=== PATIENT | female | born 1960 | race African-American/Black ===

== ENCOUNTER 2016-06-14 09:30 | Emergency (ER) | payer MEDICARE, OTHER ==
[~2016-06-14] VITALS: Ht 170.2 cm; Wt 78.9 kg
[~2016-06-14 09:30] MED LIST: ASPI81TA2 PO; DIAZ2TAB PO; DIPH50CA37 PO; HYDR-552 PO; INSU100I5 SQ; LORA1TAB PO; OXYC-128 PO
[2016-06-14] MEDS ORDERED: IV SET PRIMARY PUMP SET 1 EA INFUS.SET MC ONE (09:52)
[2016-06-14] MEDS ORDERED: IV NS 0.9% 1,000 ML ONE (09:52)
[2016-06-14] MEDS ORDERED: LORAZEPAM INJ 2 MG/ML VIAL ONE (09:53)
[2016-06-14] MEDS ORDERED: IV NS 0.9% 1,000 ML BAG IV ONE (10:00)
[2016-06-14] MEDS ORDERED: LORAZEPAM INJ 2 MG/ML VIAL IV ONE (10:00)
[2016-06-14 10:07] LABS: BASOPHILS % (AUTO) 0.4 % (0.0-2.0); DIFF TOTAL % 100 %; EOSINOPHILS # (AUTO) 0.1 /CMM (0.0-0.7); EOSINOPHILS % (AUTO) 1.2 % (0.0-6.0); HEMATOCRIT 44 % (33-45); LYMPHOCYTES # (AUTO) 1.3 /CMM (0.8-4.8); LYMPHOCYTES % (AUTO) 17.6 % (20.0-44.0); MEAN CORPUSCULAR HEMOGLOBIN 30 PG (26.0-33.0); MEAN CORPUSCULAR HGB CONC 32 g/dl (31.0-36.0); MEAN CORPUSCULAR VOLUME 94 fL (82-100); MONOCYTES # (AUTO) 0.3 /CMM (0.1-1.30); MONOCYTES % (AUTO) 4.1 % (2.0-12.0); NEUTROPHILS # (AUTO) 5.7 /CMM (1.8-8.9); NEUTROPHILS % (AUTO) 76.7 % (43.0-81.0); PLATELET COUNT (AUTO) 278 /CMM (150-450); RED BLOOD CELL COUNT(AUTO) 4.68 MIL/uL (4.0-5.2); WHITE BLOOD COUNT (AUTO) 7.4 K/uL (4.3-11.0)
[2016-06-14 10:21] LABS: ANION GAP 14 (5-14); CALCIUM, SERUM 8.9 mg/dL (8.5-10.1); CARBON DIOXIDE 27 mmol/L (21-32); CHLORIDE 99 mmol/L (98-107); CREATININE 0.7 mg/dL (0.6-1.3); GFR 106 mL/min (>60); POTASSIUM 4.2 mmol/L (3.5-5.1); SODIUM SERUM 136 mmol/L (136-145); UREA NITROGEN, BLOOD 8 mg/dL (7-18)
[2016-06-14 10:24] LABS: GLUCOSE 497 mg/dL (74-106)
[2016-06-14 10:25] LABS: INR 0.96 (0.87-1.13); PROTHROMBIN TIME 10.1 SECS (9.5-12.7)
[2016-06-14 10:28] LABS: TROPONIN I < 0.017 ng/mL (0.00-0.056)
[2016-06-14] MEDS ORDERED: INSULIN REGULAR, HUMAN 100 UNIT/ML 10 ML VIAL IV ONE (10:30)
[2016-06-14] MEDS ORDERED: INSULIN REGULAR, HUMAN 100 UNIT/ML 10 ML VIAL ONE (10:30)
[2016-06-14] MEDS ORDERED: INSULIN REGULAR, HUMAN 100 UNIT/ML 10 ML VIAL SQ ONE (11:00)
[2016-06-14 11:57] VITALS: BP 120/88
== END 2016-06-14 11:58 | disposition home or self-care (01) ==
LOC: ER 09:32
DX: E11.65 Type 2 diabetes mellitus with hyperglycemia (principal); B35.1 Tinea unguium; R25.2 Cramp and spasm; F41.9 Anxiety disorder, unspecified; J45.909 Unspecified asthma, uncomplicated; M19.90 Unspecified osteoarthritis, unspecified site; I26.99 Other pulmonary embolism without acute cor pulmonale; Z79.82 Long term (current) use of aspirin; Z79.4 Long term (current) use of insulin
CPT/HCPCS: 36415; 71010; 80048; 82962 ×2; 84484; 85025; 85730; 93005; 96372; 96374; 99285; A4606; J1815; J2060; J7030; Z7610

== ENCOUNTER 2016-08-08 21:33 | Emergency (ER) | payer MEDICARE, OTHER ==
[~2016-08-08] VITALS: Ht 170.2 cm; Wt 77.1 kg
[2016-08-08 21:40] VITALS: BP 100/67
--- NOTE | 2016-08-08 22:38 | NUR ---
called to rm, no answer.
--- NOTE | 2016-08-08 22:49 | NUR ---
CALLED NO ANSWER.
--- NOTE | 2016-08-08 23:08 | NUR ---
called no answer.
== END 2016-08-08 23:08 | disposition left against medical advice (07) ==
LOC: ER 21:42
DX: Z53.21 Procedure and treatment not carried out due to patient leaving prior to being seen by health care provider (principal)
CPT/HCPCS: A4606; Z7610

== ENCOUNTER 2016-09-29 19:40 | Emergency (ER) | payer MEDICARE, OTHER ==
[~2016-09-29] VITALS: Ht 170.2 cm; Wt 72.6 kg
[2016-09-29 20:13] LABS: APPEARANCE,URINE Clear (CLEAR); BILIRUBIN,URINE Negative (NEGATIVE); BLOOD, URINE Negative Ery/uL (NEGATIVE); COLOR,URINE Yellow (YELLOW); KETONES,URINE Negative (NEGATIVE); LEUKOCYTE ESTERASE ,URINE Negative (NEGATIVE); NITRITE, URINE Negative (NEGATIVE); PROTEIN,URINE Negative (NEGATIVE); UGLUCOSE 500 MG/DL mg/dL (NEGATIVE); UROBILINOGEN,URINE 0.2 EU/dL (0.2)
[2016-09-29] MEDS ORDERED: IV NS 0.9% 1,000 ML BAG IV ONE (20:30)
--- NOTE | 2016-09-29 20:30 | NUR ---
PT PRESENTED TO THE ER WITH A C/O PAIN WITH URINATION. PT STATED THAT SHE HAS NEVER FELT THIS BEFORE. PT GAVE A URINE SAMPLE AND PT AMBULATED TO BED #4.
--- NOTE | 2016-09-29 20:32 | NUR ---
DR. FORDE IS AT THE BEDSIDE.
[2016-09-29] MEDS ORDERED: IV SET PRIMARY 1 EA INFUS.SET MC ONE (20:38)
[2016-09-29] MEDS ORDERED: IV NS 0.9% 1,000 ML ONE (20:38)
--- NOTE | 2016-09-29 20:39 | NUR ---
IV STARTED AND BLOOD DRAWN. LAB CALLED FOR P/U.
[2016-09-29 20:52] LABS: BASOPHILS # (AUTO) 0.2 /CMM (0.0-0.2); BASOPHILS % (AUTO) 2.6 % (0.0-2.0); EOSINOPHILS # (AUTO) 0.1 /CMM (0.0-0.7); EOSINOPHILS % (AUTO) 1.4 % (0.0-6.0); HEMATOCRIT 39 % (33-45); HEMOGLOBIN 12.6 g/dL (11.5-14.8); LYMPHOCYTES # (AUTO) 1.6 /CMM (0.8-4.8); LYMPHOCYTES % (AUTO) 20.9 % (20.0-44.0); MEAN CORPUSCULAR HEMOGLOBIN 29 PG (26.0-33.0); MEAN CORPUSCULAR HGB CONC 32 g/dl (31.0-36.0); MEAN CORPUSCULAR VOLUME 90 fL (82-100); MONOCYTES # (AUTO) 0.5 /CMM (0.1-1.30); MONOCYTES % (AUTO) 7.1 % (2.0-12.0); NEUTROPHILS # (AUTO) 5.1 /CMM (1.8-8.9); PLATELET COUNT (AUTO) 290 /CMM (150-450); RDW COEFFICIENT OF VARIATION 11.4 (11.5-15.0); RED BLOOD CELL COUNT(AUTO) 4.34 MIL/uL (4.0-5.2); WHITE BLOOD COUNT (AUTO) 7.5 K/uL (4.3-11.0)
[2016-09-29] MEDS ORDERED: HYDROCODONE/APAP 5/325MG 1 EACH TABLET ONE (21:01)
[2016-09-29 21:17] LABS: ALBUMIN 3.4 g/dL (3.4-5.0); BILIRUBIN,DIRECT 0.1 mg/dL (0.0-0.2); BILIRUBIN,TOTAL 0.5 mg/dL (0.2-1.0); CALCIUM, SERUM 9.3 mg/dL (8.5-10.1); CREATININE 0.7 mg/dL (0.6-1.3); POTASSIUM 3.9 mmol/L (3.5-5.1); TOTAL PROTEIN, SERUM 7.4 g/dL (6.4-8.2)
[2016-09-29] MEDS ORDERED: HYDROCODONE/APAP 5/325MG 1 EACH TABLET PO ONE (21:30)
[2016-09-29] MEDS ORDERED: INSULIN REGULAR, HUMAN 100 UNIT/ML 10 ML VIAL ONE (21:31)
--- NOTE | 2016-09-29 21:38 | NUR ---
VERIFIED REGULAR INSULIN 8UNITS SQ WITH PASTEURIZER HELPER NORY.
[2016-09-29] MEDS ORDERED: INSULIN REGULAR, HUMAN 100 UNIT/ML 10 ML VIAL SQ ONE (22:00)
[2016-09-29 22:14] VITALS: BP 147/80
== END 2016-09-29 22:17 | disposition home or self-care (01) ==
LOC: ER 19:42
DX: E11.65 Type 2 diabetes mellitus with hyperglycemia (principal); B00.9 Herpesviral infection, unspecified; F41.9 Anxiety disorder, unspecified; J45.909 Unspecified asthma, uncomplicated; G61.0 Guillain-Barre syndrome; M19.90 Unspecified osteoarthritis, unspecified site; Z79.4 Long term (current) use of insulin; Z79.82 Long term (current) use of aspirin; Z86.711 Personal history of pulmonary embolism; Z98.890 Other specified postprocedural states
CPT/HCPCS: 36415; 80048-TC; 80076-TC; 81000-TC; 82962-TC; 83690-TC; 85025-TC; 87086-TC; 87210-TC; A4606; J1815; J7030; Z7610

== ENCOUNTER 2016-12-09 14:29 | Emergency (ER) | payer MEDICARE, OTHER ==
[~2016-12-09] VITALS: Ht 172.7 cm; Wt 70.3 kg
--- NOTE | 2016-12-09 14:32 | NUR ---
PT AMBULATORY TO ER BED 10. C/O DIARRHEA SINCE FRIDAY. NAUSEA NO VOMITING. PT APPEARS ANXIOUS STATING SHES BEEN STRESSING ABOUT . GOWNED AND PLACED ON MOINTOR. STABLE VITALS AWAITING MD GARCIA.
--- NOTE | 2016-12-09 15:25 | NUR ---
KATARINA MONTANEZ AT BEDSIDE FOR EVAL.
--- NOTE | 2016-12-09 15:38 | NUR ---
IV LINE STARTED BLOOD DRAWN AND SENT TO LAB.
[2016-12-09 15:52] LABS: HEMOGLOBIN 12.9 g/dL (11.5-14.8); RED BLOOD CELL COUNT(AUTO) 4.19 MIL/uL (4.0-5.2); WHITE BLOOD COUNT (AUTO) 5.8 K/uL (4.3-11.0)
[2016-12-09 15:55] LABS: HEMATOCRIT 39 % (33-45); MEAN CORPUSCULAR HEMOGLOBIN 31 PG (26.0-33.0); MEAN CORPUSCULAR HGB CONC 33 g/dl (31.0-36.0); MEAN CORPUSCULAR VOLUME 92 fL (82-100); PLATELET COUNT (AUTO) 243 /CMM (150-450); RDW COEFFICIENT OF VARIATION 11.5 (11.5-15.0)
[2016-12-09 15:56] LABS: BASOPHILS # (AUTO) 0.1 /CMM (0.0-0.2); BASOPHILS % (AUTO) 0.9 % (0.0-2.0); EOSINOPHILS % (AUTO) 0.7 % (0.0-6.0); LYMPHOCYTES # (AUTO) 1.6 /CMM (0.8-4.8); LYMPHOCYTES % (AUTO) 27.3 % (20.0-44.0); MONOCYTES # (AUTO) 0.3 /CMM (0.1-1.30); NEUTROPHILS # (AUTO) 3.8 /CMM (1.8-8.9); NEUTROPHILS % (AUTO) 65.1 % (43.0-81.0)
[2016-12-09] MEDS ORDERED: ONDANSETRON HCL/PF 4 MG/2 ML VIAL ONE (15:59)
[2016-12-09] MEDS ORDERED: LORAZEPAM INJ 2 MG/ML VIAL ONE (16:00)
[2016-12-09] MEDS: IV NS 0.9% 1,000 ML BAG IV ONE (16:04)
[2016-12-09] MEDS: ONDANSETRON HCL/PF 4 MG/2 ML VIAL IVP ONE (16:05)
[2016-12-09] MEDS: LORAZEPAM INJ 2 MG/ML VIAL IV ONE (16:08)
[2016-12-09 16:20] LABS: ALBUMIN 3.6 g/dL (3.4-5.0); BILIRUBIN,DIRECT 0.1 mg/dL (0.0-0.2); BILIRUBIN,TOTAL 0.7 mg/dL (0.2-1.0); CALCIUM, SERUM 8.7 mg/dL (8.5-10.1); CREATININE 0.9 mg/dL (0.6-1.3); TOTAL PROTEIN, SERUM 7.5 g/dL (6.4-8.2)
[2016-12-09 16:24] LABS: INR 0.95 (0.87-1.13); PROTHROMBIN TIME 9.9 SECS (9.5-12.7)
[2016-12-09 16:58] LABS: BILIRUBIN,URINE Negative (NEGATIVE); BLOOD, URINE Negative Ery/uL (NEGATIVE); COLOR,URINE Light yellow (YELLOW); KETONES,URINE Negative (NEGATIVE); LEUKOCYTE ESTERASE ,URINE Negative (NEGATIVE); NITRITE, URINE Negative (NEGATIVE); PROTEIN,URINE Negative (NEGATIVE); UGLUCOSE >=1000 mg/dL (NEGATIVE); UROBILINOGEN,URINE 0.2 EU/dL (0.2)
[2016-12-09 16:59] LABS: APPEARANCE,URINE SLIGHTLY HAZY (CLEAR)
[2016-12-09 17:03] LABS: BACTERIA,URINE None seen /HPF (None Seen); RBC,URINE 0-2 /HPF (0-2); SQUAMOUS EPITHELIAL CELL,UR Few /HPF (None Seen); WBC,URINE 0-3 /HPF (0-3)
[2016-12-09] MEDS ORDERED: INSULIN REGULAR, HUMAN 100 UNIT/ML 10 ML VIAL ONE (17:08)
[2016-12-09] MEDS: INSULIN REGULAR, HUMAN 100 UNIT/ML 10 ML VIAL IV ONE (17:10)
--- NOTE | 2016-12-09 17:54 | NUR ---
Patient discharged to home in stable condition. Written and verbal after care instructions given. Patient verbalizes understanding of instruction.IV removed. Catheter intact and site benign. Pressure and 4x4 applied to site. No bleeding noted.
[2016-12-09 17:55] VITALS: BP 132/77
== END 2016-12-09 17:56 | disposition home or self-care (01) ==
LOC: ER 14:32
DX: R19.7 Diarrhea, unspecified (principal); E11.65 Type 2 diabetes mellitus with hyperglycemia; J45.909 Unspecified asthma, uncomplicated; F41.9 Anxiety disorder, unspecified; M19.90 Unspecified osteoarthritis, unspecified site; Z79.4 Long term (current) use of insulin; Z79.82 Long term (current) use of aspirin; Z86.711 Personal history of pulmonary embolism
CPT/HCPCS: 36415; 80048-TC; 80076-TC; 81000-TC; 82962-TC; 83690-TC; 85025-TC; 85730-TC; A4606; J1815; J2060; J2405; J7030; Z7610

== ENCOUNTER 2017-01-23 11:16 | Emergency (ER) | payer MEDICARE, OTHER ==
[~2017-01-23] VITALS: Ht 170.2 cm; Wt 68.0 kg
[2017-01-23 11:56] VITALS: BP 116/79
== END 2017-01-23 11:58 | disposition home or self-care (01) ==
LOC: ER 11:21
DX: R19.7 Diarrhea, unspecified (principal); E11.9 Type 2 diabetes mellitus without complications; J45.909 Unspecified asthma, uncomplicated; G61.0 Guillain-Barre syndrome; F41.9 Anxiety disorder, unspecified; M19.90 Unspecified osteoarthritis, unspecified site; Z79.4 Long term (current) use of insulin; Z79.82 Long term (current) use of aspirin; Z86.711 Personal history of pulmonary embolism
CPT/HCPCS: 99283; A4606 ×2; Z7610

== ENCOUNTER 2017-02-17 17:43 | Emergency (ER) | payer MEDICARE, OTHER ==
[~2017-02-17] VITALS: Ht 170.2 cm; Wt 68.0 kg
--- NOTE | 2017-02-17 19:00 | NUR ---
BIB FAMILY C/O DIZZINESS AND ON & OFF CHEST PAIN X 6 DAYS, NAD NOTED, VSS, RESP EVEN AND UNLABORED. SKIN WARM AND DRY. WAITING FOR MD GARCIA.
[2017-02-17] MEDS ORDERED: IV NS 0.9% 500 ML BAG IV ONE (19:30)
[2017-02-17] MEDS ORDERED: MORPHINE SULFATE INJ 2 MG/ML DISP.SYRIN IV ONE (19:30)
[2017-02-17] MEDS ORDERED: ONDANSETRON HCL/PF 4 MG/2 ML VIAL IVP ONE (19:30)
[2017-02-17] MEDS ORDERED: IV NS 0.9% 250 ML IV ONE (19:50)
[2017-02-17] MEDS ORDERED: IOHEXOL-350 100 ML VIAL IV ONE (19:50)
[2017-02-17 20:02] LABS: BASOPHILS % (AUTO) 0.1 % (0.0-2.0); EOSINOPHILS % (AUTO) 0.3 % (0.0-6.0); HEMATOCRIT 38 % (33-45); HEMOGLOBIN 13.3 g/dL (11.5-14.8); LYMPHOCYTES # (AUTO) 1.5 /CMM (0.8-4.8); LYMPHOCYTES % (AUTO) 15.7 % (20.0-44.0); MEAN CORPUSCULAR HEMOGLOBIN 32 PG (26.0-33.0); MEAN CORPUSCULAR HGB CONC 35 g/dl (31.0-36.0); MEAN CORPUSCULAR VOLUME 92 fL (82-100); MONOCYTES # (AUTO) 0.6 /CMM (0.1-1.30); MONOCYTES % (AUTO) 5.9 % (2.0-12.0); NEUTROPHILS # (AUTO) 7.3 /CMM (1.8-8.9); PLATELET COUNT (AUTO) 267 /CMM (150-450); RDW COEFFICIENT OF VARIATION 12.7 (11.5-15.0); RED BLOOD CELL COUNT(AUTO) 4.15 MIL/uL (4.0-5.2); TROPONIN I < 0.017 ng/mL (0.00-0.056); WHITE BLOOD COUNT (AUTO) 9.4 K/uL (4.3-11.0)
[2017-02-17 20:19] LABS: INR 0.9 (0.87-1.13); PROTHROMBIN TIME 9.4 SECS (9.5-12.7)
[2017-02-17 20:24] LABS: ALANINE AMINOTRANSFERASE 21 U/L (12-78); ALBUMIN 3.7 g/dL (3.4-5.0); ALKALINE PHOSPHATASE 90 U/L (46-116); ASPARTATE AMINOTRANSFERASE 12 U/L (15-37); BILIRUBIN,DIRECT 0.1 mg/dL (0.0-0.2); BILIRUBIN,TOTAL 0.6 mg/dL (0.2-1.0); CALCIUM, SERUM 9.4 mg/dL (8.5-10.1); CARBON DIOXIDE 27 mmol/L (21-32); CHLORIDE 100 mmol/L (98-107); CREATININE 0.8 mg/dL (0.6-1.3); POTASSIUM 3.7 mmol/L (3.5-5.1); SODIUM SERUM 135 mmol/L (136-145); TOTAL PROTEIN, SERUM 7.7 g/dL (6.4-8.2); UREA NITROGEN, BLOOD 9 mg/dL (7-18)
[2017-02-17 20:25] LABS: GLUCOSE 539 mg/dL (74-106)
[2017-02-17] MEDS ORDERED: INSULIN REGULAR, HUMAN 100 UNIT/ML 10 ML VIAL SQ ONE (21:00)
[2017-02-17] MEDS ORDERED: INSULIN REGULAR, HUMAN 100 UNIT/ML 10 ML VIAL ONE (21:01)
[2017-02-17 21:49] VITALS: BP 134/82
--- NOTE | 2017-02-17 21:49 | NUR ---
Patient discharged to home in stable condition. Written and verbal after care instructions given. Patient verbalizes understanding of instruction. PT ambulatory with a steady gait VITAL SIGNS WITHIN NORMAL LIMITS.IV removed. Catheter intact and site benign. Pressure and 4x4 applied to site. No bleeding noted.
== END 2017-02-17 21:51 | disposition home or self-care (01) ==
LOC: ER 17:52
DX: J06.9 Acute upper respiratory infection, unspecified (principal); E11.9 Type 2 diabetes mellitus without complications; I10 Essential (primary) hypertension; J45.909 Unspecified asthma, uncomplicated; F41.9 Anxiety disorder, unspecified; M19.90 Unspecified osteoarthritis, unspecified site; Z79.4 Long term (current) use of insulin; Z79.82 Long term (current) use of aspirin; Z86.711 Personal history of pulmonary embolism
CPT/HCPCS: 36415; 71010; 71275; 80048; 80076; 84484; 85025; 85730; 93005; 96361; 96372; 96374; 96375; 99285; A4606; J1815; J7040; J7050; Q9967; Z7610

== ENCOUNTER 2017-05-26 11:24 | Inpatient (IN) | payer MEDICARE, OTHER ==
[~2017-05-26] VITALS: Ht 170.2 cm; Wt 71.2 kg
[~2017-05-26 11:24] MED LIST changes: +ASPI-1169 PO; -ASPI81TA2 PO
--- NOTE | 2017-05-26 11:40 | NUR ---
PT CAME FROM HOME WITH C/O RT HAND PAIN X 2 DAYS, NO TRAUMA. REPORTSD TINGLING WITH IT. HS OF GBS. SEEN BY MD FOR EVAL. VSS. SAFETY AND COMFORT MEASURES PROVIDED. WILL MONITOR.
[2017-05-26] MEDS ORDERED: HYDROCODONE/APAP 5/325MG 1 EACH TABLET PO ONE (12:00)
[2017-05-26] MEDS ORDERED: HYDROCODONE/APAP 5/325MG 1 EACH TABLET ONE (12:04)
--- NOTE | 2017-05-26 12:16 | NUR ---
MURTAZA AT BS.
[2017-05-26 12:46] LABS: BASOPHILS % (AUTO) 0.7 % (0.0-2.0); EOSINOPHILS # (AUTO) 0.1 /CMM (0.0-0.7); MEAN CORPUSCULAR HEMOGLOBIN 31 PG (26.0-33.0); MEAN CORPUSCULAR HGB CONC 35 g/dl (31.0-36.0); MONOCYTES # (AUTO) 0.3 /CMM (0.1-1.30); RDW COEFFICIENT OF VARIATION 11.5 (11.5-15.0); WHITE BLOOD COUNT (AUTO) 6.9 K/uL (4.3-11.0)
[2017-05-26 12:48] LABS: EOSINOPHILS % (AUTO) 1.9 % (0.0-6.0); HEMATOCRIT 37 % (33-45); HEMOGLOBIN 12.6 g/dL (11.5-14.8); LYMPHOCYTES # (AUTO) 1.7 /CMM (0.8-4.8); LYMPHOCYTES % (AUTO) 24.1 % (20.0-44.0); MEAN CORPUSCULAR VOLUME 90 fL (82-100); NEUTROPHILS # (AUTO) 4.8 /CMM (1.8-8.9); NEUTROPHILS % (AUTO) 68.3 % (43.0-81.0); PLATELET COUNT (AUTO) 270 /CMM (150-450); RED BLOOD CELL COUNT(AUTO) 4.05 MIL/uL (4.0-5.2)
[2017-05-26 12:59] LABS: INR 0.89 (0.85-1.15)
[2017-05-26 13:03] LABS: ALBUMIN 3.4 g/dL (3.4-5.0); BILIRUBIN,DIRECT 0.1 mg/dL (0.0-0.2); BILIRUBIN,TOTAL 0.4 mg/dL (0.2-1.0); CALCIUM, SERUM 8.8 mg/dL (8.5-10.1); CREATININE 0.8 mg/dL (0.6-1.3); POTASSIUM 4.1 mmol/L (3.5-5.1); TOTAL PROTEIN, SERUM 7.5 g/dL (6.4-8.2)
[2017-05-26] MEDS ORDERED: ASPIRIN 325 MG TABLET PO ONE (13:30)
[2017-05-26] MEDS ORDERED: INSULIN DETEMIR 100 UNIT/ML CARTRIDGE SQ SCH (13:30)
[2017-05-26] MEDS ORDERED: FAMO20TA8 PO (13:53)
[2017-05-26] MEDS ORDERED: HYDR-548 PO (13:53)
[2017-05-26] MEDS ORDERED: ASPIRIN 325 MG TABLET ONE (14:05)
[2017-05-26] MEDS ORDERED: DEXTROSE 50%-WATER 50 ML DISP.SYRIN IV PRN (14:30)
--- NOTE | 2017-05-26 14:33 | NUR ---
REPORT GIVEN TO MICA HIRSCH FOR MS [id number]
[2017-05-26 15:00] VITALS: BP 125/93
--- NOTE | 2017-05-26 15:05 | NUR ---
MS/OVERHEAD CRANE TECHNICIAN NOTES RECEIVED PATIENT FROM ER VIA WHEELCHAIR. PATIENT IS A/OX4, AMBULATORY, COMPLAINS OF RIGHT ARM AND LEG WEAKNESS AND PAIN ON RIGHT SHOULDER BLADE 4/10 SCALE, OFFERED PAIN MEDS BUT REFUSED, PER PATIENT SHE JUST GOT MEDICATED FROM ER AND PAIN IS TOLERABLE AT THIS TIME. SPEECH IS CLEAR AND NO DIFFICULTY, NO FACIAL DROOPING, PATIENT IS EATING SNACK AND ABLE TO SWALLOW AND DRINK FLUIDS. NO HEADACHE, NO BLURRED VISION. IV SITE INTACT AND PATENT. VS WNL: BP 125/93, T= 97.9, P= 94, R= 18, SPO2= 100%. KEPT PATIENT SAFE AND COMFORTABLE IN BED. ALL BELONGINGS ON BEDSIDE, CHECKLIST DONE. AWAITING FOR MD'S ORDERS. BED IN LOCKED/LOW POSITION, SIDERAILS UPX2, CALL LIGHT IN REACH. WILL CONTINUE TO MONITOR ACCORDINGLY.
[2017-05-26] MEDS: BLOOD SUGAR DIAGNOSTIC 1 EACH STRIP VI SCH ×2 (17:30→23:01)
[2017-05-26] MEDS: INSULIN REGULAR, HUMAN 100 UNIT/ML 3 ML VIAL SQ PRN (18:26)
--- NOTE | 2017-05-26 18:31 | NUR ---
RN NOTES BS 511, 15 UNITS GIVEN, DR ESPINOZA NOTIFIED.
--- NOTE | 2017-05-26 18:45 | NUR ---
RN NOTES PER DR ESPINOZA, GIVE LANTUS 20 UNIT DAILY.
[2017-05-26] MEDS ORDERED: INSULIN GLARGINE, 100 UNIT/ML CARTRIDGE SQ ONE (19:00)
--- NOTE | 2017-05-26 19:30 | NUR ---
RN CLOSING NOTES PATIENT IN BED RESTING. NO ACUTE DISTRESS, NO SOB NOTED. DENIES PAIN OR DISCOMFORT. ALL NEEDS ATTENDED AND PROVIDED. KEPT PATIENT SAFE AND COMFORTABLE. BED IN LOW/LOCKED POSITION, SIDERAILS UPX2, CALL LIGHT IN REACH. ENDORSED TO NIGHT RN FOR OREN.
[2017-05-26 19:37] LABS: THYROID STIMULATING HORMONE 0.853 uIU/mL (0.358-3.74)
[2017-05-26 19:58] LABS: MAGNESIUM 1.8 mg/dL (1.8-2.4)
[2017-05-26 20:00] VITALS: BP 125/73
--- NOTE | 2017-05-26 20:00 | NUR ---
MS/RN RECEIVE PATIENT AWAKE, ALERT, ORIENTED, COMFORTABLE, NO DISTRESS NOTED, ABLE TO MOVE ALL EXTREMITIES. WILL MONITOR.
--- NOTE | 2017-05-26 20:36 | NUR ---
MS/RN PATIENT C/O PAIN RT. UPPER BACK 11/28, NO PAIN MEDICATION ORDERED, CALLED [email or web address], LEFT MESSAGE.
--- NOTE | 2017-05-26 20:53 | NUR ---
MS/RN DR. NAILS CALLED WITH ORDERS RECEIVE. ORDERS CARRIED OUT.
[2017-05-26] MEDS: KETOROLAC TROMETHAMINE INJ 30 MG/ML VIAL IV PRN (21:16)
[2017-05-26] MEDS: SIMVASTATIN 20 MG TABLET PO SCH (21:20)
--- NOTE | 2017-05-26 22:58 | NUR ---
MS/RN ACCU CHECK DONE, INITIAL RESULT 520. RECHECKED USING OTHER ACCU CHECK MACHINE, BLOOD SUGAR 429. PATIENT ASYMPTOMATIC. DUST BOX TENDER MADE AWAKE, PER DUST BOX TENDER, DO STAT BLOOD DRAW FOR RANDOM BLOOD SUGAR PER PROTOCOL.
--- NOTE | 2017-05-26 23:02 | NUR ---
MS/RN CALLED LAB SPOKE TO CUBA FOR STAT BLOOD GLUCOSE.
[2017-05-26] MEDS: LORAZEPAM 1 MG TABLET PO SCH (23:09)
[2017-05-26] MEDS: *INSULIN REGULAR(HUMULIN R)HUM 100 UNIT/ML VIAL SQ PRN (23:16)
[2017-05-26 23:33] LABS: APPEARANCE,URINE CLEAR (CLEAR); BILIRUBIN,URINE NEGATIVE (NEGATIVE); BLOOD, URINE NEGATIVE Ery/uL (NEGATIVE); COLOR,URINE YELLOW (YELLOW); KETONES,URINE NEGATIVE (NEGATIVE); LEUKOCYTE ESTERASE ,URINE NEGATIVE (NEGATIVE); NITRITE, URINE NEGATIVE (NEGATIVE); PROTEIN,URINE NEGATIVE (NEGATIVE); UGLUCOSE 3+ mg/dL (NEGATIVE); UROBILINOGEN,URINE 0.2 EU/dL (0.2)
[2017-05-26 23:35] LABS: BACTERIA,URINE Few /HPF (None Seen); RBC,URINE NONE SEEN /HPF (0-2); SQUAMOUS EPITHELIAL CELL,UR Few /HPF (None Seen); WBC,URINE 0-2 /HPF (0-3)
--- NOTE | 2017-05-27 00:19 | NUR ---
MS/RN BLOOD GLUCOSE RANDOM, 427, CALLED [facility] AND SPOKE TO DR. NAILS. PER DR. NAILS, INFORMED HIM ABOUT THE PAST BLOOD SUGAR RESULTS AND THE LANTUS AND REGULAR INSULIN THAT WERE ALREADY GIVEN. PER MD, MONITOR PATIENT AND BLOOD SUGAR. ALSO MADE AWARE MD JHA TORSANDEE THAT IS NOT WORKING ON THE PAIN PER PATIENT, RECEIVED ORDER FOR LIDOCAINE 5% 12 HOURS ON, 12 HOURS OFF. ORDERS CARRIED OUT.
[2017-05-27] MEDS: LIDOCAINE 5% (PATCH) 1 EA PATCH TP SCH (00:37)
--- NOTE | 2017-05-27 01:39 | NUR ---
MS/RN PATIENT IS SLEEPING AT THIS TIME, AROUSABLE, APPEAR COMFORTABLE, NO SIGNS OF DISTRESS NOTED, CALL LIGHT IN REACH. WILL CONTINUE TO MONITOR.
[2017-05-27] MEDS: INSULIN REGULAR, HUMAN 100 UNIT/ML 3 ML VIAL SQ PRN ×3 (06:51→17:26)
[2017-05-27] MEDS: BLOOD SUGAR DIAGNOSTIC 1 EACH STRIP VI SCH ×4 (06:54→22:15)
--- NOTE | 2017-05-27 07:10 | NUR ---
MS/RN PATIENT IS AWAKE, COMFORTABLE, NO DISTRESS NOTED, TALKING ON THE PHONE. ALL NEEDS ATTENDED AT THIS TIME. WILL CONTINUE TO MONITOR.
--- NOTE | 2017-05-27 07:39 | NUR ---
MS/RN OPENING NOTE PATIENT IN BED IN STABLE CONDITION. A/O X 4. NO SIGNS OF ACUTE DISTRESS. NO COMPLAIN OF PAIN OR DISCOMFORT. ALL NEEDS ATTENDED TO. CALL LIGHT WITHIN REACH. WILL CONTINUE TO MONITOR TO ENSURE SAFETY.
[2017-05-27 08:00] VITALS: BP 128/77
[2017-05-27] MEDS: PANTOPRAZOLE 40 MG TABLET.DR PO SCH (08:30)
[2017-05-27] MEDS: ASPIRIN EC 325 MG TABLET.DR PO SCH (08:30)
[2017-05-27] MEDS: LORAZEPAM 1 MG TABLET PO SCH ×2 (08:30→22:02)
[2017-05-27] MEDS: KETOROLAC TROMETHAMINE INJ 30 MG/ML VIAL IV PRN ×2 (14:56→22:14)
[2017-05-27 16:00] VITALS: BP 131/88
--- NOTE | 2017-05-27 17:40 | NUR ---
MS/RN SPOKE WITH DR ESPINOZA SPOKE WITH DR ESPINOZA AND INFORMED REGARDING PATIENT'S BS NOTED 429, SECOND TIME RECHECK NOTED 430 15 UNITS REGULAR INSULIN ADMINISTERED ORDERED. ALSO DR ESPINOZA MADE AWARE REGARDING PATIENT HAS LANTUS 20 UNITS DUE AT 2200. PER DR[address] ESPINOZA NO NEW ORDERS AND CONTINUE TO MONITOR. PATIENT ALSO REQUESTED TO CHANGED HER ATIVAN 1MG PO BID TO Q [address] ESPINOZA INFORMED AND OKAY TO CHANGE ORDERS FOR ATIVAN 1MG PO Q 12 HRS AT 9A AND 9P. PATIENT AWARE.
--- NOTE | 2017-05-27 18:31 | NUR ---
MS/RN CLOSING NOTE PATIENT IN BED IN STABLE CONDITION. A/O X 4. NO SIGNS OF ACUTE DISTRESS. NO COMPLAIN OF PAIN OR DISCOMFORT. ALL NEEDS ATTENDED TO. CALL LIGHT WITHIN REACH. WILL ENDORSE TO NEXT SHIFT FOR CONTINUITY OF CARE.
--- NOTE | 2017-05-27 19:32 | NUR ---
MS/RN RECEIVE PATIENT AWAKE, ALERT, ORIENTED, COMFORTABLE, NO C/O PAIN, NO DISTRESS NOTED, CALL LIGHT IN REACH. WILL MONITOR.
[2017-05-27 20:00] VITALS: BP 128/72
[2017-05-27] MEDS: SIMVASTATIN 20 MG TABLET PO SCH (22:01)
[2017-05-27] MEDS: *INSULIN REGULAR(HUMULIN R)HUM 100 UNIT/ML VIAL SQ PRN (22:06)
[2017-05-27] MEDS: INSULIN GLARGINE, 100 UNIT/ML CARTRIDGE SQ SCH (22:06)
[2017-05-28] MEDS: LIDOCAINE 5% (PATCH) 1 EA PATCH TP SCH (00:39)
--- NOTE | 2017-05-28 02:07 | NUR ---
MS/RN PATIENT IS SLEEPING AT THIS TIME, AROUSABLE, APPEAR COMFORTABLE, NO DISTRESS NOTED, CALL LIGHT IN REACH. WILL CONTINUE TO MONITOR.
--- NOTE | 2017-05-28 06:46 | NUR ---
TEXTED DR. TAPIA FOR MRI APPROVAL.
[2017-05-28] MEDS: INSULIN REGULAR, HUMAN 100 UNIT/ML 3 ML VIAL SQ PRN ×4 (06:58→18:20)
[2017-05-28] MEDS: BLOOD SUGAR DIAGNOSTIC 1 EACH STRIP VI SCH ×4 (06:59→21:40)
--- NOTE | 2017-05-28 07:00 | NUR ---
While rounding with cook night rn on change of shift endorsement. Patient was noted to be in bed laying on right side/semi-fowlers positioning. Call light with in reach. RAVI 3 mm bilateral. Noted to we weaker on right upper extremity and strong grasp on left arm. Noted to have weak bilateral LE.
[2017-05-28 07:13] LABS: BASOPHILS % (AUTO) 0.6 % (0.0-2.0); EOSINOPHILS # (AUTO) 0.1 /CMM (0.0-0.7); EOSINOPHILS % (AUTO) 2.5 % (0.0-6.0); HEMATOCRIT 34 % (33-45); HEMOGLOBIN 11.9 g/dL (11.5-14.8); LYMPHOCYTES # (AUTO) 1.3 /CMM (0.8-4.8); LYMPHOCYTES % (AUTO) 29.1 % (20.0-44.0); MEAN CORPUSCULAR HEMOGLOBIN 32 PG (26.0-33.0); MEAN CORPUSCULAR HGB CONC 35 g/dl (31.0-36.0); MEAN CORPUSCULAR VOLUME 91 fL (82-100); MONOCYTES # (AUTO) 0.3 /CMM (0.1-1.30); MONOCYTES % (AUTO) 7.3 % (2.0-12.0); NEUTROPHILS # (AUTO) 2.8 /CMM (1.8-8.9); NEUTROPHILS % (AUTO) 60.5 % (43.0-81.0); PLATELET COUNT (AUTO) 243 /CMM (150-450); RDW COEFFICIENT OF VARIATION 12.2 (11.5-15.0); RED BLOOD CELL COUNT(AUTO) 3.74 MIL/uL (4.0-5.2); WHITE BLOOD COUNT (AUTO) 4.6 K/uL (4.3-11.0)
--- NOTE | 2017-05-28 07:14 | NUR ---
MS/RN AWAKE, ALERT, ORIENTED, COMFORTABLE, TALKING TO THE PHONE, MRI CHECKLIST COMPLETED. ALL NEEDS ATTENDED AT THIS TIME. WILL CONTINUE TO MONITOR.
[2017-05-28 07:23] LABS: CALCIUM, SERUM 8.5 mg/dL (8.5-10.1); CREATININE 0.5 mg/dL (0.6-1.3); MAGNESIUM 1.9 mg/dL (1.8-2.4); POTASSIUM 3.8 mmol/L (3.5-5.1)
[2017-05-28 08:00] VITALS: BP 124/68
[2017-05-28] MEDS: PANTOPRAZOLE 40 MG TABLET.DR PO SCH (09:00)
[2017-05-28] MEDS: LORAZEPAM 1 MG TABLET PO SCH ×2 (09:10→21:31)
[2017-05-28] MEDS: ASPIRIN EC 325 MG TABLET.DR PO SCH (09:10)
[2017-05-28] MEDS: KETOROLAC TROMETHAMINE INJ 30 MG/ML VIAL IV PRN (10:35)
--- NOTE | 2017-05-28 11:30 | NUR ---
Patient none-compliant with plan of care. Noted family at beside; patient is off the unit for a MRI procedure. Noted outside food brought in by family/ from outside. Patient teaching and compliance with treatment plan.
--- NOTE | 2017-05-28 13:35 | NUR ---
Pending call out to Dr. Harrison, Patient chief compliant is H.A. that is not alleviated by prn pain medication. Noted with no cardio/pulmonary distress at this point and time. Call light with in reach. Family at bedside. None-compliance with diet; patient/family is bringing food from outside.
[2017-05-28] MEDS ORDERED: ACETAMINOPHEN 325 MG TABLET PO PRN (14:30)
[2017-05-28 16:00] VITALS: BP 124/69
--- NOTE | 2017-05-28 18:21 | NUR ---
Patient is refusing insulin coverage. Patient non-compliant with diabetic plan of care and diet. Patient and family teaching on importance of compliance to plan of care. Patient refused insulin x 3, Sx consult pending.
--- NOTE | 2017-05-28 19:59 | NUR ---
MS/RN RECEIVE PATIENT AWAKE, ALERT, ORIENTED, COMFORTABLE, NO C/O PAIN AT THIS TIME, NO DISTRESS NOTED. CALL LIGHT IN REACH. WILL MONITOR.
[2017-05-28 20:00] VITALS: BP 102/63
[2017-05-28] MEDS: INSULIN GLARGINE, 100 UNIT/ML CARTRIDGE SQ SCH (21:41)
--- NOTE | 2017-05-28 21:42 | NUR ---
MS/RN BLOOD SUGAR 259, REFUSED LANTUS 20 UNITS AND REGULAR INSULIN 6 UNITS PER SLIDING SCALE.
[2017-05-28] MEDS: SIMVASTATIN 20 MG TABLET PO SCH (22:00)
--- NOTE | 2017-05-28 22:00 | NUR ---
MS/RN OFFERED SNACK TUNA OR EGG SANDWICH, BUT PATIENT REFUSED.
[2017-05-29] MEDS: LIDOCAINE 5% (PATCH) 1 EA PATCH TP SCH (00:23)
[2017-05-29] MEDS: KETOROLAC TROMETHAMINE INJ 30 MG/ML VIAL IV PRN (04:27)
[2017-05-29 06:36] LABS: BASOPHILS % (AUTO) 0.6 % (0.0-2.0); EOSINOPHILS # (AUTO) 0.2 /CMM (0.0-0.7); EOSINOPHILS % (AUTO) 4.3 % (0.0-6.0); HEMATOCRIT 32 % (33-45); HEMOGLOBIN 11.5 g/dL (11.5-14.8); LYMPHOCYTES # (AUTO) 1.4 /CMM (0.8-4.8); MEAN CORPUSCULAR HEMOGLOBIN 32 PG (26.0-33.0); MEAN CORPUSCULAR HGB CONC 36 g/dl (31.0-36.0); MEAN CORPUSCULAR VOLUME 90 fL (82-100); MONOCYTES # (AUTO) 0.4 /CMM (0.1-1.30); MONOCYTES % (AUTO) 7.4 % (2.0-12.0); NEUTROPHILS # (AUTO) 2.9 /CMM (1.8-8.9); NEUTROPHILS % (AUTO) 58.7 % (43.0-81.0); PLATELET COUNT (AUTO) 233 /CMM (150-450); RDW COEFFICIENT OF VARIATION 12.1 (11.5-15.0); RED BLOOD CELL COUNT(AUTO) 3.59 MIL/uL (4.0-5.2); WHITE BLOOD COUNT (AUTO) 4.9 K/uL (4.3-11.0)
[2017-05-29 06:56] LABS: CALCIUM, SERUM 8.1 mg/dL (8.5-10.1); CREATININE 0.5 mg/dL (0.6-1.3); MAGNESIUM 1.8 mg/dL (1.8-2.4); PHOSPHORUS 3.7 mg/dL (2.5-4.9)
--- NOTE | 2017-05-29 07:00 | NUR ---
WHILE ROUND AT CHANGE OF SHIFT. PATIENT WAS NOTED TO BE AWAKE IN BED ON THE PHONE. NOTED OUTSIDE DRINKS, CALL LIGHT WITH IN REACH. PATIENT ON RIGHT SIDE ON SEMI-KIDD'S POSITION. NO EPISODES OF HYPO/HYPER GLYCEMIA ON DENTAL AIDE. PATIENT IS STABLE AT THIS POINT AND TIME. NO CARDIOPULMONARY DISTRESS ON PREVIOUS SHIFT. NO ACTIVE S/S OF ACUTE STROKE ON DENTAL AIDE AND AT THIS POINT AND TIME.
--- NOTE | 2017-05-29 07:13 | NUR ---
MS/RN ACCU CHECK DONE, BLOOD SUGAR 252, REFUSED INSULIN COVERAGE AT THIS TIME.
[2017-05-29] MEDS: BLOOD SUGAR DIAGNOSTIC 1 EACH STRIP VI SCH (07:35)
[2017-05-29 08:00] VITALS: BP 107/57
[2017-05-29] MEDS: PANTOPRAZOLE 40 MG TABLET.DR PO SCH (08:21)
[2017-05-29] MEDS: LORAZEPAM 1 MG TABLET PO SCH (08:22)
[2017-05-29] MEDS: ASPIRIN EC 325 MG TABLET.DR PO SCH (08:22)
[2017-05-29] MEDS ORDERED: ASPI-869 PO (10:08)
[2017-05-29] MEDS ORDERED: SIMV20TA6 PO (10:08)
--- NOTE | 2017-05-29 13:15 | NUR ---
PATIENT DISCHARGED HOME. PATIENT IS STABLE, SEEN BY NEUROLOGIST. NO EPISODES OF HYPO/HYPERGLYCEMIA ON SHIFT. PATIENT IS NONE-COMPLIANT WITH INSULIN COVERAGE. FOLLOW UP APPOINTMENT WITH DR. RIVAS IN 2 WEEKS FOR SCHEDULING NECK SURGERY. PATIENT DECLINED PNA, FLU, VACCINE. TEACHING MATERIAL GIVEN TO PATIENT IN REFERENCE TO HIGH RISK STROKE. PATIENT TEACHING ON S/S OF ACUTE STROKE AND TO CALL 911 IT IS A MEDICAL EMERGENCY. PATIENT STABLE UPON DISCHARGE. DISCONTINUED I.V. TO LEFT HAND. PATIENT IS AWARE TO FOLLOW UP WITH PRIMARY CARE PHYSICIAN IN TWO DAYS.
[2017-05-29] MEDS ORDERED: DEXA4TAB2 GT (13:48)
== END 2017-05-29 13:10 | disposition home or self-care (01) | DRG 74 ==
LOC: ER 11:29 → MED 14:39
PROVIDERS: ADMIT Internal Medicine; ATTEND Internal Medicine
DX: M54.12 Radiculopathy, cervical region (principal); M48.02 Spinal stenosis, cervical region; R53.1 Weakness; E11.9 Type 2 diabetes mellitus without complications; J45.909 Unspecified asthma, uncomplicated; Z86.73 Personal history of transient ischemic attack (TIA), and cerebral infarction without residual deficits; G89.29 Other chronic pain; R27.0 Ataxia, unspecified; Z79.4 Long term (current) use of insulin
CPT/HCPCS: 36415; 70450-TC; 70551-TC; 71045-TC; 72125-TC; 72141-TC; 80048-TC; 80061-TC; 80076-TC; 80305; 81000-TC; 82550-TC; 82945-TC; 82962-TC; 83735-TC; 83880; 84100-TC; 84443-TC; 84484-TC; 85025-TC; 85652-TC; 85730-TC; 87081-TC; 87086-TC; 93307-TC; A4606; J1815; J1885; Z7610

== ENCOUNTER 2017-06-09 17:48 | Emergency (ER) | payer MEDICARE, OTHER ==
[~2017-06-09] VITALS: Ht 170.2 cm; Wt 68.0 kg
[~2017-06-09 17:48] MED LIST changes: -ASPI-1169 PO; +ASPI-869 PO; +DEXA4TAB2 GT; -DIAZ2TAB PO; -DIPH50CA37 PO; +FAMO20TA8 PO; +HYDR-548 PO; -HYDR-552 PO; -OXYC-128 PO; +SIMV20TA6 PO
--- NOTE | 2017-06-09 18:06 | NUR ---
PT TO ED DT DIARRHEA SINCE LAST NIGHT, PT IS COMPLAINING OF SLIGHT ABDOMINAL CRAMPS. PT IN NO DISTRESS. DENIES VOMITTING. VSS. AFEBRILE.
[2017-06-09] MEDS ORDERED: DICYCLOMINE HCL 10 MG CAPSULE PO ONE ×2 (18:30→18:31)
[2017-06-09 18:33] VITALS: BP 130/70
--- NOTE | 2017-06-09 18:34 | NUR ---
Patient discharged to home in stable condition. Written and verbal after care instructions given. Patient verbalizes understanding of instruction.
== END 2017-06-09 18:34 | disposition home or self-care (01) ==
LOC: ER 17:49
DX: R19.7 Diarrhea, unspecified (principal); R00.0 Tachycardia, unspecified; J45.909 Unspecified asthma, uncomplicated; E11.9 Type 2 diabetes mellitus without complications; F41.9 Anxiety disorder, unspecified; M19.90 Unspecified osteoarthritis, unspecified site; G61.0 Guillain-Barre syndrome; Z86.711 Personal history of pulmonary embolism; Z79.82 Long term (current) use of aspirin; Z79.4 Long term (current) use of insulin
CPT/HCPCS: A4606; Z7610

== ENCOUNTER 2017-07-03 13:39 | Inpatient (IN) | payer MEDICARE, OTHER ==
[~2017-07-03] VITALS: Ht 170.2 cm; Wt 70.3 kg
[2017-07-03] MEDS ORDERED: ONDANSETRON HCL/PF 4 MG/2 ML VIAL ONE (14:27)
[2017-07-03] MEDS ORDERED: MORPHINE SULFATE INJ 4 MG/ML DISP.SYRIN ONE (14:27)
[2017-07-03] MEDS ORDERED: ASPIRIN 81 MG TAB.CHEW ONE (14:28)
[2017-07-03] MEDS ORDERED: ASPIRIN 81 MG TAB.CHEW PO ONE (14:30)
[2017-07-03] MEDS ORDERED: MORPHINE SULFATE INJ 2 MG/ML DISP.SYRIN IV ONE (14:30)
[2017-07-03] MEDS ORDERED: ONDANSETRON HCL/PF 4 MG/2 ML VIAL IVP ONE (14:30)
[2017-07-03 14:41] LABS: BASOPHILS % (AUTO) 0.2 % (0.0-2.0); EOSINOPHILS # (AUTO) 0.6 /CMM (0.0-0.7); EOSINOPHILS % (AUTO) 9.4 % (0.0-6.0); HEMATOCRIT 37 % (33-45); HEMOGLOBIN 13.3 g/dL (11.5-14.8); LYMPHOCYTES # (AUTO) 1.2 /CMM (0.8-4.8); LYMPHOCYTES % (AUTO) 19.4 % (20.0-44.0); MEAN CORPUSCULAR HEMOGLOBIN 32 PG (26.0-33.0); MEAN CORPUSCULAR HGB CONC 35 g/dl (31.0-36.0); MEAN CORPUSCULAR VOLUME 91 fL (82-100); MONOCYTES # (AUTO) 0.3 /CMM (0.1-1.30); MONOCYTES % (AUTO) 5.3 % (2.0-12.0); NEUTROPHILS # (AUTO) 3.9 /CMM (1.8-8.9); NEUTROPHILS % (AUTO) 65.7 % (43.0-81.0); PLATELET COUNT (AUTO) 268 /CMM (150-450); RDW COEFFICIENT OF VARIATION 11.7 (11.5-15.0); RED BLOOD CELL COUNT(AUTO) 4.13 MIL/uL (4.0-5.2)
[2017-07-03 14:55] LABS: INR 0.93 (0.85-1.15)
[2017-07-03 14:58] LABS: ALANINE AMINOTRANSFERASE 13 U/L (12-78); ALBUMIN 3.4 g/dL (3.4-5.0); ALKALINE PHOSPHATASE 71 U/L (46-116); ASPARTATE AMINOTRANSFERASE 13 U/L (15-37); BILIRUBIN,DIRECT 0.2 mg/dL (0.0-0.2); BILIRUBIN,TOTAL 0.5 mg/dL (0.2-1.0); CARBON DIOXIDE 26 mmol/L (21-32); CHLORIDE 98 mmol/L (98-107); POTASSIUM 4.1 mmol/L (3.5-5.1); SODIUM SERUM 133 mmol/L (136-145); TOTAL PROTEIN, SERUM 7.5 g/dL (6.4-8.2); UREA NITROGEN, BLOOD 10 mg/dL (7-18)
[2017-07-03 14:59] LABS: TROPONIN I < 0.017 ng/mL (0.00-0.056)
[2017-07-03 15:01] LABS: GLUCOSE 583 mg/dL (74-106)
[2017-07-03] MEDS ORDERED: IV NS 0.9% 1,000 ML BAG IV ONE (15:30)
[2017-07-03] MEDS ORDERED: INSULIN REGULAR, HUMAN 100 UNIT/ML 10 ML VIAL IV ONE (15:30)
[2017-07-03] MEDS ORDERED: ASPI-869 PO (15:33)
[2017-07-03] MEDS ORDERED: INSULIN REGULAR, HUMAN 100 UNIT/ML 10 ML VIAL ONE (15:33)
--- NOTE | 2017-07-03 16:00 | NUR ---
PT CAME IN WITH C/O CHEST PAIN, R HAND NUMBNESS x 1 HR. VSS. SEEN BY MD FOR EVAL. SAFETY AND COMFORT MEASURES PROVIDED. WILL MONITOR.
--- NOTE | 2017-07-03 16:23 | NUR ---
CALLED [employer] OLAP DEVELOPER WAS PAGED.
--- NOTE | 2017-07-03 16:30 | NUR ---
IV ACCESS STARTED, BLOOD DRAWN FOR LABS. MEDICATED ORDERED.
[2017-07-03] MEDS ORDERED: ONDANSETRON HCL/PF 4 MG/2 ML VIAL IVP PRN (17:00)
[2017-07-03] MEDS ORDERED: ZOLPIDEM TARTRATE 5 MG TABLET PO PRN (17:00)
[2017-07-03] MEDS ORDERED: DEXTROSE 50%-WATER 50 ML DISP.SYRIN IV PRN (17:00)
[2017-07-03] MEDS ORDERED: MAG HYDROX/AL HYDROX/SIMETH 30 ML UDC PO PRN (17:00)
[2017-07-03] MEDS ORDERED: HYDROCODONE/APAP 10/325MG 1 EA TABLET PO PRN (17:00)
[2017-07-03] MEDS ORDERED: ACETAMINOPHEN 325 MG TABLET PO PRN (17:00)
[2017-07-03] MEDS ORDERED: *INSULIN REGULAR(HUMULIN R)HUM 100 UNIT/ML VIAL SQ PRN (17:00)
[2017-07-03] MEDS ORDERED: HYDROCODONE/APAP 5/325MG 1 EACH TABLET PO PRN (17:00)
[2017-07-03] MEDS ORDERED: Z GUARD REMEDY 2 OZ OINT TP PRN (17:00)
[2017-07-03] MEDS ORDERED: MORPHINE SULFATE INJ 4 MG/ML DISP.SYRIN IV PRN (17:00)
[2017-07-03] MEDS ORDERED: MAGNESIUM HYDROXIDE 30 ML UDC PO PRN (17:00)
[2017-07-03] MEDS ORDERED: LORAZEPAM 1 MG TABLET PO PRN (17:30)
--- NOTE | 2017-07-03 17:30 | NUR ---
REPORT GIVEN TO LYLA HIRSCH FOR TELE 120.
[2017-07-03 17:45] VITALS: BP 107/72
[2017-07-03] MEDS: BLOOD SUGAR DIAGNOSTIC 1 EACH STRIP IN SCH ×2 (17:48→22:00)
[2017-07-03] MEDS: FAMOTIDINE (20 MG) 20 MG TABLET PO SCH (17:48)
[2017-07-03] MEDS: INSULIN REGULAR, HUMAN 100 UNIT/ML 3 ML VIAL SQ PRN (17:55)
--- NOTE | 2017-07-03 18:24 | NUR ---
RN NOTES RECEIVED PT FROM ER, A&0X3, AMBULATORY. ON ROOM AIR NO SOB OR DISTRESS NOTED. SR ON THE TELE JUSTINE. LAC 20G IV SITE INTACT WITH IVF AT 75ML/HR. COMPLAINING OF CHEST PAIN 2/10. BED LOCKED AND IN LOWEST POSITION, CALL LIGHT WITHIN REACH, SIDE RAILS UPX3, WILL CONT TO JUSTINE.
[2017-07-03 20:00] VITALS: BP 109/70
[2017-07-03] MEDS ORDERED: ENOXAPARIN SODIUM 40 MG/0.4 ML DISP.SYRIN SQ SCH (21:00)
[2017-07-03] MEDS ORDERED: INSULIN DETEMIR 100 UNIT/ML CARTRIDGE SQ SCH (21:00)
[2017-07-03] MEDS: INSULIN GLARGINE, 100 UNIT/ML CARTRIDGE SQ SCH (21:58)
[2017-07-04] VITALS: BP 123/74
[2017-07-04] MEDS: IV NS 0.9% 1,000 ML IV PRN ×2 (00:50→06:59)
[2017-07-04 04:00] VITALS: BP 119/75
[2017-07-04 06:20] LABS: BASOPHILS % (AUTO) 0.4 % (0.0-2.0); EOSINOPHILS # (AUTO) 0.9 /CMM (0.0-0.7); EOSINOPHILS % (AUTO) 14.2 % (0.0-6.0); HEMATOCRIT 33 % (33-45); HEMOGLOBIN 11.7 g/dL (11.5-14.8); LYMPHOCYTES # (AUTO) 1.8 /CMM (0.8-4.8); LYMPHOCYTES % (AUTO) 29.7 % (20.0-44.0); MEAN CORPUSCULAR HEMOGLOBIN 32 PG (26.0-33.0); MEAN CORPUSCULAR HGB CONC 35 g/dl (31.0-36.0); MEAN CORPUSCULAR VOLUME 91 fL (82-100); MONOCYTES # (AUTO) 0.4 /CMM (0.1-1.30); MONOCYTES % (AUTO) 6.2 % (2.0-12.0); NEUTROPHILS % (AUTO) 49.5 % (43.0-81.0); PLATELET COUNT (AUTO) 218 /CMM (150-450); RDW COEFFICIENT OF VARIATION 12.2 (11.5-15.0); RED BLOOD CELL COUNT(AUTO) 3.66 MIL/uL (4.0-5.2)
[2017-07-04 06:34] LABS: CREATININE 0.5 mg/dL (0.6-1.3); MAGNESIUM 1.7 mg/dL (1.8-2.4); PHOSPHORUS 3.4 mg/dL (2.5-4.9); POTASSIUM 4.1 mmol/L (3.5-5.1)
[2017-07-04] MEDS: INSULIN REGULAR, HUMAN 100 UNIT/ML 3 ML VIAL SQ PRN ×2 (06:51→12:33)
[2017-07-04] MEDS: BLOOD SUGAR DIAGNOSTIC 1 EACH STRIP IN SCH ×2 (06:54→11:20)
--- NOTE | 2017-07-04 07:27 | NUR ---
RN CLOSING NOTES IN BED RESTING COMFORTABLY WITH NO RESPIRATORY DISTRESS OR SHORTNESS OF BREATH. BREATHING EVEN AND UNLABORED. NO COMPLAINT OF PAIN OR DISCOMFORT OF THIS TIME. ALERT AND ORIENTED, VERBALLY ABLE TO COMMUNICATE NEEDS. VITAL SIGNS WNL. WILL ENDORSE TO AM SHIFT FOR CONTINUITY OF CARE.
[2017-07-04 08:00] VITALS: BP 126/77
--- NOTE | 2017-07-04 08:08 | NUR ---
MESSENGER FLOORPERSON: INITIAL NOTE RECEIVED PT A/OX3. NO DISTRESS NOTED. ON TELE MONITORING SR. BRP. SKIN INTACT. NO SOB NOTED. NO PAIN NOTED. L AC#20 RUNNING NS AT 75ML/HR. SITE CLEAR AND PATENT. RESTING COMFORTABLY IN BED. CALL LIGHT WITHIN REACH.
[2017-07-04 08:18] VITALS: BP 126/77
[2017-07-04] MEDS ORDERED: IV D5/ 0.9% NACL 1,000 ML IV PRN (08:30)
[2017-07-04 08:51] VITALS: BP 126/84
[2017-07-04] MEDS: FAMOTIDINE (20 MG) 20 MG TABLET PO SCH (08:51)
[2017-07-04 08:52] LABS: THYROID STIMULATING HORMONE 0.933 uIU/mL (0.358-3.74)
[2017-07-04] MEDS ORDERED: LOSARTAN POTASSIUM 50 MG TABLET PO SCH (09:00)
[2017-07-04] MEDS ORDERED: ATORVASTATIN 10 MG TABLET PO SCH (09:00)
[2017-07-04] MEDS: INSULIN GLARGINE, 100 UNIT/ML CARTRIDGE SQ SCH (09:00)
[2017-07-04] MEDS ORDERED: ASPIRIN EC 325 MG TABLET.DR PO SCH (09:00)
--- NOTE | 2017-07-04 09:03 | NUR ---
PER MD JEREZ TO GIVE MONRING MEDS. CHANGED IV TO D5 NS. DID NOT ADMIN GLARGINE DUE TO NPO FOR STRESS TEST. WILL CONTINUE TO MONITOR.
[2017-07-04] MEDS ORDERED: REGADENOSON 0.4 MG/5 ML DISP.SYRIN IVP ONE (09:30)
[2017-07-04] MEDS: Magnesium 1GM/D5W 100ML PREMIX 100 ML IV SCH ×2 (10:37→12:34)
--- NOTE | 2017-07-04 11:20 | NUR ---
PT TAKEN TO STRESS TEST.
--- NOTE | 2017-07-04 12:30 | NUR ---
PT CAME BACK FROM STRESS TEST. NO LONGER NPO. ABLE TO EAT. GVE INSULIN PER PROTOCL OF ACCU CHECK `131.
--- NOTE | 2017-07-04 13:22 | NUR ---
PER MD BUSTILLO TO STOP FLUIDS D5 NS. ORDERS CARRIED OUT
--- NOTE | 2017-07-04 14:06 | NUR ---
NM:CARDIAC STRESS TEST WAS COMPLETED. TECH:RB.
--- NOTE | 2017-07-04 16:47 | NUR ---
MS RN: DISCHARGE NOTE A/OX4. TOOK ALL MEDICATIONS ON TIME. NO ADVERSE REACTIONS NOTED. PAIN CONTROLLED WITH PAIN MEDS. BRP. L AC #18 IV REMOVED. SITE CLEAR. NO BLEEDING NOTED. NO REDNESS NOTED. PT D/C HOME WITH SELF CARE. ALL DISCHARGE INFORMATION PROVIDED TO PT. COPIES PROVIDED. ALL VALUABLES ACCOUNTED FOR. APPOINTMENT GIVEN FOR CORNELIO CASTELAN. PAPER IN CHART AND GIVEN TO PT. LEFT VIA PRIVATE CAR WITH DAUGHTER.
== END 2017-07-04 16:50 | disposition home or self-care (01) | DRG 638 ==
LOC: ER 13:40 → TELE1 16:40 → MEDSG1 07-04 09:59
PROVIDERS: ADMIT Internal Medicine; ATTEND Internal Medicine
DX: E11.00 Type 2 diabetes mellitus with hyperosmolarity without nonketotic hyperglycemic-hyperosmolar coma (NKHHC) (principal); E87.1 Hypo-osmolality and hyponatremia; G61.0 Guillain-Barre syndrome; M48.02 Spinal stenosis, cervical region; E11.65 Type 2 diabetes mellitus with hyperglycemia; R07.9 Chest pain, unspecified; E86.1 Hypovolemia; G89.4 Chronic pain syndrome; Z86.711 Personal history of pulmonary embolism; Z86.73 Personal history of transient ischemic attack (TIA), and cerebral infarction without residual deficits; I87.2 Venous insufficiency (chronic) (peripheral); Z79.4 Long term (current) use of insulin; F41.9 Anxiety disorder, unspecified; M54.12 Radiculopathy, cervical region; J45.909 Unspecified asthma, uncomplicated
CPT/HCPCS: 36415; 71045-TC; 80048-TC; 80061-TC; 80076-TC; 82728-TC; 82962-TC; 83540-TC; 83735-TC; 84100-TC; 84439-TC; 84443-TC; 84484-TC; 85025-TC; 85730-TC; 87081-TC; A4606; A9502; J1650; J1815; J2270; J2405; J2785; J3475; J7030; J7042; Z7610

== ENCOUNTER 2017-11-07 18:41 | Emergency (ER) | payer MEDICARE, OTHER ==
[~2017-11-07] VITALS: Ht 170.2 cm; Wt 68.0 kg
[~2017-11-07 18:41] MED LIST changes: -DEXA4TAB2 GT; -SIMV20TA6 PO
[2017-11-07 19:37] LABS: BASOPHILS % (AUTO) 0.4 % (0.0-2.0); EOSINOPHILS % (AUTO) 3.3 % (0.0-6.0); HEMATOCRIT 34 % (33-45); LYMPHOCYTES # (AUTO) 1.5 /CMM (0.8-4.8); LYMPHOCYTES % (AUTO) 30.6 % (20.0-44.0); MEAN CORPUSCULAR HEMOGLOBIN 32 PG (26.0-33.0); MEAN CORPUSCULAR HGB CONC 35 g/dl (31.0-36.0); MEAN CORPUSCULAR VOLUME 91 fL (82-100); MONOCYTES # (AUTO) 0.3 /CMM (0.1-1.30); NEUTROPHILS % (AUTO) 59.7 % (43.0-81.0); PLATELET COUNT (AUTO) 212 /CMM (150-450); RDW COEFFICIENT OF VARIATION 11.6 (11.5-15.0); RED BLOOD CELL COUNT(AUTO) 3.75 MIL/uL (4.0-5.2)
[2017-11-07 19:51] LABS: INR 0.9 (0.85-1.15)
[2017-11-07 19:54] LABS: CALCIUM, SERUM 8.8 mg/dL (8.5-10.1); CREATININE 0.8 mg/dL (0.6-1.3); POTASSIUM 4.1 mmol/L (3.5-5.1)
--- NOTE | 2017-11-07 19:59 | NUR ---
VENOUS DUPLEX DONE. PT AMBULATORY TO THE BATHROOM WITH STEADY GAIT NOTED.
[2017-11-07] MEDS: CLOTRIMAZOLE 1% 15 GM TUBE TP STA (20:00)
[2017-11-07] MEDS: IV NS 0.9% 1,000 ML BAG IV ONE (20:06)
[2017-11-07 20:13] LABS: APPEARANCE,URINE Cloudy (CLEAR); BILIRUBIN,URINE Negative (NEGATIVE); BLOOD, URINE Negative Ery/uL (NEGATIVE); COLOR,URINE Light yellow (YELLOW); KETONES,URINE Negative (NEGATIVE); LEUKOCYTE ESTERASE ,URINE Trace (NEGATIVE); NITRITE, URINE Positive (NEGATIVE); PH,URINE 5.5 (5.0-8.0); PROTEIN,URINE Negative (NEGATIVE); UGLUCOSE >=1000 mg/dL (NEGATIVE); UROBILINOGEN,URINE 0.2 EU/dL (0.2)
--- NOTE | 2017-11-07 20:13 | NUR ---
VBG DRAW AND SENT TO RT.
[2017-11-07 20:22] LABS: ABG BASE EXCESS 0.2 mmol/L; ABG OXYGEN SATURATION 24.9 % (92.0-98.5); ABG PCO2 49.4 mmHg (35.0-45.0); ABG PH 7.346 (7.350-7.450); ABG PO2 17.4 mmHg (75.0-100.0); COHb 0.7 % (0.5-1.5); MetHb 1.4 % (0.0-1.5); O2Hb 24.4 % (94.0-97.0); SITE, ABG A-Line; VENT MODE, BG room air
[2017-11-07 20:23] LABS: BACTERIA,URINE Many /HPF (None Seen)
[2017-11-07] MEDS: INSULIN ASPART/LISPRO 100 UNIT/ML CARTRIDGE SQ STA (20:24)
[2017-11-07 20:25] LABS: SQUAMOUS EPITHELIAL CELL,UR Few /HPF (None Seen)
[2017-11-07 20:28] LABS: RBC,URINE 0-2 /HPF (0-2)
[2017-11-07] MEDS ORDERED: INSULIN LISPRO/ASPART 100 UNIT/ML CARTRIDGE SQ ONE ×2 (21:13→21:20)
[2017-11-07] MEDS ORDERED: INSULIN GLARGINE, 100 UNIT/ML CARTRIDGE SQ ONE (21:14)
--- NOTE | 2017-11-07 21:34 | NUR ---
IV removed. Catheter intact and site benign. Pressure and 4x4 applied to site. No bleeding noted. Patient discharged to home in stable condition. Written and verbal after care instructions given. Patient verbalizes understanding of instruction. ambulatory with a steady gait
[2017-11-07 21:36] VITALS: BP 149/62
== END 2017-11-07 21:37 | disposition home or self-care (01) ==
LOC: ER 18:46
DX: N39.0 Urinary tract infection, site not specified (principal); E11.65 Type 2 diabetes mellitus with hyperglycemia; B37.3 Candidiasis of vulva and vagina; R60.0 Localized edema; J45.909 Unspecified asthma, uncomplicated; F41.9 Anxiety disorder, unspecified; M19.90 Unspecified osteoarthritis, unspecified site; G61.0 Guillain-Barre syndrome; Z86.711 Personal history of pulmonary embolism; Z79.82 Long term (current) use of aspirin; Z79.4 Long term (current) use of insulin
CPT/HCPCS: 36415; 36600; 80048-TC; 81000-TC; 82962-TC; 85025-TC; 85730-TC; 87086-TC; 87186-TC; 93970-TC; A4606; J1815; J7030; Z7610

== ENCOUNTER 2017-12-14 09:38 | Emergency (ER) | payer MEDICARE, OTHER ==
[~2017-12-14] VITALS: Ht 170.2 cm; Wt 67.1 kg
--- NOTE | 2017-12-14 09:50 | NUR ---
AAOX3, PT IS AMBULATORY IN A STEADY GAIT TO ED BED 10, C/O OF FEELING WEAK, LEFT LOWER BACK PAIN AND N/V SINCE FRIDAY. VSS AFEBRILE. NAD RR EVEN AND UNLABORED. SKIN IS WARM AND NON DIAPHORETIC. PENDING ER MD GARCIA
--- NOTE | 2017-12-14 10:35 | NUR ---
Patient is resting comfortably in bed with eyes closed. Easily aroused. VSS
[2017-12-14 10:52] LABS: LYMPHOCYTES # (AUTO) 1.2 /CMM (0.8-4.8); MEAN CORPUSCULAR HGB CONC 33 g/dl (31.0-36.0); MONOCYTES # (AUTO) 0.3 /CMM (0.1-1.30)
[2017-12-14 10:55] LABS: BASOPHILS # (AUTO) 0.1 /CMM (0.0-0.2); BASOPHILS % (AUTO) 0.7 % (0.0-2.0); EOSINOPHILS % (AUTO) 1.1 % (0.0-6.0); HEMATOCRIT 42 % (33-45); HEMOGLOBIN 14.1 g/dL (11.5-14.8); LYMPHOCYTES % (AUTO) 14.9 % (20.0-44.0); MEAN CORPUSCULAR HEMOGLOBIN 31 PG (26.0-33.0); MEAN CORPUSCULAR VOLUME 91 fL (82-100); MONOCYTES % (AUTO) 4.3 % (2.0-12.0); PLATELET COUNT (AUTO) 164 /CMM (150-450); RDW COEFFICIENT OF VARIATION 11.5 (11.5-15.0); RED BLOOD CELL COUNT(AUTO) 4.63 MIL/uL (4.0-5.2); WHITE BLOOD COUNT (AUTO) 7.7 K/uL (4.3-11.0)
[2017-12-14] MEDS ORDERED: ONDANSETRON HCL/PF 4 MG/2 ML VIAL IVP ONE (11:00)
[2017-12-14] MEDS ORDERED: IV NS 0.9% 1,000 ML BAG IV ONE (11:00)
[2017-12-14] MEDS ORDERED: MORPHINE SULFATE INJ 2 MG/ML DISP.SYRIN IV ONE (11:00)
[2017-12-14 11:10] LABS: ALBUMIN 3.7 g/dL (3.4-5.0); BILIRUBIN,DIRECT 0.1 mg/dL (0.0-0.2); BILIRUBIN,TOTAL 0.6 mg/dL (0.2-1.0); CALCIUM, SERUM 9.1 mg/dL (8.5-10.1); CREATININE 0.6 mg/dL (0.6-1.3); TOTAL PROTEIN, SERUM 7.7 g/dL (6.4-8.2)
[2017-12-14] MEDS ORDERED: ONDANSETRON HCL/PF 4 MG/2 ML VIAL ONE (11:16)
[2017-12-14] MEDS ORDERED: MORPHINE SULFATE INJ 4 MG/ML DISP.SYRIN ONE (11:17)
[2017-12-14] MEDS ORDERED: IOHEXOL-300 100 ML VIAL IV ONE (11:25)
[2017-12-14] MEDS ORDERED: CT SWABBABLE VALVE TRANS SET 1 EA INFUS.SET MC ONE (11:25)
[2017-12-14] MEDS ORDERED: IV NS 0.9% 250 ML IV ONE (11:25)
--- NOTE | 2017-12-14 12:10 | NUR ---
Patient is resting comfortably in bed with eyes closed. Easily aroused. VSS
--- NOTE | 2017-12-14 13:16 | NUR ---
IV removed. Catheter intact and site benign. Pressure and 4x4 applied to site. No bleeding noted.Patient discharged to home in stable condition. Written and verbal after care instructions given. Patient verbalizes understanding of instruction.
[2017-12-14 13:17] VITALS: BP 112/73
== END 2017-12-14 13:27 | disposition home or self-care (01) ==
LOC: ER 09:41
DX: A08.4 Viral intestinal infection, unspecified (principal); J45.909 Unspecified asthma, uncomplicated; E11.9 Type 2 diabetes mellitus without complications; F41.9 Anxiety disorder, unspecified; M19.90 Unspecified osteoarthritis, unspecified site; G61.0 Guillain-Barre syndrome; Z86.711 Personal history of pulmonary embolism; Z60.2 Problems related to living alone; Z79.82 Long term (current) use of aspirin; Z79.4 Long term (current) use of insulin; Z79.899 Other long term (current) drug therapy
CPT/HCPCS: 36415; 74177; 80048; 80076; 83690; 85025; 93005; 96361; 96374; 96375; 99285; A4606; J2270; J2405; J7030; J7050; Q9967; Z7610

== ENCOUNTER 2018-05-14 09:06 | Emergency (ER) | payer MEDICARE, OTHER ==
[~2018-05-14] VITALS: Ht 170.2 cm; Wt 67.1 kg
[~2018-05-14 09:06] MED LIST changes: +HYDR-4354 PO; -HYDR-548 PO
--- NOTE | 2018-05-14 09:10 | NUR ---
PT BIB SELF C/O NAUSEA AND VOMITING AND DIARRHEA SINCE LAST NIGHT, PT IS AAOX4, NOT IN RESPIRATORY DISTRESS, V/S STABLE, KEPT RESTED AND COMFORTABLE, HOOKED TO MONITOR.
--- NOTE | 2018-05-14 09:20 | NUR ---
SEEN AND EXAMINED BYDR. PRITCHARD.
--- NOTE | 2018-05-14 09:26 | NUR ---
LABS DRAWNED AND SENT TO LAB. AWAITING RESULTS.
[2018-05-14] MEDS ORDERED: ONDANSETRON HCL/PF 4 MG/2 ML VIAL ONE (09:27)
[2018-05-14] MEDS: ONDANSETRON HCL/PF 4 MG/2 ML VIAL IVP ONE (09:34)
[2018-05-14] MEDS: IV NS 0.9% 1,000 ML BAG IV ONE (09:34)
[2018-05-14 09:35] LABS: BASOPHILS # (AUTO) 0.1 /CMM (0.0-0.2); BASOPHILS % (AUTO) 1.1 % (0.0-2.0); HEMATOCRIT 39 % (33-45); HEMOGLOBIN 13.1 g/dL (11.5-14.8); LYMPHOCYTES # (AUTO) 1.1 /CMM (0.8-4.8); LYMPHOCYTES % (AUTO) 24.4 % (20.0-44.0); MEAN CORPUSCULAR HGB CONC 34 g/dl (31.0-36.0); MEAN CORPUSCULAR VOLUME 93 fL (82-100); MONOCYTES # (AUTO) 0.3 /CMM (0.1-1.30); MONOCYTES % (AUTO) 7.2 % (2.0-12.0); NEUTROPHILS % (AUTO) 65.3 % (43.0-81.0); PLATELET COUNT (AUTO) 235 /CMM (150-450); RED BLOOD CELL COUNT(AUTO) 4.18 MIL/uL (4.0-5.2); WHITE BLOOD COUNT (AUTO) 4.6 K/uL (4.3-11.0)
[2018-05-14 09:44] LABS: POTASSIUM 3.7 mmol/L (3.5-5.1)
[2018-05-14 09:47] LABS: ALBUMIN 3.7 g/dL (3.4-5.0); BILIRUBIN,DIRECT 0.2 mg/dL (0.0-0.2); BILIRUBIN,TOTAL 0.7 mg/dL (0.2-1.0); CALCIUM, SERUM 8.9 mg/dL (8.5-10.1); CREATININE 0.6 mg/dL (0.6-1.3); TOTAL PROTEIN, SERUM 7.7 g/dL (6.4-8.2)
--- NOTE | 2018-05-14 10:39 | NUR ---
URINE SPECIMEN COLLECTED AND SENT TO LAB.
[2018-05-14 10:48] LABS: APPEARANCE,URINE Clear (CLEAR); BILIRUBIN,URINE Negative (NEGATIVE); BLOOD, URINE Negative Ery/uL (NEGATIVE); COLOR,URINE Yellow (YELLOW); KETONES,URINE 15 (NEGATIVE); LEUKOCYTE ESTERASE ,URINE Negative (NEGATIVE); NITRITE, URINE Positive (NEGATIVE); PH,URINE 6.5 (5.0-8.0); PROTEIN,URINE Negative (NEGATIVE); UGLUCOSE 500 MG/DL mg/dL (NEGATIVE); UROBILINOGEN,URINE 0.2 EU/dL (0.2)
[2018-05-14 10:54] LABS: RBC,URINE 0-2 /HPF (0-2)
[2018-05-14 10:55] LABS: BACTERIA,URINE 1+ /HPF (None Seen); SQUAMOUS EPITHELIAL CELL,UR Few /HPF (None Seen)
--- NOTE | 2018-05-14 11:07 | NUR ---
IV removed. Catheter intact and site benign. Pressure and 4x4 applied to site. No bleeding noted. Patient discharged to home in stable condition. Written and verbal after care instructions given. Patient verbalizes understanding of instruction.
[2018-05-14 11:08] VITALS: BP 135/82
== END 2018-05-14 11:13 | disposition home or self-care (01) ==
LOC: ER 09:14
DX: A08.4 Viral intestinal infection, unspecified (principal); R11.2 Nausea with vomiting, unspecified; G61.0 Guillain-Barre syndrome; J45.909 Unspecified asthma, uncomplicated; E11.9 Type 2 diabetes mellitus without complications; F41.9 Anxiety disorder, unspecified; Z86.711 Personal history of pulmonary embolism; Z98.890 Other specified postprocedural states; Z60.2 Problems related to living alone; Z79.4 Long term (current) use of insulin; Z79.82 Long term (current) use of aspirin
CPT/HCPCS: 36415; 80048-TC; 80076-TC; 81000-TC; 83690-TC; 85025-TC; 87086-TC; J2405; J7030

== ENCOUNTER 2018-06-25 09:06 | Emergency (ER) | payer MEDICARE, OTHER ==
[~2018-06-25] VITALS: Ht 172.7 cm; Wt 68.0 kg
--- NOTE | 2018-06-25 09:15 | NUR ---
AAOX3, CAME TO ER C/O DIARRHEA X 4-5 DAYS, ALSO C/O LEFT CHEST WALL S/P FELL 3 WEEKS AGO. PATIENT STATES THAT HER XRAY WAS NORMAL. RR IS EVEN AND UNLABORED WITH NAD NOTED. SKIN IS WARM AND DRY. AWAITING MD FOR EVAL.
--- NOTE | 2018-06-25 09:28 | NUR ---
DR REYNOLDS AT BEDSIDE.
[2018-06-25 09:49] LABS: BASOPHILS % (AUTO) 0.8 % (0.0-2.0); EOSINOPHILS % (AUTO) 2.3 % (0.0-6.0); HEMATOCRIT 38 % (33-45); HEMOGLOBIN 12.7 g/dL (11.5-14.8); LYMPHOCYTES # (AUTO) 1.4 /CMM (0.8-4.8); LYMPHOCYTES % (AUTO) 31.9 % (20.0-44.0); MEAN CORPUSCULAR HGB CONC 34 g/dl (31.0-36.0); MEAN CORPUSCULAR VOLUME 92 fL (82-100); MONOCYTES # (AUTO) 0.4 /CMM (0.1-1.30); MONOCYTES % (AUTO) 8.6 % (2.0-12.0); NEUTROPHILS # (AUTO) 2.5 /CMM (1.8-8.9); NEUTROPHILS % (AUTO) 56.4 % (43.0-81.0); PLATELET COUNT (AUTO) 233 /CMM (150-450); RED BLOOD CELL COUNT(AUTO) 4.08 MIL/uL (4.0-5.2); WHITE BLOOD COUNT (AUTO) 4.5 K/uL (4.3-11.0)
[2018-06-25] MEDS ORDERED: LOPERAMIDE HCL (2 MG CAP) 2 MG CAPSULE PO ONE ×2 (09:52→10:00)
[2018-06-25] MEDS ORDERED: IV NS 0.9% 1,000 ML BAG IV ONE (10:00)
[2018-06-25 10:02] LABS: ALBUMIN 3.4 g/dL (3.4-5.0); BILIRUBIN,DIRECT 0.2 mg/dL (0.0-0.2); BILIRUBIN,TOTAL 0.7 mg/dL (0.2-1.0); CALCIUM, SERUM 8.8 mg/dL (8.5-10.1); CREATININE 0.5 mg/dL (0.6-1.3); POTASSIUM 3.6 mmol/L (3.5-5.1); TOTAL PROTEIN, SERUM 7.1 g/dL (6.4-8.2)
--- NOTE | 2018-06-25 10:05 | NUR ---
PT NOT ABLE TO PROVIDE STOOL SAMPLE AT THIS TIME
[2018-06-25] MEDS ORDERED: MORPHINE SULFATE INJ 4 MG/ML DISP.SYRIN ONE (10:44)
[2018-06-25] MEDS ORDERED: ONDANSETRON HCL/PF 4 MG/2 ML VIAL ONE (10:44)
[2018-06-25] MEDS ORDERED: MORPHINE SULFATE INJ 10 MG/ML DISP.SYRIN IV ONE (11:00)
[2018-06-25] MEDS ORDERED: ONDANSETRON HCL/PF - ER 4 MG/2 ML VIAL IV ONE (11:00)
--- NOTE | 2018-06-25 11:18 | NUR ---
PT IN BED COMFORTABLE, HOOKED TO MONITOR, WILL CONTINUE TO MONITOR.
[2018-06-25 12:14] VITALS: BP 128/80
== END 2018-06-25 12:15 | disposition home or self-care (01) ==
LOC: ER 09:12
DX: S20.212A Contusion of left front wall of thorax, initial encounter (principal); R19.7 Diarrhea, unspecified; G61.0 Guillain-Barre syndrome; J45.909 Unspecified asthma, uncomplicated; E11.9 Type 2 diabetes mellitus without complications; F41.9 Anxiety disorder, unspecified; Z86.711 Personal history of pulmonary embolism; Z98.890 Other specified postprocedural states; Z60.2 Problems related to living alone; Z79.82 Long term (current) use of aspirin; Z79.4 Long term (current) use of insulin; W18.39XA Other fall on same level, initial encounter; Y93.89 Activity, other specified; Y92.89 Other specified places as the place of occurrence of the external cause; Y99.8 Other external cause status
CPT/HCPCS: 36415; 71045; 80048; 80076; 83690; 85025; 96361; 96374; 96375; 99284; A4606; J2270; J2405 ×2; J7030

== ENCOUNTER 2018-07-01 09:50 | Emergency (ER) | payer MEDICARE, OTHER ==
[~2018-07-01] VITALS: Ht 170.2 cm; Wt 68.0 kg
--- NOTE | 2018-07-01 09:55 | NUR ---
aaox3, came to ER c/o left thigh radiates to lower leg pain x 2 days. Pt denies recent fall or injury. Pedal pulses are strong and equal. RR is even and unlabored with nad noted. Awaiting md for eval.
[2018-07-01] MEDS ORDERED: KETOROLAC TROMETHAMINE INJ 30 MG/ML VIAL ONE (10:16)
[2018-07-01] MEDS ORDERED: CEPHALEXIN MONOHYDRATE 500 MG CAPSULE PO ONE ×2 (10:17→10:30)
[2018-07-01] MEDS ORDERED: KETOROLAC TROMETHAMINE INJ 60 MG/2 ML VIAL IM ONE (10:30)
[2018-07-01 10:34] VITALS: BP 135/81
--- NOTE | 2018-07-01 10:35 | NUR ---
Patient discharged to home in stable condition. Written and verbal after care instructions given. Patient verbalizes understanding of instruction.
== END 2018-07-01 10:35 | disposition home or self-care (01) ==
LOC: ER 09:53
DX: J06.9 Acute upper respiratory infection, unspecified (principal); N39.0 Urinary tract infection, site not specified; S73.192A Other sprain of left hip, initial encounter; J45.909 Unspecified asthma, uncomplicated; E11.9 Type 2 diabetes mellitus without complications; F41.9 Anxiety disorder, unspecified; M19.90 Unspecified osteoarthritis, unspecified site; Z79.82 Long term (current) use of aspirin; Z79.4 Long term (current) use of insulin; Z79.899 Other long term (current) drug therapy; X58.XXXA Exposure to other specified factors, initial encounter; Y93.89 Activity, other specified; Y92.89 Other specified places as the place of occurrence of the external cause; Y99.8 Other external cause status
CPT/HCPCS: 96372; 99283; A4606; J1885

== ENCOUNTER 2018-07-06 16:15 | Emergency (ER) | payer MEDICARE, OTHER ==
[~2018-07-06] VITALS: Ht 170.2 cm; Wt 68.0 kg
--- NOTE | 2018-07-06 16:30 | NUR ---
BIB SELF W C/O COUGH WITH CONGESTION x 2 DAYS, AFEBRILE, TO ER BED 2, HOOKED TO MONITOR, AWAITING MD GARCIA
--- NOTE | 2018-07-06 16:41 | NUR ---
DR PRITCHARD AT BEDSIDE FOR EVAL.
[2018-07-06 17:14] LABS: BASOPHILS % (AUTO) 0.3 % (0.0-2.0); EOSINOPHILS % (AUTO) 7.9 % (0.0-6.0); HEMATOCRIT 39 % (33-45); HEMOGLOBIN 13.1 g/dL (11.5-14.8); LYMPHOCYTES # (AUTO) 1.3 /CMM (0.8-4.8); LYMPHOCYTES % (AUTO) 26.3 % (20.0-44.0); MEAN CORPUSCULAR HGB CONC 34 g/dl (31.0-36.0); MEAN CORPUSCULAR VOLUME 93 fL (82-100); MONOCYTES # (AUTO) 0.5 /CMM (0.1-1.30); NEUTROPHILS # (AUTO) 2.6 /CMM (1.8-8.9); NEUTROPHILS % (AUTO) 54.5 % (43.0-81.0); PLATELET COUNT (AUTO) 228 /CMM (150-450); RED BLOOD CELL COUNT(AUTO) 4.19 MIL/uL (4.0-5.2); WHITE BLOOD COUNT (AUTO) 4.8 K/uL (4.3-11.0)
[2018-07-06 17:26] LABS: ALANINE AMINOTRANSFERASE 19 U/L (12-78); ALBUMIN 3.3 g/dL (3.4-5.0); ALKALINE PHOSPHATASE 94 U/L (46-116); ASPARTATE AMINOTRANSFERASE 18 U/L (15-37); BILIRUBIN,DIRECT 0.1 mg/dL (0.0-0.2); BILIRUBIN,TOTAL 0.4 mg/dL (0.2-1.0); CARBON DIOXIDE 31 mmol/L (21-32); CHLORIDE 102 mmol/L (98-107); CREATININE 0.5 mg/dL (0.6-1.3); POTASSIUM 4.1 mmol/L (3.5-5.1); SODIUM SERUM 137 mmol/L (136-145); TOTAL PROTEIN, SERUM 7.6 g/dL (6.4-8.2); UREA NITROGEN, BLOOD 9 mg/dL (7-18)
[2018-07-06 17:29] LABS: GLUCOSE 363 mg/dL (74-106)
--- NOTE | 2018-07-06 18:53 | NUR ---
Patient discharged to home in stable condition. Written and verbal after care instructions given. Patient verbalizes understanding of instruction.
[2018-07-06 18:54] VITALS: BP 148/74
== END 2018-07-06 18:56 | disposition home or self-care (01) ==
LOC: ER 16:19
DX: J20.9 Acute bronchitis, unspecified (principal); R07.89 Other chest pain; R60.0 Localized edema; R00.0 Tachycardia, unspecified; E11.9 Type 2 diabetes mellitus without complications; J45.909 Unspecified asthma, uncomplicated; G61.0 Guillain-Barre syndrome; F41.9 Anxiety disorder, unspecified; Z86.711 Personal history of pulmonary embolism; Z98.890 Other specified postprocedural states; Z60.2 Problems related to living alone; Z79.82 Long term (current) use of aspirin; Z79.4 Long term (current) use of insulin
CPT/HCPCS: 36415; 71045; 80048; 80076; 84484; 85025; 93005; 99284; A4606

== ENCOUNTER 2018-11-21 15:55 | Emergency (ER) | payer MEDICARE, OTHER ==
[~2018-11-21] VITALS: Ht 170.2 cm; Wt 63.5 kg
--- NOTE | 2018-11-21 16:10 | NUR ---
MIDSTERNAL CHEST PAIN, SOB WEAKNESS X 2 DAYS WORST TODAY. PATIENT A/OX4, BREATHING EVEN AND UNLABORED, NO SOBN NOTED. ATTACHED TO THE MONITOR. CHANGED INTO GOWN.
[2018-11-21 16:30] LABS: BASOPHILS % (AUTO) 0.8 % (0.0-2.0); EOSINOPHILS % (AUTO) 2.3 % (0.0-6.0); HEMATOCRIT 33 % (33-45); HEMOGLOBIN 11.2 g/dL (11.5-14.8); LYMPHOCYTES # (AUTO) 1.2 /CMM (0.8-4.8); MEAN CORPUSCULAR HGB CONC 34 g/dl (31.0-36.0); MEAN CORPUSCULAR VOLUME 92 fL (82-100); MONOCYTES # (AUTO) 0.4 /CMM (0.1-1.30); MONOCYTES % (AUTO) 8.1 % (2.0-12.0); NEUTROPHILS # (AUTO) 2.8 /CMM (1.8-8.9); NEUTROPHILS % (AUTO) 61.8 % (43.0-81.0); PLATELET COUNT (AUTO) 210 /CMM (150-450); RED BLOOD CELL COUNT(AUTO) 3.59 MIL/uL (4.0-5.2); WHITE BLOOD COUNT (AUTO) 4.5 K/uL (4.3-11.0)
[2018-11-21 16:54] LABS: ALANINE AMINOTRANSFERASE 23 U/L (12-78); ALBUMIN 3.2 g/dL (3.4-5.0); ALKALINE PHOSPHATASE 79 U/L (46-116); ASPARTATE AMINOTRANSFERASE 14 U/L (15-37); B-TYPE NATRIURETIC PEPTIDE 92 PG/ML (0-125); BILIRUBIN,DIRECT 0.1 mg/dL (0.0-0.2); BILIRUBIN,TOTAL 0.5 mg/dL (0.2-1.0); CALCIUM, SERUM 8.9 mg/dL (8.5-10.1); CARBON DIOXIDE 31 mmol/L (21-32); CHLORIDE 98 mmol/L (98-107); CREATININE 0.9 mg/dL (0.6-1.3); POTASSIUM 4.3 mmol/L (3.5-5.1); SODIUM SERUM 133 mmol/L (136-145); UREA NITROGEN, BLOOD 13 mg/dL (7-18)
[2018-11-21 16:56] LABS: GLUCOSE 517 mg/dL (74-106)
[2018-11-21] MEDS ORDERED: ONDANSETRON HCL/PF 4 MG/2 ML VIAL ONE (16:59)
[2018-11-21] MEDS ORDERED: HYDROCODONE/APAP 5/325MG 1 EACH TABLET PO ONE (17:00)
[2018-11-21] MEDS ORDERED: IV NS 0.9% 1,000 ML BAG IV ONE (17:00)
[2018-11-21] MEDS ORDERED: HYDROCODONE/APAP 5/325MG 1 EACH TABLET ONE (17:00)
[2018-11-21] MEDS ORDERED: ONDANSETRON HCL/PF - ER 4 MG/2 ML VIAL IV ONE (17:00)
--- NOTE | 2018-11-21 18:00 | NUR ---
PATIENT IN NAD, VSS. WILL CONTINUE TO MONITOR. NO S/SX OF HYPO/HYPERGLYCEMIA AT THIS TIME.
[2018-11-21] MEDS ORDERED: INSULIN REGULAR, HUMAN 100 UNIT/ML 10 ML VIAL ONE (18:42)
[2018-11-21] MEDS ORDERED: INSULIN REGULAR, HUMAN 100 UNIT/ML 10 ML VIAL SQ ONE (19:00)
--- NOTE | 2018-11-21 19:03 | NUR ---
Patient denies chest pain at this time. IV removed. Catheter intact and site benign. Pressure and 4x4 applied to site. No bleeding noted.Patient discharged to home in stable condition. Written and verbal after care instructions given. Patient verbalizes understanding of instruction.
[2018-11-21 19:05] VITALS: BP 134/79
== END 2018-11-21 19:08 | disposition home or self-care (01) ==
LOC: ER 15:55
DX: R07.89 Other chest pain (principal); R10.84 Generalized abdominal pain; E11.65 Type 2 diabetes mellitus with hyperglycemia; R42 Dizziness and giddiness; R60.0 Localized edema; J45.909 Unspecified asthma, uncomplicated; F41.9 Anxiety disorder, unspecified; Z86.711 Personal history of pulmonary embolism; Z98.890 Other specified postprocedural states; Z90.49 Acquired absence of other specified parts of digestive tract; Z60.2 Problems related to living alone; Z79.82 Long term (current) use of aspirin; Z79.4 Long term (current) use of insulin
CPT/HCPCS: 36415; 71045; 80048; 80076; 82962; 83690; 83880; 84484; 85025; 85730; 93005; 96361; 96372; 96374; 99284; J1815; J2405; J7030

== ENCOUNTER 2019-02-15 17:32 | Emergency (ER) | payer MEDICARE, OTHER ==
[~2019-02-15] VITALS: Ht 170.2 cm; Wt 61.2 kg
[~2019-02-15 17:32] MED LIST changes: -ASPI-869 PO; -FAMO20TA8 PO
--- NOTE | 2019-02-15 17:58 | NUR ---
pt came to er w/ c/o of n/v/d for 2 days, 8/10 lower back pain that radiates to the side. aaox4. no sob. breathing even and unlabored. not in any distress. will continue to monitor.
[2019-02-15] MEDS ORDERED: MORPHINE SULFATE INJ 4 MG/ML DISP.SYRIN ONE (18:22)
[2019-02-15] MEDS ORDERED: ONDANSETRON HCL/PF 4 MG/2 ML VIAL ONE (18:22)
[2019-02-15 18:24] LABS: BASOPHILS % (AUTO) 0.6 % (0.0-2.0); EOSINOPHILS % (AUTO) 1.4 % (0.0-6.0); HEMATOCRIT 38 % (33-45); HEMOGLOBIN 12.6 g/dL (11.5-14.8); LYMPHOCYTES # (AUTO) 0.9 /CMM (0.8-4.8); LYMPHOCYTES % (AUTO) 16.2 % (20.0-44.0); MEAN CORPUSCULAR HGB CONC 33 g/dl (31.0-36.0); MEAN CORPUSCULAR VOLUME 94 fL (82-100); MONOCYTES # (AUTO) 0.3 /CMM (0.1-1.30); MONOCYTES % (AUTO) 5.2 % (2.0-12.0); NEUTROPHILS # (AUTO) 4.3 /CMM (1.8-8.9); NEUTROPHILS % (AUTO) 76.6 % (43.0-81.0); PLATELET COUNT (AUTO) 223 /CMM (150-450); RED BLOOD CELL COUNT(AUTO) 4.04 MIL/uL (4.0-5.2); WHITE BLOOD COUNT (AUTO) 5.6 K/uL (4.3-11.0)
[2019-02-15] MEDS ORDERED: IV NS 0.9% 500 ML BAG IV ONE (18:30)
[2019-02-15] MEDS ORDERED: ONDANSETRON HCL/PF 4 MG/2 ML VIAL IVP ONE (18:30)
[2019-02-15] MEDS ORDERED: MORPHINE SULFATE INJ 2 MG/ML DISP.SYRIN IV ONE (18:30)
[2019-02-15 18:46] LABS: ALBUMIN 3.4 g/dL (3.4-5.0); BILIRUBIN,DIRECT 0.1 mg/dL (0.0-0.2); BILIRUBIN,TOTAL 0.4 mg/dL (0.2-1.0); CALCIUM, SERUM 8.7 mg/dL (8.5-10.1); CREATININE 1.1 mg/dL (0.6-1.3); POTASSIUM 4.4 mmol/L (3.5-5.1); TOTAL PROTEIN, SERUM 7.5 g/dL (6.4-8.2)
--- NOTE | 2019-02-15 18:55 | NUR ---
Lab called glucose 631 Abner MONTANZE notified
[2019-02-15] MEDS ORDERED: INSULIN REGULAR, HUMAN 100 UNIT/ML 10 ML VIAL ONE (19:27)
[2019-02-15] MEDS ORDERED: INSULIN REGULAR, HUMAN 100 UNIT/ML 10 ML VIAL SQ ONE (19:30)
[2019-02-15] MEDS ORDERED: IV NS 0.9% 1,000 ML BAG IV ONE (19:30)
--- NOTE | 2019-02-15 19:43 | NUR ---
ASSESSED PT ON BED, AAOX4, NOT IN RESPIRATORY DISTRESS, V/S STABLE, KEPT RESTED AND COMFORTABLE, WILL CONTINUE TO MONITOR.
--- NOTE | 2019-02-15 21:15 | NUR ---
PT ABLE TO TOLERATE FLUID, CRISTIAN MONTANEZ AWARE.
[2019-02-15 21:19] VITALS: BP 147/82
== END 2019-02-15 21:20 | disposition home or self-care (01) ==
LOC: ER 17:40
DX: A08.39 Other viral enteritis (principal); E11.65 Type 2 diabetes mellitus with hyperglycemia; J45.909 Unspecified asthma, uncomplicated; F41.9 Anxiety disorder, unspecified; G61.0 Guillain-Barre syndrome; Z90.49 Acquired absence of other specified parts of digestive tract; Z86.711 Personal history of pulmonary embolism; Z60.2 Problems related to living alone; Z79.4 Long term (current) use of insulin; Z79.899 Other long term (current) drug therapy
CPT/HCPCS: 71045; 80048; 80076; 82962 ×2; 83690; 85025; 85378; 93970; 96361; 96372; 96374; 96375; 99284; A6403; J1815; J2270; J2405; J7030; J7040; 36415

== ENCOUNTER 2019-04-21 12:03 | Emergency (ER) | payer MEDICARE, OTHER ==
[~2019-04-21] VITALS: Ht 177.8 cm; Wt 69.9 kg
[2019-04-21] MEDS ORDERED: IV NS 0.9% 1,000 ML BAG IV ONE (12:30)
[2019-04-21] MEDS ORDERED: LORAZEPAM 1 MG TABLET ONE (12:43)
[2019-04-21 12:45] LABS: BASOPHILS # (AUTO) 0.1 /CMM (0.0-0.2); BASOPHILS % (AUTO) 0.9 % (0.0-2.0); EOSINOPHILS % (AUTO) 2.3 % (0.0-6.0); HEMATOCRIT 39 % (33-45); HEMOGLOBIN 12.9 g/dL (11.5-14.8); LYMPHOCYTES # (AUTO) 1.8 /CMM (0.8-4.8); LYMPHOCYTES % (AUTO) 30.3 % (20.0-44.0); MEAN CORPUSCULAR HGB CONC 33 g/dl (31.0-36.0); MEAN CORPUSCULAR VOLUME 93 fL (82-100); MONOCYTES # (AUTO) 0.5 /CMM (0.1-1.30); MONOCYTES % (AUTO) 8.3 % (2.0-12.0); NEUTROPHILS # (AUTO) 3.4 /CMM (1.8-8.9); NEUTROPHILS % (AUTO) 58.2 % (43.0-81.0); PLATELET COUNT (AUTO) 269 /CMM (150-450); RED BLOOD CELL COUNT(AUTO) 4.22 MIL/uL (4.0-5.2); WHITE BLOOD COUNT (AUTO) 5.8 K/uL (4.3-11.0)
[2019-04-21 12:52] LABS: CALCIUM, SERUM 9.5 mg/dL (8.5-10.1); CARBON DIOXIDE 31 mmol/L (21-32); CHLORIDE 104 mmol/L (98-107); CREATININE 0.6 mg/dL (0.6-1.3); GLUCOSE 228 mg/dL (74-106); POTASSIUM 4.4 mmol/L (3.5-5.1); SODIUM SERUM 140 mmol/L (136-145); UREA NITROGEN, BLOOD 19 mg/dL (7-18)
[2019-04-21 12:57] LABS: ALANINE AMINOTRANSFERASE 26 U/L (12-78); ALBUMIN 3.3 g/dL (3.4-5.0); ALKALINE PHOSPHATASE 90 U/L (46-116); ASPARTATE AMINOTRANSFERASE 27 U/L (15-37); BILIRUBIN,DIRECT 0.1 mg/dL (0.0-0.2); BILIRUBIN,TOTAL 0.4 mg/dL (0.2-1.0)
[2019-04-21] MEDS ORDERED: LORAZEPAM 1 MG TABLET PO ONE (13:00)
--- NOTE | 2019-04-21 13:19 | NUR ---
PATIENT RESTING INSIDE ROOM. NO ACUTE DISTRESS. CONNECTED TO MONITOR.
--- NOTE | 2019-04-21 14:06 | NUR ---
IV removed. Catheter intact and site benign. Pressure and 4x4 applied to site. No bleeding noted.Patient discharged to home in stable condition. Written and verbal after care instructions given. Written prescription provided to patient. Patient verbalizes understanding of instruction.
[2019-04-21 14:11] VITALS: BP 148/89
== END 2019-04-21 14:11 | disposition home or self-care (01) ==
LOC: ER 12:04
DX: E11.65 Type 2 diabetes mellitus with hyperglycemia (principal); R42 Dizziness and giddiness; I10 Essential (primary) hypertension; R00.0 Tachycardia, unspecified; Z86.711 Personal history of pulmonary embolism; Z90.49 Acquired absence of other specified parts of digestive tract; Z98.890 Other specified postprocedural states
CPT/HCPCS: 36415; 71045; 80048; 80076; 84484; 85025; 85730; 93005; 96360; 99284; J7030

== ENCOUNTER 2020-02-02 15:51 | Emergency (ER) | payer MEDICARE, OTHER ==
[~2020-02-02] VITALS: Ht 170.2 cm; Wt 70.3 kg
--- NOTE | 2020-02-02 16:14 | NUR ---
CAME TO THE ER C/O HEADACHE X 4 DAYS. +nausea, -vomit. no fever noted. pt alert and oriented x4. awaiting for md vazquez
--- NOTE | 2020-02-02 16:20 | NUR ---
AT BEDSIDE FOR EVAL
[2020-02-02] MEDS ORDERED: ONDANSETRON 4 MG TAB.RAPDIS SL ONE (16:30)
--- NOTE | 2020-02-02 16:40 | NUR ---
URINE COLLECTED AND SENT TO LAB
[2020-02-02] MEDS ORDERED: ONDANSETRON 4 MG TAB.RAPDIS ONE (16:45)
--- NOTE | 2020-02-02 16:57 | NUR ---
PT OUT FOR CT
[2020-02-02 17:30] LABS: APPEARANCE,URINE SL CLOUDY (CLEAR); BILIRUBIN,URINE SMALL (NEGATIVE); BLOOD, URINE MODERATE Ery/uL (NEGATIVE); COLOR,URINE YELLOW (YELLOW); KETONES,URINE TRACE (NEGATIVE); NITRITE, URINE NEGATIVE (NEGATIVE); PROTEIN,URINE >=300 mg/dl (NEGATIVE); UGLUCOSE >=1000 mg/dL (NEGATIVE); UROBILINOGEN,URINE 0.2 EU/dL (0.2)
[2020-02-02 17:44] LABS: LEUKOCYTE ESTERASE ,URINE 1+ (NEGATIVE)
[2020-02-02 17:45] LABS: BACTERIA,URINE 4+ /HPF (None Seen); COARSE GRANULAR CASTS,URINE Few /LPF (None Seen); HYALINE CASTS, URINE Few /LPF (None Seen); SQUAMOUS EPITHELIAL CELL,UR Few /HPF (None Seen); WBC,URINE 21-50 /HPF (0-3)
--- NOTE | 2020-02-02 17:50 | NUR ---
Note kiaraone in EDM - 02/02/20 at 1751 by JOTOLENTIN pt in bed alert and oriented x3. able to follow commands. no MATA, no pain. no changes in loc. all needs attended
[2020-02-02 18:52] VITALS: BP 132/88
== END 2020-02-02 18:52 | disposition home or self-care (01) ==
LOC: ER 15:55
DX: R51.9 Headache, unspecified (principal); F07.81 Postconcussional syndrome; N30.90 Cystitis, unspecified without hematuria; G61.0 Guillain-Barre syndrome; J45.909 Unspecified asthma, uncomplicated; E11.9 Type 2 diabetes mellitus without complications; F41.9 Anxiety disorder, unspecified; M19.90 Unspecified osteoarthritis, unspecified site; Z90.49 Acquired absence of other specified parts of digestive tract; Z79.899 Other long term (current) drug therapy; Z60.2 Problems related to living alone; Z79.4 Long term (current) use of insulin
CPT/HCPCS: 70450; 81001; 87086; 99284; Q0162; 81000-TC; 87186-TC

== ENCOUNTER 2020-05-21 21:00 | Emergency (ER) | payer MEDICARE, OTHER ==
[~2020-05-21] VITALS: Ht 170.2 cm; Wt 68.0 kg
[2020-05-21 22:20] LABS: BASOPHILS % (AUTO) 0.7 % (0.0-2.0); EOSINOPHILS % (AUTO) 2.9 % (0.0-6.0); HEMATOCRIT 36 % (33-45); HEMOGLOBIN 12.1 g/dL (11.5-14.8); LYMPHOCYTES # (AUTO) 1.2 /CMM (0.8-4.8); MEAN CORPUSCULAR HGB CONC 34 g/dl (31.0-36.0); MEAN CORPUSCULAR VOLUME 91 fL (82-100); MONOCYTES # (AUTO) 0.4 /CMM (0.1-1.30); MONOCYTES % (AUTO) 7.1 % (2.0-12.0); NEUTROPHILS # (AUTO) 3.8 /CMM (1.8-8.9); NEUTROPHILS % (AUTO) 67.3 % (43.0-81.0); PLATELET COUNT (AUTO) 240 /CMM (150-450); RED BLOOD CELL COUNT(AUTO) 3.94 MIL/uL (4.0-5.2); WHITE BLOOD COUNT (AUTO) 5.6 K/uL (4.3-11.0)
[2020-05-21 22:43] LABS: ALANINE AMINOTRANSFERASE 20 U/L (12-78); ALBUMIN 2.9 g/dL (3.4-5.0); ALKALINE PHOSPHATASE 95 U/L (46-116); ASPARTATE AMINOTRANSFERASE 18 U/L (15-37); B-TYPE NATRIURETIC PEPTIDE 151 PG/ML (0-125); BILIRUBIN,TOTAL 0.4 mg/dL (0.2-1.0); CALCIUM, SERUM 9.9 mg/dL (8.5-10.1); CARBON DIOXIDE 35 mmol/L (21-32); CHLORIDE 100 mmol/L (98-107); POTASSIUM 3.8 mmol/L (3.5-5.1); SODIUM SERUM 137 mmol/L (136-145); TOTAL PROTEIN, SERUM 7.1 g/dL (6.4-8.2); UREA NITROGEN, BLOOD 15 mg/dL (7-18)
[2020-05-21 22:45] LABS: GLUCOSE 486 mg/dL (74-106)
[2020-05-21] MEDS ORDERED: IV NS 0.9% 1,000 ML BAG IV ONE (23:00)
[2020-05-21 23:09] LABS: BILIRUBIN,URINE Negative (NEGATIVE); COLOR,URINE YELLOW (YELLOW); LEUKOCYTE ESTERASE ,URINE Negative (NEGATIVE); NITRITE, URINE Negative (NEGATIVE); PH,URINE 5.5 (5.0-8.0); PROTEIN,URINE 100 mg/dl (NEGATIVE); UGLUCOSE >=1000 mg/dL (NEGATIVE); UROBILINOGEN,URINE 0.2 EU/dL (0.2)
[2020-05-21 23:26] LABS: BACTERIA,URINE 3+ /HPF (None Seen); RBC,URINE 0-2 /HPF (0-2); SQUAMOUS EPITHELIAL CELL,UR Few /HPF (None Seen); WBC,URINE 0-2 /HPF (0-3)
[2020-05-22] MEDS ORDERED: INSULIN LISPRO/ASPART 100 UNIT/ML CARTRIDGE SQ SCH
[2020-05-22] MEDS ORDERED: INSULIN REGULAR, HUMAN 100 UNIT/ML 10 ML VIAL ONE (00:47)
[2020-05-22] MEDS ORDERED: INSULIN REGULAR, HUMAN 100 UNIT/ML 10 ML VIAL SQ ONE ×2 (01:00→02:00)
--- NOTE | 2020-05-22 03:27 | NUR ---
Patient discharged to home in stable condition. Written and verbal after care instructions given. Patient verbalizes understanding of instruction. IV removed. Catheter intact and site benign. Pressure and 4x4 applied to site. No bleeding noted.
[2020-05-22 06:44] VITALS: BP 119/70
== END 2020-05-22 03:27 | disposition home or self-care (01) ==
LOC: ER 21:02
DX: E11.65 Type 2 diabetes mellitus with hyperglycemia (principal); R20.2 Paresthesia of skin; R60.0 Localized edema; J45.909 Unspecified asthma, uncomplicated; F41.9 Anxiety disorder, unspecified; Z86.711 Personal history of pulmonary embolism; Z91.19 Patient's noncompliance with other medical treatment and regimen; Z98.890 Other specified postprocedural states; Z90.49 Acquired absence of other specified parts of digestive tract; Z60.2 Problems related to living alone; Z79.4 Long term (current) use of insulin; Z79.899 Other long term (current) drug therapy
CPT/HCPCS: 36415; 71045; 80053; 81001; 82010; 82962 ×2; 83690; 83880; 84484; 85025; 87086; 93005 ×2; 93970; 96360; 99285; J1815 ×2; J7030 ×2

== ENCOUNTER 2020-07-20 15:55 | Emergency (ER) | payer MEDICARE, OTHER ==
[~2020-07-20] VITALS: Ht 170.2 cm; Wt 68.9 kg
[2020-07-20 16:00] VITALS: BP 119/92
--- NOTE | 2020-07-20 16:09 | NUR ---
AT BEDSIDE FOR EVAL.
--- NOTE | 2020-07-20 16:17 | NUR ---
LUBA JOHNSON AT BEDSIDE FOR WOUND DRESSING.
[2020-07-20] MEDS ORDERED: CEPH500C2 PO (16:21)
[2020-07-20] MEDS ORDERED: BACI/NEOM/POLY B OINT PKT 1 UDPKT PACKET TP ONE (16:30)
--- NOTE | 2020-07-20 16:30 | NUR ---
Patient discharged to home in stable condition. Written and verbal after care instructions given. Patient verbalizes understanding of instruction.
== END 2020-07-20 16:32 | disposition home or self-care (01) ==
LOC: ER 15:59
DX: I83.028 Varicose veins of left lower extremity with ulcer other part of lower leg (principal); S80.822A Blister (nonthermal), left lower leg, initial encounter; J45.909 Unspecified asthma, uncomplicated; E11.9 Type 2 diabetes mellitus without complications; F41.9 Anxiety disorder, unspecified; Z86.711 Personal history of pulmonary embolism; Z90.49 Acquired absence of other specified parts of digestive tract; Z60.2 Problems related to living alone; Z79.4 Long term (current) use of insulin; Z79.899 Other long term (current) drug therapy; X58.XXXA Exposure to other specified factors, initial encounter; Y93.89 Activity, other specified; Y92.89 Other specified places as the place of occurrence of the external cause; Y99.8 Other external cause status

== ENCOUNTER 2020-12-30 09:17 | Inpatient (IN) | payer MEDICARE, OTHER ==
[~2020-12-30] VITALS: Ht 170.2 cm; Wt 78.1 kg
[~2020-12-30 09:17] MED LIST changes: +CEPH500C2 PO
--- NOTE | 2020-12-30 09:17 | NUR ---
PT BIB DAUGHTER C/O WORSENING COUGH X 1 WEEK. PT IS AAOX4, NOT IN RESPIRATORY DISTRESS, HOOKED TO UNDERWRITING CONSULTANT, KEPT RESTED AND COMFORTABLE. WILL CONTINUE TO MONITOR.
--- NOTE | 2020-12-30 09:32 | NUR ---
AT BEDSIDE FOR EVAL.
--- NOTE | 2020-12-30 09:45 | NUR ---
PT IV LINE ESTABLISHED BLOOD DRAWN AND SENT TO LAB.
--- NOTE | 2020-12-30 09:56 | NUR ---
ABLE BODIED WATCHMAN AT BEDSIDE FOR ULTRASOUND.
--- NOTE | 2020-12-30 10:11 | NUR ---
COVID SPECIMEN OBTAINED AND SENT TO LAB.
--- NOTE | 2020-12-30 10:14 | NUR ---
DAIRY FARM WORKER AT BEDSIDE FOR XRAY.
[2020-12-30 10:27] LABS: HEMATOCRIT 34 % (33-45); MEAN CORPUSCULAR HGB CONC 33 g/dl (31.0-36.0)
[2020-12-30 10:29] LABS: BASOPHILS # (AUTO) 0.2 K/uL (0.0-0.2); BASOPHILS % (AUTO) 3.9 % (0.0-2.0); EOSINOPHILS % (AUTO) 6.7 % (0.0-6.0); HEMOGLOBIN 11.1 g/dL (11.5-14.8); LYMPHOCYTES # (AUTO) 0.7 K/uL (0.8-4.8); MEAN CORPUSCULAR VOLUME 92 fL (82-100); MONOCYTES # (AUTO) 0.3 K/uL (0.1-1.30); MONOCYTES % (AUTO) 6.7 % (2.0-12.0); NEUTROPHILS # (AUTO) 3.5 K/uL (1.8-8.9); NEUTROPHILS % (AUTO) 69.7 % (43.0-81.0); PLATELET COUNT (AUTO) 294 K/uL (150-450); RED BLOOD CELL COUNT(AUTO) 3.73 MIL/uL (4.0-5.2)
[2020-12-30 10:41] LABS: ALANINE AMINOTRANSFERASE 25 U/L (12-78); ALBUMIN 2.8 g/dL (3.4-5.0); ALKALINE PHOSPHATASE 97 U/L (46-116); ASPARTATE AMINOTRANSFERASE 27 U/L (15-37); BILIRUBIN,DIRECT 0.1 mg/dL (0.0-0.2); BILIRUBIN,TOTAL 0.3 mg/dL (0.2-1.0); CALCIUM, SERUM 8.5 mg/dL (8.5-10.1); CARBON DIOXIDE 33 mmol/L (21-32); CHLORIDE 106 mmol/L (98-107); CREATININE 0.8 mg/dL (0.6-1.3); GLUCOSE 316 mg/dL (74-106); POTASSIUM 3.7 mmol/L (3.5-5.1); SODIUM SERUM 144 mmol/L (136-145); UREA NITROGEN, BLOOD 22 mg/dL (7-18)
[2020-12-30] MEDS ORDERED: SILVER SULFADIAZINE CREAM 25 GM TUBE ONE (11:00)
[2020-12-30] MEDS ORDERED: SILVER SULFADIAZINE CREAM 25 GM TUBE TP ONE (11:00)
[2020-12-30] MEDS ORDERED: FUROSEMIDE 20 MG/2 ML VIAL IV ONE (11:00)
[2020-12-30] MEDS ORDERED: FUROSEMIDE 20 MG/2 ML VIAL ONE (11:01)
--- NOTE | 2020-12-30 11:22 | NUR ---
[facility] CALLED ANALOG CIRCUIT DESIGNER PAGED.
[2020-12-30 11:56] LABS: BILIRUBIN,URINE Negative (NEGATIVE); COLOR,URINE YELLOW (YELLOW); LEUKOCYTE ESTERASE ,URINE Negative (NEGATIVE); NITRITE, URINE Negative (NEGATIVE); PROTEIN,URINE >=300 mg/dl (NEGATIVE); UGLUCOSE 500 MG/DL mg/dL (NEGATIVE); UROBILINOGEN,URINE 0.2 EU/dL (0.2)
[2020-12-30 12:01] LABS: BACTERIA,URINE Rare /HPF (None Seen); SQUAMOUS EPITHELIAL CELL,UR Few /HPF (None Seen); WBC,URINE NONE SEEN /HPF (0-3)
[2020-12-30] MEDS ORDERED: PANT40TA49 PO (12:12)
[2020-12-30] MEDS ORDERED: ATOR20TA PO (12:12)
[2020-12-30] MEDS ORDERED: CARV25TA2 PO (12:12)
[2020-12-30] MEDS ORDERED: INSU100I4 SQ (12:12)
[2020-12-30] MEDS ORDERED: HYDR-4076 PO (12:12)
[2020-12-30] MEDS ORDERED: FURO40TA5 PO (12:12)
[2020-12-30] MEDS ORDERED: ASPI-1169 PO (12:12)
[2020-12-30] MEDS ORDERED: HYDR25TA4 PO (12:12)
[2020-12-30] MEDS ORDERED: SITA100T PO (12:12)
[2020-12-30] MEDS ORDERED: ZOLPIDEM TARTRATE 5 MG TABLET PO PRN (12:30)
[2020-12-30] MEDS ORDERED: MAGNESIUM HYDROXIDE 30 ML UDC PO PRN (12:30)
[2020-12-30] MEDS ORDERED: Z GUARD REMEDY 2 OZ OINT TP PRN (12:30)
[2020-12-30] MEDS ORDERED: MAG HYDROX/AL HYDROX/SIMETH 30 ML UDC PO PRN (12:30)
--- NOTE | 2020-12-30 12:38 | NUR ---
GOING TO TELE 316.1
--- NOTE | 2020-12-30 13:15 | NUR ---
REPORT GIVEN TO ARCADIO HIRSCH FOR OREN.
[2020-12-30 13:40] VITALS: BP 168/91
--- NOTE | 2020-12-30 13:45 | NUR ---
RUBBER TESTER NOTES HOOKED TO TELE MONITOR READING SHOWS SR HR AT 90'S.
--- NOTE | 2020-12-30 13:45 | NUR ---
SOFTWARE TOOLS DEVELOPER ADMITTING NOTES RECEIVED PATIENT FORM E.R ACCOMPANIED BY TORREY CHIN. PATIENT IS AWAKE, A&O X 4, ABLE TO LET NEEDS KNOWN. PATIENT ABLE TO AMBULATE UPON TRANSFER TO BED. VITAL SIGNS TAKEN AND RECORDED. PATIENT IS ON ROOM AIR, TOLERATING WELL, SO SIGNS AND SYMPTOMS OF SOB NOTED. NOTED WITH EDEMA (3+) AND DISCOLORATION ON BLE. PICTURES TAKEN AND FILED TO PATIENT'S CHART. WOUND CONSULT TRIGGERED. IV ACCESS ON L HAND G#20. SAFETY PRECAUTIONS IN PLACE: BED ON LOWEST LOCKED POSITION, SIDE RAILS UP X 2, CALL LIGHT WITHIN EASY REACH. WILL CONTINUE TO MONITOR ACCORDINGLY.
[2020-12-30] MEDS: hydrALAZINE HCL 25 MG TABLET PO SCH ×2 (14:00→16:51)
[2020-12-30] MEDS: INSULIN ASPART/LISPRO 100 UNIT/ML CARTRIDGE SQ SCH ×2 (14:02→17:15)
[2020-12-30] MEDS: HYDROCODONE/APAP 10/325MG TABLET PO PRN (17:17)
--- NOTE | 2020-12-30 17:55 | NUR ---
RN NOTES BLOOD SUGAR CHECKED, RESULT IS 257 MG/DL.
[2020-12-30 18:30] VITALS: BP 155/88
--- NOTE | 2020-12-30 18:30 | NUR ---
RN NOTES RECHECKED BLOOD PRESSURE, 155/88, HR 88.
--- NOTE | 2020-12-30 18:31 | NUR ---
CAGE MAKER CLOSING NOTES PATIENT IS IN BED, AWAKE, A&O X 4, ABLE TO LET NEEDS KNOWN. PATIENT IS ON ROOM AIR, TOLERATING WELL, NO SIGNS AND SYMPTOMS OF SOB NOTED, WITH EDEMA (3+) AND DISCOLORATION ON BLE. IV ACCESS ON L HAND G#20, INTACT, PATENT AND FLUSHES WELL. NO COMPLAINTS OF PAIN AT THIS TIME. SAFETY PRECAUTIONS IN PLACE: BED ON LOWEST LOCKED POSITION, SIDE RAILS UP X 2, CALL LIGHT WITHIN EASY REACH. ALL NEEDS ATTENDED AND MET, DUE MEDS GIVEN ORDERED. WILL ENDORSE TO ONCOMING SHIFT FOR OREN.
[2020-12-30] MEDS: ONDANSETRON HCL/PF 4 MG/2 ML VIAL IVP PRN (19:52)
[2020-12-30 20:00] VITALS: BP 135/76
--- NOTE | 2020-12-30 20:13 | NUR ---
radar air traffic controller Notes Patient was last seen awake in bed resting. Patient's alert and oriented x4. Patient's on room air with no respiratory distress noted. Patient's connected to a tele monitor with no cardiac distress noted. Patient has an IV access on her left hand gauge #20, which is intact, patent, and flushing well. Safety measures in place: Bed locked, bed alarm on, side rails upx3, and call light within reach of the patient. Will continue to monitor the patient. Addendum: 12/31/20 at 0636 by DEMOND RAYGOZA RN radar air traffic controller Opening Notes
[2020-12-30] MEDS: INSULIN GLARGINE, 100 UNIT/ML CARTRIDGE SQ SCH (21:00)
[2020-12-30] MEDS: CARVEDILOL 12.5 MG TABLET PO SCH (21:07)
--- NOTE | 2020-12-30 21:47 | NUR ---
rigging man Notes Patient's blood sugar @ 2134 was 134mg/dL. Patient refused insulin glargine. Risks have been explained to the patient. Patient is aware of risks. Will continue to monitor the patient.
[2020-12-31] VITALS: BP 110/59
[2020-12-31] MEDS: ONDANSETRON HCL/PF 4 MG/2 ML VIAL IVP PRN (02:08)
[2020-12-31] MEDS: ACETAMINOPHEN 325 MG TABLET PO PRN (02:29)
[2020-12-31 04:00] VITALS: BP 152/87
[2020-12-31 06:10] LABS: BASOPHILS # (AUTO) 0.1 K/uL (0.0-0.2); BASOPHILS % (AUTO) 0.9 % (0.0-2.0); EOSINOPHILS % (AUTO) 4.1 % (0.0-6.0); HEMATOCRIT 33 % (33-45); HEMOGLOBIN 10.9 g/dL (11.5-14.8); LYMPHOCYTES # (AUTO) 1.2 K/uL (0.8-4.8); MEAN CORPUSCULAR HGB CONC 33 g/dl (31.0-36.0); MEAN CORPUSCULAR VOLUME 91 fL (82-100); MONOCYTES # (AUTO) 0.3 K/uL (0.1-1.30); PLATELET COUNT (AUTO) 258 K/uL (150-450); RED BLOOD CELL COUNT(AUTO) 3.57 MIL/uL (4.0-5.2); WHITE BLOOD COUNT (AUTO) 5.8 K/uL (4.3-11.0)
--- NOTE | 2020-12-31 06:38 | NUR ---
special service officer Closing Notes Patient was last seen sleeping in bed. Patient's alert and oriented x4. Patient's on room air with no respiratory distress noted. Patient's connected to a tele monitor with no cardiac distress noted. Patient has a saline lock on her left hand gauge #20, which is intact, patent, and flushing well. Safety measures in place: Bed locked, bed alarm on, side rails upx3, and call light within reach of the patient. Will endorse care to the day shift nurse.
[2020-12-31 06:41] LABS: CALCIUM, SERUM 8.5 mg/dL (8.5-10.1); MAGNESIUM 1.9 mg/dL (1.8-2.4); PHOSPHORUS 4.6 mg/dL (2.5-4.9); POTASSIUM 3.8 mmol/L (3.5-5.1)
--- NOTE | 2020-12-31 06:54 | NUR ---
sow farm barn technician Notes Patient's blood sugar= 200mg/dL.
--- NOTE | 2020-12-31 07:23 | NUR ---
MS/RN OPENING NOTES RECEIVED PATIENT SETTING ON BED AWAKE ALERT AND ORIENTED X4. PATIENT IS ON ROOM AIR. PATIENT IN NO APPARENT RESPIRATORY DISTRESS NOTED. NO COMPLAINED OF PAIN NOTED AT THIS TIME. TELE MONITOR READING SINUS RHYTHM 86 BPM. WILL CONTINUE TO MONITOR.
[2020-12-31 08:00] VITALS: BP 154/86
[2020-12-31] MEDS: ASPIRIN 81 MG TAB.CHEW PO SCH (08:21)
[2020-12-31] MEDS: PANTOPRAZOLE 40 MG TABLET.DR PO SCH (08:21)
[2020-12-31] MEDS: HYDROCHLOROTHIAZIDE 25 MG TABLET PO SCH (08:22)
[2020-12-31] MEDS: hydrALAZINE HCL 25 MG TABLET PO SCH ×3 (08:22→16:31)
[2020-12-31] MEDS: CARVEDILOL 12.5 MG TABLET PO SCH ×2 (08:22→20:34)
[2020-12-31] MEDS: ATORVASTATIN 10 MG TABLET PO SCH (08:27)
[2020-12-31] MEDS: INSULIN ASPART/LISPRO 100 UNIT/ML CARTRIDGE SQ SCH ×3 (08:39→17:01)
[2020-12-31] MEDS: LINAGLIPTIN 5 MG TABLET PO SCH (08:40)
[2020-12-31] MEDS: INSULIN GLARGINE, 100 UNIT/ML CARTRIDGE SQ SCH ×2 (09:00→21:06)
[2020-12-31] MEDS ORDERED: FUROSEMIDE 40 MG/4 ML VIAL IV SCH (09:00)
[2020-12-31] MEDS ORDERED: LINAGLIPTIN 5 MG TABLET PO SCH (09:00)
[2020-12-31] MEDS ORDERED: FUROSEMIDE 100 MG/10 ML VIAL IV SCH (09:00)
--- NOTE | 2020-12-31 09:00 | NUR ---
TELE/RN NOTES PATIENT REFUSED ATORVASTATIN 10MG 2 TAB P.O. EXPLAINED THE RISK AND BENEFITS. WILL CONTINUE TO MONITOR.
[2020-12-31] MEDS: APIXABAN 5 MG TABLET PO SCH ×2 (09:36→16:33)
[2020-12-31 09:51] LABS: THYROID STIMULATING HORMONE 1.46 uIU/mL (0.358-3.74)
--- NOTE | 2020-12-31 10:04 | NUR ---
TELE/RN NOTES PATIENT COMPLAINED OF BURNING SENSATION ON HER CHEST. 1004 BP 74/46 PULSE 65 1005 BP 76/46 PULSE 65 1010 PLACED PATIENT ON TRENDELENBURG POSITION BP 105/59 PULSE 67 1015 BP 110/63 PULSE 63 1030 BP 114/70 PULSE 67 1100 LATEST BP 124/76 PULSE 72. PATIENT VERBALIZED FEELING BETTER. IRAM CHARGE NURSE WAS AWARE. WILL CONTINUE TO MONITOR.
[2020-12-31 12:23] VITALS: BP 125/65
[2020-12-31] MEDS: FUROSEMIDE 100 MG/10 ML VIAL IV SCH ×3 (12:26→20:34)
--- NOTE | 2020-12-31 12:37 | NUR ---
MS/RN NOTES PATIENT REFUSED HUMALOG 5 UNITS STANDING ORDER BLOOD SUGAR 149MG/DL. EXPLAINED THE RISK AND BENEFITS. WILL CONTINUE TO MONITOR.
--- NOTE | 2020-12-31 12:40 | NUR ---
MS/RN NOTES PATIENT IS NOT EATING THE HOSPITAL FOOD, PATIENT IS EATING THE FOOD THAT FAMILY BRING IT TO HER. EXPLAINED THE RISK AND BENEFITS. WILL CONTINUE TO MONITOR.
[2020-12-31 16:00] VITALS: BP 157/78
--- NOTE | 2020-12-31 16:55 | NUR ---
MS/RN NOTES PATIENT REQUEST FOR ATIVAN 1MG 1 TAB P.O. PATIENT VERBALIZED FOR FEELING ANXIOUS. WILL CONTINUE TO MONITOR.
[2020-12-31] MEDS: LORAZEPAM 1 MG TABLET PO PRN (16:58)
--- NOTE | 2020-12-31 18:49 | NUR ---
TELE/RN CLOSING NOTES PATIENT IS ALERT AND ORIENTED X4. PATIENT IS ON ROOM AIR. PATIENT IN NO APPARENT RESPIRATORY DISTRESS NOTED. NO COMPLAINED OF PAIN NOTED AT THIS TIME. SEEN AND EXAMINED BY MD WITH ORDERS MADE AND CARRIED OUT. ALL DUE MEDICATIONS WAS GIVEN. TELE MONITOR READING SINUS RHYTHM 81 BPM. IV ACCESS AT LEFT HAND # 20G PATENT AND INTACT. SAFETY PRECAUTIONS WAS IN PLACED. BED IN LOWEST POSITION AND LOCKED. SIDERAILS UP X2. CALL LIGHT WITHIN REACH. WILL ENDORSED TO PRODUCTION OPERATIONS MANAGER FOR OREN.
--- NOTE | 2020-12-31 19:25 | NUR ---
TELE/RN OPENING NOTE RECEIVED PATIENT RESTING IN BED. AWAKE, ALERT AND ORIENTED X 4. ABLE TO MAKE NEEDS KNOWN. DENIES PAIN AT THIS TIME. CONTINUES ON ROOM AIR WITH NO S/SX OF RESPIRATORY DISTRESS NOTED. IV ACCESS TO LEFT HAND #20G INTACT, PATENT AND SALINE LOCKED. CONTINUES ON IV DIURETICS. CONTINUES ON TELE MONITOR WITH CURRENT READING SR. FAMILY AT BEDSIDE. CALL LIGHT WITHIN REACH. ASPIRATION, FALL AND SAFETY PRECAUTIONS MAINTAINED. WILL CONTINUE TO MONITOR.
[2020-12-31 19:49] VITALS: BP 138/80
--- NOTE | 2020-12-31 20:35 | NUR ---
TELE/RN NOTE PATIENTS BP IS 138/80. PATIENT HAS LASIX AND COREG SCHEDULED. ADMINISTERING LASIX IV. HOLDING COREG AT THIS TIME. WILL MONITOR BP.
--- NOTE | 2020-12-31 21:30 | NUR ---
TELE/RN NOTE PATIENTS IV TO LEFT HAND DISLODGED. IV REMOVED WITH TIP INTACT. NO BLEEDING NOTED. PRESSURE DRESSING APPLIED. NEW IV INSERTED TO RIGHT FOREARM #22G WITH PATIENT TOLERATING WELL. IV FLUSHES WITH POSITIVE BLOOD RETURN. IV SITE SECURED. WILL CONTINUE TO MONITOR.
[2021-01-01] VITALS: BP 124/56
[2021-01-01 04:00] VITALS: BP 141/84
[2021-01-01 06:13] LABS: BASOPHILS % (AUTO) 0.8 % (0.0-2.0); EOSINOPHILS % (AUTO) 3.4 % (0.0-6.0); HEMATOCRIT 27 % (33-45); HEMOGLOBIN 9.3 g/dL (11.5-14.8); LYMPHOCYTES # (AUTO) 1.2 K/uL (0.8-4.8); LYMPHOCYTES % (AUTO) 28.6 % (20.0-44.0); MEAN CORPUSCULAR HGB CONC 34 g/dl (31.0-36.0); MEAN CORPUSCULAR VOLUME 91 fL (82-100); MONOCYTES # (AUTO) 0.4 K/uL (0.1-1.30); MONOCYTES % (AUTO) 8.5 % (2.0-12.0); NEUTROPHILS # (AUTO) 2.5 K/uL (1.8-8.9); NEUTROPHILS % (AUTO) 58.7 % (43.0-81.0); PLATELET COUNT (AUTO) 228 K/uL (150-450); RED BLOOD CELL COUNT(AUTO) 3.01 MIL/uL (4.0-5.2); WHITE BLOOD COUNT (AUTO) 4.3 K/uL (4.3-11.0)
--- NOTE | 2021-01-01 06:30 | NUR ---
TELE/RN CLOSING NOTE PATIENT CURRENTLY SLEEPING IN BED. ALERT AND ORIENTED X 4. ABLE TO MAKE NEEDS KNOWN. DENIES PAIN AT THIS TIME. CONTINUES ON ROOM AIR WITH NO S/SX OF RESPIRATORY DISTRESS NOTED. IV ACCESS TO RIGHT FOREARM #22G INTACT, PATENT AND SALINE LOCKED. CONTINUES ON DIURETICS. CONTINUES ON TELE MONITOR WITH CURRENT READING SR 93. CALL LIGHT WITHIN REACH. ASPIRATION, FALL AND SAFETY PRECAUTIONS MAINTAINED. WILL ENDORSE PLAN OF CARE TO ONCOMING SHIFT.
[2021-01-01] MEDS: BLOOD SUGAR DIAGNOSTIC 1 EACH STRIP IN SCH ×4 (07:30→22:37)
--- NOTE | 2021-01-01 07:30 | NUR ---
PATIENT RECEIVED RESTING COMFORTABLY IN BED. NO S/S OR C/O PAIN OR DISTRESS NOTED. SIDE RAILS UP X2, CALL LIGHT LEFT WITHIN REACH. WILL CONTINUE PLAN OF CARE
[2021-01-01 07:31] LABS: CALCIUM, SERUM 8.4 mg/dL (8.5-10.1); CREATININE 1.2 mg/dL (0.6-1.3); POTASSIUM 3.7 mmol/L (3.5-5.1)
[2021-01-01 08:00] VITALS: BP 149/77
[2021-01-01] MEDS: FUROSEMIDE 100 MG/10 ML VIAL IV SCH ×3 (08:34→15:44)
[2021-01-01] MEDS: ASPIRIN 81 MG TAB.CHEW PO SCH (08:37)
[2021-01-01] MEDS: PANTOPRAZOLE 40 MG TABLET.DR PO SCH (08:37)
[2021-01-01] MEDS: HYDROCHLOROTHIAZIDE 25 MG TABLET PO SCH (08:38)
[2021-01-01] MEDS: LINAGLIPTIN 5 MG TABLET PO SCH (08:38)
[2021-01-01] MEDS: hydrALAZINE HCL 25 MG TABLET PO SCH ×3 (08:39→16:53)
[2021-01-01] MEDS: CARVEDILOL 12.5 MG TABLET PO SCH ×2 (08:39→21:00)
[2021-01-01] MEDS: POTASSIUM CHLORIDE 20 MEQ TAB.PRT.SR PO SCH ×3 (08:41→11:51)
[2021-01-01] MEDS: INSULIN ASPART/LISPRO 100 UNIT/ML CARTRIDGE SQ SCH ×3 (08:47→16:54)
[2021-01-01] MEDS: APIXABAN 5 MG TABLET PO SCH ×2 (08:47→16:52)
[2021-01-01] MEDS: ATORVASTATIN 10 MG TABLET PO SCH (08:48)
[2021-01-01] MEDS: INSULIN GLARGINE, 100 UNIT/ML CARTRIDGE SQ SCH ×2 (08:48→21:00)
--- NOTE | 2021-01-01 10:42 | NUR ---
WOUND CARE CONSULT: PT PRESENTS WITH DRY WOUND TO LEFT LOWER LEG AND SKIN CONDITION WITH RAISED AREA AND REDNESS, PRESENT ON ADMISSION. DR HERMOSILLO NOTIFIED OF DPM CONSULT. MD IN AGREEMENT WITH PLAN OF CARE.
[2021-01-01 16:00] VITALS: BP 126/66
[2021-01-01] MEDS ORDERED: oxyCODONE/APAP (5/325 MG) 1 UDTAB TABLET PO PRN (16:30)
--- NOTE | 2021-01-01 18:43 | NUR ---
CHANGE OF SHIFT REPORT PT RESTING COMFORTABLY IN BED. NO S/S OR C/O PAIN OR DISTRESS NOTED. SIDE RAILS UP X2, CALL LIGHT LEFT WITHIN REACH. PT KEPT CLEAN, DRY, AND COMFORTABLE. NO SIGNIFICANT CHANGES SINCE PREVIOUS SHIFT. WILL CONTINUE PLAN OF CARE.
--- NOTE | 2021-01-01 19:30 | NUR ---
MS/TELE/RN RECEIVED PATIENT IN ROOM LYING IN BED AWAKE, ALERT, ORIENTED, COMFORTABLE, NO C/O PAIN, NO DISTRESS NOTED, CALL LIGHT IN REACH. WILL MONITOR.
[2021-01-01 20:00] VITALS: BP 143/77
--- NOTE | 2021-01-01 23:13 | NUR ---
MS/TELE/RN AT 22:30 PATIENT REFUSE CARVIDILOL, EDUCATED ON THE IMPORTANCE OF THE MEDICATION BUT STILL REFUSED.
[2021-01-02] MEDS: LORAZEPAM 1 MG TABLET PO PRN (00:11)
--- NOTE | 2021-01-02 06:05 | NUR ---
MS/TELE/RN PATIENT IS STILL SLEEPING AT THIS TIME, APPEAR COMFORTABLE, NO SIGNS OF DISTRESS NOTED, CALL LIGHT IN REACH, GOOD SLEEP WAS NOTED DURING THE SHIFT, ALL NEEDS ATTENDED AT THIS TIME, WILL CONTINUE TO MONITOR.
[2021-01-02 06:19] LABS: BASOPHILS % (AUTO) 0.8 % (0.0-2.0); EOSINOPHILS % (AUTO) 4.1 % (0.0-6.0); HEMATOCRIT 29 % (33-45); LYMPHOCYTES # (AUTO) 1.4 K/uL (0.8-4.8); LYMPHOCYTES % (AUTO) 24.2 % (20.0-44.0); MEAN CORPUSCULAR HGB CONC 34 g/dl (31.0-36.0); MEAN CORPUSCULAR VOLUME 91 fL (82-100); MONOCYTES # (AUTO) 0.5 K/uL (0.1-1.30); MONOCYTES % (AUTO) 8.5 % (2.0-12.0); NEUTROPHILS # (AUTO) 3.7 K/uL (1.8-8.9); NEUTROPHILS % (AUTO) 62.4 % (43.0-81.0); PLATELET COUNT (AUTO) 236 K/uL (150-450); RED BLOOD CELL COUNT(AUTO) 3.21 MIL/uL (4.0-5.2); WHITE BLOOD COUNT (AUTO) 5.9 K/uL (4.3-11.0)
[2021-01-02 06:28] LABS: *SPE A/G RATIO 0.8 (0.7-1.7); *SPE ALPHA-1-GLOBULIN 0.2 g/dL (0.0-0.4); *SPE ALPHA-2-GLOBULIN 0.8 g/dL (0.4-1.0); *SPE BETA GLOBULIN 0.9 g/dL (0.7-1.3); *SPE M-SPIKE Not Observed g/dL (Not Observed)
[2021-01-02] MEDS: BLOOD SUGAR DIAGNOSTIC 1 EACH STRIP IN SCH ×2 (06:47→12:14)
[2021-01-02 07:14] LABS: ALBUMIN 2.5 g/dL (3.4-5.0); BILIRUBIN,TOTAL 0.2 mg/dL (0.2-1.0); CREATININE 1.3 mg/dL (0.6-1.3); MAGNESIUM 1.9 mg/dL (1.8-2.4); PHOSPHORUS 4.8 mg/dL (2.5-4.9); TOTAL PROTEIN, SERUM 6.1 g/dL (6.4-8.2)
[2021-01-02 07:41] LABS: CALCIUM, SERUM 8.4 mg/dL (8.5-10.1)
--- NOTE | 2021-01-02 07:51 | NUR ---
MS/RN OPENING NOTE RECEIVED PATIENT RESTING IN BED. AWAKE, ALERT AND ORIENTED X 4. ABLE TO MAKE NEEDS KNOWN. STABLE ON ROOM AIR. DENIES PAIN AT THIS TIME. CONTINUES ON ROOM AIR WITH NO S/SX OF RESPIRATORY DISTRESS NOTED. AMBULATORY WITH WALKER. IV ACCESS IN RIGHT FA #22G IS INTACT, PATENT AND ON SALINE LOCKED. SAFETY PRECAUTIONS OBSERVED: BED LOCKED ON LOWEST POSITION, SIDE RAILS UPX2, CALL LIGHT AND TABLE WITHIN REACH. WILL CONTINUE TO MONITOR.
[2021-01-02 08:00] VITALS: BP 130/67
[2021-01-02] MEDS: INSULIN ASPART/LISPRO 100 UNIT/ML CARTRIDGE SQ SCH ×2 (08:19→12:21)
[2021-01-02] MEDS: ASPIRIN 81 MG TAB.CHEW PO SCH (08:23)
[2021-01-02] MEDS: PANTOPRAZOLE 40 MG TABLET.DR PO SCH (08:23)
[2021-01-02] MEDS: APIXABAN 5 MG TABLET PO SCH (08:23)
[2021-01-02] MEDS: ATORVASTATIN 10 MG TABLET PO SCH ×2 (08:24→08:40)
[2021-01-02] MEDS: HYDROCHLOROTHIAZIDE 25 MG TABLET PO SCH (08:24)
[2021-01-02] MEDS: LINAGLIPTIN 5 MG TABLET PO SCH (08:25)
[2021-01-02] MEDS: hydrALAZINE HCL 25 MG TABLET PO SCH ×2 (08:25→12:14)
[2021-01-02] MEDS: CARVEDILOL 12.5 MG TABLET PO SCH (08:25)
[2021-01-02] MEDS ORDERED: FUROSEMIDE 40 MG TABLET PO SCH (09:00)
[2021-01-02] MEDS ORDERED: POTASSIUM CHLORIDE 20 MEQ TAB.PRT.SR PO SCH (09:00)
[2021-01-02] MEDS: INSULIN GLARGINE, 100 UNIT/ML CARTRIDGE SQ SCH (09:12)
[2021-01-02] MEDS ORDERED: FURO40TA5 PO (14:27)
[2021-01-02] MEDS ORDERED: APIX5TAB PO (14:27)
[2021-01-02] MEDS ORDERED: POTA20TA83 PO (14:27)
[2021-01-02] MEDS: ACETAMINOPHEN 325 MG TABLET PO PRN (15:03)
[2021-01-02] MEDS: HYDROCODONE/APAP 10/325MG TABLET PO PRN (15:58)
[2021-01-02 16:00] VITALS: BP 130/61
--- NOTE | 2021-01-02 16:22 | NUR ---
MS/PIZZA BAKER NOTES PATIENT IS ALERT AND ORIENTED X4, ABLE TO MAKE NEEDS KNOWN. STABLE ON ROOM AIR. PATIENT IS MEDICALLY STABLE AND DR. KO ORDERED PATIENT TO BE DISCHARGE HOME WITH PT. DISCHARGE INSTRUCTIONS GIVEN TO THE PATIENT AND PATIENT ABLE TO VERBALIZED UNDERSTANDING. ALL BELONGINGS ACCOUNTED FOR. IV ACCESS DISCONTINUED. PATIENT WHEELED DOWN AT THE FRONT LOBBY AND WAS PICKED UP BY THE TO GO HOME.
== END 2021-01-02 16:22 | disposition home health service (06) | DRG 291 ==
LOC: ER 09:20 → TELE 12:40 → MED 01-01 11:12
PROVIDERS: ADMIT Family Medicine; ATTEND Student in an Organized Health Care Education/Training Program
DX: I11.0 Hypertensive heart disease with heart failure (principal); N17.0 Acute kidney failure with tubular necrosis; E44.0 Moderate protein-calorie malnutrition; I50.33 Acute on chronic diastolic (congestive) heart failure; E11.65 Type 2 diabetes mellitus with hyperglycemia; E11.40 Type 2 diabetes mellitus with diabetic neuropathy, unspecified; E66.9 Obesity, unspecified; F41.9 Anxiety disorder, unspecified; I48.91 Unspecified atrial fibrillation; J45.909 Unspecified asthma, uncomplicated; M19.90 Unspecified osteoarthritis, unspecified site; Z79.4 Long term (current) use of insulin; Z86.711 Personal history of pulmonary embolism; D63.8 Anemia in other chronic diseases classified elsewhere; E88.09 Other disorders of plasma-protein metabolism, not elsewhere classified; Z86.73 Personal history of transient ischemic attack (TIA), and cerebral infarction without residual deficits; Z68.27 Body mass index [BMI] 27.0-27.9, adult; Z20.822 Contact with and (suspected) exposure to COVID-19; I87.2 Venous insufficiency (chronic) (peripheral); D64.9 Anemia, unspecified
CPT/HCPCS: 36415; 71045-TC; 80048-TC; 80053-TC; 80061-TC; 80076-TC; 81001; 82728-TC; 82962-TC; 83540-TC; 83605-TC; 83735-TC; 83880; 84100-TC; 84155; 84165; 84439-TC; 84443-TC; 84484-TC; 85025-TC; 85730-TC; 87040-TC; 87081-TC; 87086-TC; 93307-TC; 93970-TC; C9803; G0378; J1815; J1940; J2405

== ENCOUNTER 2021-01-04 14:40 | Emergency (ER) | payer MEDICARE, OTHER ==
[~2021-01-04] VITALS: Ht 175.3 cm; Wt 78.0 kg
[~2021-01-04 14:40] MED LIST changes: +APIX5TAB PO; +ASPI-1169 PO; +ATOR20TA PO; +CARV25TA2 PO; -CEPH500C2 PO; +FURO40TA5 PO; +HYDR-4076 PO; +HYDR25TA4 PO; +INSU100I4 SQ; +PANT40TA49 PO; +POTA20TA83 PO; +SITA100T PO
--- NOTE | 2021-01-04 14:40 | NUR ---
PT BIB C/O HIGH BP THIS MORNING AND L LEG SWELLING. PT LATES BP 119/61 PER PT SHE TOOK HER BP MEDS ALREADY. PT IS AAOX4, NOT IN RESPIRATORY DISTRESS, HOOKED TO DOUGH MACHINE OPERATOR, KEPT RESTED AND COMFORTABLE. WILL CONTINUE TO MONITOR.
--- NOTE | 2021-01-04 14:58 | NUR ---
AT BEDSIDE FOR EVAL.
[2021-01-04 15:11] VITALS: BP 122/71
--- NOTE | 2021-01-04 15:11 | NUR ---
Patient discharged to home in stable condition. Written and verbal after care instructions given. Patient verbalizes understanding of instruction.
== END 2021-01-04 15:12 | disposition home or self-care (01) ==
LOC: ER 15:09
DX: I10 Essential (primary) hypertension (principal); R23.8 Other skin changes; R60.0 Localized edema; J45.909 Unspecified asthma, uncomplicated; E11.9 Type 2 diabetes mellitus without complications; F41.9 Anxiety disorder, unspecified; Z86.711 Personal history of pulmonary embolism; Z90.49 Acquired absence of other specified parts of digestive tract; Z60.2 Problems related to living alone; Z79.82 Long term (current) use of aspirin; Z79.4 Long term (current) use of insulin; Z79.899 Other long term (current) drug therapy

== ENCOUNTER 2021-01-31 15:01 | Emergency (ER) | payer MEDICARE, OTHER ==
[~2021-01-31] VITALS: Ht 170.2 cm; Wt 74.8 kg
--- NOTE | 2021-01-31 15:40 | NUR ---
The patient is bib family meber for abscess to LL abd since yesterday. Afebrile. Denies pain. Will continue to monitor the patient.
[2021-01-31] MEDS ORDERED: SULF1TAB48 PO (15:52)
[2021-01-31] MEDS ORDERED: CEPH250C PO (15:52)
[2021-01-31] MEDS ORDERED: SULFAMETH/TRIMETH 800/160 MG 1 UDTAB TABLET PO ONE (16:00)
[2021-01-31] MEDS ORDERED: CEPHALEXIN MONOHYDRATE 500 MG CAPSULE PO ONE ×2 (16:00)
[2021-01-31] MEDS ORDERED: SULFAMETH/TRIMETH 800/160 MG 1 UDTAB TABLET ONE (16:00)
--- NOTE | 2021-01-31 16:25 | NUR ---
Patient discharged to home in stable condition with family member. Written and verbal after care instructions given. Patient verbalizes understanding of instruction.
[2021-01-31 16:27] VITALS: BP 142/87
== END 2021-01-31 16:27 | disposition home or self-care (01) ==
LOC: ER 15:11
DX: L02.214 Cutaneous abscess of groin (principal); L03.314 Cellulitis of groin; J45.909 Unspecified asthma, uncomplicated; E11.9 Type 2 diabetes mellitus without complications; F41.9 Anxiety disorder, unspecified; Z90.49 Acquired absence of other specified parts of digestive tract; Z60.2 Problems related to living alone; Z79.899 Other long term (current) drug therapy; Z79.4 Long term (current) use of insulin

== ENCOUNTER 2021-03-18 11:07 | Inpatient (IN) | payer MEDICARE, OTHER ==
[~2021-03-18] VITALS: Ht 170.2 cm; Wt 79.4 kg
[~2021-03-18 11:07] MED LIST changes: +CEPH250C PO; +SULF1TAB48 PO
[2021-03-18 12:04] LABS: BASOPHILS % (AUTO) 0.9 % (0.0-2.0); EOSINOPHILS % (AUTO) 3.3 % (0.0-6.0); HEMATOCRIT 33 % (33-45); LYMPHOCYTES # (AUTO) 0.9 K/uL (0.8-4.8); LYMPHOCYTES % (AUTO) 22.7 % (20.0-44.0); MEAN CORPUSCULAR HGB CONC 33 g/dl (31.0-36.0); MEAN CORPUSCULAR VOLUME 90 fL (82-100); MONOCYTES # (AUTO) 0.4 K/uL (0.1-1.30); MONOCYTES % (AUTO) 8.7 % (2.0-12.0); NEUTROPHILS # (AUTO) 2.7 K/uL (1.8-8.9); NEUTROPHILS % (AUTO) 64.4 % (43.0-81.0); PLATELET COUNT (AUTO) 250 K/uL (150-450); RED BLOOD CELL COUNT(AUTO) 3.67 MIL/uL (4.0-5.2); WHITE BLOOD COUNT (AUTO) 4.2 K/uL (4.3-11.0)
[2021-03-18 12:28] LABS: CALCIUM, SERUM 8.8 mg/dL (8.5-10.1); CARBON DIOXIDE 30 mmol/L (21-32); CHLORIDE 105 mmol/L (98-107); CREATININE 1.1 mg/dL (0.6-1.3); GLUCOSE 323 mg/dL (74-106); POTASSIUM 3.7 mmol/L (3.5-5.1); SODIUM SERUM 141 mmol/L (136-145); UREA NITROGEN, BLOOD 30 mg/dL (7-18)
[2021-03-18 12:51] LABS: ALANINE AMINOTRANSFERASE 18 U/L (12-78); ALBUMIN 2.8 g/dL (3.4-5.0); ALKALINE PHOSPHATASE 97 U/L (46-116); ASPARTATE AMINOTRANSFERASE 18 U/L (15-37); BILIRUBIN,DIRECT 0.1 mg/dL (0.0-0.2); BILIRUBIN,TOTAL 0.4 mg/dL (0.2-1.0)
[2021-03-18] MEDS ORDERED: FUROSEMIDE 40 MG/4 ML VIAL IV ONE (13:00)
[2021-03-18] MEDS ORDERED: LOSA50TA39 PO (13:18)
[2021-03-18] MEDS ORDERED: FURO-144 PO (13:18)
[2021-03-18] MEDS ORDERED: FUROSEMIDE 40 MG/4 ML VIAL ONE (13:47)
[2021-03-18] MEDS ORDERED: ONDANSETRON HCL/PF 4 MG/2 ML VIAL IVP PRN (16:00)
[2021-03-18] MEDS ORDERED: DEXTROSE 50%-WATER 50 ML DISP.SYRIN IV PRN (16:00)
[2021-03-18] MEDS ORDERED: BUMETANIDE INJ 6 MG in IV NS 0.9% 36 ML IV ONE (16:00)
[2021-03-18] MEDS ORDERED: Z GUARD REMEDY 2 OZ OINT TP PRN (16:00)
[2021-03-18] MEDS ORDERED: ACETAMINOPHEN 325 MG TABLET PO PRN (16:00)
[2021-03-18] MEDS: hydrALAZINE HCL 50 MG TABLET PO SCH ×3 (17:09→22:11)
[2021-03-18] MEDS: CARVEDILOL 6.25 MG TABLET PO SCH (17:10)
[2021-03-18] MEDS: ENOXAPARIN SODIUM 40 MG/0.4 ML DISP.SYRIN SQ SCH ×2 (17:12→21:00)
[2021-03-18] MEDS: BLOOD SUGAR DIAGNOSTIC 1 EACH STRIP IN SCH ×2 (17:24→22:35)
[2021-03-18] MEDS: INSULIN ASPART/LISPRO 100 UNIT/ML CARTRIDGE SQ SCH (17:25)
[2021-03-18] MEDS: INSULIN REGULAR, HUMAN 100 UNIT/ML 3 ML VIAL SQ PRN (17:29)
[2021-03-18 20:00] VITALS: BP 121/68
[2021-03-18] MEDS: HYDROCODONE/APAP 10/325MG TABLET PO PRN (20:16)
[2021-03-18] MEDS: INSULIN GLARGINE, 100 UNIT/ML CARTRIDGE SQ SCH (21:00)
[2021-03-18] MEDS: LORAZEPAM 1 MG TABLET PO SCH (22:10)
[2021-03-18] MEDS: *INSULIN REGULAR(HUMULIN R)HUM 100 UNIT/ML VIAL SQ PRN (23:05)
[2021-03-19] VITALS: BP 106/59
[2021-03-19] MEDS: hydrALAZINE HCL 50 MG TABLET PO SCH ×5 (03:08→22:13)
[2021-03-19 04:00] VITALS: BP 143/72
[2021-03-19] MEDS: BLOOD SUGAR DIAGNOSTIC 1 EACH STRIP IN SCH ×4 (06:35→21:59)
[2021-03-19] MEDS: INSULIN REGULAR, HUMAN 100 UNIT/ML 3 ML VIAL SQ PRN ×2 (06:41→12:51)
[2021-03-19 08:00] VITALS: BP 144/87
[2021-03-19 08:09] LABS: BASOPHILS # (AUTO) 0.1 K/uL (0.0-0.2); EOSINOPHILS % (AUTO) 1.3 % (0.0-6.0); HEMATOCRIT 32 % (33-45); HEMOGLOBIN 10.5 g/dL (11.5-14.8); LYMPHOCYTES # (AUTO) 0.9 K/uL (0.8-4.8); LYMPHOCYTES % (AUTO) 17.3 % (20.0-44.0); MEAN CORPUSCULAR HGB CONC 33 g/dl (31.0-36.0); MEAN CORPUSCULAR VOLUME 91 fL (82-100); MONOCYTES # (AUTO) 0.3 K/uL (0.1-1.30); MONOCYTES % (AUTO) 4.9 % (2.0-12.0); NEUTROPHILS # (AUTO) 4.1 K/uL (1.8-8.9); NEUTROPHILS % (AUTO) 75.5 % (43.0-81.0); RED BLOOD CELL COUNT(AUTO) 3.49 MIL/uL (4.0-5.2); WHITE BLOOD COUNT (AUTO) 5.4 K/uL (4.3-11.0)
[2021-03-19 08:46] LABS: CALCIUM, SERUM 8.1 mg/dL (8.5-10.1); CREATININE 1.3 mg/dL (0.6-1.3); MAGNESIUM 1.9 mg/dL (1.8-2.4); PHOSPHORUS 4.5 mg/dL (2.5-4.9); POTASSIUM 4.2 mmol/L (3.5-5.1)
[2021-03-19] MEDS: LOSARTAN POTASSIUM 50 MG TABLET PO SCH (09:07)
[2021-03-19] MEDS: LINAGLIPTIN 5 MG TABLET PO SCH (09:07)
[2021-03-19] MEDS: LORAZEPAM 1 MG TABLET PO SCH ×2 (09:07→21:44)
[2021-03-19] MEDS: PANTOPRAZOLE 40 MG TABLET.DR PO SCH (09:08)
[2021-03-19] MEDS: CARVEDILOL 6.25 MG TABLET PO SCH ×2 (09:08→17:00)
[2021-03-19] MEDS: INSULIN GLARGINE, 100 UNIT/ML CARTRIDGE SQ SCH ×2 (09:10→21:00)
[2021-03-19] MEDS: INSULIN ASPART/LISPRO 100 UNIT/ML CARTRIDGE SQ SCH ×3 (09:10→17:00)
[2021-03-19 12:00] VITALS: BP 130/74
[2021-03-19] MEDS: POTASSIUM CHLORIDE 20 MEQ TAB.PRT.SR PO SCH ×2 (12:00→12:47)
[2021-03-19] MEDS: FUROSEMIDE 100 MG/10 ML VIAL IV SCH ×3 (12:45→20:34)
[2021-03-19 13:46] LABS: THYROID STIMULATING HORMONE 1.386 uIU/mL (0.358-3.74)
[2021-03-19] MEDS ORDERED: POTASSIUM CHLORIDE 20 MEQ TAB.PRT.SR PO SCH (14:00)
[2021-03-19 16:00] VITALS: BP 102/56
[2021-03-19 20:00] VITALS: BP 158/96
[2021-03-19 20:30] LABS: PLATELET COUNT (AUTO) 152 K/uL (150-450)
[2021-03-19] MEDS: ENOXAPARIN SODIUM 40 MG/0.4 ML DISP.SYRIN SQ SCH (21:46)
[2021-03-19] MEDS: *INSULIN REGULAR(HUMULIN R)HUM 100 UNIT/ML VIAL SQ PRN (22:02)
[2021-03-19] MEDS: HYDROCODONE/APAP 10/325MG TABLET PO PRN (22:26)
[2021-03-20] VITALS: BP 132/81
[2021-03-20 04:00] VITALS: BP 138/70
[2021-03-20] MEDS: BLOOD SUGAR DIAGNOSTIC 1 EACH STRIP IN SCH ×4 (07:28→21:45)
[2021-03-20 07:38] LABS: ALBUMIN 2.5 g/dL (3.4-5.0); BILIRUBIN,TOTAL 0.2 mg/dL (0.2-1.0); CALCIUM, SERUM 8.5 mg/dL (8.5-10.1); CREATININE 1.4 mg/dL (0.6-1.3); PHOSPHORUS 4.3 mg/dL (2.5-4.9); POTASSIUM 4.2 mmol/L (3.5-5.1); TOTAL PROTEIN, SERUM 6.3 g/dL (6.4-8.2)
[2021-03-20 07:43] LABS: BASOPHILS % (AUTO) 0.5 % (0.0-2.0); HEMATOCRIT 33 % (33-45); HEMOGLOBIN 10.8 g/dL (11.5-14.8); LYMPHOCYTES # (AUTO) 1.2 K/uL (0.8-4.8); LYMPHOCYTES % (AUTO) 25.6 % (20.0-44.0); MEAN CORPUSCULAR HGB CONC 33 g/dl (31.0-36.0); MEAN CORPUSCULAR VOLUME 90 fL (82-100); MONOCYTES # (AUTO) 0.4 K/uL (0.1-1.30); MONOCYTES % (AUTO) 8.2 % (2.0-12.0); NEUTROPHILS # (AUTO) 2.9 K/uL (1.8-8.9); NEUTROPHILS % (AUTO) 63.7 % (43.0-81.0); PLATELET COUNT (AUTO) 254 K/uL (150-450); RED BLOOD CELL COUNT(AUTO) 3.64 MIL/uL (4.0-5.2); WHITE BLOOD COUNT (AUTO) 4.6 K/uL (4.3-11.0)
[2021-03-20 08:00] VITALS: BP 163/80
[2021-03-20] MEDS: INSULIN ASPART/LISPRO 100 UNIT/ML CARTRIDGE SQ SCH ×3 (09:00→17:00)
[2021-03-20] MEDS: LOSARTAN POTASSIUM 50 MG TABLET PO SCH (09:00)
[2021-03-20] MEDS: CARVEDILOL 6.25 MG TABLET PO SCH ×2 (09:00→17:47)
[2021-03-20] MEDS: LORAZEPAM 1 MG TABLET PO SCH ×2 (09:07→21:45)
[2021-03-20] MEDS: hydrALAZINE HCL 50 MG TABLET PO SCH ×4 (09:07→21:46)
[2021-03-20] MEDS: PANTOPRAZOLE 40 MG TABLET.DR PO SCH (09:07)
[2021-03-20] MEDS: LINAGLIPTIN 5 MG TABLET PO SCH (09:07)
[2021-03-20] MEDS: INSULIN GLARGINE, 100 UNIT/ML CARTRIDGE SQ SCH ×2 (09:20→21:00)
[2021-03-20] MEDS: ISOSORBIDE DINITRATE (20MG) 20 MG TABLET PO SCH ×2 (10:00→17:00)
[2021-03-20] MEDS: acetaZOLAMIDE 250 MG TABLET PO SCH (11:09)
[2021-03-20] MEDS: INSULIN REGULAR, HUMAN 100 UNIT/ML 3 ML VIAL SQ PRN (11:59)
[2021-03-20 16:00] VITALS: BP 150/85
[2021-03-20 20:01] VITALS: BP 151/93
[2021-03-20] MEDS: ENOXAPARIN SODIUM 40 MG/0.4 ML DISP.SYRIN SQ SCH (21:48)
[2021-03-20] MEDS: *INSULIN REGULAR(HUMULIN R)HUM 100 UNIT/ML VIAL SQ PRN (21:49)
[2021-03-21 04:33] VITALS: BP 124/69
[2021-03-21] MEDS: INSULIN REGULAR, HUMAN 100 UNIT/ML 3 ML VIAL SQ PRN (07:19)
[2021-03-21] MEDS ORDERED: ISOS20TA8 PO (07:52)
[2021-03-21] MEDS ORDERED: HYDR-4077 PO (07:52)
[2021-03-21] MEDS ORDERED: ACET250T9 PO (07:52)
[2021-03-21] MEDS: BLOOD SUGAR DIAGNOSTIC 1 EACH STRIP IN SCH (07:56)
[2021-03-21 08:09] LABS: BASOPHILS % (AUTO) 0.7 % (0.0-2.0); EOSINOPHILS % (AUTO) 2.8 % (0.0-6.0); HEMATOCRIT 30 % (33-45); HEMOGLOBIN 9.9 g/dL (11.5-14.8); LYMPHOCYTES # (AUTO) 1.2 K/uL (0.8-4.8); LYMPHOCYTES % (AUTO) 28.4 % (20.0-44.0); MEAN CORPUSCULAR HGB CONC 33 g/dl (31.0-36.0); MEAN CORPUSCULAR VOLUME 91 fL (82-100); MONOCYTES # (AUTO) 0.5 K/uL (0.1-1.30); MONOCYTES % (AUTO) 10.3 % (2.0-12.0); NEUTROPHILS # (AUTO) 2.5 K/uL (1.8-8.9); NEUTROPHILS % (AUTO) 57.8 % (43.0-81.0); PLATELET COUNT (AUTO) 233 K/uL (150-450); RED BLOOD CELL COUNT(AUTO) 3.32 MIL/uL (4.0-5.2); WHITE BLOOD COUNT (AUTO) 4.4 K/uL (4.3-11.0)
[2021-03-21] MEDS: LORAZEPAM 1 MG TABLET PO SCH (08:27)
[2021-03-21] MEDS: acetaZOLAMIDE 250 MG TABLET PO SCH (08:27)
[2021-03-21] MEDS: PANTOPRAZOLE 40 MG TABLET.DR PO SCH (08:27)
[2021-03-21] MEDS: LOSARTAN POTASSIUM 50 MG TABLET PO SCH (08:28)
[2021-03-21] MEDS: LINAGLIPTIN 5 MG TABLET PO SCH (08:28)
[2021-03-21] MEDS: CARVEDILOL 6.25 MG TABLET PO SCH (08:28)
[2021-03-21] MEDS: ISOSORBIDE DINITRATE (20MG) 20 MG TABLET PO SCH (08:29)
[2021-03-21] MEDS: INSULIN GLARGINE, 100 UNIT/ML CARTRIDGE SQ SCH (08:29)
[2021-03-21] MEDS: INSULIN ASPART/LISPRO 100 UNIT/ML CARTRIDGE SQ SCH (08:29)
[2021-03-21 08:30] VITALS: BP 124/69
[2021-03-21 08:41] LABS: ALBUMIN 2.3 g/dL (3.4-5.0); BILIRUBIN,TOTAL 0.1 mg/dL (0.2-1.0); CREATININE 1.4 mg/dL (0.6-1.3); PHOSPHORUS 4.9 mg/dL (2.5-4.9); POTASSIUM 4.1 mmol/L (3.5-5.1); TOTAL PROTEIN, SERUM 5.9 g/dL (6.4-8.2)
[2021-03-21] MEDS ORDERED: hydrALAZINE HCL 50 MG TABLET PO SCH (09:00)
[2021-03-21] MEDS: HYDROCODONE/APAP 10/325MG TABLET PO PRN (09:14)
== END 2021-03-21 10:15 | disposition home or self-care (01) | DRG 291 ==
LOC: ER 11:09 → TELE 14:18 → MED 03-20 10:19
PROVIDERS: ADMIT Nurse Practitioner Acute Care; ATTEND Family Medicine
DX: I11.0 Hypertensive heart disease with heart failure (principal); I50.33 Acute on chronic diastolic (congestive) heart failure; D68.59 Other primary thrombophilia; J81.1 Chronic pulmonary edema; I87.311 Chronic venous hypertension (idiopathic) with ulcer of right lower extremity; L97.819 Non-pressure chronic ulcer of other part of right lower leg with unspecified severity; I48.0 Paroxysmal atrial fibrillation; F41.9 Anxiety disorder, unspecified; M19.90 Unspecified osteoarthritis, unspecified site; E11.65 Type 2 diabetes mellitus with hyperglycemia; I87.2 Venous insufficiency (chronic) (peripheral); J45.909 Unspecified asthma, uncomplicated; E11.40 Type 2 diabetes mellitus with diabetic neuropathy, unspecified; Z86.711 Personal history of pulmonary embolism; Z90.49 Acquired absence of other specified parts of digestive tract; D64.9 Anemia, unspecified; Z79.4 Long term (current) use of insulin; Z79.84 Long term (current) use of oral hypoglycemic drugs; Z86.73 Personal history of transient ischemic attack (TIA), and cerebral infarction without residual deficits; Z20.822 Contact with and (suspected) exposure to COVID-19
CPT/HCPCS: 36415; 71045-TC; 80048-TC; 80053-TC; 80061-TC; 80076-TC; 82962-TC; 83540-TC; 83735-TC; 83880; 84100-TC; 84443-TC; 84484-TC; 85025-TC; 85730-TC; 87081-TC; 97116-TC; 97530-TC; C9803; G0378; J1650; J1815; J1940; J3490; J7050

== ENCOUNTER 2021-04-11 21:25 | Inpatient (IN) | payer MEDICARE, OTHER ==
[~2021-04-11] VITALS: Ht 170.2 cm; Wt 87.5 kg
[~2021-04-11 21:25] MED LIST changes: +ACET250T9 PO; -APIX5TAB PO; -ASPI-1169 PO; -ATOR20TA PO; -CEPH250C PO; +FURO-144 PO; -FURO40TA5 PO; -HYDR-4076 PO; +HYDR-4077 PO; -HYDR25TA4 PO; +ISOS20TA8 PO; +LOSA50TA39 PO; -POTA20TA83 PO; -SULF1TAB48 PO
--- NOTE | 2021-04-11 21:37 | NUR ---
PT BIBSON FROM HOME C/O SOB X1 DAY +MILD MIDSTERNAL CP. PT A/OX3. TOLERATING R/A WELL AT 94%. CONNECTED PT TO POX AND MONITOR.
--- NOTE | 2021-04-11 22:22 | NUR ---
R HAND #20 G S/L; PATENT AND INTACT. BLOOD COLLECTED AND SENT TO LAB
[2021-04-11 22:31] LABS: BASOPHILS # (AUTO) 0.1 K/uL (0.0-0.2); BASOPHILS % (AUTO) 0.8 % (0.0-2.0); EOSINOPHILS % (AUTO) 0.8 % (0.0-6.0); HEMATOCRIT 35 % (33-45); HEMOGLOBIN 11.3 g/dL (11.5-14.8); LYMPHOCYTES # (AUTO) 0.9 K/uL (0.8-4.8); LYMPHOCYTES % (AUTO) 10.2 % (20.0-44.0); MEAN CORPUSCULAR HGB CONC 33 g/dl (31.0-36.0); MEAN CORPUSCULAR VOLUME 91 fL (82-100); MONOCYTES # (AUTO) 0.8 K/uL (0.1-1.30); MONOCYTES % (AUTO) 8.9 % (2.0-12.0); NEUTROPHILS # (AUTO) 6.9 K/uL (1.8-8.9); NEUTROPHILS % (AUTO) 79.3 % (43.0-81.0); PLATELET COUNT (AUTO) 212 K/uL (150-450); RED BLOOD CELL COUNT(AUTO) 3.81 MIL/uL (4.0-5.2); WHITE BLOOD COUNT (AUTO) 8.7 K/uL (4.3-11.0)
[2021-04-11 22:50] LABS: CALCIUM, SERUM 8.1 mg/dL (8.5-10.1); CREATININE 1.2 mg/dL (0.6-1.3)
[2021-04-11] MEDS ORDERED: ONDANSETRON HCL/PF 4 MG/2 ML VIAL IVP ONE (23:00)
[2021-04-11] MEDS ORDERED: HYDROCODONE/APAP 10/325MG TABLET PO ONE (23:00)
[2021-04-11] MEDS ORDERED: HYDROCODONE/APAP 10/325MG TABLET ONE (23:10)
[2021-04-11] MEDS ORDERED: ONDANSETRON HCL/PF 4 MG/2 ML VIAL ONE (23:10)
--- NOTE | 2021-04-11 23:53 | NUR ---
PT SOB ON R/A SPO2 88%. PUT ON O2 3LPM VIA N/C TOLERATING AT 97%
--- NOTE | 2021-04-12 00:21 | NUR ---
COVID ANTIGEN COLLECTED AND SENT TO LAB
--- NOTE | 2021-04-12 00:25 | NUR ---
[facility] [phone]
[2021-04-12] MEDS ORDERED: NITROGLYCERIN 0.4 MG/TAB BOTTLE SL PRN (01:30)
[2021-04-12] MEDS ORDERED: HYDROCODONE/APAP 10/325MG TABLET PO PRN (01:30)
[2021-04-12] MEDS ORDERED: DEXTROSE 50%-WATER 50 ML DISP.SYRIN IV PRN (01:30)
--- NOTE | 2021-04-12 03:12 | NUR ---
REPORT GIVEN TO TORREY SHIPLEY
[2021-04-12 03:20] VITALS: BP 149/85
--- NOTE | 2021-04-12 03:33 | NUR ---
patient transfered per hospital protocol
--- NOTE | 2021-04-12 04:00 | NUR ---
REFERENCE ASSISTANT OPENING NOTE PATIENT RECEIVED AWAKE, ALERT/ORIENTED X 4, PT ABLE TO MAKE NEEDS KNOWN. PT STABLE ON 3 LPM OF OXYGEN VIA NC, NO S/S OF DISTRESS OR SOB NOTED, BREATHING EVEN AND UNLABORED. PT ON EXTERNAL PICTURE HANGER WITH READING OF SINUS RHYTHM, HR: 83. PT DENIES CHEST PAIN BUT REPORTS SOME BACK PAIN. PT ALSO REPORTS A NON-PRODUCTIVE COUGH THAT BEGAN YESTERDAY. PT STATES SHE AMBULATES WITH A WALKER AT HOME BUT HAS BEEN FEELING WEAK. BEDSIDE COMMODE PLACED AT BEDSIDE AND PATIENT WAS ABLE TO TRANSFER WITH MINIMAL ASSIST. RIGHT WRIST #20G IV ACCESS INTACT AND FLUSHING WELL. PATIENT NOTED WITH BILATERAL LEG EDEMA, LEGS WERE WRAPPED WITH DRESSING, PER PATIENT SHE GOES TO WOUND CLINIC WEEKLY. BILATERAL LEG WOUNDS NOTED AND PHOTOS TAKEN, REWRAPPED LEGS WITH KERLIX AND LEOLA BANDAGE. PATIENT BELONGINGS ACCOUNTED FOR AND CHARTED. SAFETY MEASURES IN PLACE: CALL LIGHT WITHIN REACH, SIDE RAILS UP X 2, BED LOCKED IN LOW POSITION, HOB ELEVATED, BED ALARM ON. WILL CONTINUE TO MONITOR PATIENT
[2021-04-12] MEDS: ENOXAPARIN SODIUM 40 MG/0.4 ML DISP.SYRIN SQ SCH (04:53)
--- NOTE | 2021-04-12 05:37 | NUR ---
FINISHED YARN EXAMINER NOTE PENDING COMMENT FROM PHARMACY REGARDING FREQUENCY FOR AZITHROMYCIN 250 MG PO BID, STATED THAT IT'S NORMALLY GIVEN ONCE DAILY. VERIFIED WITH STACEY GOODWIN WHO STATED TO GIVE ONCE DAILY
[2021-04-12] MEDS: BLOOD SUGAR DIAGNOSTIC 1 EACH STRIP IN SCH ×4 (06:59→22:40)
[2021-04-12] MEDS: INSULIN REGULAR, HUMAN 100 UNIT/ML 3 ML VIAL SQ PRN ×2 (07:01→17:52)
--- NOTE | 2021-04-12 07:23 | NUR ---
FLOOR WORKER TRANSFER BAY CLOSING NOTE PATIENT AWAKE IN BED WATCHING TV, ALERT/ORIENTED X 4, PT ABLE TO MAKE NEEDS KNOWN. PT STABLE ON 3 LPM OF OXYGEN VIA NC, NO S/S OF DISTRESS OR SOB NOTED, BREATHING EVEN AND UNLABORED. PT ON EXTERNAL CODE MACHINE OPERATOR READING SINUS RHYTHM WITH PVC'S, HR: 85. NO SIGNIFICANT CHANGES THIS SHIFT. SAFETY MEASURES IN PLACE: CALL LIGHT WITHIN REACH, SIDE RAILS UP X 2, BED LOCKED IN LOW POSITION, BED ALARM ON. WILL ENDORSE TO DAY SHIFT NURSE FOR CONTINUITY OF CARE
--- NOTE | 2021-04-12 07:30 | NUR ---
SURVEY OPERATIONS DIRECTOR OPENING NOTE PATIENT AWAKE IN BED WATCHING TV, ALERT/ORIENTED X 4, PT ABLE TO MAKE NEEDS KNOWN. PT STABLE ON 3 LPM OF OXYGEN VIA NC, NO S/S OF DISTRESS OR SOB NOTED, BREATHING EVEN AND UNLABORED. PT ON EXTERNAL LEAD PRODUCER READING SINUS RHYTHM 83. SAFETY MEASURES IN PLACE: CALL LIGHT AND TABLE WITHIN REACH, SIDE RAILS UP X 2, BED LOCKED IN LOW POSITION, BED ALARM ON. WILL CONTINUE TO MONITOR THE PATIENT.
[2021-04-12 07:46] LABS: BASOPHILS % (AUTO) 0.4 % (0.0-2.0); EOSINOPHILS % (AUTO) 2.9 % (0.0-6.0); HEMATOCRIT 32 % (33-45); HEMOGLOBIN 10.7 g/dL (11.5-14.8); LYMPHOCYTES # (AUTO) 0.8 K/uL (0.8-4.8); LYMPHOCYTES % (AUTO) 13.6 % (20.0-44.0); MEAN CORPUSCULAR HGB CONC 33 g/dl (31.0-36.0); MEAN CORPUSCULAR VOLUME 90 fL (82-100); MONOCYTES # (AUTO) 0.5 K/uL (0.1-1.30); MONOCYTES % (AUTO) 8.7 % (2.0-12.0); NEUTROPHILS # (AUTO) 4.5 K/uL (1.8-8.9); NEUTROPHILS % (AUTO) 74.4 % (43.0-81.0); PLATELET COUNT (AUTO) 196 K/uL (150-450); RED BLOOD CELL COUNT(AUTO) 3.61 MIL/uL (4.0-5.2); WHITE BLOOD COUNT (AUTO) 6.1 K/uL (4.3-11.0)
[2021-04-12 08:00] VITALS: BP 153/80
[2021-04-12] MEDS: PANTOPRAZOLE 40 MG TABLET.DR PO SCH (08:09)
[2021-04-12 08:20] LABS: THYROID STIMULATING HORMONE 1.434 uIU/mL (0.358-3.74)
[2021-04-12] MEDS ORDERED: INSULIN DETEMIR 100 UNIT/ML CARTRIDGE SQ SCH (09:00)
[2021-04-12] MEDS: INSULIN GLARGINE, 100 UNIT/ML CARTRIDGE SQ SCH ×2 (09:00→21:00)
--- NOTE | 2021-04-12 09:12 | NUR ---
WOUND CARE CONSULT: PT PRESENTS WITH LEGS WRAPPED. DRESSINGS DRY AND INTACT. PT IS WORKING WITH P.T. AT THIS TIME. WOUNDS TO LOWER LEGS NOTED IN ADMISSION PHOTO. DPM CONSULT CALLED TO DR HAMPAPUR. CASTELAN IN AGREEMENT WITH PLAN OF CARE.
[2021-04-12 09:39] LABS: ALBUMIN 2.7 g/dL (3.4-5.0); BILIRUBIN,TOTAL 0.6 mg/dL (0.2-1.0); CALCIUM, SERUM 8.5 mg/dL (8.5-10.1); CREATININE 1.1 mg/dL (0.6-1.3); MAGNESIUM 2.2 mg/dL (1.8-2.4); PHOSPHORUS 3.8 mg/dL (2.5-4.9); TOTAL PROTEIN, SERUM 6.7 g/dL (6.4-8.2)
[2021-04-12] MEDS: FUROSEMIDE 40 MG/4 ML VIAL IV SCH ×2 (09:45→18:07)
[2021-04-12] MEDS: AZITHROMYCIN 250 MG TABLET PO SCH (09:46)
[2021-04-12] MEDS: acetaZOLAMIDE 250 MG TABLET PO SCH (09:46)
[2021-04-12] MEDS: CARVEDILOL 12.5 MG TABLET PO SCH ×2 (09:47→18:07)
[2021-04-12] MEDS: hydrALAZINE HCL 50 MG TABLET PO SCH ×2 (09:47→18:06)
[2021-04-12] MEDS: LINAGLIPTIN 5 MG TABLET PO SCH (09:51)
[2021-04-12] MEDS: LOSARTAN POTASSIUM 50 MG TABLET PO SCH (09:51)
[2021-04-12] MEDS: ISOSORBIDE DINITRATE (20MG) 20 MG TABLET PO SCH ×2 (09:52→18:07)
--- NOTE | 2021-04-12 11:28 | NUR ---
SS Consult: SS Consult requested for pt. who "lives alone at home and presents with legs swollen with wounds". The pt. is a 60-year old Black female who was admitted to [facility] for orthopnea and shortness of breath per EMR. Upon SS consult the pt. is Alert & oriented x4. The pt. appears well-groomed and makes good eye contact. The pt.s speech & thought process are within normal limits. The pt. has euthymic mood & affect. Pt. denies CURRENT SI/HI & denies current hallucinations. The pt. states she lives at home [[address] [facility] [address]] alone and her daughter, Andreina [phone] stays with her sometimes. Pt. states daughter is her support system. ALLIE explored pt.s drug & ETOH use. Pt. denies any drug or alcohol use. ALLIE explored pt.s mental health Hx. Pt. denies any mental health Hx. ALLIE explored is pt. receives financial assistance. Pt. states he receives EBT, SSI & SSDI.Pt. states she is ambulatory and currently receives nursing care for her legs. pt. states she is seen every other day. Pt. states nurse applies new dressing to her leg wounds and takes her blood pressure. Per pt. she was bitten by a spider which caused water bubble on her legs. Plan: Pt. states she would like to return home [[address] [facility] [address]] and her daughter, Andreina [phone] may be able to provide transportation. Noted. ALLIE provided pt. with the following senior resources and pt. accepted them: ABUSE PREVENTION: ELDER ABUSE HOTLINE (11/11) ADULT PROTECTIVE SERVICES HOTLINE LONG-TERM CARE [facility]LY [facility] Region AREA ON AGING (HOTLINE) ADULT DAY HEALTH CARE CARE CENTERS: Private pay or Medi-munira funded adult day care [place] Adult Day Health Care [facility] , [facility] , [facility] , [facility] Adult Day Health Care , [place] [facility] Adult Day Health Care , [facility] Adult [facility] Center , [place] ONE Generation Center , Garrick Arguello [facility] , [place] ALZHEIMERS DISEASE/DEMENTIA: Alzheimers Association Helpline [facility] Chapter www.alz.org/[facility] Department of Aging www.lacity.org Family Caregiver [place] www.caregiver.org [place] Caregiver Resources Center/Family Support www.[facility].org CANCER RESOURCES: [place] Cancer Society www.cancer.org Cancer Support Community www.CancerSupportVvsb.org: CancerCare www.cancercare.org [facility] Cancer Support [place] www.[facility].org [facility] HEALTH ASSOCIATIONS: AARP www.aarp.org ALS Association (ask for Michelle) www.als.org [place] Diabetes Association www.diabetes.org Mac[place] Heart Association www.heart.org Mac[place] Lung Association www.lungusa.org Mac[place] Parkinson Disease Association www.apdaparkinson.org Macanese La Conner , www.redcross.org Arthritis Foundation www.arthritis.org Crohns & Colitis Foundation of Macanese www.ccfa.org/chapters/rohini National Multiple Sclerosis Society www.nationalmssociety.org Myasthenia Gravis Foundation www.myasthenia-ca.org National Stroke Association www.stroke.org CONSERVATORSHIP & GUARDIANSHIP: AARP Maryanne Barbour Legal Services Center for Health Care Rights Eldercare Information and Referral Equipment Service Engineer Foundation [facility]: [facility] Bar Referral Service [facility] Legal Services Office of the Public Guardian [place] EYESIGHT DISORDER RESOURCES: [place] Macular Degeneration Foundation [facility] www.[facility].org GRIEF AND BEREAVEMENT RESOURCES: [facility] , [facility] [place] [facility] , [facility], [facility] Bereavement Center , [place] HEARING DISORDER RESOURCES: [place] Telephone Access Program Deaf and Disabled Telecommunications Program www.ddtp.cpu.ca.gov HearRx Hearing Centers ([place]) Better Hearing Systems , [place] GLAD ([facility] Agency on Deafness) V/ TTY; Treating Plant Operator , [facility] Hearing [facility] -low income hearing aid assistance www.MetroTech Nethearingfoundation.org [facility] , [place] HELP AT HOME CAREGIVER SUPPORT: In Home Support Services (Must have Medi-Munira to be eligible) *Ask for a list of agencies that provide services to assist with care in the home. Local Senior Centers also have listings of care providers. HOME SAFETY MODIFICATIONS AND EQUIPMENT: Senior centers have additional referrals. [place] Housing and Community Investment Dept. Handyworker Program (low income) or Visit http://hcidla.lacity.org/lqh-kqzivk-kj for more information National Seating and Mobility and/or ; Forever Active www.foreveractivemed.MLD Solutions Stay Home Safe www.StayhomAllied Resource Corporation.MLD Solutions LIFE ALERT RESPONSE SYSTEM: [place] Group Services 998-065-0262 www. Conscious Box Life Alert 275-435-0782 www.Silicon Wolves Computing Society Life Station 485-396-2549 www.[place] of [place].MLD Solutions Safe Return 462-374-0003 www.GreenItaly1.or/safereturn Cell Phones for Seniors www.Klee Data System MEALS AND FOOD PROGRAMS: [place] Meals on Wheels [phone] [place] Meals on Wheels [phone] [facility] [phone] [place] to the Homebound [phone] [place] to the Homebound [phone] [facility] to the Homebound [phone] [facility] to the Homebound [phone] [facility] [phone] [facility] [phone] ONE Generation [phone] [facility] [phone] Meals on Wheels [phone] For all ages: $6.85/ meal w side. Delivered M-F from 10 am-1pm. Application and payment is done over the phone. Frozen meals available for weekends. Emergency Food [facility] [phone] [facility] Hazmat Tanker Driver [phone] [facility] [phone] [facility]- Brown bag lunches [phone] [facility] [phone] MEAL/GROCERY DELIVERY PROGRAMS: [facility] Meals [phone]- [place] [phone]- [facility] Kitchen [phone] Moms Meals [phone] (ask Cook for Discount Select grocery stores may provide delivery. MEDICAL INSURANCE SUPPORT SERVICES: Center for Health Care Rights [phone] Health Insurance Counseling/Advocacy Programs (HICAP)-Must have Medicare. Offers counseling for Medi-Munira eligibility [phone] [facility] of Public Hazmat Tanker Driver [phone] www.[facility].ca.gov Medicare [phone] www.socialsecurity.org Social Security [phone] SENIOR ACTIVITY PROGRAMS: *Contact a local senior center, adult school, recreation facility or community college for education, fitness, recreation, and social programs. Aquatic Therapy and Adapted Exercise programs through [facility] [phone] Encore at [facility] [phone] www.[facility]/encore U- Senior Friends [phone] [place] Senior Programs [phone] www.oasisnet.org Suddenly 65 www.uawrthyp65.com SENIOR CENTERS: [facility] Center [phone] [facility] [phone] [phone] [facility] [phone] [facility] [phone] [facility] [phone] [facility] [phone] [facility] [phone] One Generation, [facility] [phone] [facility] [phone] [facility] [phone] [facility] [phone] [facility] [place] [phone] TRANSPORTATION: Local [facility] Centers may have applications for transportation programs and additional resources. ACCESS Services [phone] Transportation for seniors and disabled persons 7 days a week requiring 254 hr. advance reservation. Must apply and register for program roberta eligible. CITY RIDE [phone] or [phone] Transportation for seniors and persons with ADA card/metro disabled card in the [place]. M-F only. Must register for services. ONE GENERATION [phone] Serves 65 years + in conjunction with [facility] ride program. Must be registered with both programs. A to B Transport [phone] Provides wheelchair/gurney van service. Adult Medical Transport [phone] Accepts [facility] with prior authorization. Care Van [phone] Provides wheelchair Transport. [facility] Wide Transportation [phone] Provides gurney service Gentle Care [phone] Gurney Transport. [facility] Town Transportation [phone] wheelchair & gurney transport [facility] Transportation [phone] wheelchair & gurney transport [place] Non-Emergency Transport [phone] wheelchair & gurney transport [facility] Living [place] [phone] Short Term Transportation primarily for adults with disabilities on social security income. Nominal fee may apply and a reservation is required. City Cab [phone] or [phone] iOnRoad [facility] [phone] [place] [address] Referral Services -[phone] For additional programs & services VETERANS RESOURCES: Submissions for Aid and Attendance should be done directly to Federal VA office locatd at : [address] [facility] [phone] National Caregiver Support Line [phone] [facility] Veterans Services Field Office [phone] [place] Department of [place] Affairs [phone] Pension Information [phone]
[2021-04-12 12:00] VITALS: BP 102/56
[2021-04-12] MEDS: GLUCERNA SHAKE 237 ML CAN PO SCH ×2 (13:30→17:00)
[2021-04-12 16:00] VITALS: BP 128/81
--- NOTE | 2021-04-12 19:21 | NUR ---
MAIL ORDER CLERK CLOSING NOTE PATIENT AWAKE IN BED WATCHING TV, ALERT/ORIENTED X 4, PT ABLE TO MAKE NEEDS KNOWN. PT STABLE ON 3 LPM OF OXYGEN VIA NC, NO S/S OF DISTRESS OR SOB NOTED, BREATHING EVEN AND UNLABORED. PT ON EXTERNAL SUPPORT GROUP MANAGER . DUE MEDS AND TREATMENTS GIVEN ORDERED. SAFETY MEASURES IN PLACE: CALL LIGHT AND TABLE WITHIN REACH, SIDE RAILS UP X 2, BED LOCKED IN LOW POSITION, BED ALARM ON. WILL ENDORSE INCOMING NURSE FOR OREN.
--- NOTE | 2021-04-12 19:40 | NUR ---
TELE/RN OPENING NOTE RECEIVED PATIENT RESTING IN BED. AWAKE, ALERT AND ORIENTED X 4. ABLE TO MAKE NEEDS KNOWN. DENIES PAIN AT THIS TIME. CONTINUES ON O2 3L VIA NC WITH NO S/SX OF RESPIRATORY DISTRESS NOTED. IV ACCESS TO RIGHT WRIST #20G INTACT, PATENT AND SALINE LOCKED. DRESSINGS TO BILATERAL LEG WOUNDS ARE CLEAN, DRY AND INTACT. CONTINUES ON TELE MONITOR WITH CURRENT READING SR WITH PVCS. CALL LIGHT WITHIN REACH. ASPIRATION, FALL AND SAFETY PRECAUTIONS MAINTAINED. WILL CONTINUE TO MONITOR.
[2021-04-12 20:00] VITALS: BP_SYST 100; BP_SYST 113; BP_DIAS 58; BP_DIAS 68
--- NOTE | 2021-04-12 22:20 | NUR ---
TELE/RN NOTE PATIENT'S BLOOD SUGAR THIS EVENING IS 204. PATIENT HAS ROUTINE LANTUS AND ISS. PATIENT IS REFUSING BOTH INSULIN'S AT THIS TIME. STATES SHE KNOWS HER OWN BODY AND THE BLOOD SUGAR WILL DROP. EXPLAINED RISKS/BENEFITS WITH PATIENT CONTINUING TO REFUSE. WILL CONTINUE TO MONITOR.
[2021-04-13] VITALS: BP 131/68
[2021-04-13 04:00] VITALS: BP 148/81
--- NOTE | 2021-04-13 06:10 | NUR ---
TELE/RN NOTE PATIENT CURRENTLY SLEEPING IN BED. ALERT AND ORIENTED X 4. ABLE TO MAKE NEEDS KNOWN. DENIES PAIN AT THIS TIME. CONTINUES ON ROOM AIR WITH NO S/SX OF RESPIRATORY DISTRESS NOTED. IV ACCESS TO RIGHT WRIST #20G INTACT, PATENT AND SALINE LOCKED. DRESSINGS TO BILATERAL LEG WOUNDS ARE CLEAN, DRY AND INTACT. CONTINUES ON TELE MONITOR WITH CURRENT READING SR. CALL LIGHT WITHIN REACH. ASPIRATION, FALL AND SAFETY PRECAUTIONS MAINTAINED. WILL ENDORSE PLAN OF CARE TO ONCOMING SHIFT.
--- NOTE | 2021-04-13 06:20 | NUR ---
TELE/RN NOTE PATIENTS BLOOD SUGAR THIS AM IS 213. PATIENT REFUSING INSULIN SS AT THIS TIME. WILL ENDORSE TO MORNING RN.
[2021-04-13] MEDS: BLOOD SUGAR DIAGNOSTIC 1 EACH STRIP IN SCH ×4 (06:23→22:04)
--- NOTE | 2021-04-13 07:24 | NUR ---
TELE/RN OPENING NOTE RECEIVED PATIENT RESTING IN BED. AWAKE, ALERT AND ORIENTED X 4. ABLE TO MAKE NEEDS KNOWN. DENIES PAIN AT THIS TIME. PATIENT IS BREATHING EVENLY AND NONLABORED CONTINUES ON ROOM AIR WITH NO S/SX OF RESPIRATORY DISTRESS NOTED. IV ACCESS TO RIGHT WRIST #20G INTACT, PATENT AND SALINE LOCKED. DRESSINGS TO BILATERAL LEG WOUNDS ARE CLEAN, DRY AND INTACT. CONTINUES ON TELE MONITOR WITH CURRENT READING SR. CALL LIGHT WITHIN REACH. ASPIRATION, FALL AND SAFETY PRECAUTIONS MAINTAINED. WILL CONTINUE TO MONITOR.
[2021-04-13 08:00] VITALS: BP 145/73
[2021-04-13] MEDS: GLUCERNA SHAKE 237 ML CAN PO SCH ×2 (08:00→16:32)
[2021-04-13] MEDS: PANTOPRAZOLE 40 MG TABLET.DR PO SCH (08:23)
[2021-04-13] MEDS: FUROSEMIDE 40 MG/4 ML VIAL IV SCH ×2 (08:23→16:20)
[2021-04-13] MEDS: acetaZOLAMIDE 250 MG TABLET PO SCH (08:23)
[2021-04-13] MEDS: AZITHROMYCIN 250 MG TABLET PO SCH (08:23)
[2021-04-13] MEDS: LOSARTAN POTASSIUM 50 MG TABLET PO SCH (08:24)
[2021-04-13] MEDS: LINAGLIPTIN 5 MG TABLET PO SCH (08:24)
[2021-04-13] MEDS: CARVEDILOL 12.5 MG TABLET PO SCH ×2 (08:24→16:20)
[2021-04-13] MEDS: ISOSORBIDE DINITRATE (20MG) 20 MG TABLET PO SCH ×2 (08:25→16:20)
[2021-04-13] MEDS: INSULIN GLARGINE, 100 UNIT/ML CARTRIDGE SQ SCH ×2 (08:25→22:08)
[2021-04-13] MEDS: hydrALAZINE HCL 50 MG TABLET PO SCH ×2 (08:25→16:21)
[2021-04-13 08:27] LABS: BASOPHILS % (AUTO) 0.3 % (0.0-2.0); EOSINOPHILS % (AUTO) 0.6 % (0.0-6.0); HEMATOCRIT 30 % (33-45); LYMPHOCYTES # (AUTO) 0.7 K/uL (0.8-4.8); LYMPHOCYTES % (AUTO) 9.2 % (20.0-44.0); MEAN CORPUSCULAR HGB CONC 33 g/dl (31.0-36.0); MEAN CORPUSCULAR VOLUME 91 fL (82-100); MONOCYTES # (AUTO) 0.7 K/uL (0.1-1.30); NEUTROPHILS # (AUTO) 5.8 K/uL (1.8-8.9); NEUTROPHILS % (AUTO) 80.9 % (43.0-81.0); PLATELET COUNT (AUTO) 184 K/uL (150-450); RED BLOOD CELL COUNT(AUTO) 3.29 MIL/uL (4.0-5.2); WHITE BLOOD COUNT (AUTO) 7.2 K/uL (4.3-11.0)
[2021-04-13] MEDS: ENOXAPARIN SODIUM 40 MG/0.4 ML DISP.SYRIN SQ SCH (08:32)
[2021-04-13 08:41] LABS: ALANINE AMINOTRANSFERASE 23 U/L (12-78); ALKALINE PHOSPHATASE 104 U/L (46-116); ASPARTATE AMINOTRANSFERASE 26 U/L (15-37); BILIRUBIN,TOTAL 0.4 mg/dL (0.2-1.0); CALCIUM, SERUM 8.1 mg/dL (8.5-10.1); CARBON DIOXIDE 27 mmol/L (21-32); CHLORIDE 107 mmol/L (98-107); CREATININE 1.4 mg/dL (0.6-1.3); GLUCOSE 212 mg/dL (74-106); PHOSPHORUS 4.6 mg/dL (2.5-4.9); SODIUM SERUM 142 mmol/L (136-145); TOTAL PROTEIN, SERUM 6.1 g/dL (6.4-8.2); UREA NITROGEN, BLOOD 38 mg/dL (7-18)
[2021-04-13 08:53] LABS: ALBUMIN 2.3 g/dL (3.4-5.0)
[2021-04-13] MEDS: INSULIN REGULAR, HUMAN 100 UNIT/ML 3 ML VIAL SQ PRN ×2 (11:03→16:32)
--- NOTE | 2021-04-13 11:04 | NUR ---
TELE/RN NOTE PATIENT'S BLOOD SUGAR IS 214. PATIENT HAS ROUTINE LANTUS AND ISS. PATIENT IS REFUSING BOTH INSULIN'S AT THIS TIME. STATES SHE KNOWS HER OWN BODY AND THE BLOOD SUGAR WILL DROP. EXPLAINED RISKS/BENEFITS WITH PATIENT CONTINUING TO REFUSE. WILL CONTINUE TO MONITOR.
[2021-04-13 16:00] VITALS: BP 162/81
--- NOTE | 2021-04-13 16:33 | NUR ---
TELE/RN NOTE PATIENT'S BLOOD SUGAR IS 214. PATIENT HAS ROUTINE LANTUS AND ISS. PATIENT IS REFUSING BOTH INSULIN'S AT THIS TIME. STATES SHE KNOWS HER OWN BODY AND THE BLOOD SUGAR WILL DROP. ASKED TO WAIT TILL LANUTS EXPLAINED RISKS/BENEFITS WITH PATIENT CONTINUING TO REFUSE
--- NOTE | 2021-04-13 18:21 | NUR ---
MS RN OPENING NOTE PATIENT RESTING IN BED. AWAKE, ALERT AND ORIENTED X 4. ABLE TO MAKE NEEDS KNOWN. DENIES PAIN AT THIS TIME. PATIENT IS BREATHING EVENLY AND NONLABORED CONTINUES ON ROOM AIR WITH NO S/SX OF RESPIRATORY DISTRESS NOTED. IV ACCESS TO RIGHT WRIST #20G INTACT, PATENT AND SALINE LOCKED. DRESSINGS TO BILATERAL LEG WOUNDS ARE CLEAN, DRY AND INTACT. ALL MEDICATIONS GIVEN ORDERED, WOUND CARE PERFORMED DURING SHIFT. CALL LIGHT WITHIN REACH. ASPIRATION, FALL AND SAFETY PRECAUTIONS MAINTAINED. WILL ENDORSE TO ONCOMING SHIFT Addendum: 04/13/21 at 1823 by DONNIE MADRID RN CLOSING
--- NOTE | 2021-04-13 19:53 | NUR ---
MS/RN OPENING NOTE RECEIVED PATIENT SITTING UP AT SIDE OF BED. AWAKE, ALERT AND ORIENTED X 4. ABLE TO MAKE NEEDS KNOWN. DENIES PAIN AT THIS TIME. CONTINUES ON ROOM AIR WITH NO S/SX OF RESPIRATORY DISTRESS NOTED. IV ACCESS TO RIGHT WRIST #20G INTACT, PATENT AND SALINE LOCKED. DRESSINGS TO BILATERAL LEG WOUNDS ARE CLEAN, DRY AND INTACT. CALL LIGHT WITHIN REACH. ASPIRATION, FALL AND SAFETY PRECAUTIONS MAINTAINED. WILL CONTINUE TO MONITOR.
[2021-04-13 20:00] VITALS: BP_SYST 122; BP_SYST 147; BP_DIAS 63; BP_DIAS 80
--- NOTE | 2021-04-13 22:15 | NUR ---
MS/RN NOTE PATIENTS BLOOD SUGAR IS 302 THIS EVENING. PATIENT AGREED TO TAKE LANTUS 20UNITS. REFUSING INSULIN SLIDING SCALE AT THIS TIME. ADMINISTERED ROUTINE LANTUS. WILL CONTINUE OT MONITOR.
--- NOTE | 2021-04-14 06:45 | NUR ---
MS/RN CLOSING NOTE PATIENT CURRENTLY RESTING IN BED. AWAKE, ALERT AND ORIENTED X 4. ABLE TO MAKE NEEDS KNOWN. DENIES PAIN AT THIS TIME. CONTINUES ON ROOM AIR WITH NO S/SX OF RESPIRATORY DISTRESS NOTED. IV ACCESS TO RIGHT WRIST #20G INTACT, PATENT AND SALINE LOCKED. DRESSINGS TO BILATERAL LEG WOUNDS ARE CLEAN, DRY AND INTACT. PATIENT REFUSED INSULIN SLIDING SCALE THIS AM. CALL LIGHT WITHIN REACH. ASPIRATION, FALL AND SAFETY PRECAUTIONS MAINTAINED. WILL ENDORSE PLAN OF CARE TO ONCOMING SHIFT.
[2021-04-14] MEDS: BLOOD SUGAR DIAGNOSTIC 1 EACH STRIP IN SCH ×4 (06:55→21:03)
[2021-04-14 07:23] LABS: BASOPHILS % (AUTO) 0.5 % (0.0-2.0); HEMATOCRIT 29 % (33-45); HEMOGLOBIN 9.5 g/dL (11.5-14.8); LYMPHOCYTES # (AUTO) 0.8 K/uL (0.8-4.8); LYMPHOCYTES % (AUTO) 14.4 % (20.0-44.0); MEAN CORPUSCULAR HGB CONC 33 g/dl (31.0-36.0); MEAN CORPUSCULAR VOLUME 91 fL (82-100); MONOCYTES # (AUTO) 0.5 K/uL (0.1-1.30); MONOCYTES % (AUTO) 10.1 % (2.0-12.0); NEUTROPHILS # (AUTO) 3.8 K/uL (1.8-8.9); PLATELET COUNT (AUTO) 201 K/uL (150-450); RED BLOOD CELL COUNT(AUTO) 3.14 MIL/uL (4.0-5.2); WHITE BLOOD COUNT (AUTO) 5.2 K/uL (4.3-11.0)
--- NOTE | 2021-04-14 07:30 | NUR ---
MS RN OPENING NOTE PATIENT AWAKE IN BED WATCHING TV, ALERT/ORIENTED X 4, PT ABLE TO MAKE NEEDS KNOWN. PT STABLE ON ROOM AIR. NO S/S OF DISTRESS OR SOB NOTED, BREATHING EVEN AND UNLABORED. SAFETY MEASURES IN PLACE: CALL LIGHT AND TABLE WITHIN REACH, SIDE RAILS UP X 2, BED LOCKED IN LOW POSITION, BED ALARM ON. WILL CONTINUE TO MONITOR THE PATIENT.
[2021-04-14] MEDS: PANTOPRAZOLE 40 MG TABLET.DR PO SCH (08:06)
[2021-04-14] MEDS: GLUCERNA SHAKE 237 ML CAN PO SCH ×2 (08:07→17:39)
[2021-04-14 09:16] VITALS: BP 140/77
[2021-04-14] MEDS: FUROSEMIDE 40 MG/4 ML VIAL IV SCH ×2 (10:02→17:37)
[2021-04-14] MEDS: ENOXAPARIN SODIUM 40 MG/0.4 ML DISP.SYRIN SQ SCH (10:03)
[2021-04-14] MEDS: acetaZOLAMIDE 250 MG TABLET PO SCH (10:04)
[2021-04-14] MEDS: CARVEDILOL 12.5 MG TABLET PO SCH ×2 (10:05→17:39)
[2021-04-14] MEDS: AZITHROMYCIN 250 MG TABLET PO SCH (10:05)
[2021-04-14] MEDS: hydrALAZINE HCL 50 MG TABLET PO SCH ×2 (10:06→17:38)
[2021-04-14] MEDS: LINAGLIPTIN 5 MG TABLET PO SCH (10:06)
[2021-04-14] MEDS: LOSARTAN POTASSIUM 50 MG TABLET PO SCH (10:06)
[2021-04-14] MEDS: ISOSORBIDE DINITRATE (20MG) 20 MG TABLET PO SCH ×2 (10:07→17:38)
[2021-04-14] MEDS: INSULIN GLARGINE, 100 UNIT/ML CARTRIDGE SQ SCH ×2 (10:21→21:00)
[2021-04-14] MEDS: INSULIN REGULAR, HUMAN 100 UNIT/ML 3 ML VIAL SQ PRN ×2 (12:21→17:42)
[2021-04-14 14:55] LABS: CALCIUM, SERUM 8.6 mg/dL (8.5-10.1)
[2021-04-14 16:04] VITALS: BP 150/76
--- NOTE | 2021-04-14 18:35 | NUR ---
MS RN CLOSING NOTE PATIENT AWAKE IN BED WATCHING TV, ALERT/ORIENTED X 4, PT ABLE TO MAKE NEEDS KNOWN. PT STABLE ON ROOM AIR. NO S/S OF DISTRESS OR SOB NOTED, BREATHING EVEN AND UNLABORED. SAFETY MEASURES IN PLACE: ALL DUE MEDS GIVEN ORDERED.CALL LIGHT AND TABLE WITHIN REACH, SIDE RAILS UP X 2, BED LOCKED IN LOW POSITION, BED ALARM ON. WILL INDORSE INCOMING SHIFT FOR OREN..
--- NOTE | 2021-04-14 19:15 | NUR ---
MS/RN NOTE RECEIVED PT SITTING UP IN BED, A/OX4, DENIES PAIN AT THIS TIME. ON ROOM AIR AND TYESHA WELL, DENIES SOB. IV SITE: R-WRIST #20 INTACT/PATENT/FLUSHES WELL. WITH BLE EDEMA AND LEG WOUNDS WITH DRESSING IN PLACE, C/D/I. REINFORCED TEACHINGS AND ENCOURAGED TO ELEVATE BLE WITH PILLOWS. PT VERBALIZED UNDERSTANDING. NO ACUTE DISTRESS NOTED. SAFETY MEASURES IN PLACE. WILL CONT TO MONITOR.
[2021-04-14 20:00] VITALS: BP 150/87
--- NOTE | 2021-04-14 21:04 | NUR ---
RN NOTE BS 105. PT STRONGLY REFUSES LANTUS DESPITE EXPLANATION OF LONG ACTING INSULIN
[2021-04-14 21:39] LABS: CREATININE 1.5 mg/dL (0.6-1.3); MAGNESIUM 2.2 mg/dL (1.8-2.4); PHOSPHORUS 4.1 mg/dL (2.5-4.9)
--- NOTE | 2021-04-14 21:57 | NUR ---
RN NOTE PT'S IV TO R-WRIST DISLODGED. REINSERTED IV ACCESS TO R-FA G22 AND TYESHA WELL.
[2021-04-15] MEDS: BLOOD SUGAR DIAGNOSTIC 1 EACH STRIP IN SCH ×2 (06:19→12:31)
[2021-04-15] MEDS: INSULIN REGULAR, HUMAN 100 UNIT/ML 3 ML VIAL SQ PRN ×2 (06:20→12:32)
--- NOTE | 2021-04-15 06:45 | NUR ---
RN CLOSING NOTE PT SLEPT WELL DURING THE NIGHT. DENIES PAIN. DENIES SOB. PT'S BS 162 THIS A.M. SHE REFUSED REGULAR ISS COVERAGE DESPITE EXPLANATION. PT IN NO ACUTE DISTRESS. ALL NEEDS ATTENDED TO. SAFETY MEASURES MAINTAINED.
[2021-04-15] MEDS: PANTOPRAZOLE 40 MG TABLET.DR PO SCH (07:34)
[2021-04-15 08:00] VITALS: BP 157/76
[2021-04-15] MEDS: GLUCERNA SHAKE 237 ML CAN PO SCH (08:51)
[2021-04-15 08:52] VITALS: BP 157/76
[2021-04-15] MEDS: hydrALAZINE HCL 50 MG TABLET PO SCH (08:52)
[2021-04-15] MEDS: AZITHROMYCIN 250 MG TABLET PO SCH (08:53)
[2021-04-15] MEDS: LINAGLIPTIN 5 MG TABLET PO SCH (08:54)
[2021-04-15] MEDS: acetaZOLAMIDE 250 MG TABLET PO SCH (08:55)
[2021-04-15] MEDS: ENOXAPARIN SODIUM 40 MG/0.4 ML DISP.SYRIN SQ SCH (08:56)
[2021-04-15] MEDS: LOSARTAN POTASSIUM 50 MG TABLET PO SCH (09:00)
[2021-04-15] MEDS: CARVEDILOL 12.5 MG TABLET PO SCH (09:00)
[2021-04-15] MEDS: ISOSORBIDE DINITRATE (20MG) 20 MG TABLET PO SCH (09:00)
[2021-04-15] MEDS: FUROSEMIDE 40 MG/4 ML VIAL IV SCH (09:00)
[2021-04-15] MEDS: INSULIN GLARGINE, 100 UNIT/ML CARTRIDGE SQ SCH (09:00)
[2021-04-15] MEDS ORDERED: HYDR-4077 PO (13:14)
[2021-04-15] MEDS ORDERED: AZIT250T PO (13:14)
[2021-04-15] MEDS ORDERED: INSU100V10 SQ (13:14)
--- NOTE | 2021-04-15 17:40 | NUR ---
MS DEBEADER NOTES DISCHARGE PATIENT IN GOOD CONDITION. VITAL SIGNS NORMAL. PATIENT THE PCA OF THE INSTRUCTIONS VERBALIZED UNDERSTANDING. IV ACCESS REMOVED AND COVERED WITH GAUZE. NO BLEEDING NOTED. BELONGINGS ACCOUNTED AND SIGNED FOR. ARM BAND REMOVED. DESTINY WHEELED THE PATIENT TO THE LOBBY. PATIENT LEFT THE UNIT AT 1740 IN STABLE CONDITION. MD AND CHARGE NURSE AWARE OF THE DISCHARGE.
== END 2021-04-15 17:40 | disposition home health service (06) | DRG 205 ==
LOC: ER 21:58 → TELE 04-12 03:06 → MED 04-13 09:03
PROVIDERS: ADMIT Nurse Practitioner Acute Care; ATTEND Internal Medicine
DX: M94.0 Chondrocostal junction syndrome [Tietze] (principal); J15.6 Pneumonia due to other Gram-negative bacteria; I50.33 Acute on chronic diastolic (congestive) heart failure; N17.0 Acute kidney failure with tubular necrosis; E43 Unspecified severe protein-calorie malnutrition; I87.313 Chronic venous hypertension (idiopathic) with ulcer of bilateral lower extremity; L97.829 Non-pressure chronic ulcer of other part of left lower leg with unspecified severity; L97.819 Non-pressure chronic ulcer of other part of right lower leg with unspecified severity; D68.59 Other primary thrombophilia; I11.0 Hypertensive heart disease with heart failure; E11.9 Type 2 diabetes mellitus without complications; Z79.4 Long term (current) use of insulin; E11.65 Type 2 diabetes mellitus with hyperglycemia; Z86.711 Personal history of pulmonary embolism; Z90.49 Acquired absence of other specified parts of digestive tract; Z79.899 Other long term (current) drug therapy; D64.9 Anemia, unspecified; I48.91 Unspecified atrial fibrillation; J45.909 Unspecified asthma, uncomplicated; M19.90 Unspecified osteoarthritis, unspecified site; F41.9 Anxiety disorder, unspecified; Z86.69 Personal history of other diseases of the nervous system and sense organs; I87.2 Venous insufficiency (chronic) (peripheral); E66.9 Obesity, unspecified; Z68.30 Body mass index [BMI] 30.0-30.9, adult; Z86.73 Personal history of transient ischemic attack (TIA), and cerebral infarction without residual deficits; E11.621 Type 2 diabetes mellitus with foot ulcer; Z74.09 Other reduced mobility; Z82.49 Family history of ischemic heart disease and other diseases of the circulatory system
CPT/HCPCS: 36415; 71045-TC; 80048-TC; 80053-TC; 82962-TC; 83735-TC; 83880; 84100-TC; 84443-TC; 84484-TC; 85025-TC; 87081-TC; 93970-TC; 97116-TC; 97530-TC; A6253; C9803; G0378; J1650; J1815; J1940; J2405

== ENCOUNTER 2021-11-19 18:15 | Inpatient (IN) | payer MEDICARE, OTHER ==
[~2021-11-19] VITALS: Ht 170.2 cm; Wt 98.4 kg
[~2021-11-19 18:15] MED LIST changes: +AZIT250T PO; +INSU100V10 SQ
--- NOTE | 2021-11-19 18:24 | NUR ---
[id number] FRM [place] C/O PRESSURE AND STABBING LIKE CP INTERMITTENT SINCE AM. ASPIRIN 324 GIVEN MANAGER STATE. HYPERTENSIVE MANAGER STATE. PT IS A&OX4. ATTACHED TO MONITOR. GIANLUCA BRUNNER ORDERS.
[2021-11-19] MEDS ORDERED: ARGI1POW13 PO (18:32)
[2021-11-19] MEDS ORDERED: NITR0.4T48 SL (18:32)
[2021-11-19] MEDS ORDERED: ONDA4TAB5 PO (18:32)
[2021-11-19] MEDS ORDERED: MAGN400O6 PO (18:32)
[2021-11-19] MEDS ORDERED: OXYC-128 PO (18:32)
[2021-11-19] MEDS ORDERED: CHOL100043 PO (18:32)
[2021-11-19] MEDS ORDERED: MAGN400T26 PO (18:32)
[2021-11-19] MEDS ORDERED: NIFE-34 PO (18:32)
[2021-11-19] MEDS ORDERED: GUAI5SYR PO (18:32)
[2021-11-19] MEDS ORDERED: IPRA3AMP23 IH (18:32)
[2021-11-19] MEDS ORDERED: ASCO-352 PO (18:32)
[2021-11-19] MEDS ORDERED: ACET-868 PO (18:32)
[2021-11-19] MEDS ORDERED: MULT-447 PO (18:32)
[2021-11-19] MEDS ORDERED: FAMO20TA8 PO (18:32)
[2021-11-19] MEDS ORDERED: APIX5TAB PO (18:32)
[2021-11-19] MEDS ORDERED: CARI350T27 PO (18:32)
[2021-11-19] MEDS ORDERED: DICL100G26 TP (18:32)
[2021-11-19] MEDS ORDERED: DOCU-141 PO (18:32)
[2021-11-19] MEDS ORDERED: ATOR40TA PO (18:32)
[2021-11-19] MEDS ORDERED: ASPI-1169 PO (18:32)
[2021-11-19] MEDS ORDERED: HYDR25TA4 PO (18:32)
--- NOTE | 2021-11-19 18:35 | NUR ---
DICK Echavarria FA 20G. LABS DRAWN AND COLLECTED AT BEDSIDE
[2021-11-19] MEDS ORDERED: ONDANSETRON HCL/PF 4 MG/2 ML VIAL ONE (18:43)
[2021-11-19] MEDS ORDERED: MORPHINE SULFATE INJ 4 MG/ML DISP.SYRIN ONE (18:43)
[2021-11-19] MEDS ORDERED: ONDANSETRON HCL/PF 4 MG/2 ML VIAL IVP ONE (19:00)
[2021-11-19] MEDS ORDERED: MORPHINE SULFATE INJ 2 MG/ML DISP.SYRIN IV ONE (19:00)
--- NOTE | 2021-11-19 19:44 | NUR ---
COVID ANTIGEN AND PCR COLLECTED SENT TO LAB
[2021-11-19 20:12] LABS: BASOPHILS % (AUTO) 0.6 % (0.0-2.0); EOSINOPHILS % (AUTO) 1.4 % (0.0-6.0); HEMATOCRIT 35 % (33-45); HEMOGLOBIN 11.5 g/dL (11.5-14.8); LYMPHOCYTES # (AUTO) 0.9 K/uL (0.8-4.8); LYMPHOCYTES % (AUTO) 20.8 % (20.0-44.0); MEAN CORPUSCULAR HGB CONC 33 g/dl (31.0-36.0); MEAN CORPUSCULAR VOLUME 93 fL (82-100); MONOCYTES # (AUTO) 0.2 K/uL (0.1-1.30); MONOCYTES % (AUTO) 5.6 % (2.0-12.0); NEUTROPHILS % (AUTO) 71.6 % (43.0-81.0); PLATELET COUNT (AUTO) 164 K/uL (150-450); WHITE BLOOD COUNT (AUTO) 4.2 K/uL (4.3-11.0)
[2021-11-19 20:18] LABS: CALCIUM, SERUM 8.3 mg/dL (8.5-10.1); CARBON DIOXIDE 31 mmol/L (21-32); CHLORIDE 108 mmol/L (98-107); CREATININE 1.2 mg/dL (0.6-1.3); GLUCOSE 135 mg/dL (74-106); POTASSIUM 4.2 mmol/L (3.5-5.1); SODIUM SERUM 143 mmol/L (136-145); UREA NITROGEN, BLOOD 30 mg/dL (7-18)
[2021-11-19] MEDS ORDERED: hydrALAZINE HCL IV 20 MG VIAL ONE (20:58)
[2021-11-19] MEDS ORDERED: hydrALAZINE HCL IV 20 MG VIAL IV ONE (21:00)
--- NOTE | 2021-11-19 21:06 | NUR ---
REPORT GIVEN TO PARAS MORRIS RN FOR OREN
[2021-11-19] MEDS ORDERED: MAGNESIUM HYDROXIDE 30 ML UDC PO PRN (21:30)
[2021-11-19] MEDS ORDERED: Z GUARD REMEDY 4 OZ OINT TP PRN (21:30)
[2021-11-19] MEDS ORDERED: ZOLPIDEM TARTRATE 5 MG TABLET PO PRN (21:30)
[2021-11-19] MEDS ORDERED: ACETAMINOPHEN 325 MG TABLET PO PRN (21:30)
[2021-11-19] MEDS ORDERED: GUAIFENESIN/D-METHORPHAN HB 5 ML UDC PO PRN (21:30)
[2021-11-19] MEDS ORDERED: CARISOPRODOL 350 MG TABLET PO PRN (21:30)
[2021-11-19] MEDS ORDERED: NITROGLYCERIN 0.4 MG/TAB BOTTLE SL PRN (21:30)
[2021-11-19] MEDS ORDERED: oxyCODONE/APAP (5/325 MG) 1 UDTAB TABLET PO PRN (21:30)
[2021-11-19] MEDS ORDERED: DEXTROSE 50%-WATER 50 ML DISP.SYRIN IV PRN (21:30)
[2021-11-19] MEDS ORDERED: MAG HYDROX/AL HYDROX/SIMETH 30 ML UDC PO PRN (21:30)
[2021-11-19 21:55] VITALS: BP 164/90
--- NOTE | 2021-11-19 21:55 | NUR ---
GROUP CONTROLLER NOTES: RECEIVED REPORT FROM CERTIFIED GREEN BUILDING ENGINEER SHIELA. PT TRANSFERRED TO [facility] FROM ER, PLACED IN ROOM 118 BED 1. PT AWAKE, ALERT/ORIENTED X4 AND VERBALLY RESPONSIVE. ON ROOM AIR AND PT TOLERATED WELL. O2 SAT 95%. IV ACCESS ON RFA#20G INTACT AND PATENT. NO S/S OF INFILTRATIONS. NO C/O CHEST PAIN AT THIS MOMENT. NO ACUTE DISTRESS. COOPERATIVE. BODY ASSESSMENT DONE. NOTED BOTH LOWER LEG WITH OLD DRY SCABS. LEFT HEEL NOTED WITH DTI. ON CARDIAC MONITORING- HR 83. ALL SAFETY MEASURES IN PLACE. BED IN LOWEST POSITION AND LOCKED. SIDE RAILS UP X3, BED ALARM ON. PLACE CALL LIGHT WITH IN REACH. WILL CONTINUE TO MONITOR
--- NOTE | 2021-11-19 21:55 | NUR ---
PATIENT TRANSFERRED UNDER ACLS
[2021-11-19] MEDS ORDERED: FUROSEMIDE 20 MG/2 ML VIAL IV SCH (22:00)
[2021-11-19] MEDS: BLOOD SUGAR DIAGNOSTIC 1 EACH STRIP VI SCH (22:30)
[2021-11-19] MEDS: *INSULIN REGULAR(HUMULIN R)HUM 100 UNIT/ML VIAL SQ PRN (22:31)
[2021-11-19] MEDS ORDERED: CEFTRIAXONE 1 G VIAL ONE (23:10)
[2021-11-19] MEDS: CEFTRIAXONE 1 G in IV D5W 50 ML IV SCH (23:30)
[2021-11-20] VITALS: BP 145/77
[2021-11-20] MEDS: LORAZEPAM 1 MG TABLET PO PRN (00:47)
--- NOTE | 2021-11-20 00:50 | NUR ---
RN NOTES: PT C/O ANXIETY, FEELING AGITATION. ATIVAN 1 MG TAB GIVEN PRN ORDERED. PT TOLERATED WELL. WILL CONTINUE TO MONITOR
[2021-11-20 04:00] VITALS: BP 165/87
--- NOTE | 2021-11-20 04:59 | NUR ---
RN NOTES: PT'S BP-165/87, PULSE-96. NOTIFIED CAROLEE FLAHERTY. ORDER- CLONIDINE 0.1 MG TAB PO Q8 HOURS IF SBP GREATER THAN 160. ORDER NOTED AND CARRIED OUT. WILL CONTINUE TO MONITOR
[2021-11-20] MEDS ORDERED: CLONIDINE HCL 0.1 MG TABLET PO PRN (05:00)
[2021-11-20 06:16] LABS: BASOPHILS % (AUTO) 0.6 % (0.0-2.0); HEMATOCRIT 34 % (33-45); HEMOGLOBIN 11.2 g/dL (11.5-14.8); LYMPHOCYTES # (AUTO) 0.7 K/uL (0.8-4.8); LYMPHOCYTES % (AUTO) 21.1 % (20.0-44.0); MEAN CORPUSCULAR HGB CONC 33 g/dl (31.0-36.0); MEAN CORPUSCULAR VOLUME 92 fL (82-100); MONOCYTES # (AUTO) 0.2 K/uL (0.1-1.30); MONOCYTES % (AUTO) 6.5 % (2.0-12.0); NEUTROPHILS # (AUTO) 2.5 K/uL (1.8-8.9); NEUTROPHILS % (AUTO) 70.8 % (43.0-81.0); PLATELET COUNT (AUTO) 152 K/uL (150-450); RED BLOOD CELL COUNT(AUTO) 3.68 MIL/uL (4.0-5.2); WHITE BLOOD COUNT (AUTO) 3.5 K/uL (4.3-11.0)
[2021-11-20 06:29] LABS: CALCIUM, SERUM 8.5 mg/dL (8.5-10.1); CREATININE 1.2 mg/dL (0.6-1.3); MAGNESIUM 2.2 mg/dL (1.8-2.4); PHOSPHORUS 4.4 mg/dL (2.5-4.9); POTASSIUM 4.2 mmol/L (3.5-5.1)
--- NOTE | 2021-11-20 06:36 | NUR ---
RN CLOSING NOTES: PT IN BED, AWAKE, ALERT/ORIENTED X4 AND VERBALLY RESPONSIVE. ON ROOM AIR AND PT TOLERATED WELL. O2 SAT 93%. IV ACCESS ON RFA#20G INTACT AND PATENT. NO S/S OF INFILTRATIONS. NO C/O PAIN OE DISCOMFORT. NO ACUTE DISTRESS. ALL DUE MEDS GIVEN ORDERED. ALL SAFETY MEASURES IN PLACE. BED IN LOWEST POSITION AND LOCKED. SIDE RAILS UP X3, BED ALARM ON. PLACE CALL LIGHT WITH IN REACH. WILL ENDORSE TO MORNING SHIFT NURSE.
--- NOTE | 2021-11-20 07:02 | NUR ---
RN NOTES: PT HAD EPISODE OF HR DROPPED TO 39 WHILE SHE WAS IN DEEP SLEEP. WENT TO THE ROOM AND AWAKE HER UP. SHE WAS LITTLE HARD TO AROUSE. BUT WOKE TO PAINFUL STIMULI. BLOOD SUGAR 141. FLUID GIVEN. PT STATED, SHE IS NOT IN DISTRESS. WILL ENDORSE TO MORNING SHIFT
--- NOTE | 2021-11-20 07:38 | NUR ---
BACKGROUND CHECK COORDINATOR NOTE PATIENT IN BED RESTING COMFORTABLY AT THIS TIME, ON TELE MONITOR SR HR 69 AT THIS TIME, RT FA HL INTACT , BED IN LOWEST AND LOCKED POSITION NO SOB NOTED AT THIS TAYLOR ON RA , CALL LIGHT WITHIN REACH WILL MONITOR
[2021-11-20] MEDS: BLOOD SUGAR DIAGNOSTIC 1 EACH STRIP VI SCH ×4 (07:50→22:02)
[2021-11-20 08:00] VITALS: BP 165/96
[2021-11-20] MEDS: MULTIVIT W/MINERALS 1 TAB TABLET PO SCH (08:50)
[2021-11-20] MEDS: CARVEDILOL 12.5 MG TABLET PO SCH ×2 (08:53→16:22)
[2021-11-20] MEDS: ASPIRIN 81 MG TAB.CHEW PO SCH (08:54)
[2021-11-20] MEDS: LOSARTAN POTASSIUM 50 MG TABLET PO SCH (08:55)
[2021-11-20] MEDS: CHOLECALCIFEROL 1,000 UNIT TABLET (VIT D3) PO SCH (08:56)
[2021-11-20] MEDS: MAGNESIUM OXIDE 400 MG TABLET PO SCH (08:57)
[2021-11-20] MEDS: FAMOTIDINE (20 MG) 20 MG TABLET PO SCH (08:58)
[2021-11-20] MEDS: ASCORBIC ACID 500 MG TABLET PO SCH (08:58)
[2021-11-20] MEDS: NIFEdipine XL (30MG) 30 MG TAB PO SCH (09:00)
[2021-11-20] MEDS: HYDROCHLOROTHIAZIDE 25 MG TABLET PO SCH (09:01)
[2021-11-20] MEDS: APIXABAN 5 MG TABLET PO SCH ×2 (09:04→21:45)
[2021-11-20] MEDS: ACETAMINOPHEN 325 MG TABLET PO PRN (09:11)
--- NOTE | 2021-11-20 09:34 | NUR ---
CAR WASH MANAGER NOTE REPORTED TO DR JEREZ THAT LAST NIGHT AFTER ATIVAN GIVEN HR 39 NO NEW ORDER AT THIS TIME
--- NOTE | 2021-11-20 09:35 | NUR ---
JEWELRY MAKING INSTRUCTOR NOTE REFUSED ACCU CHECK COVERAGE AND PROCARDIA, MAG , VIT D WILL INFORM MD
[2021-11-20] MEDS: FUROSEMIDE 40 MG/4 ML VIAL IV SCH ×3 (09:54→16:32)
[2021-11-20] MEDS ORDERED: DEXAMETHASONE SOD PHOSPHATE 10 MG/ML VIAL IV SCH (10:00)
--- NOTE | 2021-11-20 11:00 | NUR ---
TARIFF CLERK NOTE DR KO NOTIFIED THAT PATIENT REFUSED TO TAKE PROCARDIA MAG AND VIT D
--- NOTE | 2021-11-20 11:11 | NUR ---
LUIS HIRSCH NOTE PER DR HUBER VELASQUEZ TO PLACE BECCA COOPER 2D ECHO DONE ORDERED Addendum: 11/20/21 at 1128 by ELIZABETH VARGAS RN BECCA COOPER INSERTED ORDERED
[2021-11-20 12:00] VITALS: BP 158/65
--- NOTE | 2021-11-20 13:00 | NUR ---
telecommunications manager note rounds made having lunch able to eat self , all needs attended not in distress
[2021-11-20 16:00] VITALS: BP 167/88
--- NOTE | 2021-11-20 16:00 | NUR ---
telemarketing sales representative note tx on legs done, keep clean dry ,
[2021-11-20] MEDS: ARGININE/GLUTAMINE/CALCIUM BMB 1 EACH POWD.PACK PO SCH (17:00)
[2021-11-20] MEDS: INSULIN REGULAR, HUMAN 100 UNIT/ML 3 ML VIAL SQ PRN (17:36)
--- NOTE | 2021-11-20 18:19 | NUR ---
television maintenance man note sleeping comfortably refusing to have dinner at this time stated will eat latter on ,will monitor
--- NOTE | 2021-11-20 18:46 | NUR ---
PROBE OPERATOR NOTE PATIENT IN BED, AWAKE, NOW HAVING DINNER , ABLE TO EAT SELF , CALL LIGHT WITHIN REACH , ON RA NO SOB NOTED AT HIS TIME, BOTH LEGS WITH EDEMA KEEP ELEVATED ON PILLOW TOLERATED, RT FA HL INTACT AND FLUSHED WELL , WITH HUDSON CATH TO GRAVITY WITH YELLOW WITH SOME SEDIMENTS BED IN LOWEST AND LOCKED POSITION , SAFETY MEASURE PROVIDED, WILL CONT TO MONITOR CLOSELY
--- NOTE | 2021-11-20 19:50 | NUR ---
RN OPENING NOTES: RECEIVED PT IN BED, AWAKE, ALERT/ORIENTED X4 AND VERBALLY RESPONSIVE. ON ROOM AIR AND PT TOLERATED WELL.IV ACCESS ON RFA#20G INTACT AND PATENT. NO S/S OF INFILTRATIONS. NO C/O PAIN OE DISCOMFORT. NO ACUTE DISTRESS. NOTED PT HAVING DINNER BY HERSELF. FLOLEY CATHETER IN PLACE, DRAINING BY GRAVITY, NOTED CLEAR, YELLOWISH URINE. ALL SAFETY MEASURES IN PLACE. BED IN LOWEST POSITION AND LOCKED. SIDE RAILS UP X3, BED ALARM ON. PLACE CALL LIGHT WITH IN REACH. WILL CONTINUE TO MONITOR
[2021-11-20 20:00] VITALS: BP 144/79
[2021-11-20] MEDS: ATORVASTATIN 40 MG TABLET PO SCH ×2 (21:44→22:00)
[2021-11-20] MEDS: *INSULIN REGULAR(HUMULIN R)HUM 100 UNIT/ML VIAL SQ PRN (22:02)
--- NOTE | 2021-11-20 22:03 | NUR ---
RN NOTES: OPENED BOTH SCHEDULED MEDS: ELIQIS AND LIPITOR IN FRONT OF THE PT. PT TOOK ELIQUIS BUT STRONGLY REFUSED LIPITOR. MENTIONED MEDICATION MAKE HER FEEL SICK. WASTED LIPITOR. PT'S BLOOD SUGAR 139. STRONGLY REFUSED TO TAKE 2 UNITS OF REGULAR INSULIN. MENTIONED, HER BS IS FINE, SHE DOESN'T WANT INSULIN. EXPLAINED THE RISKS AND BENEFITS BUT STILL REFUSED. WILL CONTINUE TO MONITOR
[2021-11-20] MEDS: CEFTRIAXONE 1 G in IV D5W 50 ML IV SCH (22:27)
[2021-11-21] VITALS: BP 151/84
[2021-11-21 02:00] VITALS: BP 151/86
[2021-11-21 04:00] VITALS: BP 151/86
--- NOTE | 2021-11-21 06:44 | NUR ---
RN CLOSING NOTES: PT IN BED, AWAKE, ALERT/ORIENTED X4 AND VERBALLY RESPONSIVE. ON ROOM AIR AND PT TOLERATED WELL. O2 SAT 97%. IV ACCESS ON RFA#20G INTACT AND PATENT. NO S/S OF INFILTRATIONS. NO C/O PAIN OE DISCOMFORT. NO ACUTE DISTRESS. HUDSON CATHETER IN PLACE, DRAINING BY GRAVITY, NOTED CLEAR, YELLOWISH URINE. REFUSED TO BE CHANGE. OFFERED SEVERAL TIMES BUT STILL REFUSED. ALL SAFETY MEASURES IN PLACE. BED IN LOWEST POSITION AND LOCKED. SIDE RAILS UP X3, BED ALARM ON. PLACE CALL LIGHT WITH IN REACH. WILL ENDORSE TO MORNING SHIFT NURSE.
[2021-11-21 07:00] LABS: EOSINOPHILS % (AUTO) 1.5 % (0.0-6.0); HEMATOCRIT 31 % (33-45); HEMOGLOBIN 10.1 g/dL (11.5-14.8); LYMPHOCYTES # (AUTO) 0.9 K/uL (0.8-4.8); LYMPHOCYTES % (AUTO) 22.2 % (20.0-44.0); MEAN CORPUSCULAR HGB CONC 33 g/dl (31.0-36.0); MEAN CORPUSCULAR VOLUME 93 fL (82-100); MONOCYTES # (AUTO) 0.2 K/uL (0.1-1.30); MONOCYTES % (AUTO) 5.7 % (2.0-12.0); NEUTROPHILS # (AUTO) 2.9 K/uL (1.8-8.9); NEUTROPHILS % (AUTO) 69.6 % (43.0-81.0); PLATELET COUNT (AUTO) 159 K/uL (150-450); RED BLOOD CELL COUNT(AUTO) 3.33 MIL/uL (4.0-5.2); WHITE BLOOD COUNT (AUTO) 4.1 K/uL (4.3-11.0)
[2021-11-21 07:26] LABS: ALBUMIN 2.1 g/dL (3.4-5.0); BILIRUBIN,TOTAL 0.3 mg/dL (0.2-1.0); CALCIUM, SERUM 7.9 mg/dL (8.5-10.1); CREATININE 1.4 mg/dL (0.6-1.3); PHOSPHORUS 4.4 mg/dL (2.5-4.9); POTASSIUM 4.4 mmol/L (3.5-5.1); TOTAL PROTEIN, SERUM 5.6 g/dL (6.4-8.2)
--- NOTE | 2021-11-21 07:28 | NUR ---
TELE/RN PATIENT RECEIVED IN BED, RESTING. PATIENT ON RA WITH NO SIGNS OF LABORED BREATHING AT THIS TIME. HUDSON CATH IN PLACE, PATENT. RIGHT FA 20G SL IN PLACE. BED LOCKED AND IN LOWEST POSITION, CALL LIGHT WITHIN REACH, 3 SIDE RAILS UP.
[2021-11-21] MEDS: BLOOD SUGAR DIAGNOSTIC 1 EACH STRIP VI SCH ×4 (07:52→21:04)
--- NOTE | 2021-11-21 07:52 | NUR ---
TELE/RN SUGAR 148 THIS AM. PT REFUSING INSULIN AT THIS TIME. BENEFIT OF INSULIN AND PROPER GLYCEMIC CONTROL EXPLAINED.
[2021-11-21 08:00] VITALS: BP 171/92
[2021-11-21] MEDS: LOSARTAN POTASSIUM 50 MG TABLET PO SCH (08:07)
[2021-11-21] MEDS: NIFEdipine XL (30MG) 30 MG TAB PO SCH (08:07)
[2021-11-21] MEDS: ASPIRIN 81 MG TAB.CHEW PO SCH (08:07)
[2021-11-21] MEDS: MAGNESIUM OXIDE 400 MG TABLET PO SCH (08:07)
[2021-11-21] MEDS: MULTIVIT W/MINERALS 1 TAB TABLET PO SCH (08:08)
[2021-11-21] MEDS: CARVEDILOL 12.5 MG TABLET PO SCH ×3 (08:08→16:37)
[2021-11-21] MEDS: ASCORBIC ACID 500 MG TABLET PO SCH (08:08)
[2021-11-21] MEDS: HYDROCHLOROTHIAZIDE 25 MG TABLET PO SCH (08:08)
[2021-11-21] MEDS: APIXABAN 5 MG TABLET PO SCH ×2 (08:09→20:43)
[2021-11-21] MEDS: THERAHONEY GEL 1.5 OZ TUBE TP SCH (08:10)
[2021-11-21] MEDS: CHOLECALCIFEROL 1,000 UNIT TABLET (VIT D3) PO SCH (08:10)
[2021-11-21] MEDS: ARGININE/GLUTAMINE/CALCIUM BMB 1 EACH POWD.PACK PO SCH ×2 (08:10→16:38)
[2021-11-21] MEDS: FAMOTIDINE (20 MG) 20 MG TABLET PO SCH (08:10)
[2021-11-21] MEDS: hydrALAZINE HCL 50 MG TABLET PO SCH ×3 (09:00→16:37)
[2021-11-21] MEDS: FUROSEMIDE 100 MG/10 ML VIAL IV SCH ×3 (09:00→16:37)
[2021-11-21] MEDS: NITROGLYCERIN 30 GM TUBE TP SCH ×2 (09:00→20:52)
--- NOTE | 2021-11-21 09:08 | NUR ---
TELE/RN PATIENT REFUSING TO TAKE LASIX 80MG IV, HYDRALAZINE 100MG PO AND COREG 12.5MG PO, STATING SHE ALREADY TOOK TOO MANY BP MEDICATION AND IS CONCERNED ABOUT HER BLOOD PRESSURE LOWERING TOO MUCH. PT EDUCATED ON EACH MEDICATION AND THE BENEFIT OF TAKING ALL MEDICATION DUE TO HIGH BLOOD PRESSURE OF 171/92 THIS AM. PT VERBALIZES UNDERSTANDING OF EDUCATION, STILL REFUSES.
--- NOTE | 2021-11-21 09:38 | NUR ---
TELE/RN DR. JEREZ NOTIFIED OF PT REFUSING LASIX IV, HYDRALAZINE AND COREG PO.
--- NOTE | 2021-11-21 12:13 | NUR ---
TELE/RN PATIENT AGREED TO RECEIVE LASIX 80MG IV. PT CONTINUES TO REFUSE HYDRALAZINE 100MG PO. PT REFUSED ACCU CHECK WITH HER LUNCH AND STATES SHE IS NOT HUNGRY AT THIS TIME.
[2021-11-21 16:00] VITALS: BP 113/60
--- NOTE | 2021-11-21 16:38 | NUR ---
TELE/RN PATIENT REFUSING HYDRALAZINE 100MG AND CARVEDILOL 12.5MG STATING HER BP OF 113/60 IS WELL MANAGED. PT ACCEPTING TO TAKE LASIX IV AT THIS TIME. PT EDUCATED ON BP MEDICATION.
--- NOTE | 2021-11-21 17:08 | NUR ---
TELE/RN SUGAR 194. PT REFUSING INSULIN AT THIS TIME.
--- NOTE | 2021-11-21 18:45 | NUR ---
TELE/RN PATIENT REMAINS IN BED, AWAKE, ALERT. PATIENT ON RA WITH NO SIGNS OF LABORED BREATHING AT THIS TIME. HUDSON CATH IN PLACE, PATENT RUNNING CLEAR URINE. RIGHT FA 20G SL IN PLACE. ALL NEEDS ATTENDED DURING SHIFT. BED LOCKED AND IN LOWEST POSITION, CALL LIGHT WITHIN REACH, 3 SIDE RAILS UP. WILL ENDORSE TO DIRECTOR OF NUCLEAR MEDICINE NURSE FOR OREN.
--- NOTE | 2021-11-21 19:00 | NUR ---
RN opening notes Pt is sitting in bed comfortably talking on the phone. Pt is alert and orientedX4. On room air. No SOB. No S/S of distress noted. IV site at RFA# 20 is clean, intact and SL. Aguilera cath is inplaced and draining yellow urine. Safety precautions is maintained. Bed at low position, brakes locked, side rails upX2, hob elevated, bed alarm is on and call light is within reach. will continue to monitor.
[2021-11-21 20:00] VITALS: BP 121/74
--- NOTE | 2021-11-21 20:52 | NUR ---
Rn notes Pt refuses nitrol med. Pt stated "My blood pressure is good 121." Explained risks and benefits. Pt keep refusing. Will continue to monitor. Addendum: 11/21/21 at 2114 by HERON TONEY RN VS at 1999 121/74. HR at 70.
[2021-11-21] MEDS: *INSULIN REGULAR(HUMULIN R)HUM 100 UNIT/ML VIAL SQ PRN (21:12)
--- NOTE | 2021-11-21 21:17 | NUR ---
RN notes Pt refused lipitor. explained risks and benefits. Pt keep refusing. will continue to monitor.
[2021-11-21] MEDS: ATORVASTATIN 40 MG TABLET PO SCH (21:18)
[2021-11-21] MEDS: CEFTRIAXONE 1 G in IV D5W 50 ML IV SCH (22:00)
[2021-11-22] MEDS: ACETAMINOPHEN 325 MG TABLET PO PRN (03:29)
[2021-11-22] MEDS: LORAZEPAM 1 MG TABLET PO PRN ×2 (03:29→21:57)
--- NOTE | 2021-11-22 03:29 | NUR ---
RN notes Pt is complaining of mild generalized pain and requesting tylenol. administered tylenol 650 mg/po as ordered per Pt request. will continue to monitor.
--- NOTE | 2021-11-22 03:36 | NUR ---
RN notes Pt is feeling anxious. administered ativan 1 mg/1 tab/po as ordered per Pt request. safety precautions is maintained. will continue to monitor.
[2021-11-22 04:00] VITALS: BP 140/69
--- NOTE | 2021-11-22 06:44 | NUR ---
RN closing notes Pt is resting in bed comfortably. Pt is alert and orientedX4. On room air. No SOB. No S/S of distress noted. IV site at RFA# 20 is clean, intact and SL. Vs is stable. Routine meds were given as ordered including prn meds. Aguilera cath is inplaced and draining yellow urine 600ml. Kept Pt clean, dry and comfortable. Safety precautions is maintained. Bed at low position, brakes locked, side rails upX2, hob elevated, bed alarm is on and call light is within reach. Will endorse to am nurse for OREN.
[2021-11-22 07:30] LABS: BASOPHILS % (AUTO) 0.8 % (0.0-2.0); EOSINOPHILS % (AUTO) 2.5 % (0.0-6.0); HEMATOCRIT 31 % (33-45); HEMOGLOBIN 10.3 g/dL (11.5-14.8); LYMPHOCYTES # (AUTO) 1.1 K/uL (0.8-4.8); LYMPHOCYTES % (AUTO) 23.3 % (20.0-44.0); MEAN CORPUSCULAR HGB CONC 33 g/dl (31.0-36.0); MEAN CORPUSCULAR VOLUME 93 fL (82-100); MONOCYTES # (AUTO) 0.4 K/uL (0.1-1.30); MONOCYTES % (AUTO) 8.1 % (2.0-12.0); NEUTROPHILS % (AUTO) 65.3 % (43.0-81.0); PLATELET COUNT (AUTO) 163 K/uL (150-450); RED BLOOD CELL COUNT(AUTO) 3.38 MIL/uL (4.0-5.2); WHITE BLOOD COUNT (AUTO) 4.6 K/uL (4.3-11.0)
--- NOTE | 2021-11-22 07:30 | NUR ---
pt recived in stable condtion no s/s of distress alert on assessment. iv line patent and flushes with ease. in bed and calm talking on the phone with family member says she is hungry and asking for food calm and follows directions. indorsed by shift commander pt refuses some meds and mus be explained all meds taht she takes for her to decide if she will take them or not.
[2021-11-22] MEDS: ASPIRIN 81 MG TAB.CHEW PO SCH (08:00)
[2021-11-22] MEDS: FAMOTIDINE (20 MG) 20 MG TABLET PO SCH (08:00)
[2021-11-22] MEDS: CHOLECALCIFEROL 1,000 UNIT TABLET (VIT D3) PO SCH (08:00)
[2021-11-22] MEDS: ASCORBIC ACID 500 MG TABLET PO SCH (08:00)
[2021-11-22] MEDS: MAGNESIUM HYDROXIDE 30 ML UDC PO PRN (08:01)
[2021-11-22] MEDS: MULTIVIT W/MINERALS 1 TAB TABLET PO SCH (08:01)
[2021-11-22] MEDS: APIXABAN 5 MG TABLET PO SCH ×2 (08:09→21:58)
[2021-11-22 08:12] LABS: ALBUMIN 2.2 g/dL (3.4-5.0); BILIRUBIN,TOTAL 0.3 mg/dL (0.2-1.0); CALCIUM, SERUM 7.8 mg/dL (8.5-10.1); CREATININE 1.6 mg/dL (0.6-1.3); MAGNESIUM 2.1 mg/dL (1.8-2.4); PHOSPHORUS 4.1 mg/dL (2.5-4.9); POTASSIUM 4.3 mmol/L (3.5-5.1); TOTAL PROTEIN, SERUM 6.1 g/dL (6.4-8.2)
[2021-11-22] MEDS: hydrALAZINE HCL 50 MG TABLET PO SCH ×3 (08:15→16:20)
[2021-11-22] MEDS: CARVEDILOL 12.5 MG TABLET PO SCH ×2 (08:16→16:20)
[2021-11-22] MEDS: NIFEdipine XL (30MG) 30 MG TAB PO SCH (08:16)
[2021-11-22] MEDS: BLOOD SUGAR DIAGNOSTIC 1 EACH STRIP VI SCH ×4 (08:17→22:20)
[2021-11-22] MEDS: HYDROCHLOROTHIAZIDE 25 MG TABLET PO SCH (08:18)
[2021-11-22] MEDS: THERAHONEY GEL 1.5 OZ TUBE TP SCH (08:20)
[2021-11-22] MEDS: NITROGLYCERIN 30 GM TUBE TP SCH ×2 (08:20→21:00)
[2021-11-22] MEDS: MAGNESIUM OXIDE 400 MG TABLET PO SCH (08:24)
--- NOTE | 2021-11-22 09:00 | NUR ---
pt refused hydralazine, milk of magnisea and arya oxide
[2021-11-22] MEDS ORDERED: BUMETANIDE INJ 8 MG in IV NS 0.9% 48 ML IV ONE (10:30)
[2021-11-22] MEDS: ARGININE/GLUTAMINE/CALCIUM BMB 1 EACH POWD.PACK PO SCH ×2 (11:00→16:21)
[2021-11-22 12:00] VITALS: BP 142/77
[2021-11-22] MEDS: INSULIN REGULAR, HUMAN 100 UNIT/ML 3 ML VIAL SQ PRN (13:07)
[2021-11-22] MEDS: ONDANSETRON 4 MG TAB.RAPDIS PO PRN (16:20)
--- NOTE | 2021-11-22 16:30 | NUR ---
pt bg 187 pt refused insulin
--- NOTE | 2021-11-22 19:20 | NUR ---
RN NOTES RECEIVED PT FOR CONTINUITY OF CARE. PATIENT A/OX4 IN NO S/SX OF ACUTE DISTRESS AT THIS TIME; CURRENTLY ON ROOM AIR; WITH 02 SAT >92% AT THIS TIME.WITH IV ACCESS PATENT, INTACT AND FLUSHING WELL. WILL ENSURE SAFETY MEASURES WITHIN THE SHIFT. PATIENT BED ALARM IS ON. HEAD OF BED ELEVATED. BED IS LOCKED, IN LOWEST POSITION AND SIDE RAILS UP. CALL LIGHT WITHIN REACH OF THE PATIENT. APPLICABLE ISOLATION PRECAUTIONS IN PLACE. WILL CONTINUE TO MONITOR AND REASSESS FOR ANY CHANGES AND WILL CARRY OUT ANY ONGOING AND ACTIVE MD ORDER.
[2021-11-22 20:00] VITALS: BP 125/62
[2021-11-22] MEDS: ATORVASTATIN 40 MG TABLET PO SCH (21:58)
[2021-11-22] MEDS: *INSULIN REGULAR(HUMULIN R)HUM 100 UNIT/ML VIAL SQ PRN (22:20)
[2021-11-22] MEDS: CEFTRIAXONE 1 G in IV D5W 50 ML IV SCH (23:14)
[2021-11-22] MEDS: HYDROCODONE/APAP 5/325MG TABLET PO PRN (23:30)
[2021-11-23 04:00] VITALS: BP 146/68
--- NOTE | 2021-11-23 04:00 | NUR ---
RN NOTES PATIENT REMAINED TO BE IN NO SIGNS OF ACUTE RESPIRATORY DISTRESS , SAFE ENVIRONMENT MAINTAINED FOR PT. AM PATIENT CARE ASSISTANCE RENDERED. WILL CONTINUE TO MONITOR AND REASSESS FOR ANY CHANGES THROUGHOUT THE SHIFT.
[2021-11-23 06:32] LABS: BASOPHILS % (AUTO) 0.9 % (0.0-2.0); EOSINOPHILS % (AUTO) 2.9 % (0.0-6.0); HEMATOCRIT 32 % (33-45); HEMOGLOBIN 10.6 g/dL (11.5-14.8); LYMPHOCYTES % (AUTO) 23.6 % (20.0-44.0); MEAN CORPUSCULAR HGB CONC 33 g/dl (31.0-36.0); MEAN CORPUSCULAR VOLUME 93 fL (82-100); MONOCYTES # (AUTO) 0.4 K/uL (0.1-1.30); MONOCYTES % (AUTO) 9.3 % (2.0-12.0); NEUTROPHILS # (AUTO) 2.8 K/uL (1.8-8.9); NEUTROPHILS % (AUTO) 63.3 % (43.0-81.0); PLATELET COUNT (AUTO) 173 K/uL (150-450); RED BLOOD CELL COUNT(AUTO) 3.49 MIL/uL (4.0-5.2); WHITE BLOOD COUNT (AUTO) 4.4 K/uL (4.3-11.0)
--- NOTE | 2021-11-23 06:50 | NUR ---
RN CLOSING NOTE: PATIENT REMAINS IN ROOM IN NO SIGNS OF RESPIRATORY DISTRESS, PATIENT STILL ON ROOM AIR ;TOLERATING WELL SATURATING @ >95% SP02. SAFETY MEASURES IMPLEMENTED, BED IN LOWEST POSITION, LOCKED, SIDE RAILS UP, CALL LIGHT WITHIN REACH. ALL NEEDS AND ORDERS ADDRESSED DURING THE SHIFT. IV ACCESS MAINTAINED INTACT, SECURED AND FLUSHING WELL. ALL DUE MEDS GIVEN ORDERED & SCHEDULED ; PATIENT TOLERATED WELL. PATIENT KEPT CLEAN AND COMFORTABLE WITHIN THE SHIFT. KEPT ON AND FOR ISOLATION FOR COVID. PATIENT ENDORSED TO INCOMING SHIFT RN WITH STABLE VITAL SIGN AND FOR CONTINUITY OF CARE.
[2021-11-23 07:02] LABS: CALCIUM, SERUM 7.5 mg/dL (8.5-10.1); CREATININE 1.7 mg/dL (0.6-1.3); MAGNESIUM 1.9 mg/dL (1.8-2.4); POTASSIUM 4.9 mmol/L (3.5-5.1)
--- NOTE | 2021-11-23 07:30 | NUR ---
RN OPEN NOTE PATIENT IS IN BED , ALERT , ORIENTED TIMES 4 , ON ROOM AIR , O2 STA 97%, NO SIGHS OF DISTRESS, BREATHING NON LABORED , HAS IV ACCESS ON RIGHT WRIST SALINE LOCK FLUSHED FREELY , NO SIGNS OF INFILTRATION. HUDSON CATHETER IS IN PLACE RUNNING CLEAR YELLOW URINE. BED IS AT LOWEST POSITION , BED SIDE RAILS ARE UP , CALL LIGHT WITHIN REACH ,WILL CONTINUE TO MONITOR
--- NOTE | 2021-11-23 07:50 | NUR ---
RN NOTE ACCU CHECK WAS DONE , BLOOD SUGAR IS 240 MG/DL,PATIENT REFUSED TO TAKE INSULIN AT THIS TIME , STATING : I KNOW WHAT IS BEST FOR ME , WILL OFFER INSULIN INJECTION LATER
[2021-11-23] MEDS: BLOOD SUGAR DIAGNOSTIC 1 EACH STRIP VI SCH ×4 (08:05→22:50)
[2021-11-23] MEDS: THERAHONEY GEL 1.5 OZ TUBE TP SCH (09:00)
[2021-11-23] MEDS: NITROGLYCERIN 30 GM TUBE TP SCH ×2 (09:00→20:38)
[2021-11-23] MEDS: FAMOTIDINE (20 MG) 20 MG TABLET PO SCH (09:00)
[2021-11-23] MEDS: NIFEdipine XL (30MG) 30 MG TAB PO SCH (09:00)
[2021-11-23] MEDS: HYDROCHLOROTHIAZIDE 25 MG TABLET PO SCH (09:00)
[2021-11-23] MEDS: MULTIVIT W/MINERALS 1 TAB TABLET PO SCH (09:00)
[2021-11-23] MEDS: ARGININE/GLUTAMINE/CALCIUM BMB 1 EACH POWD.PACK PO SCH ×2 (09:00→16:39)
[2021-11-23] MEDS: CARVEDILOL 12.5 MG TABLET PO SCH ×2 (09:53→16:38)
[2021-11-23] MEDS: MAGNESIUM OXIDE 400 MG TABLET PO SCH (09:54)
[2021-11-23] MEDS: CHOLECALCIFEROL 1,000 UNIT TABLET (VIT D3) PO SCH (09:54)
[2021-11-23] MEDS: ASCORBIC ACID 500 MG TABLET PO SCH ×2 (09:55→10:17)
[2021-11-23] MEDS: APIXABAN 5 MG TABLET PO SCH ×2 (10:01→20:37)
[2021-11-23] MEDS: ASPIRIN 81 MG TAB.CHEW PO SCH (10:15)
[2021-11-23] MEDS: hydrALAZINE HCL 50 MG TABLET PO SCH ×3 (10:16→16:38)
--- NOTE | 2021-11-23 12:02 | NUR ---
Patient was instructed that CT scan is going to be done today , and provided detailed instructions on what is CT scan .Patient verbalized understanding .
[2021-11-23 12:11] VITALS: BP 140/70
--- NOTE | 2021-11-23 12:33 | NUR ---
rn note Accu check done , BS 238 mg/dl , patient refused insulin at this time
--- NOTE | 2021-11-23 13:30 | NUR ---
called radiology , spoke with Dany ,responded that patient is going to be picked up for radiology CT scan during enxt two hours
--- NOTE | 2021-11-23 13:50 | NUR ---
RN note patient was instructed that CT scan going to be done today , by doctor order and that she is going to be transferred to the radiology station for the scan during next two hours .Patient verbalized understanding and stated ymeiy she will call her for the support.
[2021-11-23] MEDS: ONDANSETRON 4 MG TAB.RAPDIS PO PRN ×2 (14:11→15:31)
--- NOTE | 2021-11-23 14:15 | NUR ---
RN note asked the patient if she changed her mind for the CT scan , patient stated yes tce , I will go, called the radiologist , confirmed that the second attemp will be done at 1545, patient was emplaned that she will be picked up for the CT scan during the hour , patient verbalized understanding.
--- NOTE | 2021-11-23 14:40 | NUR ---
Radiologist came to pick the patient up for the Ct scan.at the bedside.patient refusing to Ct scan stating that she wants to martinez her teeth, and that she is not ready for the CT scan. will offer the CT scan in one hour.
--- NOTE | 2021-11-23 14:42 | NUR ---
MS RN NOTE RADIOLOGIES TECH AT BEDSIDE TO WOOL SHEARER PATIENT FOR CT CHEST BUR PATIENT STRONGLY REFUSED DESPITE EXPLANATION , WANTS TO BRUSH HER TEETH FIRST , OFFERED BY MCAT TUTOR TO HELP BRUSH HER TEETHE , BUT REFUSED WANTS TO DO SELF , RADIOLOGIST TECH WILL COME LATTER ON IN HOUR TO DO CT CHEST, WILL F\U
[2021-11-23] MEDS: INSULIN REGULAR, HUMAN 100 UNIT/ML 3 ML VIAL SQ PRN (17:07)
--- NOTE | 2021-11-23 19:30 | NUR ---
MS RN NOTE RECEIVED PATIENT AWAKE IN BED , A/OX4, ON RA, TOLERATING WELL, NO S/S OF ACUTE RESP DISTRESS,BREATHING NON LABORED ,IV ACCESS ON R WRIST SALINE LOCK, INTACT AND PATENT, HUDSON CATHETER IS IN PLACE RUNNING CLEAR YELLOW URINE. PATIENT ABLE TO MAKE NEEDS KNOWN. BED IS AT LOWEST POSITION , BED SIDE RAILS ARE UP , CALL LIGHT WITHIN REACH ,WILL CONTINUE TO MONITOR
[2021-11-23 20:00] VITALS: BP 127/66
[2021-11-23] MEDS: ATORVASTATIN 40 MG TABLET PO SCH (21:01)
[2021-11-23] MEDS: *INSULIN REGULAR(HUMULIN R)HUM 100 UNIT/ML VIAL SQ PRN (22:56)
--- NOTE | 2021-11-23 22:57 | NUR ---
RN NOTE PT BS IS 143, PT REFUSED INSULIN
[2021-11-24] MEDS: CEFTRIAXONE 1 G in IV D5W 50 ML IV SCH ×2 (00:06→23:29)
[2021-11-24] MEDS: HYDROCODONE/APAP 5/325MG TABLET PO PRN (01:12)
[2021-11-24] MEDS: DOCUSATE SODIUM 100 MG CAPSULE PO PRN (01:54)
[2021-11-24] MEDS: LORAZEPAM 1 MG TABLET PO PRN (01:54)
[2021-11-24 04:00] VITALS: BP 121/66
--- NOTE | 2021-11-24 07:08 | NUR ---
MS RN CLOSING NOTE RECEIVED PATIENT AWAKE IN BED , A/OX4, ON RA, TOLERATING WELL, NO S/S OF ACUTE RESP DISTRESS,BREATHING NON LABORED , PATIENT ABLE TO MAKE NEEDS KNOWN. SOME MEDS GIVEN AND SOME REFUSED ALL DOCUMENTED IN EMAR. BED IS AT LOWEST POSITION , BED SIDE RAILS ARE UP , CALL LIGHT WITHIN REACH ,WILL ENDORSE TO MORNING SHIFT.
[2021-11-24 07:10] LABS: BASOPHILS % (AUTO) 0.5 % (0.0-2.0); EOSINOPHILS % (AUTO) 1.5 % (0.0-6.0); HEMATOCRIT 34 % (33-45); HEMOGLOBIN 10.8 g/dL (11.5-14.8); LYMPHOCYTES # (AUTO) 1.4 K/uL (0.8-4.8); LYMPHOCYTES % (AUTO) 17.9 % (20.0-44.0); MEAN CORPUSCULAR HGB CONC 32 g/dl (31.0-36.0); MEAN CORPUSCULAR VOLUME 97 fL (82-100); MONOCYTES # (AUTO) 0.5 K/uL (0.1-1.30); MONOCYTES % (AUTO) 6.1 % (2.0-12.0); NEUTROPHILS # (AUTO) 5.7 K/uL (1.8-8.9); PLATELET COUNT (AUTO) 176 K/uL (150-450); WHITE BLOOD COUNT (AUTO) 7.7 K/uL (4.3-11.0)
--- NOTE | 2021-11-24 07:30 | NUR ---
RN OPENING NOTE PATIENT IS IN BED , ALERT AND ORIENTED X 4 .PATIENT IS ON ROOM AIR. O2 SATURATING WELL. NO SIGNS OF DISTRESS.PATIENT IS MED SURG STATUS. PATIENT SKIN INTACT. PATIENT HAS RIGHT FOREARM 20 GAUGE. PATIENT HAS HUDSON CATHETHER. DRAINING TO GRAVITY. ALL SAFETY MEASURES IN PLACE. BED LOCKED AT LOWEST POSITION. CALL LIGHT WITHIN REACH. BED IN LOWEST POSITION. SIDE RAILS X2.WILL CONTINUE TO ASSESS THROUGHOUT SHIFT
[2021-11-24 07:44] LABS: CALCIUM, SERUM 7.7 mg/dL (8.5-10.1); CREATININE 1.7 mg/dL (0.6-1.3); MAGNESIUM 2.4 mg/dL (1.8-2.4); PHOSPHORUS 4.1 mg/dL (2.5-4.9); POTASSIUM 5.4 mmol/L (3.5-5.1)
[2021-11-24 08:00] VITALS: BP 137/72
[2021-11-24] MEDS: BLOOD SUGAR DIAGNOSTIC 1 EACH STRIP VI SCH ×4 (08:24→22:24)
[2021-11-24] MEDS: NIFEdipine XL (30MG) 30 MG TAB PO SCH (09:00)
[2021-11-24] MEDS: NITROGLYCERIN 30 GM TUBE TP SCH ×2 (09:00→21:00)
[2021-11-24] MEDS: CARVEDILOL 12.5 MG TABLET PO SCH ×2 (09:00→17:00)
[2021-11-24] MEDS: HYDROCHLOROTHIAZIDE 25 MG TABLET PO SCH (09:00)
[2021-11-24] MEDS: CHOLECALCIFEROL 1,000 UNIT TABLET (VIT D3) PO SCH (09:00)
[2021-11-24] MEDS: hydrALAZINE HCL 50 MG TABLET PO SCH ×3 (09:00→17:06)
[2021-11-24] MEDS: MAGNESIUM OXIDE 400 MG TABLET PO SCH (09:00)
[2021-11-24] MEDS: FAMOTIDINE (20 MG) 20 MG TABLET PO SCH (09:00)
[2021-11-24] MEDS: ARGININE/GLUTAMINE/CALCIUM BMB 1 EACH POWD.PACK PO SCH ×2 (09:00→17:00)
[2021-11-24] MEDS: ASPIRIN 81 MG TAB.CHEW PO SCH (09:30)
[2021-11-24] MEDS: MULTIVIT W/MINERALS 1 TAB TABLET PO SCH (09:31)
[2021-11-24] MEDS: APIXABAN 5 MG TABLET PO SCH ×2 (09:34→21:48)
[2021-11-24] MEDS: THERAHONEY GEL 1.5 OZ TUBE TP SCH (11:43)
[2021-11-24 12:00] VITALS: BP 162/76
--- NOTE | 2021-11-24 13:40 | NUR ---
rn note patient is refusing certain bp medications and insulin. notfied dr. tesfaye. will follow up Addendum: 11/24/21 at 1450 by BRENT LOPEZ RN bp is currently 162/76. notifed patient and provided education on the benefits of medication. still refused
[2021-11-24 16:00] VITALS: BP 171/82
--- NOTE | 2021-11-24 17:30 | NUR ---
DR. JEREZ NOTIFIED REGARDING UNCONTROLLED BP AND PT. REFUSED AM BP MEDS.
--- NOTE | 2021-11-24 17:37 | NUR ---
PATIENT REEDUCATED ABOUT IMPORTANCE OF TAKING PRESCRIBED BP MEDS.
[2021-11-24 18:00] VITALS: BP 158/78
[2021-11-24] MEDS ORDERED: SODIUM POLYSTYRENE SULF. PWD 15 GM UDC PO ONE (18:30)
--- NOTE | 2021-11-24 19:18 | NUR ---
patient bp 171/82 was able to give hydralazine after educating the importance of taking it. patient took blood pressure med, bp went down to 127/55.
--- NOTE | 2021-11-24 19:30 | NUR ---
MS RN NOTE RECEIVED PATIENT AWAKE IN BED , A/OX4, ON RA, TOLERATING WELL, NO S/S OF ACUTE RESP DISTRESS,BREATHING NON LABORED ,IV ACCESS ON R WRIST SALINE LOCK, INTACT AND PATENT, HUDSON CATHETER IS IN PLACE RUNNING CLEAR YELLOW URINE. PATIENT ABLE TO MAKE NEEDS KNOWN. PATIENT UPSET THAT HER TRAY GOT THROWN AWAY WHILE SHE WAS SLEEPING, I BROUGHT HER A SANDWHICH AND SHE REFUSED SINCE IT WAS EGG. BED IS AT LOWEST POSITION , BED SIDE RAILS ARE UP , CALL LIGHT WITHIN REACH ,WILL CONTINUE TO MONITOR
--- NOTE | 2021-11-24 19:40 | NUR ---
RN closing NOTE PATIENT IS IN BED , ALERT AND ORIENTED X 4 .PATIENT IS ON ROOM AIR. O2 SATURATING WELL. NO SIGNS OF DISTRESS.PATIENT IS MED SURG STATUS. PATIENT SKIN INTACT. PATIENT HAS RIGHT FOREARM 20 GAUGE. IV PATENT AND FLUSHING WELL. PATIENT HAS HUDSON CATHETER. DRAINING TO GRAVITY. YELLOW COLOR. ALL SAFETY MEASURES IN PLACE. BED LOCKED AT LOWEST POSITION. CALL LIGHT WITHIN REACH. SIDE RAILS X2.
[2021-11-24 20:00] VITALS: BP 123/68
--- NOTE | 2021-11-24 21:50 | NUR ---
MS RN NOTE PATIENT WAS GIVEN ELIQUIS. PATIENT REFUSED LIPITOR AND NITROGLYCERIN.
[2021-11-24] MEDS: ATORVASTATIN 40 MG TABLET PO SCH (22:00)
--- NOTE | 2021-11-24 22:24 | NUR ---
MS RN NOTE PATIENTS BS WAS 193. PATIENT REFUSED INSULIN COVERAGE
[2021-11-24] MEDS: *INSULIN REGULAR(HUMULIN R)HUM 100 UNIT/ML VIAL SQ PRN (22:26)
[2021-11-25] MEDS: LORAZEPAM 1 MG TABLET PO PRN (00:37)
--- NOTE | 2021-11-25 00:37 | NUR ---
MS RN NOTE PATIENT ASKED FOR HER ADIVAN AND IT WAS GIVEN AT 0037.
[2021-11-25 04:00] VITALS: BP 118/71
--- NOTE | 2021-11-25 06:42 | NUR ---
MS RN CLOSING NOTE PATIENT ASLEEP IN BED , A/OX4, ON RA, TOLERATING WELL, NO S/S OF ACUTE RESP DISTRESS,BREATHING NON LABORED ,IV ACCESS ON R WRIST SALINE LOCK, INTACT AND PATENT, HUDSON CATHETER IS IN PLACE RUNNING CLEAR YELLOW URINE, 750 OUTPUT. PATIENT ABLE TO MAKE NEEDS KNOWN. BED IS AT LOWEST POSITION , BED SIDE RAILS ARE UP , CALL LIGHT WITHIN REACH ,WILL ENDORSE TO MORNING SHIFT
[2021-11-25 07:21] LABS: BASOPHILS % (AUTO) 0.6 % (0.0-2.0); EOSINOPHILS % (AUTO) 2.9 % (0.0-6.0); HEMATOCRIT 30 % (33-45); HEMOGLOBIN 9.9 g/dL (11.5-14.8); LYMPHOCYTES # (AUTO) 1.1 K/uL (0.8-4.8); LYMPHOCYTES % (AUTO) 23.7 % (20.0-44.0); MEAN CORPUSCULAR HGB CONC 33 g/dl (31.0-36.0); MEAN CORPUSCULAR VOLUME 93 fL (82-100); MONOCYTES # (AUTO) 0.4 K/uL (0.1-1.30); MONOCYTES % (AUTO) 8.8 % (2.0-12.0); NEUTROPHILS # (AUTO) 3.1 K/uL (1.8-8.9); PLATELET COUNT (AUTO) 193 K/uL (150-450); RED BLOOD CELL COUNT(AUTO) 3.25 MIL/uL (4.0-5.2); WHITE BLOOD COUNT (AUTO) 4.8 K/uL (4.3-11.0)
--- NOTE | 2021-11-25 07:25 | NUR ---
RN OPENING NOTE PATIENT IN BED RESTING , A/OX4, ON RA, TOLERATING WELL, NO S/S OF ACUTE RESP DISTRESS,BREATHING NON LABORED. ABLE TO MAKE NEEDS KNOWN. MEDICAL SURGICAL STATUS NOTED. IV ACCESS ON R WRIST SALINE LOCK, INTACT AND PATENT. HUDSON CATHETER IS IN PLACE RUNNING CLEAR YELLOW URINE. BED IS AT LOWEST POSITION , BED SIDE RAILS ARE UP , CALL LIGHT WITHIN REACH ,WILL CONTINUE PLAN OF CARE AND ANTICIPATE NEEDS.
[2021-11-25] MEDS: BLOOD SUGAR DIAGNOSTIC 1 EACH STRIP VI SCH ×4 (07:30→21:25)
[2021-11-25 08:52] LABS: CALCIUM, SERUM 7.9 mg/dL (8.5-10.1); CREATININE 1.7 mg/dL (0.6-1.3); MAGNESIUM 2.3 mg/dL (1.8-2.4); PHOSPHORUS 4.1 mg/dL (2.5-4.9); POTASSIUM 5.6 mmol/L (3.5-5.1)
[2021-11-25] MEDS: ARGININE/GLUTAMINE/CALCIUM BMB 1 EACH POWD.PACK PO SCH ×2 (09:00→17:00)
[2021-11-25] MEDS: THERAHONEY GEL 1.5 OZ TUBE TP SCH (09:00)
[2021-11-25] MEDS: APIXABAN 5 MG TABLET PO SCH ×2 (09:00→21:12)
[2021-11-25] MEDS: CARVEDILOL 12.5 MG TABLET PO SCH ×2 (09:00→17:00)
[2021-11-25] MEDS: NIFEdipine XL (30MG) 30 MG TAB PO SCH (09:00)
[2021-11-25] MEDS: MULTIVIT W/MINERALS 1 TAB TABLET PO SCH (09:00)
[2021-11-25] MEDS: HYDROCHLOROTHIAZIDE 25 MG TABLET PO SCH (09:00)
[2021-11-25] MEDS: MAGNESIUM OXIDE 400 MG TABLET PO SCH (09:00)
[2021-11-25] MEDS: NITROGLYCERIN 30 GM TUBE TP SCH ×2 (09:00→17:00)
[2021-11-25] MEDS: CHOLECALCIFEROL 1,000 UNIT TABLET (VIT D3) PO SCH (09:00)
[2021-11-25] MEDS: ASCORBIC ACID 500 MG TABLET PO SCH (09:00)
[2021-11-25] MEDS: ASPIRIN 81 MG TAB.CHEW PO SCH (09:45)
[2021-11-25] MEDS: hydrALAZINE HCL 50 MG TABLET PO SCH ×3 (09:45→17:20)
[2021-11-25] MEDS: FAMOTIDINE (20 MG) 20 MG TABLET PO SCH (09:45)
--- NOTE | 2021-11-25 09:55 | NUR ---
PATIENT REFUSED THE FOLLOWING MEDICATIONS DUE AT 0900: 1. APIXABAN- PROVIDED EDUCATION ON THE IMPORTANCE OF PREVENTING BLOOD CLOTS, PATIENT STILL REFUSED 2. THERAGRAN, ASCORBIC ACID, MAGNESIUM OXIDE, ARGININE- PROVIDED EDUCATION ON THE VARIOUS SUPPLEMENTS. PATIENT STATED THAT SHE TAKES HER OWN VITAMINS AND WOULD RATHER NOT TAKE THE ONES PROVIDED HERE. 3. NIFEDIPINE, NITROGLYCERIN, CARVEDILOL- PROVIDED EDUCATION ON HEART MEDICATIONS. STRESSED THE IMPORTANCE OF TAKING THESE MEDICATIONS SHE WAS ADMITTED TO THE [facility]OS[facility] FOR [facility]. PATIENT INSISTED THAT SHE ONLY WANTED THE HYDRALAZINE. 4. REGULAR INSULIN- PATIENT REFUSED INSULIN AFTER 0730 ACCUCHECK. PATIENT STATED "NOT RIGHT NOW" WHEN ASKED IF SHE WOULD LIKE TO TAKE THE INSULIN FOR HER BLOOD SUGAR OF 193. WILL OFFER INSULIN AGAIN DURING NEXT ACCUCHECK AT 1200 WILL CONTINUE PLAN OF CARE AND ANTICIPATE NEEDS.
--- NOTE | 2021-11-25 10:46 | NUR ---
DR. JEREZ NOTIFIED PATIENT BEEN REFUSING MEDS [facility] BP MEDS.
[2021-11-25 12:00] VITALS: BP 163/72
--- NOTE | 2021-11-25 12:49 | NUR ---
PATIENT REFUSED INSULIN FOLLOWING 1200 ACCUCHECK. EXPLAINED THAT INSULIN IS ESSENTIAL FOR CONTROLLING HIGH BLOOD SUGAR. PATIENT INSISTS THAT SHE DOES NOT NEED INSULIN AND THAT HER BLOOD SUGAR WILL "GO DOWN ON ITS OWN." WILL CONTINUE PLAN OF CARE AND ANTICIPATE NEEDS.
[2021-11-25] MEDS: INSULIN REGULAR, HUMAN 100 UNIT/ML 3 ML VIAL SQ PRN (17:23)
--- NOTE | 2021-11-25 17:31 | NUR ---
PATIENT REFUSED ARGININE, CARVEDILOL AND NITRO GLYCERIN, ALL SCHEDULED FOR 1700. PROVIDED EDUCATION ON EACH MEDICATION AND THEIR BENEFITS. PATIENT CONTINUED TO REFUSED. WILL CONTINUE PLAN OF CARE AND ANTICIPATE NEEDS.
--- NOTE | 2021-11-25 19:17 | NUR ---
RN CLOSING NOTE PATIENT IN BED RESTING , A/OX4, ON RA, TOLERATING WELL, NO S/S OF ACUTE RESP DISTRESS,BREATHING NON LABORED. ABLE TO MAKE NEEDS KNOWN. MEDICAL SURGICAL STATUS NOTED. IV ACCESS ON R WRIST SALINE LOCK, INTACT AND PATENT. HUDSON CATHETER IS IN PLACE RUNNING CLEAR YELLOW URINE. BED IS AT LOWEST POSITION , BED SIDE RAILS ARE UP , CALL LIGHT WITHIN REACH ,WILL ENDORSE TO NIGHTSHIFT RN FOR CONTINUATION OF CARE.
--- NOTE | 2021-11-25 19:35 | NUR ---
RN OPENING NOTES: RECEIVED PT IN BED, AWAKE, ALERT/ORIENTED X4 AND VERBALLY RESPONSIVE. ON ROOM AIR AND PT TOLERATED WELL. IV ACCESS ON RFA#20G INTACT AND PATENT. NO S/S OF INFILTRATIONS. NO C/O PAIN OE DISCOMFORT. NO ACUTE DISTRESS. PT HAVING DINNER BY HERSELF. HUDSON CATHETER IN PLACE, DRAINING BY GRAVITY, NOTED CLEAR, YELLOWISH URINE. ALL SAFETY MEASURES IN PLACE. BED IN LOWEST POSITION AND LOCKED. SIDE RAILS UP X3, BED ALARM ON. PLACE CALL LIGHT WITH IN REACH. WILL CONTINUE TO MONITOR
[2021-11-25 20:00] VITALS: BP 110/69
[2021-11-25] MEDS: ATORVASTATIN 40 MG TABLET PO SCH (21:24)
[2021-11-25] MEDS: *INSULIN REGULAR(HUMULIN R)HUM 100 UNIT/ML VIAL SQ PRN (21:40)
--- NOTE | 2021-11-25 21:45 | NUR ---
RN NOTES: PT STRONGLY REFUSED HER LIPITOR. OFFERED 3 X BUT STILL REFUSED. CHECKED BLOOD SUGAR 180. AGREED TO TAKE 3 UNITS OF INSULIN AND PT TOLERATED WELL. NO S/S OF HYPER/HYPOGLYCEMIA. WILL CONTINUE TO MONITOR
[2021-11-25] MEDS: CEFTRIAXONE 1 G in IV D5W 50 ML IV SCH (22:13)
[2021-11-25] MEDS: SODIUM POLYSTYRENE SULF. PWD 15 GM UDC PO SCH (22:39)
[2021-11-26] MEDS: HYDROCODONE/APAP 5/325MG TABLET PO PRN ×2 (02:04→22:54)
--- NOTE | 2021-11-26 02:11 | NUR ---
RN NOTES: PT C/O PAIN GENERALIZED BODY PAIN, 7/10 PAIN SCALE. NORCO GIVEN PER PRN ORDERED. PT TOLERATED WELL. WILL CONTINUE TO MONITOR
[2021-11-26 04:00] VITALS: BP 158/79
--- NOTE | 2021-11-26 06:42 | NUR ---
RN CLOSING NOTES: PT IN BED, AWAKE, ALERT/ORIENTED X4 AND VERBALLY RESPONSIVE. ON ROOM AIR AND PT TOLERATED WELL. O2 SAT 96%. IV ACCESS ON RFA#20G INTACT AND PATENT. NO S/S OF INFILTRATIONS. NO C/O PAIN OE DISCOMFORT. NO ACUTE DISTRESS. NO SIGNIFICANT CHANGES NOTED DURING THIS SHIFT. HUDSON CATHETER IN PLACE, DRAINING BY GRAVITY, NOTED CLEAR, YELLOWISH URINE. DUE MEDS GIVEN EXCEPT LIPITOR. ALL SAFETY MEASURES IN PLACE. BED IN LOWEST POSITION AND LOCKED. SIDE RAILS UP X3, BED ALARM ON. PLACE CALL LIGHT WITH IN REACH. WILL ENDORSE TO MORNING SHIFT NURSE.
[2021-11-26 07:08] LABS: BASOPHILS % (AUTO) 0.8 % (0.0-2.0); EOSINOPHILS % (AUTO) 2.5 % (0.0-6.0); HEMATOCRIT 31 % (33-45); HEMOGLOBIN 10.2 g/dL (11.5-14.8); LYMPHOCYTES % (AUTO) 19.1 % (20.0-44.0); MEAN CORPUSCULAR HGB CONC 33 g/dl (31.0-36.0); MEAN CORPUSCULAR VOLUME 93 fL (82-100); MONOCYTES # (AUTO) 0.4 K/uL (0.1-1.30); MONOCYTES % (AUTO) 7.9 % (2.0-12.0); NEUTROPHILS # (AUTO) 3.6 K/uL (1.8-8.9); NEUTROPHILS % (AUTO) 69.7 % (43.0-81.0); PLATELET COUNT (AUTO) 202 K/uL (150-450); RED BLOOD CELL COUNT(AUTO) 3.36 MIL/uL (4.0-5.2); WHITE BLOOD COUNT (AUTO) 5.2 K/uL (4.3-11.0)
--- NOTE | 2021-11-26 07:30 | NUR ---
ms rn opening note PATIENT IS AWAKE, ALERT AND ORIENTED X4. PATIENT IS ON ROOM AIR AND PATIENT TOLERATING ABOVE 96%. PATIENT HAS IV ACCESS ON RIGHT FOREARM 2O GAUGE. IV PATENT AND FLUSHING WELL. NO PAIN OR DISCOMFORT AT THIS TIME. HUDSON CATHETER DRAINING TO GRAVITY. YELLOW COLOR OUTPUT. CLEAR, YELLOW URINE OUTPUT. ALL SAFETY MEASURES IN PLACE. BED IN LOWEST POSITION AND LOCKED. SIDE RAILS UP X3, BED ALARM ON. PLACE CALL LIGHT WITH IN REACH. WILL ENDORSE TO MORNING SHIFT NURSE.
[2021-11-26 07:48] LABS: CALCIUM, SERUM 7.9 mg/dL (8.5-10.1); CREATININE 1.8 mg/dL (0.6-1.3); MAGNESIUM 2.3 mg/dL (1.8-2.4); PHOSPHORUS 4.1 mg/dL (2.5-4.9); POTASSIUM 5.4 mmol/L (3.5-5.1)
[2021-11-26] MEDS: BLOOD SUGAR DIAGNOSTIC 1 EACH STRIP VI SCH ×4 (07:50→21:38)
[2021-11-26 08:00] VITALS: BP 163/82
[2021-11-26] MEDS: ONDANSETRON HCL/PF 4 MG/2 ML VIAL IVP PRN ×2 (08:28→18:19)
[2021-11-26] MEDS: ASPIRIN 81 MG TAB.CHEW PO SCH (09:00)
[2021-11-26] MEDS: HYDROCHLOROTHIAZIDE 25 MG TABLET PO SCH (09:00)
[2021-11-26] MEDS: MULTIVIT W/MINERALS 1 TAB TABLET PO SCH (09:00)
[2021-11-26] MEDS: NITROGLYCERIN 30 GM TUBE TP SCH ×2 (09:00→17:00)
[2021-11-26] MEDS: FAMOTIDINE (20 MG) 20 MG TABLET PO SCH (09:00)
[2021-11-26] MEDS: ARGININE/GLUTAMINE/CALCIUM BMB 1 EACH POWD.PACK PO SCH ×2 (09:00→17:00)
[2021-11-26] MEDS: CHOLECALCIFEROL 1,000 UNIT TABLET (VIT D3) PO SCH (09:00)
[2021-11-26] MEDS: ASCORBIC ACID 500 MG TABLET PO SCH (09:00)
[2021-11-26] MEDS: SODIUM POLYSTYRENE SULF. PWD 15 GM UDC PO SCH (09:00)
[2021-11-26] MEDS: THERAHONEY GEL 1.5 OZ TUBE TP SCH (09:00)
[2021-11-26] MEDS: MAGNESIUM OXIDE 400 MG TABLET PO SCH (09:00)
[2021-11-26] MEDS: NIFEdipine XL (30MG) 30 MG TAB PO SCH (09:00)
[2021-11-26] MEDS: CARVEDILOL 12.5 MG TABLET PO SCH ×2 (09:00→17:00)
[2021-11-26] MEDS: DOCUSATE SODIUM 100 MG CAPSULE PO PRN (09:31)
[2021-11-26] MEDS: hydrALAZINE HCL 50 MG TABLET PO SCH ×3 (09:32→18:00)
[2021-11-26] MEDS: APIXABAN 5 MG TABLET PO SCH ×2 (09:48→21:21)
--- NOTE | 2021-11-26 12:18 | NUR ---
PSYCHIATRIST SAW PATIENT.
--- NOTE | 2021-11-26 12:18 | NUR ---
PATIENT IS REFUSING CERTAIN MEDICATIONS AFTER EDUCATING THE IMPORTANCE OF MEDICATION. STILL REFUSES. REFUSES INSULIN AFTER EDUCATING THE PATIENT
--- NOTE | 2021-11-26 12:20 | NUR ---
PATIENT IS REFUSING SODIUM POLYSTRENE POWDER EVEN AFTER EDUCATING PATIENT THE IMPORTANCE AND BENEFITS OF MEDICATIONS
--- NOTE | 2021-11-26 15:00 | NUR ---
hourly rounds made. checked on patient needs frequently. provided snacks and assisted with needs. patient is noncompliant. patient is noncompliant with medications after providing education on the importance of medications. patient refuses insulin after explaining the importance and benefits.
[2021-11-26 16:00] VITALS: BP 150/77
[2021-11-26] MEDS: ACETAMINOPHEN 325 MG TABLET PO PRN (18:00)
--- NOTE | 2021-11-26 19:30 | NUR ---
ms rn closing note PATIENT IS AWAKE, ALERT AND ORIENTED X4. PATIENT IS ON ROOM AIR AND PATIENT TOLERATING ABOVE 96%. PATIENT HAS IV ACCESS ON RIGHT FOREARM 2O GAUGE. IV PATENT AND FLUSHING WELL. NO PAIN OR DISCOMFORT AT THIS TIME. HUDSON CATHETER DRAINING TO GRAVITY. YELLOW COLOR draining OUTPUT. CLEAR, YELLOW URINE OUTPUT. ALL SAFETY MEASURES IN PLACE. BED IN LOWEST POSITION AND LOCKED. SIDE RAILS UP X3, BED ALARM ON. PLACE CALL LIGHT WITH IN REACH. WILL ENDORSE TO night coordinator NURSE.
[2021-11-26 20:00] VITALS: BP 149/76
[2021-11-26] MEDS: ATORVASTATIN 40 MG TABLET PO SCH (21:22)
[2021-11-26] MEDS: *INSULIN REGULAR(HUMULIN R)HUM 100 UNIT/ML VIAL SQ PRN (21:39)
--- NOTE | 2021-11-26 21:40 | NUR ---
RN NOTES: PT TOOK ELIQUIS BUT STRONGLY REFUSED LIPITOR. CHECKED BLOOD SUGAR 175. SUPPOSED TO GIVE 3 UNITS OF REGULAR INSULIN BUT STRONGLY REFUSED. MENTIONED SHE DOESN'T NEED IT. OFFERED SEVERAL TIMES, EXPLAINED THE RISKS AND BENEFITS BUT CONSTANTLY REFUSED. WILL CONTINUE TO MONITOR.
[2021-11-26] MEDS: CEFTRIAXONE 1 G in IV D5W 50 ML IV SCH (22:34)
[2021-11-27] MEDS: ACETAMINOPHEN 325 MG TABLET PO PRN (03:05)
--- NOTE | 2021-11-27 03:15 | NUR ---
RN NOTES: PT C/O BACK PAIN, 3/10 PAIN SCALE. TYLENOL 325 MG 2 TABS GIVEN PER PRN ORDER. WILL CONTINUE TO MONITOR
[2021-11-27 04:00] VITALS: BP 158/87
[2021-11-27] MEDS: LORAZEPAM 1 MG TABLET PO PRN (04:21)
[2021-11-27] MEDS: DOCUSATE SODIUM 100 MG CAPSULE PO PRN (04:23)
--- NOTE | 2021-11-27 04:25 | NUR ---
RN NOTES: PT C/O FEELING AGITATION AND WANTS SOMETHING FOR BM. ATIVAN 1 MG TAB FOR AGITATION AND COLACE FOR BM GIVEN PT TOLERATED WELL. WILL CONTINUE TO MONITOR
--- NOTE | 2021-11-27 06:27 | NUR ---
RN CLOSING NOTES: PT IN BED, AWAKE, ALERT/ORIENTED X4 AND VERBALLY RESPONSIVE. ON ROOM AIR AND PT TOLERATED WELL. O2 SAT 93%. IV ACCESS ON RFA#20G INTACT AND PATENT. NO S/S OF INFILTRATIONS. NO C/O PAIN OE DISCOMFORT. NO ACUTE DISTRESS. NO SIGNIFICANT CHANGES NOTED DURING THIS SHIFT. HUDSON CATHETER IN PLACE, DRAINING BY GRAVITY, NOTED CLEAR, YELLOWISH URINE. DUE MEDS GIVEN EXCEPT LIPITOR. ALL SAFETY MEASURES IN PLACE. BED IN LOWEST POSITION AND LOCKED. SIDE RAILS UP X3, BED ALARM ON. PLACE CALL LIGHT WITH IN REACH. WILL ENDORSE TO MORNING SHIFT NURSE.
[2021-11-27 07:11] LABS: BASOPHILS % (AUTO) 0.9 % (0.0-2.0); EOSINOPHILS % (AUTO) 2.8 % (0.0-6.0); HEMATOCRIT 30 % (33-45); HEMOGLOBIN 9.9 g/dL (11.5-14.8); LYMPHOCYTES % (AUTO) 22.2 % (20.0-44.0); MEAN CORPUSCULAR HGB CONC 33 g/dl (31.0-36.0); MEAN CORPUSCULAR VOLUME 93 fL (82-100); MONOCYTES # (AUTO) 0.3 K/uL (0.1-1.30); MONOCYTES % (AUTO) 8.1 % (2.0-12.0); NEUTROPHILS # (AUTO) 2.8 K/uL (1.8-8.9); PLATELET COUNT (AUTO) 203 K/uL (150-450); WHITE BLOOD COUNT (AUTO) 4.3 K/uL (4.3-11.0)
--- NOTE | 2021-11-27 07:30 | NUR ---
MS RN OPENING NOTES: RECEIVED PT IN BED, AWAKE, ALERT/ORIENTED X4 AND VERBALLY RESPONSIVE. ON ROOM AIR AND PT TOLERATED WELL. IV ACCESS ON RFA#20G INTACT AND PATENT. NO S/S OF INFILTRATIONS. NO C/O PAIN OE DISCOMFORT. NO ACUTE DISTRESS. HUDSON CATHETER IN PLACE, DRAINING BY GRAVITY, NOTED CLEAR, YELLOWISH URINE. ALL SAFETY MEASURES IN PLACE. BED IN LOWEST POSITION AND LOCKED. SIDE RAILS UP X3, BED ALARM ON. PLACE CALL LIGHT WITH IN REACH. WILL CONTINUE TO MONITOR
[2021-11-27 07:36] LABS: CALCIUM, SERUM 8.4 mg/dL (8.5-10.1); CREATININE 1.6 mg/dL (0.6-1.3); MAGNESIUM 2.1 mg/dL (1.8-2.4); PHOSPHORUS 4.4 mg/dL (2.5-4.9); POTASSIUM 4.8 mmol/L (3.5-5.1)
[2021-11-27] MEDS: BLOOD SUGAR DIAGNOSTIC 1 EACH STRIP VI SCH ×4 (07:54→22:36)
[2021-11-27] MEDS: MAGNESIUM HYDROXIDE 30 ML UDC PO PRN (08:00)
[2021-11-27] MEDS: MAGNESIUM OXIDE 400 MG TABLET PO SCH ×2 (09:00→09:28)
[2021-11-27] MEDS: CHOLECALCIFEROL 1,000 UNIT TABLET (VIT D3) PO SCH ×2 (09:00→09:25)
[2021-11-27] MEDS: ASPIRIN 81 MG TAB.CHEW PO SCH ×2 (09:00→09:26)
[2021-11-27] MEDS: ASCORBIC ACID 500 MG TABLET PO SCH ×2 (09:00→09:28)
[2021-11-27] MEDS: FAMOTIDINE (20 MG) 20 MG TABLET PO SCH ×2 (09:00→09:26)
[2021-11-27] MEDS: HYDROCHLOROTHIAZIDE 25 MG TABLET PO SCH ×2 (09:00→09:29)
[2021-11-27] MEDS: MULTIVIT W/MINERALS 1 TAB TABLET PO SCH ×2 (09:00→09:25)
[2021-11-27] MEDS: NITROGLYCERIN 30 GM TUBE TP SCH ×2 (09:00→17:00)
[2021-11-27] MEDS: ARGININE/GLUTAMINE/CALCIUM BMB 1 EACH POWD.PACK PO SCH ×2 (09:00→17:00)
[2021-11-27] MEDS: hydrALAZINE HCL 50 MG TABLET PO SCH ×4 (09:00→16:57)
[2021-11-27] MEDS: SODIUM POLYSTYRENE SULF. PWD 15 GM UDC PO SCH (09:25)
[2021-11-27] MEDS: APIXABAN 5 MG TABLET PO SCH ×2 (09:27→21:00)
[2021-11-27] MEDS: NIFEdipine XL (30MG) 30 MG TAB PO SCH (09:28)
[2021-11-27] MEDS: CARVEDILOL 12.5 MG TABLET PO SCH ×2 (09:29→16:57)
[2021-11-27] MEDS: THERAHONEY GEL 1.5 OZ TUBE TP SCH (09:44)
[2021-11-27 12:00] VITALS: BP 170/88
[2021-11-27] MEDS ORDERED: HYDR-4077 PO (12:39)
[2021-11-27 16:00] VITALS: BP 142/74
--- NOTE | 2021-11-27 19:02 | NUR ---
MS RN CLOSING NOTE: PT. REMAINS IN BED, AWAKE, A/OX 4. ABLE TO MAKE NEEDS KNOWN. NO COMPLAINTS OF PAIN/DISCOMFORT AT THIS TIME. ON RA WITH NO S/S OF RESPIRATORY DISTRESS. IV ACCESS ON RFA #20G, PATENT AND FLUSHING WELL, SALINE LOCKED WITH NO S/S OF INFILTRATION NOTED. HUDSON CATHETER REMAINS IN PLACE. FC PATENT AND RUNNING WELL WITH URINE OUTPUT OF 150 ML THIS WHOLE SHIFT. WOUND TREATMENT DONE ORDERED. ALL SAFETY MEASURES REMAINS IN PLACE: BED LOCKED IN LOW POSITION, BED ALARM ON. SIDE RAILS UP X 2. CALL LIGHT AND BELONGINGS WITHIN EASY REACH. BED ALARM ON. WILL ENDORSE CONTINUITY OF CARE TO PROJECT MANAGER FINANCE RN.
--- NOTE | 2021-11-27 19:30 | NUR ---
MS RN OPENING NOTE RECEIVED PATIENT AWAKE IN BED , A/OX4, ON RA, TOLERATING WELL, NO S/S OF ACUTE RESP DISTRESS,BREATHING NON LABORED ,IV ACCESS ON R WRIST SALINE LOCK, INTACT AND PATENT, HUDSON CATHETER IS IN PLACE RUNNING CLEAR YELLOW URINE. PATIENT ABLE TO MAKE NEEDS KNOWN. . BED IS AT LOWEST POSITION , BED SIDE RAILS ARE UP , CALL LIGHT WITHIN REACH ,WILL CONTINUE TO MONITOR
[2021-11-27 20:00] VITALS: BP 109/66
[2021-11-27] MEDS: ATORVASTATIN 40 MG TABLET PO SCH (21:08)
--- NOTE | 2021-11-27 21:30 | NUR ---
RN NOTE PATIENT REFUSED ELIQUS AND LIPITOR MEDICATION.
[2021-11-27] MEDS: *INSULIN REGULAR(HUMULIN R)HUM 100 UNIT/ML VIAL SQ PRN (22:37)
--- NOTE | 2021-11-27 22:40 | NUR ---
RN NOTE PATIENT REFUSED INSULIN COVERAGE
--- NOTE | 2021-11-28 03:53 | NUR ---
PATIENT REFUSED BED BATH AND LINEN CHANGE
[2021-11-28 04:00] VITALS: BP 130/66
--- NOTE | 2021-11-28 06:52 | NUR ---
MS RN CLOSING NOTE PATIENT ASLEEP IN BED , A/OX4, ON RA, TOLERATING WELL, NO S/S OF ACUTE RESP DISTRESS,BREATHING NON LABORED ,IV ACCESS ON R WRIST SALINE LOCK, INTACT AND PATENT, HUDSON CATHETER IS IN PLACE RUNNING CLEAR YELLOW URINE, 50ml OUTPUT. ALL VSS. PATIENT ABLE TO MAKE NEEDS KNOWN. BED IS AT LOWEST POSITION , BED SIDE RAILS ARE UP , CALL LIGHT WITHIN REACH ,WILL ENDORSE TO MORNING SHIFT
--- NOTE | 2021-11-28 07:30 | NUR ---
RN OPENING NOTE PATIENT AWAKE IN BED, A/OX4, ON RA 97%, TOLERATING WELL, NO S/S OF ACUTE RESP DISTRESS,BREATHING NON LABORED ,IV ACCESS ON R WRIST SALINE LOCK, INTACT AND PATENT. ALL VSS. PATIENT ABLE TO MAKE NEEDS KNOWN. BED IS AT LOWEST POSITION , BED SIDE RAILS ARE UP , CALL LIGHT WITHIN REACH. PT CURRENTLY AWAITING DISCHARGE, BUT REFUSES AND ASKED TO STAY ANOTHER DAY. CHARGE NURSE AND ICU DIRECTOR INFORMED. WILL CONTINUE TO MONITOR.
[2021-11-28] MEDS: CHOLECALCIFEROL 1,000 UNIT TABLET (VIT D3) PO SCH ×2 (09:00→09:43)
[2021-11-28] MEDS: ASCORBIC ACID 500 MG TABLET PO SCH ×2 (09:00→09:43)
[2021-11-28] MEDS: MAGNESIUM OXIDE 400 MG TABLET PO SCH ×2 (09:00→09:39)
[2021-11-28] MEDS: MULTIVIT W/MINERALS 1 TAB TABLET PO SCH ×2 (09:00→09:43)
[2021-11-28] MEDS: NIFEdipine XL (30MG) 30 MG TAB PO SCH ×2 (09:00→09:41)
[2021-11-28] MEDS: SODIUM POLYSTYRENE SULF. PWD 15 GM UDC PO SCH ×2 (09:00→09:39)
[2021-11-28] MEDS: BLOOD SUGAR DIAGNOSTIC 1 EACH STRIP VI SCH ×2 (09:16→12:05)
[2021-11-28] MEDS: HYDROCHLOROTHIAZIDE 25 MG TABLET PO SCH (09:40)
[2021-11-28] MEDS: ASPIRIN 81 MG TAB.CHEW PO SCH (09:42)
[2021-11-28] MEDS: FAMOTIDINE (20 MG) 20 MG TABLET PO SCH (09:42)
[2021-11-28] MEDS: APIXABAN 5 MG TABLET PO SCH (09:42)
[2021-11-28] MEDS: CARVEDILOL 12.5 MG TABLET PO SCH (09:43)
[2021-11-28] MEDS: hydrALAZINE HCL 50 MG TABLET PO SCH (09:44)
[2021-11-28] MEDS: ARGININE/GLUTAMINE/CALCIUM BMB 1 EACH POWD.PACK PO SCH (09:48)
[2021-11-28 09:53] VITALS: BP 139/77
[2021-11-28] MEDS: NITROGLYCERIN 30 GM TUBE TP SCH (09:53)
[2021-11-28] MEDS: THERAHONEY GEL 1.5 OZ TUBE TP SCH (09:53)
[2021-11-28] MEDS: *INSULIN REGULAR(HUMULIN R)HUM 100 UNIT/ML VIAL SQ PRN (12:16)
--- NOTE | 2021-11-28 14:17 | NUR ---
RN NOTE DRESSING CHANGED, AND WOUND CARE COMPLETED.
--- NOTE | 2021-11-28 14:17 | NUR ---
RN CLOSING NOTE PT PICKED UP BY AMBULANCE AT 1400 TO [facility]. REPORT GIVEN TO TORREY TOVAR AT FACILITY. IV REMOVED, CANNULA INTACT AND COVERED WITH NO PERFUSED BLEEDING NOTED. PT REMAINS STABLE TO OUTSHIFT. VS TAKEN: TEMP: 98.4F, BP: 143/87, HR: 90, RR: 20, O2 SAT: 99%. ALL FORMS SIGNED. ALL SKIN ISSUES PHOTOGRAPHED AND DOCUMENTED PER HOSPITAL POLICY. DISCHARGE PACKET GIVEN TO AMBULANCE CREW.
== END 2021-11-28 16:00 | DRG 291 ==
LOC: ER 18:41 → TELE1 20:53 → MEDSG1 11-21 08:10
PROVIDERS: ADMIT Nurse Practitioner Acute Care; ATTEND Nurse Practitioner Acute Care
DX: I11.0 Hypertensive heart disease with heart failure (principal); I50.33 Acute on chronic diastolic (congestive) heart failure; J15.9 Unspecified bacterial pneumonia; L89.623 Pressure ulcer of left heel, stage 3; U07.1 COVID-19; N17.0 Acute kidney failure with tubular necrosis; I48.20 Chronic atrial fibrillation, unspecified; E87.3 Alkalosis; G61.0 Guillain-Barre syndrome; I87.312 Chronic venous hypertension (idiopathic) with ulcer of left lower extremity; L97.828 Non-pressure chronic ulcer of other part of left lower leg with other specified severity; F05 Delirium due to known physiological condition; F33.9 Major depressive disorder, recurrent, unspecified; J90 Pleural effusion, not elsewhere classified; I16.0 Hypertensive urgency; Z86.73 Personal history of transient ischemic attack (TIA), and cerebral infarction without residual deficits; E11.65 Type 2 diabetes mellitus with hyperglycemia; E87.5 Hyperkalemia; Z86.711 Personal history of pulmonary embolism; I87.8 Other specified disorders of veins; Z79.01 Long term (current) use of anticoagulants; E66.9 Obesity, unspecified; Z68.34 Body mass index [BMI] 34.0-34.9, adult; Z71.3 Dietary counseling and surveillance; F41.9 Anxiety disorder, unspecified; R41.9 Unspecified symptoms and signs involving cognitive functions and awareness; I34.0 Nonrheumatic mitral (valve) insufficiency; E88.09 Other disorders of plasma-protein metabolism, not elsewhere classified; I25.2 Old myocardial infarction; I89.0 Lymphedema, not elsewhere classified; J45.909 Unspecified asthma, uncomplicated; Z79.82 Long term (current) use of aspirin; Z91.19 Patient's noncompliance with other medical treatment and regimen; Z79.4 Long term (current) use of insulin
CPT/HCPCS: 36415; 71045-TC; 71250-TC; 74018; 80048-TC; 80053-TC; 80061-TC; 82962-TC; 83735-TC; 83880; 84100-TC; 84484-TC; 85025-TC; 85378-TC; 87081-TC; 93307-TC; 97112-TC; 97530-TC; A6403; G0378; J0360; J0696; J1815; J1940; J2270; J2405; J3490; J7030; J7050; J7060; Q0162; U0003

== ENCOUNTER 2022-01-21 18:05 | Inpatient (IN) | payer MEDICARE, OTHER ==
[~2022-01-21] VITALS: Ht 170.2 cm; Wt 111.1 kg
[~2022-01-21 18:05] MED LIST changes: +ACET-868 PO; -ACET250T9 PO; +APIX5TAB PO; +ARGI1POW13 PO; +ASCO-352 PO; +ASPI-1169 PO; +ATOR40TA PO; -AZIT250T PO; +CARI350T27 PO; +CHOL100043 PO; +DICL100G26 TP; +DOCU-141 PO; +FAMO20TA8 PO; +GUAI5SYR PO; -HYDR-4354 PO; +HYDR25TA4 PO; -INSU100I5 SQ; -INSU100V10 SQ; +IPRA3AMP23 IH; -ISOS20TA8 PO; +MAGN400O6 PO; +MAGN400T26 PO; +MULT-447 PO; +NIFE-34 PO; +NITR0.4T48 SL; +ONDA4TAB5 PO; +OXYC-128 PO; -PANT40TA49 PO; -SITA100T PO
--- NOTE | 2022-01-21 18:58 | NUR ---
BLOOD DRAWN AND SENT TO LAB.
[2022-01-21] MEDS ORDERED: AMIN30LI2 PO (19:02)
[2022-01-21] MEDS ORDERED: MENT71OI2 TP (19:02)
[2022-01-21] MEDS ORDERED: MAG30ORA PO (19:02)
[2022-01-21] MEDS ORDERED: FERR325T23 PO (19:02)
[2022-01-21] MEDS ORDERED: TRAZ-182 PO (19:02)
[2022-01-21] MEDS ORDERED: HYDR100T27 PO (19:02)
--- NOTE | 2022-01-21 19:03 | NUR ---
tech at bedside for ekg
--- NOTE | 2022-01-21 19:13 | NUR ---
[id number] C/O L SIDED CHEST PAIN, ONSET 2 HOURS AGO. NITROX1, ASPIRIN 325mg GIVEN ACIDIZER WATER WELL. BLE SWELLING AND BLISTERING. PT AWAKE AND ALERTX4 BREATHING EVEN AND UNLABORED. DENIES C/P ON ASSESSMENT. V/S WNL.
[2022-01-21 19:21] LABS: CALCIUM, SERUM 8.1 mg/dL (8.5-10.1); CARBON DIOXIDE 30 mmol/L (21-32); CHLORIDE 110 mmol/L (98-107); CREATININE 1.6 mg/dL (0.6-1.3); GLUCOSE 172 mg/dL (74-106); POTASSIUM 4.5 mmol/L (3.5-5.1); SODIUM SERUM 142 mmol/L (136-145); UREA NITROGEN, BLOOD 57 mg/dL (7-18)
[2022-01-21 19:34] LABS: ALANINE AMINOTRANSFERASE 26 U/L (12-78); ALBUMIN 2.5 g/dL (3.4-5.0); ALKALINE PHOSPHATASE 365 U/L (46-116); ASPARTATE AMINOTRANSFERASE 23 U/L (15-37); BILIRUBIN,DIRECT 0.2 mg/dL (0.0-0.2); BILIRUBIN,TOTAL 0.4 mg/dL (0.2-1.0); TOTAL PROTEIN, SERUM 6.6 g/dL (6.4-8.2)
[2022-01-21 19:52] LABS: BASOPHILS % (AUTO) 0.5 % (0.0-2.0); EOSINOPHILS % (AUTO) 0.9 % (0.0-6.0); HEMATOCRIT 30 % (33-45); HEMOGLOBIN 9.7 g/dL (11.5-14.8); LYMPHOCYTES # (AUTO) 0.8 K/uL (0.8-4.8); LYMPHOCYTES % (AUTO) 18.8 % (20.0-44.0); MEAN CORPUSCULAR HGB CONC 33 g/dl (31.0-36.0); MEAN CORPUSCULAR VOLUME 95 fL (82-100); MONOCYTES # (AUTO) 0.4 K/uL (0.1-1.30); MONOCYTES % (AUTO) 9.3 % (2.0-12.0); NEUTROPHILS % (AUTO) 70.5 % (43.0-81.0); PLATELET COUNT (AUTO) 212 K/uL (150-450); RED BLOOD CELL COUNT(AUTO) 3.12 MIL/uL (4.0-5.2); WHITE BLOOD COUNT (AUTO) 4.3 K/uL (4.3-11.0)
--- NOTE | 2022-01-21 22:18 | NUR ---
ROSALIND SENT TO LAB
--- NOTE | 2022-01-21 22:26 | NUR ---
BED 103
[2022-01-21] MEDS ORDERED: hydrALAZINE HCL IV 20 MG VIAL IV PRN (22:30)
[2022-01-21] MEDS ORDERED: MORPHINE SULFATE INJ 2 MG/ML DISP.SYRIN IV PRN (22:30)
[2022-01-21] MEDS ORDERED: CARISOPRODOL 350 MG TABLET PO PRN (22:30)
[2022-01-21] MEDS ORDERED: DEXTROSE 50%-WATER 50 ML DISP.SYRIN IV PRN (22:30)
[2022-01-21] MEDS ORDERED: FUROSEMIDE 40 MG/4 ML VIAL ONE (23:06)
--- NOTE | 2022-01-21 23:08 | NUR ---
REPORT GIVEN TO JOSEPH
[2022-01-21] MEDS: FUROSEMIDE 40 MG/4 ML VIAL IV SCH (23:11)
--- NOTE | 2022-01-21 23:30 | NUR ---
pt transported to room 103-1 on cardiac per acls in stable condition
--- NOTE | 2022-01-21 23:50 | NUR ---
RN OPENING NOTE RECEIVED PT FROM ER VIA YURI CALL PROTOCOL OBSERVED. PT ARRIVED WITH NC AT 2LPM. NO S/SX OF ACUTE RESPI DISTRESS NOTED UPON ASSESSMENT. NO SOB, NO PAIN. PT IS A/O X 4, ABLE TO MAKE NEEDS KNOWN. IV ACCESS NOTED ON LAC #20g, SL. PT HAS EDEMA ON HER BILATERAL LOWER EXTREMITIES WITH BLISTERS ON BOTH LOWER LEGS. CLEANED AND COVERED WITH KERLIX. OPEN WOUND NOTED ON RIGHT HEEL. ALL NECESSARY PICTURES TAKEN AND PLACED IN PT'S CHART. PT WISHED TO BE FULL CODE. VS STABLE. ALL SAFETY PRECAUTIONS IN PLACE: BED LOCKED IN LOW POSITION. BED ALARM ON, SR UP X 2, HOB ELEVATED, CALL LIGHT WITHIN REACH. WILL CONTINUE TO MONITOR PT.
--- NOTE | 2022-01-22 00:20 | NUR ---
RN NOTE PUREWICK EXTERNAL CATHETER USED FOR PT'S COMFORT. TO KEEP HER CLEAN AND DRY.
[2022-01-22] MEDS: LORAZEPAM 1 MG TABLET PO PRN ×2 (00:47→22:19)
--- NOTE | 2022-01-22 00:51 | NUR ---
RN NOTE PT REQUESTED FOR ATIVAN. GAVE MEDICATION ORDERED. WILL CONTINUE TO MONITOR.
[2022-01-22 04:00] VITALS: BP 168/91
--- NOTE | 2022-01-22 05:53 | NUR ---
RN CLOSING NOTE PT REMAINED STABLE T/O THE NIGHT. VS WNL. NO RESPI DISTRESS NOTED. TELE MONITOR SHOWS SR WITH HR >60 BPM. WILL ENDORSE TO AM SHIFT NURSE FOR OREN.
[2022-01-22 05:56] LABS: BASOPHILS % (AUTO) 0.5 % (0.0-2.0); HEMATOCRIT 30 % (33-45); HEMOGLOBIN 9.8 g/dL (11.5-14.8); LYMPHOCYTES # (AUTO) 0.8 K/uL (0.8-4.8); LYMPHOCYTES % (AUTO) 19.1 % (20.0-44.0); MEAN CORPUSCULAR HGB CONC 32 g/dl (31.0-36.0); MEAN CORPUSCULAR VOLUME 96 fL (82-100); MONOCYTES # (AUTO) 0.4 K/uL (0.1-1.30); MONOCYTES % (AUTO) 9.4 % (2.0-12.0); NEUTROPHILS # (AUTO) 3.1 K/uL (1.8-8.9); PLATELET COUNT (AUTO) 206 K/uL (150-450); RED BLOOD CELL COUNT(AUTO) 3.15 MIL/uL (4.0-5.2); WHITE BLOOD COUNT (AUTO) 4.4 K/uL (4.3-11.0)
[2022-01-22 06:14] LABS: ALBUMIN 2.4 g/dL (3.4-5.0); BILIRUBIN,TOTAL 0.3 mg/dL (0.2-1.0); CALCIUM, SERUM 8.2 mg/dL (8.5-10.1); CREATININE 1.5 mg/dL (0.6-1.3); MAGNESIUM 2.6 mg/dL (1.8-2.4); PHOSPHORUS 4.3 mg/dL (2.5-4.9); POTASSIUM 4.7 mmol/L (3.5-5.1); TOTAL PROTEIN, SERUM 6.6 g/dL (6.4-8.2)
--- NOTE | 2022-01-22 07:30 | NUR ---
SOFTWARE ENGINEER WEB APPLICATIONS OPENING NOTES: RECEIVED PATIENT IN BED, ASLEEP BUT EASILY AROUSES TO VOICE AND SOUND. PATIENT IS ALERT, ORIENTED X 3. NO SOB NOTED, BREATHING EVEN AND UNLABORED. ON SR WITH HR OF 69 ON TELE MONITOR. PATIENT IS ON OXYGEN @ 2L/MIN VIA N/V WITH OXYGEN SATURATION OF 95%. IV ACCESS ON LEFT ANTECUBITAL AREA INTACT, PATENT, FLUSHES WELL, NO S/S OF INFILTRATION. PUREWICK INTACT, DRAINING WITH CLEAR YELLOW URINE, NO HEMATURIA AND NO SEDIMENTATION NOTED. CALL LIGHT WITHIN REACH. BED LOCKED AND IN LOWEST POSITION. ALL SAFETY MEASURES IN PLACE. WILL CONTINUE TO MONITOR PATIENT THROUGHOUT SHIFT.
[2022-01-22 08:00] VITALS: BP 177/93
[2022-01-22] MEDS: INSULIN REGULAR, HUMAN 100 UNIT/ML 3 ML VIAL SQ PRN ×4 (08:28→22:49)
[2022-01-22] MEDS: BLOOD SUGAR DIAGNOSTIC 1 EACH STRIP IN SCH ×4 (08:36→22:48)
[2022-01-22] MEDS: APIXABAN 5 MG TABLET PO SCH ×2 (09:00→17:29)
[2022-01-22] MEDS: HYDROCHLOROTHIAZIDE 25 MG TABLET PO SCH ×2 (09:00→09:47)
[2022-01-22] MEDS: PROSTAT (PYXIS) 30 ML UDC PO SCH ×2 (09:00→17:00)
[2022-01-22] MEDS: LOSARTAN POTASSIUM 50 MG TABLET PO SCH ×2 (09:00→09:46)
[2022-01-22] MEDS: ASPIRIN 81 MG TAB.CHEW PO SCH (09:00)
[2022-01-22] MEDS: DOCUSATE SODIUM 100 MG CAPSULE PO SCH ×2 (09:44→21:00)
[2022-01-22] MEDS: hydrALAZINE HCL 50 MG TABLET PO SCH ×3 (09:45→17:00)
[2022-01-22] MEDS: NIFEdipine XL (30MG) 30 MG TAB PO SCH (09:45)
[2022-01-22] MEDS: CHOLECALCIFEROL 1,000 UNIT TABLET (VIT D3) PO SCH (09:45)
[2022-01-22] MEDS: FAMOTIDINE (20 MG) 20 MG TABLET PO SCH (09:46)
[2022-01-22] MEDS: CARVEDILOL 12.5 MG TABLET PO SCH ×2 (09:46→17:00)
[2022-01-22] MEDS: ASCORBIC ACID 500 MG TABLET PO SCH (09:46)
[2022-01-22] MEDS: FERROUS SULFATE (325 MG) 325 MG/TAB TABLET PO SCH (09:46)
[2022-01-22] MEDS: FUROSEMIDE 40 MG/4 ML VIAL IV SCH (09:47)
--- NOTE | 2022-01-22 10:21 | NUR ---
WOUND CARE CONSULT: PT PRESENTS WITH SACRAL DEEP TISSUE INJURY (INTACT) AND LOWER EXTREMITY WOUNDS, PRESENT MARIANNA DMISSION. DR HESS CALLED FOR SURGICAL/DPM CONSULTS. RECOMMENDATIONS MADE FOR SKIN PROTECTION. DISCUSSED WITH NURSING STAFF. IN AGREEMENT WITH PLAN OF CARE.
[2022-01-22] MEDS ORDERED: Z GUARD REMEDY 4 OZ OINT TP PRN (10:30)
[2022-01-22] MEDS: Z GUARD REMEDY 4 OZ OINT TP SCH (11:44)
[2022-01-22 12:00] VITALS: BP 177/78
--- NOTE | 2022-01-22 12:07 | NUR ---
JULIO RAMIREZ, FOR ULTRASOUND GUIDED PARACENTESIS BUT STATED THAT SHE DID NOT FIND ANY WATER IN THE PATIENT'S STOMACH BUT ON HER LEFT LUNG AND MINIMAL AMOUNT ON HER RIGHT LUNG. JAMES SAID THAT SHE WILL FINISH HER REPORT. DR. DYSON MADE AWARE
[2022-01-22] MEDS: FUROSEMIDE 100 MG/10 ML VIAL IV SCH ×3 (12:13→19:30)
[2022-01-22 16:00] VITALS: BP 118/58
--- NOTE | 2022-01-22 18:57 | NUR ---
CLEANER LABORATORY EQUIPMENT CLOSING NOTES: PATIENT IN BED, ASLEEP BUT EASILY AROUSES TO VOICE AND SOUND. PATIENT IS ALERT, ORIENTED X 3 WITH FAMILY AT BEDSIDE. NO RESPIRATORY DISTRESS NOTED. ON SR WITH HR OF 70 ON TELE MONITOR. PATIENT IS ON OXYGEN @ 2L/MIN VIA N/V WITH OXYGEN SATURATION OF 96%. PATIENT HAS IV ACCESS ON LEFT ANTECUBITAL AREA INTACT, PATENT, FLUSHES WELL, NO S/S OF INFILTRATION. PUREWICK INTACT, EMPTIED 700 ML OF CLEAR YELLOW URINE, NO HEMATURIA AND NO SEDIMENTATION NOTED. ALL NEEDS MET AND ANTICIPATED. CALL LIGHT WITHIN REACH. BED LOCKED AND IN LOWEST POSITION. WILL ENDORSE TO NEXT SHIFT NURSE FOR CONTINUITY OF CARE.
--- NOTE | 2022-01-22 19:30 | NUR ---
TELE OPEN NOTE: ALERT AND ORIENTED X3. VERBALLY RESPONSIVE. ON 02 2LPM NC O2 SAT AT 95%. UNLABORED BREATHING. IV ON LEFT WRIST IN PLACE PATENT SALINE LOCKED. BLE WITH WOUND DRESSINGS CLEAN AND DRY. CONTINUE WITH BLE EDEMA. REFUSED LASIX. RISK VS BENEFITS EXPLAINED OFFERED TIMES THREE AND STILL REFUSED. BP 115/64 HR 70. TELE MONITOR READING SINUS RHYTHM ON THE 70. HOB ELEVATED ON HAYLEY-FOWLERS POSITION. BILATERAL HALF SIDE RAILS UP X2. BED IS LOCKED, IN LOW POSITION, BED EXIT ALARM ON, CALL LIGHT IN REACH. KEPT CLEAN AND COMFORTABLE.
[2022-01-22 20:00] VITALS: BP 115/64
[2022-01-22] MEDS: TRAZODONE 50 MG TABLET PO SCH (22:00)
[2022-01-22] MEDS: ATORVASTATIN 40 MG TABLET PO SCH (22:00)
[2022-01-22] MEDS: ACETAMINOPHEN 325 MG TABLET PO PRN (22:19)
[2022-01-23] VITALS: BP 124/74
[2022-01-23 04:00] VITALS: BP 154/84
[2022-01-23 06:49] LABS: BASOPHILS % (AUTO) 0.6 % (0.0-2.0); EOSINOPHILS % (AUTO) 2.2 % (0.0-6.0); HEMATOCRIT 29 % (33-45); HEMOGLOBIN 9.4 g/dL (11.5-14.8); LYMPHOCYTES # (AUTO) 0.8 K/uL (0.8-4.8); LYMPHOCYTES % (AUTO) 17.6 % (20.0-44.0); MEAN CORPUSCULAR HGB CONC 32 g/dl (31.0-36.0); MEAN CORPUSCULAR VOLUME 96 fL (82-100); MONOCYTES # (AUTO) 0.4 K/uL (0.1-1.30); MONOCYTES % (AUTO) 8.6 % (2.0-12.0); NEUTROPHILS # (AUTO) 3.1 K/uL (1.8-8.9); PLATELET COUNT (AUTO) 203 K/uL (150-450); RED BLOOD CELL COUNT(AUTO) 3.07 MIL/uL (4.0-5.2); WHITE BLOOD COUNT (AUTO) 4.4 K/uL (4.3-11.0)
--- NOTE | 2022-01-23 07:00 | NUR ---
TELE CLOSE NOTE: ALERT AND ORIENTED X3. VERBALLY RESPONSIVE. ON 02 2LPM NC O2 SAT AT 95%. UNLABORED BREATHING. IV ON LEFT WRIST IN PLACE PATENT SALINE LOCKED. BLE WITH WOUND DRESSINGS CLEAN AND DRY. CONTINUE WITH BLE EDEMA. REFUSED LASIX. RISK VS BENEFITS EXPLAINED OFFERED TIMES THREE AND STILL REFUSED SCHEDULED PO HS MEDICATIONS AND HS INSULIN COVERAGE. RISKS VS BENEFITS EXPLAINED, VERBALIZED UNDERSTANDING AND STILL REFUSED. OFFERED TIMES 3. TELE MONITOR READING SINUS RHYTHM 78. WOUND CARE DONE. HOB ELEVATED ON HAYLEY-FOWLERS POSITION. BILATERAL HALF SIDE RAILS UP X2. BED IS LOCKED, IN LOW POSITION, BED EXIT ALARM ON, CALL LIGHT IN REACH. KEPT CLEAN AND COMFORTABLE.
[2022-01-23 07:18] LABS: ALBUMIN 2.4 g/dL (3.4-5.0); BILIRUBIN,TOTAL 0.3 mg/dL (0.2-1.0); CALCIUM, SERUM 8.2 mg/dL (8.5-10.1); CREATININE 1.6 mg/dL (0.6-1.3); MAGNESIUM 2.6 mg/dL (1.8-2.4); PHOSPHORUS 4.4 mg/dL (2.5-4.9); POTASSIUM 4.9 mmol/L (3.5-5.1); TOTAL PROTEIN, SERUM 6.4 g/dL (6.4-8.2)
[2022-01-23] MEDS: BLOOD SUGAR DIAGNOSTIC 1 EACH STRIP IN SCH ×4 (07:54→21:38)
[2022-01-23 08:00] VITALS: BP 146/82
[2022-01-23] MEDS: PROSTAT (PYXIS) 30 ML UDC PO SCH ×2 (09:00→17:00)
[2022-01-23] MEDS: FAMOTIDINE (20 MG) 20 MG TABLET PO SCH (10:15)
[2022-01-23] MEDS: DOCUSATE SODIUM 100 MG CAPSULE PO SCH ×2 (10:15→21:25)
[2022-01-23] MEDS: hydrALAZINE HCL 50 MG TABLET PO SCH ×3 (10:16→17:36)
[2022-01-23] MEDS: HYDROCHLOROTHIAZIDE 25 MG TABLET PO SCH (10:16)
[2022-01-23] MEDS: CHOLECALCIFEROL 1,000 UNIT TABLET (VIT D3) PO SCH (10:17)
[2022-01-23] MEDS: CARVEDILOL 12.5 MG TABLET PO SCH ×2 (10:17→17:36)
[2022-01-23] MEDS: ATORVASTATIN 40 MG TABLET PO SCH (10:17)
[2022-01-23] MEDS: ASPIRIN 81 MG TAB.CHEW PO SCH (10:17)
[2022-01-23] MEDS: ASCORBIC ACID 500 MG TABLET PO SCH (10:18)
[2022-01-23] MEDS: FERROUS SULFATE (325 MG) 325 MG/TAB TABLET PO SCH (10:18)
[2022-01-23] MEDS: APIXABAN 5 MG TABLET PO SCH ×2 (10:21→17:34)
[2022-01-23] MEDS: NIFEdipine XL (30MG) 30 MG TAB PO SCH (10:34)
[2022-01-23] MEDS: LOSARTAN POTASSIUM 50 MG TABLET PO SCH (10:34)
[2022-01-23] MEDS: BUMETANIDE IV ONE ×2 (10:35→11:32)
[2022-01-23] MEDS: NS 0.9% IV ONE ×2 (10:35→11:32)
[2022-01-23] MEDS: Z GUARD REMEDY 4 OZ OINT TP SCH (10:42)
[2022-01-23 12:00] VITALS: BP 155/78
[2022-01-23 16:00] VITALS: BP 165/79
[2022-01-23] MEDS: ONDANSETRON HCL/PF 4 MG/2 ML VIAL IVP PRN (17:51)
--- NOTE | 2022-01-23 18:16 | NUR ---
RN N Addendum: 01/23/22 at 1903 by LIZY DAVIDSON RN TORREY NOTES PATIENT AGREED TO HAVE INSULIN GIVEN WITH 4 UNITS , BS 0F 246
[2022-01-23] MEDS: INSULIN REGULAR, HUMAN 100 UNIT/ML 3 ML VIAL SQ PRN ×2 (18:41→21:39)
--- NOTE | 2022-01-23 19:03 | NUR ---
BRIDGE CLUB MANAGER CLOSING NOTES: PATIENT IN BED, AWAKE . PATIENT IS ALERT, ORIENTED X 3. NO SOB NOTED OR DISTRESS NOTED . ON SR WITH HR OF 87 ON TELE MONITOR. ALL DUE MEDS GIVEN AND BLOOD SUGAR WAS CHECK AND REFUSED INSULIN FOR MORNING AND LUNCH PATIENT IS ON OXYGEN @ 2L/MIN VIA N/V WITH OXYGEN SATURATION OF 95%. IV ACCESS ON LEFT INTACT SL WITH ON GOIUNG IV OF BUMEX TO RUN @ 18 CC /HOURS . NO S/S OF INFILTRATION. PUREWICK INTACT, DRAINING WITH CLEAR YELLOW URINE, NO HEMATURIA AND NO SEDIMENTATION NOTED. CALL LIGHT WITHIN REACH. BED LOCKED AND IN LOWEST POSITION. ALL SAFETY MEASURES IN PLACE. WILL ENDORSED TO NEXT SHIFT
--- NOTE | 2022-01-23 19:30 | NUR ---
RN OPENING NOTE RECEIVED PATIENT IN BED, AWAKE, A/O X 3-4, ABLE TO MAKE NEEDS KNOWN. ON BEDSIDE. CURRENTLY ON O2 THERAPY VIA NC AT 2LPM, TOLERATING WELL. NO SOB NOTED, BREATHING EVEN AND UNLABORED. NO S/SX OF ACUTE RESPI DISTRESS NOTED AT THIS TIME. TELE MONITOR SHOWS SR WITH HR IN 80s. IV ACCESS ON LEFT ANTECUBITAL AREA INTACT, PATENT, FLUSHES WELL, NO S/SX OF INFILTRATION. NO FLUIDS INFUSING. PUREWICK CATHETER IN PLACE, DRAINING CLEAR YELLOW URINE, NO HEMATURIA AND NO SEDIMENTATION NOTED. ALL SAFETY MEASURES IN PLACE: BED LOCKED IN LOW POSITION, BED ALARM ON. CALL LIGHT WITHIN REACH. WILL CONTINUE TO MONITOR PATIENT THROUGHOUT SHIFT.
[2022-01-23 20:00] VITALS: BP 161/76
--- NOTE | 2022-01-23 20:30 | NUR ---
RN NOTE PT'S BP IS ELEVATED AT 161/76. ASKED PT IF SHE WANTS TO TAKE HER BP MED SINCE SHE'S KNOWN TO REFUSE MEDS AT TIMES. PT REFUSED. EXPLAINED THE IMPORTANCE OF MEDICAL COMPLIANCE, STILL REFUSE TO TAKE MED.
[2022-01-23] MEDS: MUPIROCIN OINT 2% 22 GM TUBE NS SCH (21:24)
[2022-01-23] MEDS: TRAZODONE 50 MG TABLET PO SCH (21:25)
--- NOTE | 2022-01-23 21:40 | NUR ---
RN NOTE PT REFUSED TO TAKE ANY OF HER NIGHT MEDS INCLUDING HER INSULIN COVERAGE. EDUCATED PT THE IMPORTANCE OF MEDICAL COMPLIANCE, PT STILL REFUSED.
[2022-01-24] VITALS: BP 147/75
[2022-01-24 04:00] VITALS: BP 183/89
--- NOTE | 2022-01-24 04:50 | NUR ---
RN NOTE PT BP WENT UP TO 183/89. ASKED PT IF SHE WANTS TO TAKE HER BP MED AND SHE REFUSED. EXPLAINED TO PT IMPORTANCE OF MEDICATION COMPLIANCE, STILL REFUSED.
--- NOTE | 2022-01-24 05:34 | NUR ---
RN NOTE NO SIGNIFICANT CHANGE T/O THE SHIFT. PT REFUSED ALL MEDS. NO S/SX OF ACUTE RESPI DISTRESS NOTED. VS STABLE EXCEPT BP WHICH IS SLIGHTLY ELEVATED. REFUSED TO TAKE BP MED, TOO. ALL SAFETY MEASURES IN PLACE. WILL ENDORSE TO AM SHIFT NURSE FOR OREN.
[2022-01-24] MEDS: ACETAMINOPHEN 325 MG TABLET PO PRN (06:35)
--- NOTE | 2022-01-24 06:47 | NUR ---
RN NOTE PT ASKED FOR TYLENOL AFTER COMPLAINING OF PAIN IN HER BODY. TOLD PT SHE ALSO NEEDS TO TAKE HE BP MEDICATION SINCE IT IS HIGH AND COULD BE THE CAUSE OF HER NOT FEELING WELL. PT SAID YES. GAVE TYLENOL AND HYDRALAZINE PRN ORDERED. WILL ENDORSE TO AM SHIFT NURSE FOR OREN.
--- NOTE | 2022-01-24 07:09 | NUR ---
STRAP FOLDING MACHINE OPERATOR OPENING NOTES: RECEIVED PATIENT IN BED, ASLEEP BUT AROUSABLE . PATIENT IS ALERT, ORIENTED X 3. NO SOB NOTED OR DISTRESS NOTED . ON SR WITH HR OF 70 ON TELE MONITOR. PATIENT IS ON OXYGEN @ 2L/MIN VIA N/V WITH OXYGEN SATURATION OF 95%. IV ACCESS ON LEFT INTACT SL , NO S/S OF INFILTRATION. PUREWICK INTACT, DRAINING WITH CLEAR YELLOW URINE, NO HEMATURIA AND NO SEDIMENTATION NOTED. CALL LIGHT WITHIN REACH. BED LOCKED AND IN LOWEST POSITION. ALL SAFETY MEASURES IN PLACE. WILL CONTINUE TO MONITOR PATIENT THROUGHOUT SHIFT
[2022-01-24 07:10] LABS: BASOPHILS % (AUTO) 0.5 % (0.0-2.0); EOSINOPHILS % (AUTO) 1.7 % (0.0-6.0); HEMATOCRIT 31 % (33-45); HEMOGLOBIN 9.9 g/dL (11.5-14.8); LYMPHOCYTES # (AUTO) 0.7 K/uL (0.8-4.8); LYMPHOCYTES % (AUTO) 15.4 % (20.0-44.0); MEAN CORPUSCULAR HGB CONC 32 g/dl (31.0-36.0); MEAN CORPUSCULAR VOLUME 97 fL (82-100); MONOCYTES # (AUTO) 0.4 K/uL (0.1-1.30); MONOCYTES % (AUTO) 9.3 % (2.0-12.0); NEUTROPHILS # (AUTO) 3.5 K/uL (1.8-8.9); NEUTROPHILS % (AUTO) 73.1 % (43.0-81.0); PLATELET COUNT (AUTO) 215 K/uL (150-450); WHITE BLOOD COUNT (AUTO) 4.8 K/uL (4.3-11.0)
[2022-01-24] MEDS: BLOOD SUGAR DIAGNOSTIC 1 EACH STRIP IN SCH ×4 (07:31→22:08)
--- NOTE | 2022-01-24 07:31 | NUR ---
RN NOTES: BLOOD SUGAR 145MG/DL. PT REFUSED INSULIN COVERAGE PER SLIDING SCALE, EXPLAIN RISK AND BENEFITS STILL REFUSES
[2022-01-24 07:36] LABS: ALBUMIN 2.5 g/dL (3.4-5.0); BILIRUBIN,TOTAL 0.4 mg/dL (0.2-1.0); CALCIUM, SERUM 8.4 mg/dL (8.5-10.1); CREATININE 1.5 mg/dL (0.6-1.3); MAGNESIUM 2.5 mg/dL (1.8-2.4); PHOSPHORUS 4.5 mg/dL (2.5-4.9); POTASSIUM 5.1 mmol/L (3.5-5.1); TOTAL PROTEIN, SERUM 6.7 g/dL (6.4-8.2)
[2022-01-24 08:00] VITALS: BP 142/72
[2022-01-24] MEDS: CHOLECALCIFEROL 1,000 UNIT TABLET (VIT D3) PO SCH ×2 (08:51→09:00)
[2022-01-24] MEDS: ASCORBIC ACID 500 MG TABLET PO SCH ×2 (08:51→09:00)
[2022-01-24] MEDS: APIXABAN 5 MG TABLET PO SCH ×2 (08:51→16:35)
[2022-01-24] MEDS: NIFEdipine XL (30MG) 30 MG TAB PO SCH (08:51)
[2022-01-24] MEDS: hydrALAZINE HCL 50 MG TABLET PO SCH ×3 (08:52→16:36)
[2022-01-24] MEDS: CARVEDILOL 12.5 MG TABLET PO SCH ×2 (08:52→16:36)
[2022-01-24] MEDS: FAMOTIDINE (20 MG) 20 MG TABLET PO SCH ×2 (08:52→09:00)
[2022-01-24] MEDS: DOCUSATE SODIUM 100 MG CAPSULE PO SCH ×2 (08:52→20:02)
[2022-01-24] MEDS: FERROUS SULFATE (325 MG) 325 MG/TAB TABLET PO SCH ×3 (08:53→09:51)
[2022-01-24] MEDS: ASPIRIN 81 MG TAB.CHEW PO SCH ×2 (08:53→09:00)
[2022-01-24] MEDS: HYDROCHLOROTHIAZIDE 25 MG TABLET PO SCH (08:53)
[2022-01-24] MEDS: MUPIROCIN OINT 2% 22 GM TUBE NS SCH ×2 (08:54→20:08)
[2022-01-24] MEDS: PROSTAT (PYXIS) 30 ML UDC PO SCH ×2 (09:00→17:00)
--- NOTE | 2022-01-24 09:00 | NUR ---
RN NOTES: PT REFUSES MOST OF HER MEDICINE, DISCUSSED TO HER THE IMPORTANCE OF HER MEDICINE AGREED TO TAKE ELIQUIS,BP MEDS AND HEART MEDICATION, ALSO REFUASES TO TAKE INSULIN PER SLIDING SCALE
[2022-01-24] MEDS: Z GUARD REMEDY 4 OZ OINT TP SCH (09:12)
[2022-01-24] MEDS: VALSARTAN 80 MG TABLET PO SCH (09:51)
[2022-01-24] MEDS: RANOLAZINE 500 MG TAB.ER.12H PO SCH ×2 (09:51→16:34)
[2022-01-24 12:00] VITALS: BP 142/72
--- NOTE | 2022-01-24 12:50 | NUR ---
RN notes: blood sugar 158 mg/dl, refused insulin per sliding scale
[2022-01-24 16:00] VITALS: BP 153/71
--- NOTE | 2022-01-24 16:00 | NUR ---
RN NOTES: OFFERED TO CLEAN THE PT SHE REFUSED AT BEDSIDE TALK TO HER TO BE CLEANED SHE AGREED , PT WAS WITH LARGE BM, CLEANED PT ,WOUND CARE DONE, DENIED ANY PAIN OR DISCOMFORT.
--- NOTE | 2022-01-24 19:30 | NUR ---
BOOK REVIEWER OPENING NOTE RECEIVED REPORT FROM RONALD FOR OREN. PT IN BED, AWAKE, A/O X 4, ABLE TO MAKE NEEDS KNOWN. ON BEDSIDE. CURRENTLY ON OXYGEN @ 2L/MIN VIA NC, TOLERATING WELL SATING AT 95%. NO SOB, BREATHING IS EVEN AND UNLABORED. TELE MONITOR READS SR WITH HR IN 90s. IV ACCESS NOTED ON LEFT WRIST, PATENT AND INTACT, SL. PUREWICK INTACT, DRAINING CLEAR YELLOW URINE, NO HEMATURIA AND NO SEDIMENTATION NOTED. ALL SAFETY MEASURES IN PLACE: BED LOCKED IN LOW POSITION, BED ALARM ON. SR UP X 3. CALL LIGHT WITHIN REACH. WILL CONTINUE TO MONITOR PATIENT T/O SHIFT
[2022-01-24 20:00] VITALS: BP 138/65
[2022-01-24] MEDS: LORAZEPAM 1 MG TABLET PO PRN (21:37)
[2022-01-24] MEDS: TRAZODONE 50 MG TABLET PO SCH (22:00)
[2022-01-24] MEDS: ATORVASTATIN 40 MG TABLET PO SCH (22:00)
[2022-01-24] MEDS: INSULIN REGULAR, HUMAN 100 UNIT/ML 3 ML VIAL SQ PRN (22:09)
--- NOTE | 2022-01-24 22:13 | NUR ---
RN NOTE PT REFUSED TO TAKE HER LIPITOR AND DESYREL MEDS FOR THE NIGHT. ALSO REFUSED INSULIN COVERAGE FOR 2 UNITS. BS IS 158. ON THE OTHER HAND, PT REQUESTED FOR ATIVAN. GAVE MED ORDERED. WILL CONTINUE TO MONITOR.
[2022-01-25] VITALS: BP 124/62
--- NOTE | 2022-01-25 01:30 | NUR ---
RN NOTE TOOK NEW PICTURES OF PT'S WOUNDS: R HEEL, R LOWER LEG, AND L LOWER LEG. BLISTERS OBSERVED ON BILATERAL LOWER LEGS.
[2022-01-25 04:00] VITALS: BP 135/66
--- NOTE | 2022-01-25 05:45 | NUR ---
RN NOTE TALKED TO PT'S DAUGHTER JOSE OVER THE PHONE REGARDING THE LATEST STATUS OF HER FATHER. TOLD HER PT WAS ON BIPAP LAST NIGHT, TOLERATED WELL AND IS CURRENTLY RESTING RIGHT NOW. ALL VS STABLE. NO RESPI DISTRESS NOTED.
--- NOTE | 2022-01-25 06:35 | NUR ---
BUSINESS INTELLIGENCE ARCHITECT CLOSING NOTE PT REMAINED STABLE T/O THE NIGHT. BP WAS STABLE WITH SBP <160. STILL NON COMPLIANT WITH MEDICATIONS AT NIGHT INCLUDING INSULIN. DID NOT WANT TO BE BOTHERED, AND REFUSED TO BE CLEANED. WILL ENDORSE TO AM SHIFT NURSE FOR OREN.
[2022-01-25 08:00] VITALS: BP 132/72
[2022-01-25] MEDS: BLOOD SUGAR DIAGNOSTIC 1 EACH STRIP IN SCH ×4 (08:10→22:00)
[2022-01-25] MEDS: ONDANSETRON HCL/PF 4 MG/2 ML VIAL IVP PRN (08:44)
[2022-01-25] MEDS: CARVEDILOL 12.5 MG TABLET PO SCH ×2 (08:45→17:34)
[2022-01-25] MEDS: HYDROCHLOROTHIAZIDE 25 MG TABLET PO SCH (08:45)
[2022-01-25] MEDS: VALSARTAN 80 MG TABLET PO SCH (08:46)
[2022-01-25] MEDS: DOCUSATE SODIUM 100 MG CAPSULE PO SCH ×2 (08:46→21:00)
[2022-01-25] MEDS: NIFEdipine XL (30MG) 30 MG TAB PO SCH (08:46)
[2022-01-25] MEDS: FAMOTIDINE (20 MG) 20 MG TABLET PO SCH (08:46)
[2022-01-25] MEDS: APIXABAN 5 MG TABLET PO SCH ×2 (08:51→17:33)
[2022-01-25] MEDS: LORAZEPAM 1 MG TABLET PO PRN (08:57)
[2022-01-25] MEDS: CHOLECALCIFEROL 1,000 UNIT TABLET (VIT D3) PO SCH (09:00)
[2022-01-25] MEDS: FERROUS SULFATE (325 MG) 325 MG/TAB TABLET PO SCH (09:00)
[2022-01-25] MEDS: ASPIRIN 81 MG TAB.CHEW PO SCH (09:00)
[2022-01-25] MEDS: RANOLAZINE 500 MG TAB.ER.12H PO SCH ×2 (09:00→17:33)
[2022-01-25] MEDS: hydrALAZINE HCL 50 MG TABLET PO SCH ×3 (09:00→17:33)
[2022-01-25] MEDS: ASCORBIC ACID 500 MG TABLET PO SCH (09:00)
--- NOTE | 2022-01-25 09:00 | NUR ---
RN NOTE PATIENT REFUSED INSULIN, BLOOD SUGAR 134
[2022-01-25] MEDS: MUPIROCIN OINT 2% 22 GM TUBE NS SCH ×2 (09:25→21:00)
[2022-01-25] MEDS: Z GUARD REMEDY 4 OZ OINT TP SCH (09:26)
[2022-01-25] MEDS: PROSTAT (PYXIS) 30 ML UDC PO SCH ×2 (09:27→17:28)
[2022-01-25] MEDS: INSULIN REGULAR, HUMAN 100 UNIT/ML 3 ML VIAL SQ PRN (13:33)
--- NOTE | 2022-01-25 14:00 | NUR ---
RN NOTE PATIENT BLOOD SUGAR WAS 215 AT 1300 BUT SHE REQUESTED TO GET 2 UNITS OF INSULIN INSTEAD OF 4 UNITS, SO 2 UNITS WERE ADMINISTERED. SHE STATED THAT I AM NOT EATING MUCH IF YOU GIVE ME 4 UNITS MY BLOOD SUGAR WILL DROP.
[2022-01-25 17:55] VITALS: BP 175/91
--- NOTE | 2022-01-25 18:00 | NUR ---
RN NOTE PATIENT REFUSED THE WOUND DRESSING CHANGE ON HER LEGS BILATERALLY. STEFANIE THE PLASTIC MOLDER WITNESSED IT.
--- NOTE | 2022-01-25 19:00 | NUR ---
RN CLOSING NOTE PT REMAINED STABLE T/O THE NIGHT. BP WAS STABLE WITH SBP <160. PATIENT TOOK SOME OF HER MEDICATION IN THE MORNING BUT THE REST OF THE MORNING MEDICATION SHE REFUSED. BUT ALL HER AFTERNOON MEDICATION WERE GIVEN AND SHE TOOK IT. SHE HAD NAUSEA WITH NO EMESIS IN THE MORNING ZOFRAN IV PUSH ADMINISTERED AND PATIENT SATISFIED. PATIENT COOPERATED WITH CLEANING REPOSITION EXCEPT BLE WOUND DRESSING. ALL SAFETY MEASURES IN PLACE WILL ENDORSE THE PATIENT TO THE INSOLE AND OUTSOLE SPLITTER NURSE FOR OREN.
--- NOTE | 2022-01-25 19:10 | NUR ---
RN NOTE RECEIVED REPORT FROM MORNING RN FOR OREN. PT IN BED, AWAKE, A/O X 4, ABLE TO MAKE NEEDS KNOWN. ON BEDSIDE. CURRENTLY ON OXYGEN @ 2L/MIN VIA NC, TOLERATING WELL SATING AT 95%. NO SOB, BREATHING IS EVEN AND UNLABORED. TELE MONITOR READS SR WITH HR IN 90s. IV ACCESS NOTED ON LEFT WRIST, PATENT AND INTACT, SL. PUREWICK INTACT, DRAINING CLEAR YELLOW URINE, NO HEMATURIA AND NO SEDIMENTATION NOTED. ALL SAFETY MEASURES IN PLACE: BED LOCKED IN LOW POSITION, BED ALARM ON. SR UP X 3. CALL LIGHT WITHIN REACH. WILL CONTINUE TO MONITOR PATIENT T/O SHIFT
[2022-01-25 20:00] VITALS: BP 165/88
--- NOTE | 2022-01-25 21:10 | NUR ---
RN NOTES PATIENT REFUSED ALL HER MEDICATION. RISK AND BENEFITS EXPLAINED TO THE PATIENT BUT STILL REFUSED. CN MADE AWARE
[2022-01-25] MEDS: ATORVASTATIN 40 MG TABLET PO SCH (21:38)
[2022-01-25] MEDS: TRAZODONE 50 MG TABLET PO SCH (21:38)
--- NOTE | 2022-01-25 22:45 | NUR ---
RN NOTES PATIENT REFUSED BLOOD SUGAR CHECK. OFFERED 3 TIMES R/B EXPLAINED STILL REFUSED
[2022-01-26] MEDS: ACETAMINOPHEN 325 MG TABLET PO PRN (00:12)
--- NOTE | 2022-01-26 02:30 | NUR ---
RN NOTES DR RED INFORMED REGARDING PATIENT REFUSING ALL HER MEDICATIONS AND VITAL SIGNS CHECK
[2022-01-26 05:59] LABS: BASOPHILS % (AUTO) 0.2 % (0.0-2.0); EOSINOPHILS % (AUTO) 1.2 % (0.0-6.0); HEMATOCRIT 30 % (33-45); HEMOGLOBIN 9.9 g/dL (11.5-14.8); LYMPHOCYTES # (AUTO) 0.6 K/uL (0.8-4.8); LYMPHOCYTES % (AUTO) 10.8 % (20.0-44.0); MEAN CORPUSCULAR HGB CONC 33 g/dl (31.0-36.0); MEAN CORPUSCULAR VOLUME 96 fL (82-100); MONOCYTES # (AUTO) 0.5 K/uL (0.1-1.30); MONOCYTES % (AUTO) 8.7 % (2.0-12.0); NEUTROPHILS # (AUTO) 4.4 K/uL (1.8-8.9); NEUTROPHILS % (AUTO) 79.1 % (43.0-81.0); PLATELET COUNT (AUTO) 206 K/uL (150-450); RED BLOOD CELL COUNT(AUTO) 3.16 MIL/uL (4.0-5.2); WHITE BLOOD COUNT (AUTO) 5.6 K/uL (4.3-11.0)
--- NOTE | 2022-01-26 06:44 | NUR ---
RN NOTES PATIENT REMAINS STABLE. PATIENT REFUSED MEDICATION. BLOOD SUGAR CHECK AND VITAL SIGNS CHECK. PATIENT IS NON COMPLAINTS WITH CARE. DR ALVAREZ MADE AWARE. WILL ENDORSED TO NEXT SHIFT FOR OREN
[2022-01-26 06:45] LABS: ALBUMIN 2.4 g/dL (3.4-5.0); BILIRUBIN,TOTAL 0.3 mg/dL (0.2-1.0); CALCIUM, SERUM 8.3 mg/dL (8.5-10.1); CREATININE 1.6 mg/dL (0.6-1.3); MAGNESIUM 2.4 mg/dL (1.8-2.4); PHOSPHORUS 4.2 mg/dL (2.5-4.9); POTASSIUM 4.9 mmol/L (3.5-5.1); TOTAL PROTEIN, SERUM 6.3 g/dL (6.4-8.2)
--- NOTE | 2022-01-26 07:30 | NUR ---
RN CLOSING NOTE PATIENT IN BED WITH OPEN EYES. NO COMPLAINS OF PAIN, NO S/S OF DISTRESS. PATIENT ON 2L NC. BED AT LOWEST POSITION, CALL LIGHT WITHIN REACH, BED ALARM ON. WILL CONTINUE THE CARE THROUGHOUT THE DAY.
[2022-01-26] MEDS: BLOOD SUGAR DIAGNOSTIC 1 EACH STRIP IN SCH ×3 (07:41→17:30)
[2022-01-26] MEDS: HYDROCHLOROTHIAZIDE 25 MG TABLET PO SCH (08:49)
[2022-01-26] MEDS: NIFEdipine XL (30MG) 30 MG TAB PO SCH (08:49)
[2022-01-26] MEDS: VALSARTAN 80 MG TABLET PO SCH (08:49)
[2022-01-26] MEDS: hydrALAZINE HCL 50 MG TABLET PO SCH ×4 (08:50→17:00)
[2022-01-26] MEDS: CARVEDILOL 12.5 MG TABLET PO SCH ×2 (08:50→17:00)
[2022-01-26] MEDS: Z GUARD REMEDY 4 OZ OINT TP SCH (08:51)
[2022-01-26] MEDS: APIXABAN 5 MG TABLET PO SCH ×2 (08:51→17:00)
[2022-01-26] MEDS: MUPIROCIN OINT 2% 22 GM TUBE NS SCH (08:51)
[2022-01-26] MEDS: FAMOTIDINE (20 MG) 20 MG TABLET PO SCH (08:52)
[2022-01-26] MEDS: FERROUS SULFATE (325 MG) 325 MG/TAB TABLET PO SCH (08:52)
[2022-01-26] MEDS: RANOLAZINE 500 MG TAB.ER.12H PO SCH ×2 (08:52→17:00)
[2022-01-26] MEDS: PROSTAT (PYXIS) 30 ML UDC PO SCH ×2 (08:52→17:00)
[2022-01-26] MEDS: DOCUSATE SODIUM 100 MG CAPSULE PO SCH (08:52)
[2022-01-26] MEDS: ASPIRIN 81 MG TAB.CHEW PO SCH (08:52)
[2022-01-26] MEDS: ASCORBIC ACID 500 MG TABLET PO SCH (08:53)
[2022-01-26] MEDS: CHOLECALCIFEROL 1,000 UNIT TABLET (VIT D3) PO SCH (08:53)
--- NOTE | 2022-01-26 12:00 | NUR ---
RN NOTE PATIENT BLOOD SUGAR 145, PATIENT INFORMED REGARDING 2 UNITS OF INSULIN, BUT REFUSED THE INSULIN.
--- NOTE | 2022-01-26 12:40 | NUR ---
RN NOTE PATIENT REFUSED THE 1300 MEDICATION AND VITAL SIGNS.
[2022-01-26] MEDS: LORAZEPAM 1 MG TABLET PO PRN (12:45)
[2022-01-26] MEDS: ONDANSETRON HCL/PF 4 MG/2 ML VIAL IVP PRN (12:45)
--- NOTE | 2022-01-26 12:50 | NUR ---
RN NOTE PATIENT LET US TO TAKE THE VITALS NOW, SO hYDRALAZINE IS GOING TO BE ADMINISTER.
[2022-01-26 13:20] VITALS: BP 130/70
[2022-01-26] MEDS ORDERED: RANO500T6 PO (14:28)
[2022-01-26] MEDS ORDERED: VALS80TA31 PO (14:28)
[2022-01-26] MEDS ORDERED: BUME1TAB9 PO (14:28)
[2022-01-26] MEDS ORDERED: METO2.5T2 PO (14:28)
[2022-01-26 17:25] LABS: ABG BASE EXCESS 0.8 mmol/L; ABG PCO2 47.6 mmHg (35.0-45.0); ABG PH 7.364 (7.350-7.450); ABG PO2 52.3 mmHg (75.0-100.0); AaDO2 40.4 mmHg; COHb 0.1 % (0.5-1.5); MetHb 0.2 % (0.0-1.5); O2Hb 86.7 % (94.0-97.0); SITE, ABG Right Radial; VENT MODE, BG RA 21%
== END 2022-01-26 18:05 | DRG 291 ==
LOC: ER 18:08 → TELE1 22:25
PROVIDERS: ADMIT Internal Medicine; ATTEND Nurse Practitioner Acute Care
DX: I13.0 Hypertensive heart and chronic kidney disease with heart failure and stage 1 through stage 4 chronic kidney disease, or unspecified chronic kidney disease (principal); I50.33 Acute on chronic diastolic (congestive) heart failure; R53.2 Functional quadriplegia; N17.0 Acute kidney failure with tubular necrosis; K76.7 Hepatorenal syndrome; E44.0 Moderate protein-calorie malnutrition; D68.59 Other primary thrombophilia; G61.0 Guillain-Barre syndrome; I16.0 Hypertensive urgency; Z20.822 Contact with and (suspected) exposure to COVID-19; D63.8 Anemia in other chronic diseases classified elsewhere; E83.41 Hypermagnesemia; E88.09 Other disorders of plasma-protein metabolism, not elsewhere classified; I25.2 Old myocardial infarction; Z86.16 Personal history of COVID-19; Z79.4 Long term (current) use of insulin; Z79.01 Long term (current) use of anticoagulants; Z86.711 Personal history of pulmonary embolism; Z82.49 Family history of ischemic heart disease and other diseases of the circulatory system; Z91.199 Patient's noncompliance with other medical treatment and regimen due to unspecified reason; E11.22 Type 2 diabetes mellitus with diabetic chronic kidney disease; I87.2 Venous insufficiency (chronic) (peripheral); J45.909 Unspecified asthma, uncomplicated; N18.9 Chronic kidney disease, unspecified; E11.621 Type 2 diabetes mellitus with foot ulcer; E11.40 Type 2 diabetes mellitus with diabetic neuropathy, unspecified; I48.91 Unspecified atrial fibrillation; I16.1 Hypertensive emergency; Z68.38 Body mass index [BMI] 38.0-38.9, adult; S80.822A Blister (nonthermal), left lower leg, initial encounter; S80.821A Blister (nonthermal), right lower leg, initial encounter; X58.XXXA Exposure to other specified factors, initial encounter; Y93.9 Activity, unspecified; Y92.129 Unspecified place in nursing home as the place of occurrence of the external cause; L97.519 Non-pressure chronic ulcer of other part of right foot with unspecified severity; L89.156 Pressure-induced deep tissue damage of sacral region; E11.65 Type 2 diabetes mellitus with hyperglycemia
CPT/HCPCS: 36415; 36600; 71045-TC; 76705-TC; 76770-TC; 80048-TC; 80053-TC; 80076-TC; 82803-TC; 82962-TC; 83605-TC; 83735-TC; 83880; 84100-TC; 84484-TC; 85025-TC; 85730-TC; 87081-TC; 93970-TC; 94799-TC; 97110-TC; 97530-TC; A6253; A6403; G0378; J0360; J1815; J1940; J2270; J2405; J3490; J7030

== ENCOUNTER 2022-03-16 00:29 | Inpatient (IN) | payer MEDICARE, OTHER ==
[~2022-03-16] VITALS: Ht 175.3 cm; Wt 101.2 kg
[~2022-03-16 00:29] MED LIST changes: -ACET-868 PO; +AMIN30LI2 PO; +BUME1TAB9 PO; -DICL100G26 TP; +FERR325T23 PO; -FURO-144 PO; -GUAI5SYR PO; -HYDR-4077 PO; +HYDR100T27 PO; -IPRA3AMP23 IH; +MAG30ORA PO; -MAGN400O6 PO; +MENT71OI2 TP; +METO2.5T2 PO; -NITR0.4T48 SL; +RANO500T6 PO; +TRAZ-182 PO; +VALS80TA31 PO
--- NOTE | 2022-03-16 00:44 | NUR ---
OFELIA FROM [facility] C/O CP SUBSTERNAL, NONRADIATING X 3 HOURS. WAS GIVEN 325 ASA, 1 NITRO SPRAY E [employer] WEB DEVELOPER WITH SOME IMPROVEMENT OF PAIN. PT PLACED ON MONITOR AND NOTED HYPERTENSIVE. MD AWARE AND WAS AT THE BEDSIDE FOR EVAL.
[2022-03-16] MEDS ORDERED: NITROGLYCERIN 0.4 MG/TAB BOTTLE ONE (00:51)
--- NOTE | 2022-03-16 00:52 | NUR ---
EMT AT BEDSIDE FOR EKG
--- NOTE | 2022-03-16 00:52 | NUR ---
BLOOD COLLECTED AND SENT TO LAB
--- NOTE | 2022-03-16 00:55 | NUR ---
XRAY AT BEDSIDE
[2022-03-16] MEDS ORDERED: NITROGLYCERIN 0.4 MG/TAB BOTTLE SL ONE (01:00)
[2022-03-16 01:16] LABS: BASOPHILS % (AUTO) 0.6 % (0.0-2.0); EOSINOPHILS % (AUTO) 1.2 % (0.0-6.0); HEMATOCRIT 33 % (33-45); HEMOGLOBIN 10.9 g/dL (11.5-14.8); MEAN CORPUSCULAR HGB CONC 33 g/dl (31.0-36.0); MEAN CORPUSCULAR VOLUME 95 fL (82-100); MONOCYTES # (AUTO) 0.3 K/uL (0.1-1.30); MONOCYTES % (AUTO) 6.9 % (2.0-12.0); NEUTROPHILS # (AUTO) 2.4 K/uL (1.8-8.9); NEUTROPHILS % (AUTO) 65.3 % (43.0-81.0); PLATELET COUNT (AUTO) 180 K/uL (150-450); RED BLOOD CELL COUNT(AUTO) 3.47 MIL/uL (4.0-5.2); WHITE BLOOD COUNT (AUTO) 3.7 K/uL (4.3-11.0)
[2022-03-16 01:36] LABS: CALCIUM, SERUM 8.1 mg/dL (8.5-10.1); CARBON DIOXIDE 27 mmol/L (21-32); CHLORIDE 112 mmol/L (98-107); CREATININE 1.2 mg/dL (0.6-1.3); GLUCOSE 129 mg/dL (74-106); POTASSIUM 4.3 mmol/L (3.5-5.1); SODIUM SERUM 142 mmol/L (136-145); UREA NITROGEN, BLOOD 36 mg/dL (7-18)
[2022-03-16 01:48] LABS: ALANINE AMINOTRANSFERASE < 6 U/L (12-78); ALBUMIN 2.4 g/dL (3.4-5.0); ALKALINE PHOSPHATASE 107 U/L (46-116); ASPARTATE AMINOTRANSFERASE 20 U/L (15-37); BILIRUBIN,TOTAL 0.4 mg/dL (0.2-1.0); TOTAL PROTEIN, SERUM 5.8 g/dL (6.4-8.2)
[2022-03-16 02:01] LABS: BILIRUBIN,DIRECT 0.2 mg/dL (0.0-0.2)
[2022-03-16] MEDS ORDERED: FUROSEMIDE 40 MG/4 ML VIAL ONE (02:25)
--- NOTE | 2022-03-16 02:27 | NUR ---
EPIC PAGED PER DR SPRING.
[2022-03-16] MEDS ORDERED: FUROSEMIDE 40 MG/4 ML VIAL IV ONE (02:30)
[2022-03-16] MEDS ORDERED: ACETAMINOPHEN 325 MG TABLET PO PRN (03:00)
[2022-03-16] MEDS ORDERED: DEXTROSE 50%-WATER 50 ML DISP.SYRIN IV PRN (03:00)
[2022-03-16] MEDS ORDERED: MORPHINE SULFATE INJ 2 MG/ML DISP.SYRIN IV PRN (03:00)
[2022-03-16] MEDS ORDERED: ALBUTEROL FS 2.5 MG/0.5 ML VIAL.NEB NEB PRN (03:00)
[2022-03-16] MEDS ORDERED: CARISOPRODOL 350 MG TABLET PO PRN (03:00)
--- NOTE | 2022-03-16 07:15 | NUR ---
RECEIVED PT FROM ALAN HIRSCH PT ASLEEPY arusble when call name respiration spont and easy
[2022-03-16] MEDS: BLOOD SUGAR DIAGNOSTIC 1 EACH STRIP VI SCH ×4 (08:02→22:00)
[2022-03-16] MEDS ORDERED: POVI3780 TP (08:26)
[2022-03-16] MEDS ORDERED: BUME1TAB8 PO (08:26)
[2022-03-16] MEDS ORDERED: ALLO100T PO (08:26)
[2022-03-16] MEDS ORDERED: METO-295 PO (08:26)
[2022-03-16] MEDS ORDERED: DICL100G26 TP (08:26)
--- NOTE | 2022-03-16 08:52 | NUR ---
REPORT GIVEN TO NOLA HIRSCH OF TELE UNIT
[2022-03-16] MEDS ORDERED: FUROSEMIDE 40 MG/4 ML VIAL IV SCH (09:00)
[2022-03-16] MEDS: METOLAZONE 2.5 MG TABLET PO SCH (09:00)
[2022-03-16] MEDS ORDERED: HYDROCHLOROTHIAZIDE 25 MG TABLET PO SCH (09:00)
[2022-03-16] MEDS ORDERED: hydrALAZINE HCL IV 20 MG VIAL ONE (09:01)
[2022-03-16] MEDS ORDERED: hydrALAZINE HCL IV 20 MG VIAL IV STA (09:02)
--- NOTE | 2022-03-16 09:04 | NUR ---
LAC 20G IVP INFILTRATED. IV removed. Catheter intact and site benign. Pressure and 4x4 applied to site. No bleeding noted.
--- NOTE | 2022-03-16 09:27 | NUR ---
Note yuni in EDM - 03/16/22 at 0927 by KEVEN LAC 20G IVP INFILTRATED. IV removed. Catheter intact and site benign. Pressure and 4x4 applied to site. No bleeding noted.
--- NOTE | 2022-03-16 09:45 | NUR ---
AUDIT PARTNERMOBILE TESTER NOTES: RECEIVED PT FROM ER STAFF VIA GURNEY, PT WAS TRANSFERRED TO BED BY 4 STAFF. PT IS AWAKE, ALERT/ORIENTED X3, ABLE TO VERBALIZE NEEDS. ON 2 L OF O2 VIA NC WITH NO S/S OF SOB AND ACUTE DISTRESS AT THIS TIME. VITALS WNL, DENIES CHEST PAIN AT THIS TIME. IV ACCESS AT L AC #20 SL, PATENT AND INTACT. TELE MONITORS READS SR, HR- 75. SKIN ASSESSED, BLE DRESSING C/D/I, NOTED, SACRAL REDNESS NOTED. SKIN ISSUES DOCUMENTED IN CHART. ORIENTED PT TO UNIT AND STAFF, GIVEN CALL LIGHT. BELONGINGS CHECKED AND SIGNED AT BEDSIDE. SAFETY MEASURES IN PLACE, TABLE AND CALL LIGHT WITHIN REACH, WILL CONT WITH PLAN OF CARE DURING SHIFT.
[2022-03-16 10:40] VITALS: BP 156/78
[2022-03-16] MEDS: FERROUS SULFATE (325 MG) 325 MG/TAB TABLET PO SCH (11:13)
[2022-03-16] MEDS: ASCORBIC ACID 500 MG TABLET PO SCH (11:13)
[2022-03-16] MEDS: DOCUSATE SODIUM 100 MG CAPSULE PO SCH ×2 (11:13→21:33)
[2022-03-16] MEDS: ASPIRIN 81 MG TAB.CHEW PO SCH (11:13)
[2022-03-16] MEDS: CARVEDILOL 12.5 MG TABLET PO SCH ×2 (11:14→21:34)
[2022-03-16] MEDS: NIFEdipine XL (30MG) 30 MG TAB PO SCH (11:14)
[2022-03-16] MEDS: RANOLAZINE 500 MG TAB.ER.12H PO SCH ×2 (11:14→16:45)
[2022-03-16] MEDS: CHOLECALCIFEROL 1,000 UNIT TABLET (VIT D3) PO SCH (11:14)
[2022-03-16] MEDS: FAMOTIDINE (20 MG) 20 MG TABLET PO SCH (11:15)
[2022-03-16] MEDS: LOSARTAN POTASSIUM 50 MG TABLET PO SCH (11:15)
[2022-03-16] MEDS: FUROSEMIDE 100 MG/10 ML VIAL IV SCH ×3 (11:16→18:53)
[2022-03-16] MEDS: APIXABAN 5 MG TABLET PO SCH ×2 (11:19→16:47)
[2022-03-16] MEDS: hydrALAZINE HCL 50 MG TABLET PO SCH ×3 (11:22→16:45)
[2022-03-16 12:00] VITALS: BP 189/105
[2022-03-16] MEDS: INSULIN REGULAR, HUMAN 100 UNIT/ML 3 ML VIAL SQ PRN (12:07)
[2022-03-16] MEDS ORDERED: MAG HYDROX/AL HYDROX/SIMETH 30 ML UDC PO PRN (13:00)
[2022-03-16] MEDS: hydrALAZINE HCL IV 20 MG VIAL IV PRN (13:29)
[2022-03-16] MEDS: LORAZEPAM 1 MG TABLET PO PRN (14:10)
--- NOTE | 2022-03-16 14:10 | NUR ---
[employer] NOTES: PT ASKED FOR ATIVAN, WILL MEDICATED PER MD ORDER.
[2022-03-16] MEDS: BUMETANIDE (1 MG) 1 MG TABLET PO SCH (16:45)
--- NOTE | 2022-03-16 19:20 | NUR ---
FAST FOOD ATTENDANT OPENING NOTE RECEIVED PT AWAKE, RESTING IN BED. PT ALERT/ORIENTED X3, ABLE TO MAKE NEEDS KNOWN. ON 2 L OF O2 VIA NC. NO S/S OF SOB AND ACUTE DISTRESS NOTED. VITAL SIGNS WNL, DENIES CHEST PAIN AT THIS TIME. IV ACCESS TO LEFT AC #20 SL, PATENT AND INTACT. PT ON TELE MONITOR SR, WITH HR- 77. SAFETY MEASURES IN PLACE, BED LOCKED IN LOW POSITION, BED SIDE TABLE AND CALL LIGHT WITHIN REACH. WILL CONTINUE TO MONITOR PT.
[2022-03-16] MEDS: IPRATROPIUM NEB FS 0.5 MG/2.5 ML AMPUL.NEB NEB SCH (19:45)
[2022-03-16] MEDS: ALBUTEROL FS 2.5 MG/0.5 ML VIAL.NEB NEB SCH (19:45)
--- NOTE | 2022-03-16 19:49 | NUR ---
PUMP ERECTOR CLOSING NOTES: PT IS ASLEEP, EASILY ROUSED, ALERT/ORIENTED X3, ABLE TO VERBALIZE NEEDS. ON 2 L OF O2 VIA NC WITH NO S/S OF SOB AND ACUTE DISTRESS NOTED. VITALS WNL, DENIES CHEST PAIN AT THIS TIME. IV ACCESS AT L AC #20 SL, PATENT AND INTACT. TELE MONITOR READS SR, HR- 77. SKIN ASSESSED. BLE DRESSINGS CHANGED, FOAM DRESSING PLACE IN SACRAL AREA. DUE MEDS GIVEN, NEEDS MET, KEPT CLEAN, DRY AND COMFORTABLE. SAFETY MEASURES IN PLACE, TABLE AND CALL LIGHT WITHIN REACH, ENDORSED TO PM SHIFT.
[2022-03-16 20:00] VITALS: BP 158/79
[2022-03-16] MEDS: ATORVASTATIN 40 MG TABLET PO SCH ×2 (21:32→22:00)
[2022-03-16] MEDS: TRAZODONE 50 MG TABLET PO SCH (21:33)
[2022-03-16] MEDS: *INSULIN REGULAR(HUMULIN R)HUM 100 UNIT/ML VIAL SQ PRN (22:09)
--- NOTE | 2022-03-16 22:10 | NUR ---
HEALTH SERVICES RN NOTE PT REFUSES LIPITOR, AND INSULIN; PT'S BS: [id number]. PT IS EDUCATED ON ACTIONS OF THESE MEDS, AND ON IMPORTANCE OF TAKING LIPITOR, AND INSULIN. PT STILL DECLINES MEDS. SHE STATES THAT LIPITOR GIVES HER STOMACHACHE, AND HER BS IS NOT HIGH ENOUGH TO TAKE INSULIN.
[2022-03-17] VITALS: BP 151/64
[2022-03-17] MEDS: IPRATROPIUM NEB FS 0.5 MG/2.5 ML AMPUL.NEB NEB SCH ×4 (02:37→19:54)
[2022-03-17] MEDS: ALBUTEROL FS 2.5 MG/0.5 ML VIAL.NEB NEB SCH ×4 (02:37→19:54)
[2022-03-17 04:00] VITALS: BP 157/79
[2022-03-17 06:05] LABS: BASOPHILS % (AUTO) 0.7 % (0.0-2.0); EOSINOPHILS % (AUTO) 4.4 % (0.0-6.0); HEMATOCRIT 34 % (33-45); HEMOGLOBIN 11.3 g/dL (11.5-14.8); LYMPHOCYTES # (AUTO) 0.7 K/uL (0.8-4.8); LYMPHOCYTES % (AUTO) 20.6 % (20.0-44.0); MEAN CORPUSCULAR HGB CONC 33 g/dl (31.0-36.0); MEAN CORPUSCULAR VOLUME 95 fL (82-100); MONOCYTES # (AUTO) 0.3 K/uL (0.1-1.30); MONOCYTES % (AUTO) 7.5 % (2.0-12.0); NEUTROPHILS # (AUTO) 2.3 K/uL (1.8-8.9); NEUTROPHILS % (AUTO) 66.8 % (43.0-81.0); PLATELET COUNT (AUTO) 154 K/uL (150-450); RED BLOOD CELL COUNT(AUTO) 3.59 MIL/uL (4.0-5.2); WHITE BLOOD COUNT (AUTO) 3.4 K/uL (4.3-11.0)
[2022-03-17 06:21] LABS: ALANINE AMINOTRANSFERASE < 6 U/L (12-78); ALBUMIN 2.4 g/dL (3.4-5.0); ALKALINE PHOSPHATASE 116 U/L (46-116); ASPARTATE AMINOTRANSFERASE 17 U/L (15-37); BILIRUBIN,TOTAL 0.4 mg/dL (0.2-1.0); CALCIUM, SERUM 8.2 mg/dL (8.5-10.1); CARBON DIOXIDE 29 mmol/L (21-32); CHLORIDE 112 mmol/L (98-107); CREATININE 1.2 mg/dL (0.6-1.3); GLUCOSE 155 mg/dL (74-106); MAGNESIUM 2.3 mg/dL (1.8-2.4); PHOSPHORUS 3.6 mg/dL (2.5-4.9); POTASSIUM 4.1 mmol/L (3.5-5.1); SODIUM SERUM 145 mmol/L (136-145); TOTAL PROTEIN, SERUM 5.9 g/dL (6.4-8.2); UREA NITROGEN, BLOOD 34 mg/dL (7-18)
[2022-03-17 07:00] VITALS: BP 137/83
--- NOTE | 2022-03-17 07:02 | NUR ---
CALL CENTER REPRESENTATIVE CLOSING NOTES LEFT PT IN BED, AWAKE, ALERT/ORIENTED X3, ABLE TO VERBALIZE NEEDS. ON 2 L OF O2 VIA NC. NO S/S OF SOB, AND ACUTE DISTRESS NOTED. DENIES CHEST PAIN AT THIS TIME. IV ACCESS TO LEFT AC #20G SALINE LOCKED, PATENT AND INTACT. TELE MONITOR READS SR, HR- 74. MEDS GIVEN ON TIMELY MANNER, ALL NEEDS ATTENDED. SAFETY MEASURES IN PLACE, BED SIDE TABLE AND CALL LIGHT WITHIN REACH, BED IN LOW POSITION, SR UP X2. WILL ENDORSE TO AM SHIFT NURSE FOR OREN.
--- NOTE | 2022-03-17 07:30 | NUR ---
SALES ORDER CLERK NOTE PT REFUSED INSULIN, BS: 146.
[2022-03-17] MEDS: BLOOD SUGAR DIAGNOSTIC 1 EACH STRIP VI SCH ×4 (07:32→21:31)
[2022-03-17] MEDS: INSULIN REGULAR, HUMAN 100 UNIT/ML 3 ML VIAL SQ PRN ×2 (07:32→12:28)
--- NOTE | 2022-03-17 07:40 | NUR ---
DUPLICATING MACHINE MECHANIC OPENING NOTE PATIENT AWAKE, RESTING IN BED. PT ALERT/ORIENTED X3, ABLE TO MAKE NEEDS KNOWN. ON 2L OF O2 VIA NC. NO S/S OF SOB AND ACUTE DISTRESS NOTED. DENIES CHEST PAIN AT THIS TIME. IV ACCESS TO RIGHT AC #20 SL, PATENT AND INTACT. PT ON TELE MONITOR WITH SR READING. SAFETY PRECAUTIONS IN PLACE, BED LOCKED IN LOWEST POSITION, BED SIDE TABLE AND CALL LIGHT WITHIN REACH. WILL CONTINUE TO MONITOR AND ASSIST.
[2022-03-17] MEDS: ALLOPURINOL 100 MG TABLET PO SCH (08:40)
[2022-03-17] MEDS: RANOLAZINE 500 MG TAB.ER.12H PO SCH ×6 (08:41→17:00)
[2022-03-17] MEDS: DOCUSATE SODIUM 100 MG CAPSULE PO SCH ×2 (08:41→21:00)
[2022-03-17] MEDS: CHOLECALCIFEROL 1,000 UNIT TABLET (VIT D3) PO SCH (08:41)
[2022-03-17] MEDS: VALSARTAN 80 MG TABLET PO SCH (08:42)
[2022-03-17] MEDS: hydrALAZINE HCL 50 MG TABLET PO SCH ×3 (08:42→16:21)
[2022-03-17] MEDS: MAGNESIUM OXIDE 400 MG TABLET PO SCH (08:43)
[2022-03-17] MEDS: NIFEdipine XL (30MG) 30 MG TAB PO SCH (08:43)
[2022-03-17] MEDS: FERROUS SULFATE (325 MG) 325 MG/TAB TABLET PO SCH (08:44)
[2022-03-17] MEDS: BUMETANIDE (1 MG) 1 MG TABLET PO SCH (08:44)
[2022-03-17] MEDS: ASCORBIC ACID 500 MG TABLET PO SCH (08:44)
[2022-03-17] MEDS: LOSARTAN POTASSIUM 50 MG TABLET PO SCH (08:44)
[2022-03-17] MEDS: CARVEDILOL 12.5 MG TABLET PO SCH ×2 (08:44→21:00)
[2022-03-17] MEDS: ASPIRIN 81 MG TAB.CHEW PO SCH (08:45)
[2022-03-17] MEDS: APIXABAN 5 MG TABLET PO SCH ×3 (08:45→17:00)
[2022-03-17] MEDS: FAMOTIDINE (20 MG) 20 MG TABLET PO SCH (08:45)
[2022-03-17] MEDS: METOLAZONE 2.5 MG TABLET PO SCH (08:49)
[2022-03-17] MEDS ORDERED: hydrALAZINE HCL 50 MG TABLET PO SCH (10:00)
[2022-03-17] MEDS ORDERED: BUMETANIDE INJ 16 MG in IV NS 0.9% 16 ML IV ONE (10:00)
--- NOTE | 2022-03-17 10:11 | NUR ---
RN NOTE PT REFUSED HYDRALAZINE. EXPLAINED THE RISK AND BENEFITS. PATIENT STILL REFUSED. WILL CONTINUE TO MONITOR.
[2022-03-17 10:14] LABS: IRON, SERUM 33 ug/dl (50-175); TOTAL IRON BINDING CAPACITY 122 ug/dl (250-450)
--- NOTE | 2022-03-17 10:22 | NUR ---
RN NOTE FOLLOWED UP WITH PHARMACY FOR NITROGLYCERIN OINTMENT AND BUMEX IV. PER PHARMACY THEY WILL BRING IT UP
[2022-03-17 10:29] LABS: FERRITIN 241 ng/mL (8-388)
[2022-03-17] MEDS: NITROGLYCERIN 30 GM TUBE TP SCH ×2 (11:47→21:31)
[2022-03-17 12:00] VITALS: BP 161/85
--- NOTE | 2022-03-17 12:28 | NUR ---
RN NOTE PT REFUSED INSULIN. PT BLOOD GLUCOSE LEVEL 145. EXPLAINED RISK AND BENEFITS OF MEDICATION. PATIENT STILL REFUSING. CONTINUE TO MONITOR.
--- NOTE | 2022-03-17 13:57 | NUR ---
RN NOTE PT REFUSED RANOLAZINE ER SCHEDULED FOR 1330. EXPLAINED THE RISKS AND BENEFITS TO THE PATIENT. STILL REFUSING THE MED. CONTINUE TO MONITOR.
[2022-03-17] MEDS: ONDANSETRON HCL/PF 4 MG/2 ML VIAL IVP PRN (16:27)
--- NOTE | 2022-03-17 17:34 | NUR ---
RN NOTE PT REFUSED INSULIN PER SLIDING SCALE. PT BLOOD GLUCOSE LEVEL 148. EXPLAINED RISK AND BENEFITS OF MEDICATION. PATIENT STILL REFUSING. CONTINUE TO MONITOR.
--- NOTE | 2022-03-17 17:57 | NUR ---
RN NOTE PT REFUSED ELIQUIS AND RANOLAZINE. EXPLAINED THE RISKS AND BENEFITS TO THE PATIENT. STILL REFUSING THE MEDS. CONTINUE TO MONITOR.
[2022-03-17] MEDS: LORAZEPAM 1 MG TABLET PO PRN (18:01)
--- NOTE | 2022-03-17 18:35 | NUR ---
SUGAR CHIPPER MACHINE OPERATOR CLOSING NOTES: PT IS AWAKE IN BED, ALERT AND ORIENTED X3, ABLE TO VERBALIZE NEEDS. ON 2 L OF O2 VIA NC WITH NO S/S OF SOB AND ACUTE DISTRESS NOTED. DENIES CHEST PAIN AT THIS TIME. PT REFUSED HER MEDS. IV ACCESS AT R AC #20 SL, PATENT AND INTACT. TELE MONITOR READS SR WITHIN 70S. SKIN ASSESSED. ALL NEEDS ATTENDED TO.SAFETY PRECAUTIONS IN PLACE, BED LOCKED IN LOWEST POSITION, BED SIDE TABLE AND CALL LIGHT WITHIN REACH. WILL CONTINUE TO MONITOR AND ASSIST.
--- NOTE | 2022-03-17 19:07 | NUR ---
RN NOTE OFFERED TO WEIGHT THE PT ON WEIGHTING CHAIR, PT REFUSED STATED THAT SHE SCARED THAT SHE IS GOING TO FALL. ZEROED AN EMPTY BED AND MOVED PATIENT TO THE NEW BED. HER WEIGHT WAS 241 POUNDS.
--- NOTE | 2022-03-17 19:39 | NUR ---
DIRECTOR OF ACADEMIC OPENING NOTES: PT IS AWAKE IN BED, ALERT AND ORIENTED X3, ABLE TO VERBALIZE NEEDS. ON 2 L OF O2 VIA NC WITH NO S/S OF SOB AND ACUTE DISTRESS NOTED. DENIES CHEST PAIN AT THIS TIME. IV ACCESS AT RAC #20 SL, PATENT AND INTACT.TELE MONITOR READS SR WITHIN 70S. ALL NEEDS ATTENDED TO.SAFETY PRECAUTIONS IN PLACE, BED LOCKED IN LOWEST POSITION, BED SIDE TABLE AND CALL LIGHT WITHIN REACH.
[2022-03-17 20:28] VITALS: BP 125/66
[2022-03-17] MEDS: ATORVASTATIN 40 MG TABLET PO SCH (21:40)
[2022-03-17] MEDS: TRAZODONE 50 MG TABLET PO SCH (21:40)
--- NOTE | 2022-03-17 21:58 | NUR ---
RN NOTE PT REFUSED ALL PM MEDICATIONS EXCEPT FOR NITRO PATCH. RISK AND BENEFITS EXPLAINED X3 PT REFUSED X3. WHEN PT ASKED IF SHE WAS SURE SHE SAID' DOES IT LOOK LIKE IM SURE TO YOU ...YES I AM. NOW CAN YOU GIVE ME SOMETHING FOR MUSCLE PAIN" PRN MEDICATION WAS PROVIDED TOLERATED WELL.
[2022-03-17] MEDS: *INSULIN REGULAR(HUMULIN R)HUM 100 UNIT/ML VIAL SQ PRN (22:13)
[2022-03-17 23:49] VITALS: BP 117/61
[2022-03-18] MEDS: ALBUTEROL FS 2.5 MG/0.5 ML VIAL.NEB NEB SCH ×4 (01:56→19:56)
[2022-03-18] MEDS: IPRATROPIUM NEB FS 0.5 MG/2.5 ML AMPUL.NEB NEB SCH ×4 (01:56→19:56)
[2022-03-18 04:32] VITALS: BP 94/53
[2022-03-18 05:55] LABS: BASOPHILS % (AUTO) 0.5 % (0.0-2.0); HEMATOCRIT 35 % (33-45); HEMOGLOBIN 11.3 g/dL (11.5-14.8); LYMPHOCYTES # (AUTO) 0.7 K/uL (0.8-4.8); LYMPHOCYTES % (AUTO) 20.7 % (20.0-44.0); MEAN CORPUSCULAR HGB CONC 32 g/dl (31.0-36.0); MEAN CORPUSCULAR VOLUME 98 fL (82-100); MONOCYTES # (AUTO) 0.2 K/uL (0.1-1.30); MONOCYTES % (AUTO) 5.6 % (2.0-12.0); NEUTROPHILS # (AUTO) 2.4 K/uL (1.8-8.9); NEUTROPHILS % (AUTO) 71.2 % (43.0-81.0); PLATELET COUNT (AUTO) 193 K/uL (150-450); RED BLOOD CELL COUNT(AUTO) 3.63 MIL/uL (4.0-5.2); WHITE BLOOD COUNT (AUTO) 3.4 K/uL (4.3-11.0)
--- NOTE | 2022-03-18 06:52 | NUR ---
ADVANCED MANAGER CLOSING NOTES: PT IS AWAKE IN BED, ALERT AND ORIENTED X3, ABLE TO VERBALIZE NEEDS. ON 2 L OF O2 VIA NC WITH NO S/S OF SOB AND ACUTE DISTRESS NOTED. DENIES CHEST PAIN AT THIS TIME. IV ACCESS AT RAC #20 SL, PATENT AND INTACT.TELE MONITOR READS SR. ALL NEEDS ATTENDED TO.SAFETY PRECAUTIONS IN PLACE, BED LOCKED IN LOWEST POSITION, BED SIDE TABLE AND CALL LIGHT WITHIN REACH.
[2022-03-18] MEDS: BLOOD SUGAR DIAGNOSTIC 1 EACH STRIP VI SCH ×4 (07:02→21:06)
[2022-03-18] MEDS: INSULIN REGULAR, HUMAN 100 UNIT/ML 3 ML VIAL SQ PRN ×2 (07:03→11:37)
--- NOTE | 2022-03-18 07:23 | NUR ---
RN OPENING NOTE RECEIVED PATIENT IN BED , AWAKE, A/O X3, VERBALLY RESPONSIVE. NO SIGNS OF ACUTE DISTRESS NOTED. ON O2 @ 2LPM VIA N/C PRN. NO SOB NOTED, BREATHING EVEN AND UNLABORED. NO C/O PAIN AT THIS TIME. WITH IV ACCESS ON RIGHT ANTECUBITAL AREA #20G, INTACT AND PATENT, SALINE LOCKED. PUREWICK CATHETER IN PLACE TO WALL SUCTION. ON TELE MONITOR SHOWING SINUS RHYTHM, HE @ 81. SAFETY MEASURE IN PLACE. BED IN LOWEST AND LOCKED POSITION, SIDE RAILS UP X2, CALL LIGHT PLACED WITHIN EASY REACH. WILL CONTINUE TO MONITOR PATIENT.
[2022-03-18 08:28] VITALS: BP 134/70
[2022-03-18] MEDS: hydrALAZINE HCL 50 MG TABLET PO SCH ×3 (08:51→16:45)
[2022-03-18] MEDS: APIXABAN 5 MG TABLET PO SCH ×2 (08:52→16:47)
[2022-03-18] MEDS: FUROSEMIDE 100 MG/10 ML VIAL IV SCH ×3 (08:57→16:44)
[2022-03-18] MEDS: NITROGLYCERIN 30 GM TUBE TP SCH ×2 (08:58→21:05)
[2022-03-18] MEDS: DOCUSATE SODIUM 100 MG CAPSULE PO SCH ×2 (09:00→21:00)
[2022-03-18] MEDS: FAMOTIDINE (20 MG) 20 MG TABLET PO SCH (09:00)
[2022-03-18] MEDS: MAGNESIUM OXIDE 400 MG TABLET PO SCH (09:00)
[2022-03-18] MEDS: CARVEDILOL 12.5 MG TABLET PO SCH ×2 (09:00→21:00)
[2022-03-18] MEDS: CHOLECALCIFEROL 1,000 UNIT TABLET (VIT D3) PO SCH (09:00)
[2022-03-18] MEDS: FERROUS SULFATE (325 MG) 325 MG/TAB TABLET PO SCH (09:00)
[2022-03-18] MEDS: ASPIRIN 81 MG TAB.CHEW PO SCH (09:00)
[2022-03-18] MEDS: VALSARTAN 80 MG TABLET PO SCH (09:00)
[2022-03-18] MEDS: ALLOPURINOL 100 MG TABLET PO SCH (09:00)
[2022-03-18] MEDS: RANOLAZINE 500 MG TAB.ER.12H PO SCH ×2 (09:00→16:53)
[2022-03-18] MEDS: ASCORBIC ACID 500 MG TABLET PO SCH (09:00)
[2022-03-18 09:06] LABS: ALBUMIN 2.6 g/dL (3.4-5.0); BILIRUBIN,TOTAL 0.3 mg/dL (0.2-1.0); CREATININE 1.5 mg/dL (0.6-1.3); PHOSPHORUS 3.6 mg/dL (2.5-4.9); POTASSIUM 4.3 mmol/L (3.5-5.1); TOTAL PROTEIN, SERUM 6.3 g/dL (6.4-8.2)
[2022-03-18 09:24] LABS: MAGNESIUM 2.3 mg/dL (1.8-2.4)
--- NOTE | 2022-03-18 11:21 | NUR ---
WOUND CARE CONSULT: PT IN WITH PROVIDER AT BEDSIDE AT THIS TIME. REVIEWED CHART, NURSING DOCUMENTATION AND PHOTOS WHICH INDICATE LOWER EXTREMITY WOUND/DISCOLORATIONS AND SACRAL DEEP TISSUE INJURY, PRESENT ON ADMISSION. DR HESS AND DR BECERRA NOTIFIED OF SURGICAL AND DPM CONSULTS. RECOMMENDATIONS MADE FOR SKIN PROTECTION. DISCUSSED WITH NURSING STAFF. MD IN AGREEMENT WITH PLAN OF CARE.
[2022-03-18] MEDS ORDERED: Z GUARD REMEDY 4 OZ OINT TP PRN (11:30)
[2022-03-18] MEDS: Z GUARD REMEDY 4 OZ OINT TP SCH (13:30)
[2022-03-18 16:22] VITALS: BP 140/66
[2022-03-18] MEDS: ACETAMINOPHEN 325 MG TABLET PO PRN (16:44)
[2022-03-18] MEDS: POLYVINYL ALCOHOL 15 ML BOTTLE EACHEYE PRN (16:45)
--- NOTE | 2022-03-18 18:51 | NUR ---
RN CLOSING NOTE PATIENT IN BED , AWAKE, A/O X3, VERBALLY RESPONSIVE. NO SIGNS OF ACUTE DISTRESS NOTED. ON O2 @ 2LPM VIA N/C PRN. NO SOB NOTED, BREATHING EVEN AND UNLABORED. NO C/O PAIN AT THIS TIME. PATIENT NON-COMPLIANT WITH MEDICATIONS. WITH IV ACCESS ON RIGHT ANTECUBITAL AREA #20G, INTACT AND PATENT, SALINE LOCKED. PUREWICK CATHETER IN PLACE TO WALL SUCTION. ON TELE MONITOR SHOWING SINUS RHYTHM, HR @ 87. SAFETY MEASURE IN PLACE. BED IN LOWEST AND LOCKED POSITION, SIDE RAILS UP X2, CALL LIGHT PLACED WITHIN EASY REACH. WILL ENDORSE TO NEXT SHIFT FOR OREN.
--- NOTE | 2022-03-18 19:35 | NUR ---
RN OPENING NOTE PATIENT IN BED , AWAKE, A/O X3, VERBALLY RESPONSIVE. NO SIGNS OF ACUTE DISTRESS NOTED. ON O2 @ 2LPM VIA N/C PRN. NO SOB NOTED, BREATHING EVEN AND UNLABORED. NO C/O PAIN AT THIS TIME. WITH IV ACCESS ON RIGHT ANTECUBITAL AREA #20G, INTACT AND PATENT, SALINE LOCKED. PUREWICK CATHETER IN PLACE TO WALL SUCTION. ON TELE MONITOR SHOWING SINUS RHYTHM, HR @ 87. SAFETY MEASURE IN PLACE. BED IN LOWEST AND LOCKED POSITION, SIDE RAILS UP X2, CALL LIGHT PLACED WITHIN EASY REACH.
[2022-03-18 20:00] VITALS: BP 133/80
[2022-03-18] MEDS: ATORVASTATIN 40 MG TABLET PO SCH (21:06)
[2022-03-18] MEDS: TRAZODONE 50 MG TABLET PO SCH (21:06)
[2022-03-18] MEDS: *INSULIN REGULAR(HUMULIN R)HUM 100 UNIT/ML VIAL SQ PRN (21:10)
--- NOTE | 2022-03-18 21:51 | NUR ---
RN NOTE PT REFUSED PM MEDS ALL EXCEPT THE NITRO PATCH RISK AND BENEFITS EXPLAINED X3 PT REFUSED X3.
[2022-03-19] VITALS (7 sets, daily range): BP systolic 124–179; BP diastolic 79–90
[2022-03-19] MEDS: ALBUTEROL FS 2.5 MG/0.5 ML VIAL.NEB NEB SCH ×4 (01:30→19:30)
[2022-03-19] MEDS: IPRATROPIUM NEB FS 0.5 MG/2.5 ML AMPUL.NEB NEB SCH ×4 (01:30→19:53)
[2022-03-19] MEDS: hydrALAZINE HCL IV 20 MG VIAL IV PRN (04:31)
--- NOTE | 2022-03-19 04:35 | NUR ---
RN NOTE PRN BP MED GIVEN FOR SBP 172/83 TOLERATED WELL. Addendum: 03/19/22 at 0603 by PATTI JAY RN noted when education pt on why the prn was needed pt expressed she was confused why her blood pressure was so high reminded pt she had refused PM BP meds per pt " i don't remember that Im sure i took them" reoriented pt.
[2022-03-19 06:02] LABS: BASOPHILS % (AUTO) 0.5 % (0.0-2.0); EOSINOPHILS % (AUTO) 2.2 % (0.0-6.0); HEMATOCRIT 35 % (33-45); HEMOGLOBIN 11.2 g/dL (11.5-14.8); LYMPHOCYTES % (AUTO) 28.2 % (20.0-44.0); MEAN CORPUSCULAR HGB CONC 33 g/dl (31.0-36.0); MEAN CORPUSCULAR VOLUME 95 fL (82-100); MONOCYTES # (AUTO) 0.3 K/uL (0.1-1.30); MONOCYTES % (AUTO) 8.4 % (2.0-12.0); NEUTROPHILS # (AUTO) 2.1 K/uL (1.8-8.9); NEUTROPHILS % (AUTO) 60.7 % (43.0-81.0); PLATELET COUNT (AUTO) 160 K/uL (150-450); RED BLOOD CELL COUNT(AUTO) 3.63 MIL/uL (4.0-5.2); WHITE BLOOD COUNT (AUTO) 3.4 K/uL (4.3-11.0)
[2022-03-19] MEDS: INSULIN REGULAR, HUMAN 100 UNIT/ML 3 ML VIAL SQ PRN ×3 (06:08→17:47)
[2022-03-19] MEDS: BLOOD SUGAR DIAGNOSTIC 1 EACH STRIP VI SCH ×4 (06:30→23:36)
[2022-03-19 06:35] LABS: ALANINE AMINOTRANSFERASE < 6 U/L (12-78); ALBUMIN 2.6 g/dL (3.4-5.0); ALKALINE PHOSPHATASE 105 U/L (46-116); ASPARTATE AMINOTRANSFERASE 15 U/L (15-37); BILIRUBIN,TOTAL 0.5 mg/dL (0.2-1.0); CALCIUM, SERUM 8.4 mg/dL (8.5-10.1); CARBON DIOXIDE 30 mmol/L (21-32); CHLORIDE 110 mmol/L (98-107); CREATININE 1.6 mg/dL (0.6-1.3); GLUCOSE 109 mg/dL (74-106); MAGNESIUM 2.3 mg/dL (1.8-2.4); PHOSPHORUS 3.5 mg/dL (2.5-4.9); POTASSIUM 4.1 mmol/L (3.5-5.1); SODIUM SERUM 141 mmol/L (136-145); TOTAL PROTEIN, SERUM 6.3 g/dL (6.4-8.2); UREA NITROGEN, BLOOD 36 mg/dL (7-18)
--- NOTE | 2022-03-19 06:36 | NUR ---
RN CLOSING NOTE PATIENT IN BED, AWAKE, A/O X3, VERBALLY RESPONSIVE. NO SIGNS OF ACUTE DISTRESS NOTED. ON O2 @ 2LPM VIA N/C PRN. NO SOB NOTED, BREATHING EVEN AND UNLABORED. NO C/O PAIN AT THIS TIME. WITH IV ACCESS ON RIGHT ANTECUBITAL AREA #20G, INTACT AND PATENT, SALINE LOCKED. PUREWICK CATHETER IN PLACE TO WALL SUCTION WITH OUTPUT 900CC ON TELE MONITOR SHOWING SINUS RHYTHM, HR @ 87. SAFETY MEASURE IN PLACE. BED IN LOWEST AND LOCKED POSITION, SIDE RAILS UP X2, CALL LIGHT PLACED WITHIN EASY REACH. WILL ENDORSE TO DAY SHIFT NURSE.
--- NOTE | 2022-03-19 07:30 | NUR ---
ENGRAVER COPPERPLATE OPENING NOTES RECEIVED PATIENT ON BED AWAKE AND A/O X3. PATIENT IS VERBALLY RESPONSIVE. NO SIGNS OF ACUTE DISTRESS NOTED. ON O2 @ 2LPM VIA N/C TOLERATING WELL. NO SOB NOTED, BREATHING EVEN AND UNLABORED. WITH NO COMPLAINTS OF PAIN AT THIS TIME. WITH IV ACCESS ON RIGHT AC G20, INTACT AND PATENT, SALINE LOCKED. WITH PUREWICK CATHETER IN PLACED ATTACHED TO WALL SUCTION. ON TELE MONITOR CURRENTLY READING SINUS RHYTHM AT 82BPM. SAFETY MEASURE IN PLACE. BED IN LOWEST AND LOCKED POSITION, SIDE RAILS UP X2, CALL LIGHT PLACED WITHIN EASY REACH. WILL [id number] TO MONITOR.
[2022-03-19] MEDS: FERROUS SULFATE (325 MG) 325 MG/TAB TABLET PO SCH (09:00)
[2022-03-19] MEDS: FAMOTIDINE (20 MG) 20 MG TABLET PO SCH (09:00)
[2022-03-19] MEDS: ASCORBIC ACID 500 MG TABLET PO SCH (09:00)
[2022-03-19] MEDS: CHOLECALCIFEROL 1,000 UNIT TABLET (VIT D3) PO SCH (09:00)
[2022-03-19] MEDS: MAGNESIUM OXIDE 400 MG TABLET PO SCH (09:00)
[2022-03-19] MEDS: RANOLAZINE 500 MG TAB.ER.12H PO SCH ×2 (09:00→17:46)
[2022-03-19] MEDS: VALSARTAN 80 MG TABLET PO SCH ×2 (09:00→09:46)
[2022-03-19] MEDS: ALLOPURINOL 100 MG TABLET PO SCH ×2 (09:00→09:46)
[2022-03-19] MEDS: CARVEDILOL 12.5 MG TABLET PO SCH ×2 (09:45→22:15)
[2022-03-19] MEDS: hydrALAZINE HCL 50 MG TABLET PO SCH ×3 (09:46→17:45)
[2022-03-19] MEDS: ASPIRIN 81 MG TAB.CHEW PO SCH (09:46)
[2022-03-19] MEDS: APIXABAN 5 MG TABLET PO SCH ×2 (09:47→17:47)
[2022-03-19] MEDS: ONDANSETRON HCL/PF 4 MG/2 ML VIAL IVP PRN (09:48)
[2022-03-19] MEDS: oxyCODONE/APAP (5/325 MG) 1 UDTAB TABLET PO PRN (09:48)
[2022-03-19] MEDS: DOCUSATE SODIUM 100 MG CAPSULE PO SCH ×2 (09:57→21:59)
[2022-03-19] MEDS: NITROGLYCERIN 30 GM TUBE TP SCH ×2 (10:03→22:56)
[2022-03-19] MEDS: Z GUARD REMEDY 4 OZ OINT TP SCH (10:04)
--- NOTE | 2022-03-19 10:08 | NUR ---
WOUND CARE: PT SEEN FOR SKIN ASSESSMENT AND NOTED TO HAVE SACRAL INTACT DEEP TISSUE INJURY WELL SWELLING/DISCOLORATION AND PEELING SKIN TO LOWER EXTREMITIES, PRESENT ON ADMISSION. SURGICAL AND DPM CONSULTS ARE IN PLACE. RECOMMENDATIONS MADE FOR SKIN PROTECTION. DISCUSSED WITH NURSING STAFF. PT IS USING [employer] FOR URINARY INCONTINENCE. MD IN AGREEMENT WITH PLAN OF CARE. Addendum: 03/19/22 at 1010 by LEIF REED WNDNU Amended: Links added.
[2022-03-19] MEDS: LORAZEPAM 1 MG TABLET PO PRN (13:02)
--- NOTE | 2022-03-19 19:30 | NUR ---
GAME TESTER CLOSING NOTES PATIENT ON BED RESTING AND A/O X3. NO SIGNS OF ACUTE DISTRESS NOTED. ON O2 @ 2LPM VIA N/C TOLERATING WELL. NO SOB NOTED, BREATHING EVEN AND UNLABORED. WITH NO COMPLAINTS OF PAIN AT THIS TIME. WITH IV ACCESS ON RIGHT AC G20, INTACT AND PATENT, SALINE LOCKED. WITH PUREWICK CATHETER IN PLACED ATTACHED TO WALL SUCTION. ON TELE MONITOR CURRENTLY READING SINUS RHYTHM AT 85BPM. SAFETY MEASURE IN PLACE. BED IN LOWEST AND LOCKED POSITION, SIDE RAILS UP X2, CALL LIGHT PLACED WITHIN EASY REACH. WILL ENDORSE TO NEXT SHIFT FOR OREN.
--- NOTE | 2022-03-19 19:35 | NUR ---
INDUCTION FURNACE OPERATOR OPENING NOTE RECEIVED PATIENT IN BED; AWAKE, ALERT AND ORIENTED X 3; VERBALLY RESPONSIVE. ON O2 INHALATION @ 2LPM VIA NASAL CANNULA; TOLERATING WELL. IN NO SIGNS OF ACUTE DISTRESS NOTED. BREATHING EVEN AND NONLABORED. NO C/O ANY PAIN OR DISCOMFORT AT THIS TIME. ON TELEMETRY MONITORING WHICH READS SINUS RHYTHM HR-80 BPM. WITH IV ACCESS ON RIGHT ANTECUBITAL 20G; PATENT, INTACT AND SALINE LOCKED. ON PUREWICK CATHETER IN PLACE TO WALL SUCTION. SAFETY PRECAUTIONS IMPLEMENTED: CALL LIGHT AND TABLE WITHIN REACH, SIDE RAILS UP X 2, BED IN LOWEST LOCKED POSITION. WILL CONTINUE PLAN OF CARE
[2022-03-19] MEDS: ATORVASTATIN 40 MG TABLET PO SCH (22:00)
[2022-03-19] MEDS: TRAZODONE 50 MG TABLET PO SCH (22:00)
--- NOTE | 2022-03-19 22:15 | NUR ---
RN NOTE PATIENT REFUSED PM MEDS ALL EXCEPT NITRO PATCH AND COREG. BENEFITS AND RISKS EXPLAINED X 3, PATIENT REFUSED X3.
[2022-03-20] VITALS: BP 158/79
[2022-03-20] MEDS: ALBUTEROL FS 2.5 MG/0.5 ML VIAL.NEB NEB SCH (01:30)
[2022-03-20] MEDS: IPRATROPIUM NEB FS 0.5 MG/2.5 ML AMPUL.NEB NEB SCH ×5 (01:30→20:12)
[2022-03-20] MEDS ORDERED: LEVALBUTEROL HCL NEB 1.25 MG/0.5 ML VIAL.NEB NEB PRN (04:30)
[2022-03-20] MEDS: BLOOD SUGAR DIAGNOSTIC 1 EACH STRIP VI SCH ×4 (06:08→22:00)
[2022-03-20 06:12] LABS: BASOPHILS % (AUTO) 0.5 % (0.0-2.0); EOSINOPHILS % (AUTO) 2.8 % (0.0-6.0); HEMATOCRIT 35 % (33-45); HEMOGLOBIN 11.3 g/dL (11.5-14.8); LYMPHOCYTES # (AUTO) 0.9 K/uL (0.8-4.8); LYMPHOCYTES % (AUTO) 22.8 % (20.0-44.0); MEAN CORPUSCULAR HGB CONC 33 g/dl (31.0-36.0); MEAN CORPUSCULAR VOLUME 95 fL (82-100); MONOCYTES # (AUTO) 0.3 K/uL (0.1-1.30); MONOCYTES % (AUTO) 7.9 % (2.0-12.0); NEUTROPHILS # (AUTO) 2.5 K/uL (1.8-8.9); PLATELET COUNT (AUTO) 159 K/uL (150-450); RED BLOOD CELL COUNT(AUTO) 3.63 MIL/uL (4.0-5.2); WHITE BLOOD COUNT (AUTO) 3.8 K/uL (4.3-11.0)
[2022-03-20 06:20] LABS: CALCIUM, SERUM 7.7 mg/dL (8.5-10.1); CREATININE 1.4 mg/dL (0.6-1.3); MAGNESIUM 2.1 mg/dL (1.8-2.4); PHOSPHORUS 3.7 mg/dL (2.5-4.9); POTASSIUM 4.1 mmol/L (3.5-5.1)
[2022-03-20] MEDS: INSULIN REGULAR, HUMAN 100 UNIT/ML 3 ML VIAL SQ PRN (06:43)
--- NOTE | 2022-03-20 06:45 | NUR ---
TRENCH PIPE LAYER HELPER CLOSING NOTE PT IN BED; AWAKE, A /O X 3; VERBALLY RESPONSIVE. ON O2 INHALATION @ 2LPM VIA NASAL CANNULA; TOLERATING WELL. IN NO APPARENT DISTRESS NOTED. BREATHING EQUAL AND UNLABORED. NO C/O ANY PAIN OR DISCOMFORT AT THIS TIME. ON TELEMETRY MONITORING WHICH READS SINUS RHYTHM HR-87 BPM. WITH IV ACCESS ON RIGHT ANTECUBITAL 20G; PATENT, INTACT AND SALINE LOCKED. WITH PUREWICK CATHETER IN PLACE TO WALL SUCTION. SAFETY PRECAUTIONS MAINTAINED: CALL LIGHT AND TABLE WITHIN REACH, SIDE RAILS UP X 2, BED IN LOWEST LOCKED POSITION. ENDORSED TO MORNING SHIFT FOR OREN.
--- NOTE | 2022-03-20 07:06 | NUR ---
TOP CASE ASSEMBLER OPENING NOTES PATIENT IN BED RESTING, A/Ox3 ABLE TO MAKE NEEDS KNOWN. ON 2L OF O2 VIA NC, NO S/S OF SOB OR RESPIRATORY DISTRESS. PATIENT IS ON TELE MONITORING SHOWING SR, HR 90. NO C/O OF PAIN OR DISCOMFORT. IV ACCESS R AC #20 G S/L. INTACT AND PATENT. NO S/S OF INFILTRATION. PATIENT IS AMBULATORY WITH ASSIST, HAS BATHROOM PRIVILEGES. SKIN BILATERAL LOWER EXTREMITY DRY SKIN AND SACRAL REDNESS. SAFETY MEASURES IN PLACE: BED LOCKED AND IN LOWEST POSITION, SIDE RAILS UPx2, CALL LIGHT WITHIN REACH, HOB ELEVATED. WILL CONTINUE TO MONITOR.
[2022-03-20] MEDS: LEVALBUTEROL HCL NEB 1.25 MG/0.5 ML VIAL.NEB NEB SCH ×4 (07:24→20:12)
[2022-03-20 08:00] VITALS: BP 179/89
[2022-03-20] MEDS: CARVEDILOL 12.5 MG TABLET PO SCH ×2 (08:55→21:09)
[2022-03-20] MEDS: hydrALAZINE HCL 50 MG TABLET PO SCH ×3 (08:55→16:58)
[2022-03-20] MEDS: FUROSEMIDE 100 MG/10 ML VIAL IV SCH ×3 (08:56→16:57)
[2022-03-20] MEDS: APIXABAN 5 MG TABLET PO SCH ×2 (08:57→16:57)
[2022-03-20] MEDS: VALSARTAN 80 MG TABLET PO SCH (08:57)
[2022-03-20] MEDS: ASCORBIC ACID 500 MG TABLET PO SCH (09:00)
[2022-03-20] MEDS: FAMOTIDINE (20 MG) 20 MG TABLET PO SCH (09:00)
[2022-03-20] MEDS: CHOLECALCIFEROL 1,000 UNIT TABLET (VIT D3) PO SCH (09:00)
[2022-03-20] MEDS: ALLOPURINOL 100 MG TABLET PO SCH (09:00)
[2022-03-20] MEDS: MAGNESIUM OXIDE 400 MG TABLET PO SCH (09:00)
[2022-03-20] MEDS: DOCUSATE SODIUM 100 MG CAPSULE PO SCH ×2 (09:00→21:09)
[2022-03-20] MEDS: FERROUS SULFATE (325 MG) 325 MG/TAB TABLET PO SCH (09:00)
[2022-03-20] MEDS: RANOLAZINE 500 MG TAB.ER.12H PO SCH ×2 (09:00→16:57)
[2022-03-20] MEDS: ASPIRIN 81 MG TAB.CHEW PO SCH (09:00)
[2022-03-20] MEDS: LORAZEPAM 1 MG TABLET PO PRN (09:05)
[2022-03-20] MEDS: NITROGLYCERIN 30 GM TUBE TP SCH ×2 (09:17→21:10)
[2022-03-20] MEDS: Z GUARD REMEDY 4 OZ OINT TP SCH (09:17)
--- NOTE | 2022-03-20 09:30 | NUR ---
RN NOTES PATIENT WANTED HER LORAZEPAM, PRN LORAZEPAM ADMINISTERED. WILL CONTINUE TO MONITOR.
[2022-03-20 12:00] VITALS: BP 151/73
[2022-03-20 16:00] VITALS: BP 152/82
--- NOTE | 2022-03-20 17:07 | NUR ---
RN NOTES PATIENT BLOOD SUGAR 152, PATIENT REFUSED INSULIN COVERAGE
--- NOTE | 2022-03-20 18:47 | NUR ---
SQUARE DANCE CALLER CLOSING NOTES PATIENT IN BED RESTING, A/Ox3 ABLE TO MAKE NEEDS KNOWN. STABLE ON 2L OF O2 VIA NC, NO S/S OF SOB OR RESPIRATORY DISTRESS. PATIENT IS ON TELE MONITORING SHOWING SR, HR 90. NO C/O OF PAIN OR DISCOMFORT. IV ACCESS R AC #20 G S/L. INTACT AND PATENT. NO S/S OF INFILTRATION. PATIENT IS AMBULATORY WITH ASSIST, HAS BATHROOM PRIVILEGES. SKIN BILATERAL LOWER EXTREMITY DRY SKIN AND SACRAL REDNESS. ALL PRESCRIBED MEDICATION ADMINISTERED. SAFETY MEASURES MAINTAINED: BED LOCKED AND IN LOWEST POSITION, SIDE RAILS UPx2, CALL LIGHT WITHIN REACH, HOB ELEVATED. WILL ENDORSE TO NEXT SHIFT ANY OREN.
--- NOTE | 2022-03-20 19:46 | NUR ---
MEDICAL RECORD LIBRARIANS TEACHER OPENING NOTES: RECEIVED PATIENT SLEEP IN BED COMFORTABLY, AROUSABLE TO VERBAL STIMULI, BED IN LOW POSITION CALL LIGHTS WITHIN REACH, NO COMPLAIN OF PAIN AND DISCOMFORT AT THIS TIME, ON O2 INAHALTION AT 2LPM SATURATING WELL, PATIENT IS A/OX3 ABLE TO MAKE NEEDS KNOWN, ON PUREWICK, ON TELE MONITOR- SR-83, NO COMPLAIN OF PAIN, PATIENT KEPT CLEAN AND DRY ALL NEEDS MET WILL CONTINUE TO MONITOR.
[2022-03-20 20:00] VITALS: BP 163/83
--- NOTE | 2022-03-20 21:26 | NUR ---
RN NOTES: PATIENT REFUSED TO TAKE NIGHT MEDICATIONS, ATORVASTATIN, 40MG, TRAZADONE 25MG AND COLACE 100MG, EXPLAIN THE MEDICATION AND ITS PURPOSE, ITS RISK AND BENEFITS OF NOT TAKING BUT PATIENT STRONGLY REFUSED.
[2022-03-20] MEDS ORDERED: KETOROLAC TROMETHAMINE INJ 30 MG/ML VIAL ONE (21:30)
[2022-03-20] MEDS: ATORVASTATIN 40 MG TABLET PO SCH (22:00)
[2022-03-20] MEDS: TRAZODONE 50 MG TABLET PO SCH (22:00)
--- NOTE | 2022-03-20 22:01 | NUR ---
RN NOTES: PATIENT REFUSED TO TAKE THE 10PM MEDICATION
--- NOTE | 2022-03-20 22:31 | NUR ---
RN NOTES: BLOOD SUGAR-161/ 3 UNIT INSULIN PER SLIDING SCALE, PATIENT REFUSE INSULIN EXPLAIN RISK AND BENEFITS BUT PATIENT REFUSED, NO INSULIN GIVEN, CONTINUE TO MONITOR.
[2022-03-21] MEDS: LEVALBUTEROL HCL NEB 1.25 MG/0.5 ML VIAL.NEB NEB SCH ×4 (01:25→19:30)
[2022-03-21] MEDS: IPRATROPIUM NEB FS 0.5 MG/2.5 ML AMPUL.NEB NEB SCH ×4 (01:25→19:30)
[2022-03-21 05:52] LABS: BASOPHILS % (AUTO) 0.8 % (0.0-2.0); EOSINOPHILS % (AUTO) 2.3 % (0.0-6.0); HEMATOCRIT 34 % (33-45); LYMPHOCYTES # (AUTO) 1.1 K/uL (0.8-4.8); LYMPHOCYTES % (AUTO) 26.5 % (20.0-44.0); MEAN CORPUSCULAR HGB CONC 33 g/dl (31.0-36.0); MEAN CORPUSCULAR VOLUME 96 fL (82-100); MONOCYTES # (AUTO) 0.3 K/uL (0.1-1.30); MONOCYTES % (AUTO) 8.2 % (2.0-12.0); NEUTROPHILS # (AUTO) 2.5 K/uL (1.8-8.9); NEUTROPHILS % (AUTO) 62.2 % (43.0-81.0); PLATELET COUNT (AUTO) 142 K/uL (150-450); RED BLOOD CELL COUNT(AUTO) 3.48 MIL/uL (4.0-5.2)
--- NOTE | 2022-03-21 06:19 | NUR ---
MS RN CLOSING NOTES: PATIENT SLEEP IN BED COMFORTABLY, AROUSABLE TO VERBAL STIMULI, BED IN LOW POSITION CALL LIGHTS WITHIN REACH, NO COMPLAIN OF PAIN AND DISCOMFORT AT THIS TIME, ON O2 INHALATION AT 2LPM SATURATING WELL. ON TELE [id number], PATIENT ON PUREWICK WITH 800CC URINE OUTPUT, PATIENT KEPT CLEAN AND DRY ALL NEEDS MET ENDORSE TO INCOMING SHIFT,
[2022-03-21] MEDS: BLOOD SUGAR DIAGNOSTIC 1 EACH STRIP VI SCH ×4 (06:23→22:40)
[2022-03-21 06:29] LABS: CREATININE 1.5 mg/dL (0.6-1.3); MAGNESIUM 2.1 mg/dL (1.8-2.4); PHOSPHORUS 3.6 mg/dL (2.5-4.9)
--- NOTE | 2022-03-21 07:43 | NUR ---
SERVICE COUNTER CASHIER OPENING NOTES: RECEIVED PATIENT AWAKE, ALERT AND VERBALLY RESPONSIVE, NO SOB NOTED, RESPIRATION EVEN AND UNLABORED, NOT IN DISTRESS, DENIES ANY PAIN. ON 02 VIA NC @2LPM, TOLERATING WELL.PATIENT IS A/OX3 ABLE TO MAKE NEEDS KNOWN, ON PUREWICK, NOTED INTACT. ON TELE MONITOR WITH SR HR 82. NOTED WITH PIV AT RIGHT AC, INTACT. BED IN LOWEST POSITION. SAFETY MEASURES IN PLACED. CALL LIGHT WITHIN REACH. WILL CONTINUE PLAN OF CARE.
[2022-03-21 08:00] VITALS: BP 179/89
[2022-03-21 08:21] VITALS: BP 172/93
[2022-03-21] MEDS: DOCUSATE SODIUM 100 MG CAPSULE PO SCH ×2 (09:46→21:00)
[2022-03-21] MEDS: ALLOPURINOL 100 MG TABLET PO SCH (09:46)
[2022-03-21] MEDS: CHOLECALCIFEROL 1,000 UNIT TABLET (VIT D3) PO SCH (09:46)
[2022-03-21] MEDS: ASCORBIC ACID 500 MG TABLET PO SCH (09:46)
[2022-03-21] MEDS: RANOLAZINE 500 MG TAB.ER.12H PO SCH ×2 (09:46→16:53)
[2022-03-21] MEDS: FERROUS SULFATE (325 MG) 325 MG/TAB TABLET PO SCH (09:46)
[2022-03-21] MEDS: MAGNESIUM OXIDE 400 MG TABLET PO SCH (09:46)
[2022-03-21] MEDS: CARVEDILOL 12.5 MG TABLET PO SCH ×2 (09:47→22:08)
[2022-03-21] MEDS: VALSARTAN 80 MG TABLET PO SCH (09:47)
[2022-03-21] MEDS: FAMOTIDINE (20 MG) 20 MG TABLET PO SCH (09:47)
[2022-03-21] MEDS: ASPIRIN 81 MG TAB.CHEW PO SCH (09:47)
[2022-03-21] MEDS: NITROGLYCERIN 30 GM TUBE TP SCH ×2 (09:48→22:08)
[2022-03-21] MEDS: Z GUARD REMEDY 4 OZ OINT TP SCH (09:49)
[2022-03-21] MEDS: hydrALAZINE HCL 50 MG TABLET PO SCH ×3 (09:54→17:07)
[2022-03-21] MEDS: METOLAZONE 2.5 MG TABLET PO SCH (09:54)
[2022-03-21] MEDS: APIXABAN 5 MG TABLET PO SCH ×2 (09:55→16:54)
[2022-03-21] MEDS ORDERED: BUMETANIDE INJ 16 MG in IV NS 0.9% 16 ML IV ONE (10:00)
[2022-03-21] MEDS: ONDANSETRON HCL/PF 4 MG/2 ML VIAL IVP PRN (10:20)
--- NOTE | 2022-03-21 11:40 | NUR ---
TEMPLATE CHECKER NOTES SUGAR 124MG.DL, NO INSULIN VIA SLIDING SCALE GIVEN. WILL CONTINUE PLAN OF CARE.
[2022-03-21 12:00] VITALS: BP 141/71
--- NOTE | 2022-03-21 12:51 | NUR ---
ENVIRONMENTAL RESOURCE SPECIALIST NOTES NOTED BP @0800H 179/89, ROUTINE BLOOD PRESSURE MEDICATION GIVEN. RECHECKED BP IN 1 HR. 155/75, DENIES ANY CHESTPAIN, NOT IN DISTRESS, WILL CONTINUE PLAN OF CARE.
[2022-03-21] MEDS: METOCLOPRAMIDE HCL 10 MG TABLET PO PRN (15:42)
[2022-03-21 16:00] VITALS: BP 160/90
[2022-03-21 16:44] VITALS: BP 160/92
[2022-03-21] MEDS: ACETAMINOPHEN 325 MG TABLET PO PRN (17:58)
[2022-03-21] MEDS: INSULIN REGULAR, HUMAN 100 UNIT/ML 3 ML VIAL SQ PRN (18:00)
--- NOTE | 2022-03-21 18:26 | NUR ---
DEPENDENCY COUNSELOR CLOSING NOTES: PATIENT AWAKE, ALERT AND VERBALLY RESPONSIVE, NO SOB NOTED, RESPIRATION EVEN AND UNLABORED, NOT IN DISTRESS, DENIES ANY PAIN. PATIENT ON RA, TOLERATING WELL, NO SOB NOTED, RESPIRATION EVEN AND UNLABORED, NOT IN DISTRESS. PATIENT IS A/OX3 ABLE TO MAKE NEEDS KNOWN, ON PUREWICK, NOTED INTACT, WITH 1100ML, CLEAR YELLOW URINE OUTPUT. ON TELE MONITOR WITH SR WITH PAC'S, HR 85. NOTED WITH PIV AT RIGHT AC, PATENT AND INTACT, WITH BUMEX RUNNING ORDERED. BED IN LOWEST POSITION. SAFETY MEASURES IN PLACED. CALL LIGHT WITHIN REACH. WILL ENDORSE TO NIGHT NURSE FOR OREN. Addendum: 03/21/22 at 1930 by EFRAIN OGLESBY RN NOTED LEFT UPPER ARM SKIN TEAR, WOUND CARE CONSULT PLACED. ENDORSED TO SURGICAL RESIDENT NURSE
[2022-03-21 20:00] VITALS: BP 160/85
--- NOTE | 2022-03-21 20:24 | NUR ---
SOD CUTTER OPENING NOTES: RECEIVED PATIENT AWAKE IN BED ACCOMPANIED BY FAMILY, BED IN LOW POSITION CALL LIGHTS WITHIN REACH, NO COMPLAIN OF PAIN AND DISCOMFORT AT THIS TIME ON ROOM AIR SATURATING WELL, PATIENT ON PUREWICK, WITH 50CC URINE OUTPUT, IV LINE AT RAC#20SL, ON TELE MONITOR- SR-83 NO SYMPTOMS WAS OBSERVED, PATIENT KEPT CLEAN AND DRY ALL NEEDS MET WILL CONTINUE TO MONITOR.
[2022-03-21] MEDS: ATORVASTATIN 40 MG TABLET PO SCH (22:00)
[2022-03-21] MEDS: LORAZEPAM 1 MG TABLET PO PRN (22:25)
[2022-03-21] MEDS: TRAZODONE 50 MG TABLET PO SCH (22:27)
--- NOTE | 2022-03-21 22:28 | NUR ---
RN NOTES: MEDICATIONS: COLACE 100MG, ATORVASTATIN 40MG AND TRAZADONE 25MG( 1/2 TABLET) MEDICATION WERE REFUSED BY PATIENT EXPLAIN PURPOSE OF EACH ONE STILL PATIENT REFUSED, PATIENT HAS HX OF BEING PICKY WHEN IT COMES TO HER MEDICATION EXPLAIN RISK AND BENEFITS, PATIENT STILL REFUSING,
[2022-03-21] MEDS: *INSULIN REGULAR(HUMULIN R)HUM 100 UNIT/ML VIAL SQ PRN (22:38)
[2022-03-22] VITALS (8 sets, daily range): BP systolic 147–169; BP diastolic 73–93
[2022-03-22] MEDS: IPRATROPIUM NEB FS 0.5 MG/2.5 ML AMPUL.NEB NEB SCH ×4 (01:30→19:45)
[2022-03-22] MEDS: LEVALBUTEROL HCL NEB 1.25 MG/0.5 ML VIAL.NEB NEB SCH ×4 (01:30→19:45)
--- NOTE | 2022-03-22 05:24 | NUR ---
RN NOTES: PATIENT REFUSED V/S TAKEN AT 0000 AND 0400.
[2022-03-22 06:04] LABS: BASOPHILS % (AUTO) 0.6 % (0.0-2.0); EOSINOPHILS % (AUTO) 2.5 % (0.0-6.0); HEMATOCRIT 35 % (33-45); HEMOGLOBIN 11.3 g/dL (11.5-14.8); LYMPHOCYTES % (AUTO) 30.5 % (20.0-44.0); MEAN CORPUSCULAR HGB CONC 32 g/dl (31.0-36.0); MEAN CORPUSCULAR VOLUME 99 fL (82-100); MONOCYTES # (AUTO) 0.3 K/uL (0.1-1.30); MONOCYTES % (AUTO) 8.7 % (2.0-12.0); NEUTROPHILS # (AUTO) 1.9 K/uL (1.8-8.9); NEUTROPHILS % (AUTO) 57.7 % (43.0-81.0); PLATELET COUNT (AUTO) 143 K/uL (150-450); RED BLOOD CELL COUNT(AUTO) 3.56 MIL/uL (4.0-5.2); WHITE BLOOD COUNT (AUTO) 3.3 K/uL (4.3-11.0)
--- NOTE | 2022-03-22 06:32 | NUR ---
PROJECT TECHNICIAN CLOSING NOTES: PATIENT AWAKE IN BED, BED IN LOW POSITION CALL LIGHTS WITHIN REACH, NO COMPLAIN OF PAIN AND DISCOMFORT AT THIS TIME, PATIENT IS A/OX3-4 ABLE TO EXPRESS NEEDS, ON TELE MONITOR- SR-81, NO SYMPTOMS WAS OBSERVED, ON PUREWICK WITH 900CC URINE OUTPUT, PATIENT KEPT CLEAN AND DRY ALL NEEDS MET ENDORSE TO INCOMING SHIFT.
--- NOTE | 2022-03-22 06:32 | NUR ---
RN NOTES; BLOOD SUGAR-120/ NO INSULIN GIVEN PER SLIDING SCALE,
[2022-03-22 06:34] LABS: BILIRUBIN,TOTAL 0.6 mg/dL (0.2-1.0); CREATININE 1.5 mg/dL (0.6-1.3); PHOSPHORUS 3.6 mg/dL (2.5-4.9); POTASSIUM 4.7 mmol/L (3.5-5.1); TOTAL PROTEIN, SERUM 5.9 g/dL (6.4-8.2)
[2022-03-22] MEDS: BLOOD SUGAR DIAGNOSTIC 1 EACH STRIP VI SCH ×4 (06:39→23:07)
[2022-03-22 07:15] LABS: CALCIUM, SERUM 8.1 mg/dL (8.5-10.1)
--- NOTE | 2022-03-22 07:30 | NUR ---
RN NOTE RECEIVED PATIENT IN BED RESTING ALERT ORIENTED X3 VERBALLY RESPONSIVE ON 2L OXYGEN VIA NASAL CANNULA,O2:95% IV SITE IS ON RIGHT AC INTACT PATENT INCONTINENT BOWEL/BLADDER,SAFETY MEASURE IMPLEMENT BED IN LOW POSITION AND LOCKED CALL LIGHT WITH REACH, HEAD OF THE BED ELEVATED CONTINUE TO MONITOR.
[2022-03-22] MEDS ORDERED: BUMETANIDE INJ 16 MG in IV NS 0.9% 16 ML IV ONE (09:00)
[2022-03-22] MEDS: RANOLAZINE 500 MG TAB.ER.12H PO SCH ×3 (09:00→17:27)
[2022-03-22] MEDS: DOCUSATE SODIUM 100 MG CAPSULE PO SCH ×2 (09:00→22:05)
[2022-03-22] MEDS: CARVEDILOL 12.5 MG TABLET PO SCH ×3 (09:00→22:06)
[2022-03-22] MEDS: ASPIRIN 81 MG TAB.CHEW PO SCH ×2 (09:00→09:19)
[2022-03-22] MEDS: FAMOTIDINE (20 MG) 20 MG TABLET PO SCH ×2 (09:00→09:20)
[2022-03-22] MEDS: CHOLECALCIFEROL 1,000 UNIT TABLET (VIT D3) PO SCH ×2 (09:00→09:19)
[2022-03-22] MEDS: ALLOPURINOL 100 MG TABLET PO SCH ×2 (09:00→09:20)
[2022-03-22] MEDS: ASCORBIC ACID 500 MG TABLET PO SCH ×2 (09:00→09:19)
[2022-03-22] MEDS: METOLAZONE 2.5 MG TABLET PO SCH ×2 (09:00→09:29)
[2022-03-22] MEDS: VALSARTAN 80 MG TABLET PO SCH (09:19)
[2022-03-22] MEDS: MAGNESIUM OXIDE 400 MG TABLET PO SCH (09:19)
[2022-03-22] MEDS: FERROUS SULFATE (325 MG) 325 MG/TAB TABLET PO SCH (09:20)
[2022-03-22] MEDS: hydrALAZINE HCL 50 MG TABLET PO SCH ×3 (09:21→17:36)
[2022-03-22] MEDS: APIXABAN 5 MG TABLET PO SCH ×2 (09:21→17:28)
[2022-03-22] MEDS: Z GUARD REMEDY 4 OZ OINT TP SCH (09:23)
[2022-03-22] MEDS: NITROGLYCERIN 30 GM TUBE TP SCH ×2 (09:28→22:06)
--- NOTE | 2022-03-22 10:04 | NUR ---
WOUND CARE CONSULT: PT SEEN FOR LEFT UPPER ARM DRY SKIN TEAR WHICH PT STATES WAS FROM PREVIOUS TAPE. RECOMMENDATIONS MADE FOR SKIN PROTECTION (USE FOAM DRESSING) AND DISCUSSED WITH NURSING STAFF. MD IN AGREEMENT WITH PLAN OF CARE.
[2022-03-22] MEDS: INSULIN REGULAR, HUMAN 100 UNIT/ML 3 ML VIAL SQ PRN ×2 (12:51→17:27)
--- NOTE | 2022-03-22 18:34 | NUR ---
RN NOTE PATIENT REMAINS ALERT ORIENTED X3 VERBALLY RESPONSIVE NO SOB NOT ACUTE DISTRESS NOTED,ON 2L OXYGEN VIA NASAL CANNULA,O2:95% ALL DUE MEDS GIVEN MD ORDERED SOME MEDS PATIENT REFUSED BY CHOICES,KEPT CLEAN AND DRY ALL THE TIME,ALL NEEDS MET ENDORSE NEXT COMING SHIFT FOR CONTINUATION OF CARE.
--- NOTE | 2022-03-22 19:15 | NUR ---
RAMP LEAD OPENING NOTES RECEIVED PT AWAKE IN BED, WATCHING TV AT THIS TIME. A/O X3, COOPERATIVE. ON RA WITH NO S/S OF SOB OR LABORED BREATHING. DENIES PAIN AT THIS TIME. ON TELE MONITOR SHOWING SR 84. IV RAC #20G PATENT AND INTACT, RUNNING BUMEX 15MG @ 10 ML/HR AT THIS TIME. ON PUREWICK WITH 250CC URINE OUTPUT NOTED. SAFETY PRECAUTIONS IN PLACE: BED LOCKED AND IN LOW POSITION, SIDE RAILS UP X3, CALL LIGHT AND TRAY TABLE WITHIN REACH. WILL CONTINUE TO MONITOR AND ASSIST.
[2022-03-22] MEDS: TRAZODONE 50 MG TABLET PO SCH (22:00)
[2022-03-22] MEDS: ATORVASTATIN 40 MG TABLET PO SCH (22:00)
--- NOTE | 2022-03-22 22:00 | NUR ---
RN NOTE PT REFUSED PRESCRIBED MEDICATIONS: DESYREL 25MG, LIPITOR 40MG. PT STATES "I DONT TAKE THEM ANYMORE". EXPLAINED TO PT THAT IT IS PRESCRIBED AND RISKS OF NOT TAKING MEDICATIONS. PT VERBALIZED UNDERSTANDING. WILL CONTINUE TO MONITOR.
[2022-03-22] MEDS: LORAZEPAM 1 MG TABLET PO PRN (22:06)
--- NOTE | 2022-03-22 22:47 | NUR ---
RN NOTE PT BLOOD SUGAR READ AT 132. PT REFUSED INSULIN COVERAGE AFTER SEEING BLOOD SUGAR READING, STATING "I DONT NEED IT". WILL CONTINUE TO MONITOR.
[2022-03-22] MEDS: *INSULIN REGULAR(HUMULIN R)HUM 100 UNIT/ML VIAL SQ PRN (23:08)
[2022-03-23] MEDS: hydrALAZINE HCL IV 20 MG VIAL IV PRN (00:10)
--- NOTE | 2022-03-23 00:18 | NUR ---
RN NOTE PT BP READ 171/105 @ 2332. PT DENIES PAIN AT THIS TIME. PT PROVIDED PRESCRIBED PRN HYDRALAZINE IV 10MG/0.5ML. WILL REASSESS BP IN 1 HR.
[2022-03-23] MEDS: IPRATROPIUM NEB FS 0.5 MG/2.5 ML AMPUL.NEB NEB SCH ×4 (01:24→19:43)
[2022-03-23] MEDS: LEVALBUTEROL HCL NEB 1.25 MG/0.5 ML VIAL.NEB NEB SCH ×4 (01:24→19:43)
[2022-03-23 03:11] VITALS: BP 165/93
[2022-03-23 04:00] VITALS: BP 163/93
--- NOTE | 2022-03-23 06:52 | NUR ---
FINANCE DIRECTOR CLOSING NOTES PT IN BED SLEEPIGN AT THIS TIME. A/O X3, COOPERATIVE. STABLE ON O2 2L VIA NC WITH NO S/S OF SOB OR LABORED BREATHING. DENIES PAIN AT THIS TIME. ON TELE MONITOR SHOWING SR 80. IV RAC #20G PATENT AND INTACT, SL. PUREWICK INTACT WITH NO URINE OUTPUT NOTED AT THIS TIME. ALL CARE PROVIDED AND ADMINISTERED MEDICATIONS TOLERATED WELL. SAFETY PRECAUTIONS MAINTAINED: BED LOCKED AND IN LOW POSITION, SIDE RAILS UP X3, CALL LIGHT AND TRAY TABLE WITHIN REACH. WILL ENDORSE OREN TO SCALP TREATMENT OPERATOR NURSE.
[2022-03-23 07:01] LABS: BASOPHILS % (AUTO) 0.2 % (0.0-2.0); EOSINOPHILS % (AUTO) 2.7 % (0.0-6.0); HEMATOCRIT 33 % (33-45); HEMOGLOBIN 10.7 g/dL (11.5-14.8); LYMPHOCYTES # (AUTO) 0.8 K/uL (0.8-4.8); LYMPHOCYTES % (AUTO) 21.1 % (20.0-44.0); MEAN CORPUSCULAR HGB CONC 33 g/dl (31.0-36.0); MEAN CORPUSCULAR VOLUME 95 fL (82-100); MONOCYTES # (AUTO) 0.4 K/uL (0.1-1.30); MONOCYTES % (AUTO) 10.1 % (2.0-12.0); NEUTROPHILS # (AUTO) 2.5 K/uL (1.8-8.9); NEUTROPHILS % (AUTO) 65.9 % (43.0-81.0); PLATELET COUNT (AUTO) 151 K/uL (150-450); RED BLOOD CELL COUNT(AUTO) 3.44 MIL/uL (4.0-5.2); WHITE BLOOD COUNT (AUTO) 3.9 K/uL (4.3-11.0)
[2022-03-23] MEDS: BLOOD SUGAR DIAGNOSTIC 1 EACH STRIP VI SCH ×4 (07:12→21:26)
[2022-03-23] MEDS: INSULIN REGULAR, HUMAN 100 UNIT/ML 3 ML VIAL SQ PRN (07:13)
[2022-03-23 07:24] LABS: ALBUMIN 2.1 g/dL (3.4-5.0); BILIRUBIN,TOTAL 0.5 mg/dL (0.2-1.0); CALCIUM, SERUM 7.9 mg/dL (8.5-10.1); CREATININE 1.4 mg/dL (0.6-1.3); MAGNESIUM 1.8 mg/dL (1.8-2.4); PHOSPHORUS 3.3 mg/dL (2.5-4.9); POTASSIUM 3.9 mmol/L (3.5-5.1); TOTAL PROTEIN, SERUM 5.3 g/dL (6.4-8.2)
--- NOTE | 2022-03-23 07:59 | NUR ---
RN OPENING NOTE PATIENT AWAKE IN BED RESTING AT THE MOMENT A/O X 3. NO S/S OF PAIN NOTED AT THIS TIME. ON 2L OXYGEN VIA NC, NO DISTRESS OR SHORTNESS OF BREATH NOTED. IV ACCESS RAC #20G, INTACT, PATENT AND FLUSHING WELL. PATIENT HAVE A EXTERNAL RN PERIOPERATIVE WITH CURRENT READING OF SR AND HR OF 80, NO CARDIAC DISTRESS NOTED. FALL AND SAFETY MEASURES IN PLACE, BED ALARM ON, BED IN LOW AND LOCK POSITION, CALL LIGHT AND TABLE WITHIN EASY REACH, SIDE RAILS X2. WILL CONTINUE TO MONITOR.
[2022-03-23 08:00] VITALS: BP_SYST 163; BP_SYST 165; BP_DIAS 82; BP_DIAS 93
[2022-03-23] MEDS: NITROGLYCERIN 30 GM TUBE TP SCH ×2 (09:00→20:59)
[2022-03-23] MEDS: Z GUARD REMEDY 4 OZ OINT TP SCH (09:00)
[2022-03-23] MEDS: ASPIRIN 81 MG TAB.CHEW PO SCH (09:00)
[2022-03-23] MEDS: APIXABAN 5 MG TABLET PO SCH ×2 (09:00→17:21)
[2022-03-23] MEDS: FAMOTIDINE (20 MG) 20 MG TABLET PO SCH (09:00)
[2022-03-23] MEDS: RANOLAZINE 500 MG TAB.ER.12H PO SCH ×2 (09:00→17:19)
[2022-03-23] MEDS: DOCUSATE SODIUM 100 MG CAPSULE PO SCH ×2 (09:00→20:59)
[2022-03-23] MEDS: ALLOPURINOL 100 MG TABLET PO SCH (09:00)
[2022-03-23] MEDS: CHOLECALCIFEROL 1,000 UNIT TABLET (VIT D3) PO SCH (09:00)
[2022-03-23] MEDS: hydrALAZINE HCL 50 MG TABLET PO SCH ×3 (10:33→17:19)
[2022-03-23] MEDS: ASCORBIC ACID 500 MG TABLET PO SCH (10:33)
[2022-03-23] MEDS: MAGNESIUM OXIDE 400 MG TABLET PO SCH (10:34)
[2022-03-23] MEDS: CARVEDILOL 12.5 MG TABLET PO SCH ×2 (10:35→20:59)
[2022-03-23] MEDS: FERROUS SULFATE (325 MG) 325 MG/TAB TABLET PO SCH (10:36)
[2022-03-23] MEDS: VALSARTAN 80 MG TABLET PO SCH (10:36)
[2022-03-23] MEDS: METOLAZONE 2.5 MG TABLET PO SCH (10:38)
[2022-03-23] MEDS ORDERED: BUMETANIDE INJ 16 MG in IV NS 0.9% 16 ML IV ONE (11:00)
[2022-03-23] MEDS: LORAZEPAM 1 MG TABLET PO PRN (11:48)
[2022-03-23 12:00] VITALS: BP_SYST 140; BP_SYST 167; BP_DIAS 72; BP_DIAS 85
--- NOTE | 2022-03-23 12:59 | NUR ---
RN NOTE PATIENT 1200 ACCU-CHECK WAS DONE, GLUCOSE 158, PATIENT REFUSED INSULIN COVERAGE. WILL CONTINUE TO MONITOR.
[2022-03-23 16:00] VITALS: BP 165/82
--- NOTE | 2022-03-23 19:00 | NUR ---
RN CLOSING NOTE PATIENT AWAKE IN BED RESTING AT THE MOMENT A/O X 3. NO S/S OF PAIN NOTED AT THIS TIME. ON 2L OXYGEN VIA NC, NO DISTRESS OR SHORTNESS OF BREATH NOTED. IV ACCESS RAC #20G, INTACT, PATENT AND FLUSHING WELL. PATIENT HAVE A EXTERNAL PERIPHERAL EDP EQUIPMENT OPERATOR WITH CURRENT READING OF SR AND HR OF 84, NO CARDIAC DISTRESS NOTED. SCHEDULE MEDICATIONS WAS GIVEN, BUT PATIENT DID NOT TOOK ALL HER PRESCRIBED MEDICATIONS DURING THE MORNING. SKIN CARE IMPLEMENTED. PATIENT WAS TURNED AND REPOSITIONED PER PROTOCOL. FALL AND SAFETY MEASURES IN PLACE, BED ALARM ON, BED IN LOW AND LOCK POSITION, CALL LIGHT AND TABLE WITHIN EASY REACH, SIDE RAILS X2. WILL ENDORSE TO AUTOMOTIVE METALSMITH.
--- NOTE | 2022-03-23 19:22 | NUR ---
HOT BILLET SHEAR OPERATOR OPENING NOTE RECEIVED PT IN BED, RESTING IN BED AT THIS TIME. A/O X3, RESPONDS TO NAME AND TOUCH. NO S/S OF PAIN NOTED AT THIS TIME. ON 2L OXYGEN VIA NC, NO DISTRESS OR SHORTNESS OF BREATH NOTED. IV ACCESS RAC #20G, INTACT, PATENT AND FLUSHING WELL, RUNNING BUMEX AT THIS TIME. ON TELE MONITOR READING SR 85. NO CARDIAC DISTRESS NOTED. PUREWICK INTACT WITH 100 ML OF URINE OUTPUT NOTED. SAFETY PRECAUTIONS IN PLACE: BED ALARM ON, BED IN LOW AND LOCK POSITION, CALL LIGHT AND TABLE WITHIN EASY REACH, SIDE RAILS X3. WILL CONTINUE TO MONITOR AND ASSIST.
[2022-03-23 20:00] VITALS: BP 157/89
[2022-03-23] MEDS: TRAZODONE 50 MG TABLET PO SCH (21:00)
[2022-03-23] MEDS: ATORVASTATIN 40 MG TABLET PO SCH (21:00)
--- NOTE | 2022-03-23 21:10 | NUR ---
RN NOTE PT REFUSED PRESCRIBED MEDS: COLACE 100MG, DESYREL 25MG, LIPITOR 40MG. PT STATES "I DONT WANT TO TAKE THEM RIGHT NOW". BLOOD SUGAR READING AT 143, PT ALSO REFUSED INSULIN COVERAGE. EXPLAINED RISK/BENEFITS FOR ALL REFUSED MEDS, PT VERBALIZED UNDERSTANDING. WILL CONTINUE TO MONITOR.
[2022-03-23] MEDS: *INSULIN REGULAR(HUMULIN R)HUM 100 UNIT/ML VIAL SQ PRN (21:28)
[2022-03-24] MEDS: LEVALBUTEROL HCL NEB 1.25 MG/0.5 ML VIAL.NEB NEB SCH ×4 (01:38→19:38)
[2022-03-24] MEDS: IPRATROPIUM NEB FS 0.5 MG/2.5 ML AMPUL.NEB NEB SCH ×4 (01:38→19:38)
[2022-03-24 04:00] VITALS: BP 153/83
[2022-03-24 06:10] LABS: BASOPHILS % (AUTO) 0.4 % (0.0-2.0); EOSINOPHILS % (AUTO) 2.4 % (0.0-6.0); HEMATOCRIT 32 % (33-45); HEMOGLOBIN 10.5 g/dL (11.5-14.8); LYMPHOCYTES # (AUTO) 0.9 K/uL (0.8-4.8); LYMPHOCYTES % (AUTO) 20.1 % (20.0-44.0); MEAN CORPUSCULAR HGB CONC 33 g/dl (31.0-36.0); MEAN CORPUSCULAR VOLUME 94 fL (82-100); MONOCYTES # (AUTO) 0.4 K/uL (0.1-1.30); MONOCYTES % (AUTO) 8.2 % (2.0-12.0); NEUTROPHILS # (AUTO) 3.2 K/uL (1.8-8.9); NEUTROPHILS % (AUTO) 68.9 % (43.0-81.0); PLATELET COUNT (AUTO) 149 K/uL (150-450); RED BLOOD CELL COUNT(AUTO) 3.37 MIL/uL (4.0-5.2); WHITE BLOOD COUNT (AUTO) 4.7 K/uL (4.3-11.0)
[2022-03-24 06:19] LABS: ALBUMIN 2.2 g/dL (3.4-5.0); BILIRUBIN,TOTAL 0.5 mg/dL (0.2-1.0); CALCIUM, SERUM 7.6 mg/dL (8.5-10.1); CREATININE 1.4 mg/dL (0.6-1.3); MAGNESIUM 1.8 mg/dL (1.8-2.4); PHOSPHORUS 3.2 mg/dL (2.5-4.9); POTASSIUM 3.7 mmol/L (3.5-5.1); TOTAL PROTEIN, SERUM 5.4 g/dL (6.4-8.2)
[2022-03-24] MEDS: INSULIN REGULAR, HUMAN 100 UNIT/ML 3 ML VIAL SQ PRN (07:11)
[2022-03-24] MEDS: BLOOD SUGAR DIAGNOSTIC 1 EACH STRIP VI SCH ×4 (07:11→23:13)
--- NOTE | 2022-03-24 07:12 | NUR ---
[place] DECORATOR CLOSING NOTES PT SLEEPING IN BED AT THIS TIME. A/O X3, RESPONDS TO NAME AND TOUCH. DENIES PAIN AND NO SIGNS OF PAIN NOTED AT THIS TIME. STABLE ON 2L OXYGEN VIA NC, NO DISTRESS OR SHORTNESS OF BREATH NOTED. IV ACCESS RAC #20G, INTACT, PATENT AND FLUSHING WELL, SL. ON TELE MONITOR READING SR 83. NO CARDIAC DISTRESS NOTED. PUREWICK REPLACED DURING SHIFT, CURRENTLY INTACT WITH TOTAL OF 350 ML OF URINE OUTPUT NOTED. PT REFUSED SOME MEDICATIONS (SEE RN NOTES). ALL CARE PROVIDED AND ADMINISTERED MEDICATIONS TOLERATED WELL. SAFETY PRECAUTIONS MAINTAINED: BED ALARM ON, BED IN LOW AND LOCK POSITION, CALL LIGHT AND TABLE WITHIN EASY REACH, SIDE RAILS X3. WILL ENDORSE OREN TO DAY SHIFT NURSE.
--- NOTE | 2022-03-24 07:57 | NUR ---
RN OPENING NOTE PATIENT AWAKE IN BED RESTING AT THE MOMENT A/O X 3. NO S/S OF PAIN NOTED AT THIS TIME. ON 2L OXYGEN VIA NC, NO DISTRESS OR SHORTNESS OF BREATH NOTED. IV ACCESS RAC #20G, INTACT, PATENT AND FLUSHING WELL. PATIENT HAVE A EXTERNAL LAP REGULATOR WITH CURRENT READING OF SR AND HR OF 85, NO CARDIAC DISTRESS NOTED. FALL AND SAFETY MEASURES IN PLACE, BED ALARM ON, BED IN LOW AND LOCK POSITION, CALL LIGHT AND TABLE WITHIN EASY REACH, SIDE RAILS X2. WILL CONTINUE TO MONITOR.
[2022-03-24 08:40] VITALS: BP 175/91
[2022-03-24] MEDS: CARVEDILOL 12.5 MG TABLET PO SCH ×2 (09:00→20:27)
[2022-03-24] MEDS: RANOLAZINE 500 MG TAB.ER.12H PO SCH ×3 (09:00→17:04)
[2022-03-24] MEDS: VALSARTAN 80 MG TABLET PO SCH (09:00)
[2022-03-24] MEDS: DOCUSATE SODIUM 100 MG CAPSULE PO SCH ×2 (09:00→20:27)
[2022-03-24] MEDS: METOLAZONE 2.5 MG TABLET PO SCH (09:00)
[2022-03-24] MEDS: ALLOPURINOL 100 MG TABLET PO SCH (09:00)
[2022-03-24] MEDS: NITROGLYCERIN 30 GM TUBE TP SCH ×2 (09:00→20:28)
[2022-03-24] MEDS: MAGNESIUM OXIDE 400 MG TABLET PO SCH (09:18)
[2022-03-24] MEDS: CHOLECALCIFEROL 1,000 UNIT TABLET (VIT D3) PO SCH (09:18)
[2022-03-24] MEDS: hydrALAZINE HCL 50 MG TABLET PO SCH ×3 (09:18→17:04)
[2022-03-24] MEDS: FERROUS SULFATE (325 MG) 325 MG/TAB TABLET PO SCH (09:18)
[2022-03-24] MEDS: ASCORBIC ACID 500 MG TABLET PO SCH (09:18)
[2022-03-24] MEDS: ASPIRIN 81 MG TAB.CHEW PO SCH (09:18)
[2022-03-24] MEDS: FAMOTIDINE (20 MG) 20 MG TABLET PO SCH (09:18)
[2022-03-24] MEDS: APIXABAN 5 MG TABLET PO SCH ×2 (09:19→17:00)
[2022-03-24] MEDS: Z GUARD REMEDY 4 OZ OINT TP SCH (09:35)
--- NOTE | 2022-03-24 09:35 | NUR ---
RN NOTE PATIENT REFUSED MULTIPLE MORNING MEDICATIONS, PATIENT ONLY TOOK HYDRALAZINE, ASPIRIN, APIXABAN, FERROUS SULFATE, MAGNESIUM, PEPCID, VITAMIN C AND VITAMIN D. RISK OF NOT TAKING ALL HER MEDICATIONS AND BENEFITS OF MEDICATIONS WERE EXPLAIN TO PATIENT.
[2022-03-24] MEDS ORDERED: METOLAZONE 2.5 MG TABLET PO SCH (10:00)
[2022-03-24] MEDS: POTASSIUM CHLORIDE 20 MEQ TAB.PRT.SR PO SCH ×3 (10:32→12:37)
[2022-03-24] MEDS: FUROSEMIDE 100 MG/10 ML VIAL IV SCH ×3 (10:32→17:03)
[2022-03-24 12:00] VITALS: BP 144/82
[2022-03-24] MEDS: LORAZEPAM 1 MG TABLET PO PRN (12:46)
[2022-03-24 16:17] VITALS: BP 140/70
--- NOTE | 2022-03-24 18:42 | NUR ---
RN CLOSING NOTE PATIENT AWAKE IN BED RESTING AT THE MOMENT A/O X 3. NO S/S OF PAIN NOTED AT THIS TIME. ON 2L OXYGEN VIA NC, NO DISTRESS OR SHORTNESS OF BREATH NOTED. IV ACCESS RAC #20G, INTACT, PATENT AND FLUSHING WELL. PATIENT HAVE A EXTERNAL HI TEACHER WITH CURRENT READING OF SR AND HR OF 86, NO CARDIAC DISTRESS NOTED. SCHEDULE MEDICATIONS WAS GIVEN, BUT PATIENT DID NOT TOOK ALL HER PRESCRIBED MEDICATIONS DURING THE SHIFT. SKIN CARE IMPLEMENTED. PATIENT WAS TURNED AND REPOSITIONED PER PROTOCOL. FALL AND SAFETY MEASURES IN PLACE, BED ALARM ON, BED IN LOW AND LOCK POSITION, CALL LIGHT AND TABLE WITHIN EASY REACH, SIDE RAILS UP X2. WILL ENDORSE TO CERAMIC RESTORER.
--- NOTE | 2022-03-24 19:30 | NUR ---
COMPUTER SYSTEMS ANALYST OPENING NOTE RECEIVED PATIENT AWAKE IN BED . PATIENT IS A/O X 3. NO S/S OF PAIN NOTED AT THIS TIME. ON 2L OXYGEN VIA NC, NO DISTRESS OR SHORTNESS OF BREATH NOTED. IV ACCESS RAC #20G, INTACT, PATENT AND FLUSHING WELL. ON TELE MONITOR READING SR AT THIS TIME, NO CARDIAC DISTRESS NOTED. FALL AND SAFETY MEASURES IN PLACE, BED ALARM ON, BED IN LOW AND LOCK POSITION, CALL LIGHT AND TABLE WITHIN EASY REACH, SIDE RAILS X2. WILL CONTINUE TO MONITOR.
[2022-03-24 20:00] VITALS: BP 153/83
[2022-03-24] MEDS: ATORVASTATIN 40 MG TABLET PO SCH (21:46)
[2022-03-24] MEDS: TRAZODONE 50 MG TABLET PO SCH (21:46)
--- NOTE | 2022-03-24 21:46 | NUR ---
RN NOTES PATIENT REFUSING TRAZODONE AND LIPITOR. OFFERED AND EXPLAINED THE BENEFITS AND USE OF THE MEDICATION, STILL REFUSING. STATING IT MAKES ME SICK. RESPECT PATIENT RIGHTS.
--- NOTE | 2022-03-24 23:13 | NUR ---
RN NOTES BLOOD SUGAR CHECKED IT WAS 138. PATIENT REFUSED INSULIN ADMINISTRATION.
[2022-03-25] VITALS: BP 149/83
[2022-03-25] MEDS: LEVALBUTEROL HCL NEB 1.25 MG/0.5 ML VIAL.NEB NEB SCH ×4 (01:40→19:59)
[2022-03-25] MEDS: IPRATROPIUM NEB FS 0.5 MG/2.5 ML AMPUL.NEB NEB SCH ×4 (01:40→19:58)
[2022-03-25 04:00] VITALS: BP 153/84
[2022-03-25] MEDS: BLOOD SUGAR DIAGNOSTIC 1 EACH STRIP VI SCH ×4 (06:34→22:19)
[2022-03-25 06:35] LABS: BASOPHILS % (AUTO) 0.8 % (0.0-2.0); EOSINOPHILS % (AUTO) 2.4 % (0.0-6.0); HEMATOCRIT 33 % (33-45); HEMOGLOBIN 10.8 g/dL (11.5-14.8); LYMPHOCYTES % (AUTO) 24.4 % (20.0-44.0); MEAN CORPUSCULAR HGB CONC 33 g/dl (31.0-36.0); MEAN CORPUSCULAR VOLUME 95 fL (82-100); MONOCYTES # (AUTO) 0.4 K/uL (0.1-1.30); MONOCYTES % (AUTO) 9.9 % (2.0-12.0); NEUTROPHILS # (AUTO) 2.5 K/uL (1.8-8.9); NEUTROPHILS % (AUTO) 62.5 % (43.0-81.0); PLATELET COUNT (AUTO) 159 K/uL (150-450); RED BLOOD CELL COUNT(AUTO) 3.45 MIL/uL (4.0-5.2); WHITE BLOOD COUNT (AUTO) 4.1 K/uL (4.3-11.0)
--- NOTE | 2022-03-25 06:35 | NUR ---
RN NOTES BLOOD SUGAR 144. PATIENT REFUSED INSULIN.
--- NOTE | 2022-03-25 06:39 | NUR ---
CHARTER COACH DRIVER CLOSING NOTE PATIENT AWAKE IN BED . PATIENT IS A/O X 3. NO S/S OF PAIN NOTED AT THIS TIME. ON 2L OXYGEN VIA NC, NO DISTRESS OR SHORTNESS OF BREATH NOTED. IV ACCESS RAC #20G, INTACT, PATENT AND FLUSHING WELL. ON TELE MONITOR READING SR AT THIS TIME, NO CARDIAC DISTRESS NOTED. DUE MEDS GIVEN ORDERED.FALL AND SAFETY MEASURES IN PLACE, BED ALARM ON, BED IN LOW AND LOCK POSITION, CALL LIGHT AND TABLE WITHIN EASY REACH, SIDE RAILS X2. WILL ENDORSE FOR OREN.
[2022-03-25 07:04] LABS: ALBUMIN 2.4 g/dL (3.4-5.0); BILIRUBIN,TOTAL 0.5 mg/dL (0.2-1.0); CALCIUM, SERUM 8.2 mg/dL (8.5-10.1); CREATININE 1.6 mg/dL (0.6-1.3); PHOSPHORUS 3.3 mg/dL (2.5-4.9); TOTAL PROTEIN, SERUM 5.9 g/dL (6.4-8.2)
[2022-03-25 08:00] VITALS: BP 168/99
[2022-03-25] MEDS: FERROUS SULFATE (325 MG) 325 MG/TAB TABLET PO SCH ×2 (09:00→09:09)
[2022-03-25] MEDS: RANOLAZINE 500 MG TAB.ER.12H PO SCH ×3 (09:00→17:26)
[2022-03-25] MEDS: VALSARTAN 80 MG TABLET PO SCH ×2 (09:00→09:17)
[2022-03-25] MEDS: ASCORBIC ACID 500 MG TABLET PO SCH ×2 (09:00→09:20)
[2022-03-25] MEDS: DOCUSATE SODIUM 100 MG CAPSULE PO SCH ×3 (09:00→21:00)
[2022-03-25] MEDS: CHOLECALCIFEROL 1,000 UNIT TABLET (VIT D3) PO SCH ×2 (09:00→09:08)
[2022-03-25] MEDS: ALLOPURINOL 100 MG TABLET PO SCH ×2 (09:00→09:20)
[2022-03-25] MEDS: FAMOTIDINE (20 MG) 20 MG TABLET PO SCH ×2 (09:00→09:09)
[2022-03-25] MEDS: MAGNESIUM OXIDE 400 MG TABLET PO SCH ×2 (09:00→09:08)
[2022-03-25] MEDS: ASPIRIN 81 MG TAB.CHEW PO SCH ×2 (09:00→09:17)
[2022-03-25] MEDS: CARVEDILOL 12.5 MG TABLET PO SCH ×2 (09:08→23:44)
[2022-03-25] MEDS: hydrALAZINE HCL 50 MG TABLET PO SCH ×3 (09:18→17:27)
[2022-03-25] MEDS: Z GUARD REMEDY 4 OZ OINT TP SCH (09:21)
[2022-03-25] MEDS: NITROGLYCERIN 30 GM TUBE TP SCH ×2 (09:21→23:43)
[2022-03-25] MEDS: METOCLOPRAMIDE HCL 10 MG TABLET PO PRN (11:17)
[2022-03-25 12:00] VITALS: BP 163/93
--- NOTE | 2022-03-25 12:00 | NUR ---
RN NOTES: PT DONE WITH LEFT LUNG THORACENTESIS. 1150 ML TAKEN OUT.NO ORDER FOR CYTOLOGY, CHARGE NURSE RENARD AWARE. DR KO MADE AWARE THAT PT IS REFUSING MEDICINE. AND DAUGHTER AT BEDSIDE AWARE THAT PT REFUSES MOST OF HER MEDICATION
[2022-03-25] MEDS: ONDANSETRON 4 MG TAB.RAPDIS SL PRN (13:07)
[2022-03-25 16:00] VITALS: BP 149/77
--- NOTE | 2022-03-25 19:20 | NUR ---
PATROL POLICE LIEUTENANT CLOSING NOTE PATIENT ASLEEP IN BED . PATIENT IS A/O X 3. NO S/S OF PAIN NOTED AT THIS TIME. ON 2L OXYGEN VIA NC, NO DISTRESS OR SHORTNESS OF BREATH NOTED. IV ACCESS RAC #20G, INTACT, PATENT AND FLUSHING WELL. ON TELE MONITOR READING SR AT THIS TIME, NO CARDIAC DISTRESS NOTED.PURE WIC IN PLACE.FALL AND SAFETY MEASURES IN PLACE, BED ALARM ON, BED IN LOW AND LOCK POSITION, CALL LIGHT AND TABLE WITHIN EASY REACH, SIDE RAILS X2. WILL ENDORSE FOR OREN.
--- NOTE | 2022-03-25 19:45 | NUR ---
NATURAL FABRICATOR OPENING NOTES RECEIVED PATIENT IN BED; AWAKE, A/O X3, COOPERATIVE. ON RA WITH NO S/S OF SOB OR LABORED BREATHING. DENIES ANY PAIN OR DISCOMFORT AT THIS TIME. ON TELE MONITOR WHICH READS SR 80. IV ACCESS @ RIGHT AC; PATENT, INTACT AND SALINE LOCKED. SAFETY PRECAUTIONS IMPLEMENTED: CALL LIGHT AND TABLE WITHIN REACH, SIDE RAILS UP X3, BED IN LOWEST LOCKED POSITION. WILL CONTINUE TO MONITOR.
[2022-03-25 20:00] VITALS: BP 148/80
[2022-03-25] MEDS: TRAZODONE 50 MG TABLET PO SCH (22:00)
[2022-03-25] MEDS: ATORVASTATIN 40 MG TABLET PO SCH (22:00)
[2022-03-26] MEDS: IPRATROPIUM NEB FS 0.5 MG/2.5 ML AMPUL.NEB NEB SCH ×4 (01:30→19:30)
[2022-03-26] MEDS: LEVALBUTEROL HCL NEB 1.25 MG/0.5 ML VIAL.NEB NEB SCH ×4 (01:30→19:30)
[2022-03-26] MEDS: ACETAMINOPHEN 325 MG TABLET PO PRN (02:51)
[2022-03-26] MEDS: METOCLOPRAMIDE HCL 10 MG TABLET PO PRN (02:52)
[2022-03-26] MEDS: ONDANSETRON 4 MG TAB.RAPDIS SL PRN (02:59)
[2022-03-26] MEDS: oxyCODONE/APAP (5/325 MG) 1 UDTAB TABLET PO PRN ×2 (03:00→14:55)
[2022-03-26] MEDS: BLOOD SUGAR DIAGNOSTIC 1 EACH STRIP VI SCH ×4 (06:16→23:10)
[2022-03-26 06:23] LABS: BASOPHILS % (AUTO) 0.3 % (0.0-2.0); EOSINOPHILS % (AUTO) 1.8 % (0.0-6.0); HEMATOCRIT 32 % (33-45); HEMOGLOBIN 10.4 g/dL (11.5-14.8); LYMPHOCYTES # (AUTO) 0.8 K/uL (0.8-4.8); LYMPHOCYTES % (AUTO) 16.4 % (20.0-44.0); MEAN CORPUSCULAR HGB CONC 33 g/dl (31.0-36.0); MEAN CORPUSCULAR VOLUME 95 fL (82-100); MONOCYTES # (AUTO) 0.4 K/uL (0.1-1.30); MONOCYTES % (AUTO) 8.6 % (2.0-12.0); NEUTROPHILS # (AUTO) 3.4 K/uL (1.8-8.9); NEUTROPHILS % (AUTO) 72.9 % (43.0-81.0); PLATELET COUNT (AUTO) 137 K/uL (150-450); RED BLOOD CELL COUNT(AUTO) 3.33 MIL/uL (4.0-5.2); WHITE BLOOD COUNT (AUTO) 4.7 K/uL (4.3-11.0)
[2022-03-26 06:47] LABS: CALCIUM, SERUM 7.8 mg/dL (8.5-10.1); CREATININE 1.5 mg/dL (0.6-1.3); MAGNESIUM 1.9 mg/dL (1.8-2.4); PHOSPHORUS 3.3 mg/dL (2.5-4.9); POTASSIUM 3.7 mmol/L (3.5-5.1)
--- NOTE | 2022-03-26 07:00 | NUR ---
ANODE CREW SUPERVISOR CLOSING NOTES PATIENT IN BED; AWAKE, A/O X3, COOPERATIVE. STABLE ON RA WITH NO S/S OF SOB OR LABORED BREATHING. DENIES ANY PAIN OR DISCOMFORT AT THIS TIME. ON TELE MONITOR WHICH READS SR 83 BPM. WITH IV ACCESS @ RIGHT AC; PATENT, INTACT AND SALINE LOCKED. SAFETY PRECAUTIONS MAINTAINED: CALL LIGHT AND TABLE WITHIN REACH, SIDE RAILS UP X3, BED IN LOWEST LOCKED POSITION. ENDORSED TO MORNING SHIFT FOR OREN.
--- NOTE | 2022-03-26 07:51 | NUR ---
SURVEY INSTRUMENT OPERATOR NOTES PT IN BED, AWAKE, ALERT AND ORIENTED, NO SIGN OF PAIN OR DISTRESS, CALL LIGHT WITHIN REACH, KEPT WARM AND COMFORTABLE IN BED.
[2022-03-26 08:00] VITALS: BP 184/93
[2022-03-26] MEDS: MAGNESIUM OXIDE 400 MG TABLET PO SCH ×2 (09:00→11:57)
[2022-03-26] MEDS: RANOLAZINE 500 MG TAB.ER.12H PO SCH ×3 (09:00→17:25)
[2022-03-26] MEDS: hydrALAZINE HCL 50 MG TABLET PO SCH ×3 (09:00→17:26)
[2022-03-26] MEDS: FAMOTIDINE (20 MG) 20 MG TABLET PO SCH ×2 (09:00→11:56)
[2022-03-26] MEDS: ALLOPURINOL 100 MG TABLET PO SCH ×2 (09:00→11:56)
[2022-03-26] MEDS: ASCORBIC ACID 500 MG TABLET PO SCH ×2 (09:00→11:57)
[2022-03-26] MEDS: DOCUSATE SODIUM 100 MG CAPSULE PO SCH ×3 (09:00→21:00)
[2022-03-26] MEDS: ASPIRIN 81 MG TAB.CHEW PO SCH (09:00)
[2022-03-26] MEDS: FERROUS SULFATE (325 MG) 325 MG/TAB TABLET PO SCH ×2 (09:00→11:57)
[2022-03-26] MEDS: CHOLECALCIFEROL 1,000 UNIT TABLET (VIT D3) PO SCH (09:00)
--- NOTE | 2022-03-26 09:04 | NUR ---
BUDGET ENGINEER NOTES PT IN BED, DOES NOT WANT TO TAKE HER MORNING MEDS AT THIS TIME, WANTS IT AFTER THORACENTESIS.
--- NOTE | 2022-03-26 10:00 | NUR ---
ROUTE SALESMAN AND DRIVER NOTES NOTED WITH EXCORIATIONS AT LEFT AND RIGHT BUTTOCKS, KEPT AREA CLEAN AND DRY, PHOTOS TAKEN, CLEAN DRESSING APPLIED, WOUND CARE CONSULT ORDERED.
[2022-03-26] MEDS: VALSARTAN 80 MG TABLET PO SCH (11:55)
[2022-03-26] MEDS: CARVEDILOL 12.5 MG TABLET PO SCH ×2 (11:58→21:00)
[2022-03-26] MEDS: NITROGLYCERIN 30 GM TUBE TP SCH ×2 (12:00→21:00)
[2022-03-26] MEDS: Z GUARD REMEDY 4 OZ OINT TP SCH (12:42)
--- NOTE | 2022-03-26 13:05 | NUR ---
PHOTO MASK PATTERN GENERATOR NOTES PT SEEN AND EXAMINED BY DR. BAPTISTE, PLAN OF CARE DISCUSSED, VERBALIZED UNDERSTANDING.
[2022-03-26] MEDS: ONDANSETRON HCL/PF 4 MG/2 ML VIAL IVP PRN (15:06)
[2022-03-26 16:22] VITALS: BP 172/84
[2022-03-26] MEDS: INSULIN REGULAR, HUMAN 100 UNIT/ML 3 ML VIAL SQ PRN ×2 (17:28→17:46)
--- NOTE | 2022-03-26 18:50 | NUR ---
SENIOR DEVOPS ENGINEER NOTES PT IN BED, ASLEEP, EASY TO AROUSE, ALERT AND ORIENTED, DENIES PAIN AT THIS TIME, BREATHING PATTERN NORMAL, PERINEAL CARE PROVIDED NEEDED, SKIN TREATMENTS DONE, BLOOD SUGAR CHECKED, BS 158, REFUSED INSULIN ADMINISTRATION, STATED THAT SHE DOES NOT NEED IT, KEPT CLEAN AND DRY.
--- NOTE | 2022-03-26 19:23 | NUR ---
CHEMICAL MANAGER OPENING NOTES PT IN BED, ASLEEP, EASY TO AROUSE, ALERT AND ORIENTED X3, DENIES PAIN AT THIS TIME, ON O2 VIA NC WITH NORMAL BREATHING PATTERN. ON TELE MONITOR SHOWING SR 80. IV RAC #20G SL, PATENT AND INTACT. SAFETY MEASURES IN PLACE: BED LOCKED AND IN LOWEST POSITION, SIDE RAILS UP X3, CALL LIGHT WITHIN REACH. WILL CONTINUE TO MONITOR.
[2022-03-26] MEDS: TRAZODONE 50 MG TABLET PO SCH (21:57)
[2022-03-26] MEDS: ATORVASTATIN 40 MG TABLET PO SCH (21:57)
--- NOTE | 2022-03-26 21:58 | NUR ---
RN NOTES PT REFUSED HER PM MEDICATIONS. PT TRYING TO SLEEP AND SAYS "I DONT WANT TO TAKE ANYTHING TONIGHT". EXPLAINED RISKS OF NOT TAKING MEDICATIONS, PT VERBALIZED UNDERSTANDING. WILL CONTINUE TO MONITOR.
[2022-03-26 22:06] VITALS: BP 141/79
[2022-03-26] MEDS: *INSULIN REGULAR(HUMULIN R)HUM 100 UNIT/ML VIAL SQ PRN (23:11)
[2022-03-27 00:03] VITALS: BP 146/84
[2022-03-27] MEDS: IPRATROPIUM NEB FS 0.5 MG/2.5 ML AMPUL.NEB NEB SCH ×4 (01:30→21:18)
[2022-03-27] MEDS: LEVALBUTEROL HCL NEB 1.25 MG/0.5 ML VIAL.NEB NEB SCH ×4 (01:30→21:17)
[2022-03-27 06:08] LABS: BASOPHILS % (AUTO) 0.3 % (0.0-2.0); EOSINOPHILS % (AUTO) 0.9 % (0.0-6.0); HEMATOCRIT 31 % (33-45); HEMOGLOBIN 10.1 g/dL (11.5-14.8); LYMPHOCYTES # (AUTO) 0.7 K/uL (0.8-4.8); LYMPHOCYTES % (AUTO) 11.4 % (20.0-44.0); MEAN CORPUSCULAR HGB CONC 33 g/dl (31.0-36.0); MEAN CORPUSCULAR VOLUME 96 fL (82-100); MONOCYTES # (AUTO) 0.5 K/uL (0.1-1.30); MONOCYTES % (AUTO) 8.8 % (2.0-12.0); NEUTROPHILS # (AUTO) 4.7 K/uL (1.8-8.9); NEUTROPHILS % (AUTO) 78.6 % (43.0-81.0); PLATELET COUNT (AUTO) 138 K/uL (150-450); RED BLOOD CELL COUNT(AUTO) 3.24 MIL/uL (4.0-5.2)
[2022-03-27 06:40] LABS: CREATININE 1.5 mg/dL (0.6-1.3); MAGNESIUM 2.2 mg/dL (1.8-2.4); PHOSPHORUS 3.4 mg/dL (2.5-4.9)
[2022-03-27 07:11] VITALS: BP 149/84
[2022-03-27] MEDS: BLOOD SUGAR DIAGNOSTIC 1 EACH STRIP VI SCH ×4 (07:15→21:44)
[2022-03-27] MEDS: INSULIN REGULAR, HUMAN 100 UNIT/ML 3 ML VIAL SQ PRN (07:15)
--- NOTE | 2022-03-27 07:23 | NUR ---
SHACTOR CLOSING NOTES PT IN BED, ASLEEP, EASY TO AROUSE, ALERT AND ORIENTED X3, DENIES PAIN AT THIS TIME. STABLE ON O2 VIA NC WITH NORMAL BREATHING PATTERN. ON TELE MONITOR SHOWING SR 80. IV RAC #20G SL, PATENT AND INTACT. REFUSED ALL MEDICATIONS DURING SHIFT. ALL CARE PROVIDED. SAFETY MEASURES IN PLACE: BED LOCKED AND IN LOWEST POSITION, SIDE RAILS UP X3, CALL LIGHT WITHIN REACH. WILL ENDORSE OREN TO DAY SHIFT NURSE.
--- NOTE | 2022-03-27 07:30 | NUR ---
SUPERVISOR ELECTRONICS TESTING NOTES PT IN BED, ASLEEP, EASILY AROUSABLE, NO COMPLAINT OF PAIN, NOT IN DISTRESS, CALL LIGHT WITHIN REACH, KEPT PHYSICIST CRYOGENICS BED.
--- NOTE | 2022-03-27 08:28 | NUR ---
WOUND CARE CONSULT: RECEIVED ANOTHER CONSULT FOR RT AND LEFT BUTTOCK EXCORIATION. PT CONTINUES TO PRESENT WITH VERY BONY SACRAL AREA WITH INTACT DEEP TISSUE INJURY WHICH WAS PRESENT ON ADMISSION. THERE IS EDEMA NOTED TO BUTTOCKS/THIGHS WITH OPEN SKIN SECONDARY TO MOISTURE ON LOWER BUTTOCKS FOLDS/POSTERIOR THIGH AREAS AT THIS TIME. DISCUSSED SKIN PROTECTION WITH NURSING STAFF AND SURGICAL P.A. CURRENTLY ON CASE. PT USING PURE WICK FOR URINARY INCONTINENCE. MD IN AGREEMENT WITH PLAN OF CARE.
[2022-03-27] MEDS: CHOLECALCIFEROL 1,000 UNIT TABLET (VIT D3) PO SCH (09:00)
[2022-03-27] MEDS: ASCORBIC ACID 500 MG TABLET PO SCH (09:00)
[2022-03-27] MEDS: Z GUARD REMEDY 4 OZ OINT TP SCH (09:00)
[2022-03-27] MEDS: FERROUS SULFATE (325 MG) 325 MG/TAB TABLET PO SCH (09:00)
[2022-03-27] MEDS: hydrALAZINE HCL 50 MG TABLET PO SCH ×4 (09:00→16:12)
[2022-03-27] MEDS: ASPIRIN 81 MG TAB.CHEW PO SCH (09:00)
[2022-03-27] MEDS: ALLOPURINOL 100 MG TABLET PO SCH (09:00)
[2022-03-27] MEDS: VALSARTAN 80 MG TABLET PO SCH ×2 (09:00→10:02)
[2022-03-27] MEDS: RANOLAZINE 500 MG TAB.ER.12H PO SCH ×2 (09:00→16:13)
[2022-03-27] MEDS: DOCUSATE SODIUM 100 MG CAPSULE PO SCH ×2 (09:00→21:42)
[2022-03-27] MEDS: MAGNESIUM OXIDE 400 MG TABLET PO SCH (09:00)
[2022-03-27] MEDS: NITROGLYCERIN 30 GM TUBE TP SCH ×2 (09:00→21:43)
[2022-03-27] MEDS: FAMOTIDINE (20 MG) 20 MG TABLET PO SCH (09:00)
--- NOTE | 2022-03-27 09:00 | NUR ---
pt refused most meds except carvedilol 12.5 mg tab po q12hr and Hydralazine 50mg 2 tabs po tid
[2022-03-27] MEDS: CARVEDILOL 12.5 MG TABLET PO SCH ×2 (10:00→21:42)
[2022-03-27] MEDS: hydrALAZINE HCL IV 20 MG VIAL IV PRN (10:09)
--- NOTE | 2022-03-27 18:40 | NUR ---
X RAY ELECTRONICS WIREMAN NOTES PT IN BED, RESTING, NO COMPLAINT OF PAIN OR ANY DISCOMFORT AT THIS TIME, BREATHING PATTERN NORMAL, CALL LIGHT WITHIN REACH, PM MEDS GIVEN, PM CARE PROVIDED, WOUND CARE TREATMENT DONE, REPOSITIONED FOR COMFORT, ALL NEEDS ATTENDED.
--- NOTE | 2022-03-27 19:30 | NUR ---
HUMAN RESOURCES BENEFITS COORDINATOR OPENING NOTE RECEIVED PT AWAKE IN BED. A/O X3 AND ABLE TO MAKE NEEDS KNOWN. PT ON O2 @ 2LPM, TOLERATING WELL. NO SOB OR S/S OF RESPIRATORY DISTRESS. BREATHING EVEN AND UNLABORED. ON EXTERNAL TRUCK DRIVER SALESPERSON READING SR 80 BPM. IV ACCESS RAC 20G, INTACT AND PATENT. SAFETY PRECAUTIONS IN PLACE. BED IN LOWEST LOCKED POSITION, HOB ELEVATED, SIDE RAILS UP X3, AND CALL LIGHT AND TABLE WITHIN REACH. ALL NEEDS MET AT THIS TIME.
[2022-03-27 20:00] VITALS: BP 128/76
[2022-03-27] MEDS: POLYVINYL ALCOHOL 15 ML BOTTLE EACHEYE PRN (21:34)
[2022-03-27] MEDS: TRAZODONE 50 MG TABLET PO SCH (21:43)
[2022-03-27] MEDS: ATORVASTATIN 40 MG TABLET PO SCH (21:43)
[2022-03-27] MEDS: *INSULIN REGULAR(HUMULIN R)HUM 100 UNIT/ML VIAL SQ PRN (21:44)
[2022-03-27] MEDS: LORAZEPAM 1 MG TABLET PO PRN (21:51)
--- NOTE | 2022-03-27 21:51 | NUR ---
RN NOTE PT REQUESTED EYE DROPS AND ATIVAN. ADMINISTERED ARTIFICIAL EYE DROPS AND ATIVAN 1 MG ORDERED. PT REFUSED ATORVASTATIN, TRAZADONE, AND INSULIN. EDUCATED PT ON IMPORTANCE OF MEDICATION COMPLIANCE. PT VERBALIZED UNDERSTANDING BUT STILL REFUSED. MADE COMFORTABLE IN BED. ALL NEEDS MET AT THIS TIME.
[2022-03-28 01:00] VITALS: BP 139/65
[2022-03-28] MEDS: LEVALBUTEROL HCL NEB 1.25 MG/0.5 ML VIAL.NEB NEB SCH ×3 (01:30→14:33)
[2022-03-28] MEDS: IPRATROPIUM NEB FS 0.5 MG/2.5 ML AMPUL.NEB NEB SCH ×3 (01:30→14:33)
[2022-03-28 04:57] VITALS: BP 140/74
[2022-03-28] MEDS: BLOOD SUGAR DIAGNOSTIC 1 EACH STRIP VI SCH ×3 (06:46→17:08)
--- NOTE | 2022-03-28 06:49 | NUR ---
COMMITTEE MEMBER CLOSING NOTE PT AWAKE IN BED. A/O X3 AND ABLE TO MAKE NEEDS KNOWN. PT ON O2 @ 2LPM, TOLERATING WELL. NO SOB OR S/S OF RESPIRATORY DISTRESS. BREATHING EVEN AND UNLABORED. ON EXTERNAL GRAIN I FARMWORKER READING SR 75 BPM. IV ACCESS RAC 20G, INTACT AND PATENT. KEPT CLEAN AND DRY AT ALL TIMES. DRAINED 500 CC FROM PURWICK SUCTION. DUE MEDS GIVEN ORDERED. SAFETY PRECAUTIONS IN PLACE AT ALL TIMES. BED IN LOWEST LOCKED POSITION, HOB ELEVATED, SIDE RAILS UP X3, AND CALL LIGHT AND TABLE WITHIN REACH. ALL NEEDS MET AT THIS TIME AND WILL ENDORSE TO ONCOMING NURSE FOR OREN.
--- NOTE | 2022-03-28 07:38 | NUR ---
COMMUNICATIONS SENIOR ASSOCIATE OPENING NOTE RECEIVED PT AWAKE IN BED. A/O X3 AND ABLE TO MAKE NEEDS KNOWN. APPEARS TO BE WITHDRAWN, ON O2 @ 2LPM PRN, PATIENT IS TOLERATING RA WELL WITH SPO2 OF 96% WITH NO SOB OR S/S OF RESPIRATORY DISTRESS. BREATHING EVEN AND UNLABORED. ON EXTERNAL JOB COUNSELOR READING SR 79 BPM. IV ACCESS RAC G#20 SALINE LOCKED, INTACT AND PATENT, FLUSHING WELL. SAFETY PRECAUTIONS IN PLACE. BED IN LOWEST LOCKED POSITION, HOB ELEVATED, SIDE RAILS UP X3, AND CALL LIGHT AND TABLE WITHIN REACH. ALL NEEDS MET AT THIS TIME.
[2022-03-28 08:00] VITALS: BP_SYST 116; BP_SYST 150; BP_DIAS 68; BP_DIAS 80
[2022-03-28] MEDS: CHOLECALCIFEROL 1,000 UNIT TABLET (VIT D3) PO SCH (09:00)
[2022-03-28] MEDS: RANOLAZINE 500 MG TAB.ER.12H PO SCH ×2 (09:00→16:32)
[2022-03-28] MEDS: VALSARTAN 80 MG TABLET PO SCH (09:00)
[2022-03-28] MEDS ORDERED: FUROSEMIDE 40 MG/4 ML VIAL IV SCH (09:00)
[2022-03-28] MEDS: CARVEDILOL 12.5 MG TABLET PO SCH (09:00)
[2022-03-28] MEDS: FAMOTIDINE (20 MG) 20 MG TABLET PO SCH (09:00)
[2022-03-28] MEDS: MAGNESIUM OXIDE 400 MG TABLET PO SCH (09:52)
[2022-03-28] MEDS: hydrALAZINE HCL 50 MG TABLET PO SCH ×3 (09:52→16:31)
[2022-03-28] MEDS: ALLOPURINOL 100 MG TABLET PO SCH (09:52)
[2022-03-28] MEDS: DOCUSATE SODIUM 100 MG CAPSULE PO SCH (09:52)
[2022-03-28] MEDS: ASCORBIC ACID 500 MG TABLET PO SCH (09:52)
[2022-03-28] MEDS: ASPIRIN 81 MG TAB.CHEW PO SCH (09:53)
[2022-03-28] MEDS: Z GUARD REMEDY 4 OZ OINT TP SCH (09:56)
[2022-03-28] MEDS: APIXABAN 5 MG TABLET PO SCH ×2 (10:16→16:32)
[2022-03-28] MEDS: NITROGLYCERIN 30 GM TUBE TP SCH (10:17)
[2022-03-28] MEDS: FERROUS SULFATE (325 MG) 325 MG/TAB TABLET PO SCH (10:17)
[2022-03-28] MEDS: POLYVINYL ALCOHOL 15 ML BOTTLE EACHEYE PRN (10:17)
--- NOTE | 2022-03-28 10:30 | NUR ---
RN NOTES - PATIENT IS REFUSING MOST OF HER MEDS, THU BAPTISTE IS AWARE. PATIENT IS AWARE OF THE RISKS AND BENEFITS, SON IS AT BEDSIDE TOO.
[2022-03-28] MEDS: INSULIN REGULAR, HUMAN 100 UNIT/ML 3 ML VIAL SQ PRN ×2 (11:48→17:11)
[2022-03-28 12:00] VITALS: BP 125/68
[2022-03-28 16:00] VITALS: BP_SYST 111; BP_SYST 134; BP_DIAS 71
[2022-03-28 16:31] VITALS: BP 135/70
[2022-03-28] MEDS: LORAZEPAM 1 MG TABLET PO PRN ×2 (18:09→18:10)
--- NOTE | 2022-03-28 19:10 | NUR ---
ACUTE CARE REGISTERED NURSE DISCHARGE NOTE PT DISCHARGED TO [facility], PT AOX4, ABLE TO MAKE NEEDS KNOWN. WITH 2LPM OXYGEN VIA NASAL CANNULA PRN, PATIENT IS ABLE TO TOLERATE ROOM AIR WITH SPO2 OF 96%. NO SOB NOTED. NOT IN ANY RESPIRATORY DISTRESS. LAST TELE READING WAS SINUS RHYTHM AT 8 BPM. VITAL SIGNS TAKEN, STABLE, AND RECORDED. PT'S SKIN INTACT, SAME UNDER SKIN FOLDS RASHES. DENIES PAIN OR DISCOMFORT AT THIS TIME. ONLY BELONGING WAS UP AND DOWN DENTURES. IV ACCESS ON L WRIST G#24 REMOVED WITH NO ACTIVE BLEEDING NOTED. DRY PRESSURE DRESSING APPLIED AT SITE, PT LEFT THE UNIT AT AROUND [id number] ACCOMPANIED BY 2 CAT OPERATOR AND DAUGHTER ARLINE, WHO GOT ALL THE DC INSTRUCTIONS. CHARGE NURSE AND MD AWARE. Addendum: 03/28/22 at 1927 by MARSHAL SANCHEZ RN WRONG PATIENT, DISREGARD.
--- NOTE | 2022-03-28 19:15 | NUR ---
SPECIAL CERTIFICATE DICTATOR DISCHARGE NOTE PT DISCHARGED TO [facility], PT AOX4, ABLE TO MAKE NEEDS KNOWN. WITH 2LPM OXYGEN VIA NASAL CANNULA PRN, PATIENT IS ABLE TO TOLERATE ROOM AIR WITH SPO2 OF 96%. NO SOB NOTED. NOT IN ANY RESPIRATORY DISTRESS. LAST TELE READING WAS SINUS RHYTHM AT 79 BPM. VITAL SIGNS TAKEN, STABLE, AND RECORDED. SKIN ASSESSMENT DONE BUT WAS ONLY LIMITED TO THE BILATERAL UPPER AND LOWER EXTREMITIES, PATIENT REFUSED TO CHECK THE BACK PART. DENIES PAIN OR DISCOMFORT AT THIS TIME. PUREWICK REMOVED. ALL BELONGINGS ACCOUNTED AND SIGNED. DISCHARGE INSTRUCTIONS GIVEN TO TORREY LAU AT THE [facility]. IV ACCESS ON RAC G#20 SL REMOVED WITH NO ACTIVE BLEEDING NOTED. DRY PRESSURE DRESSING APPLIED AT SITE, PT LEFT THE UNIT AT AROUND 1640 ACCOMPANIED BY 2 ACCOUNTS CLERK AND SAMSON VIA JAKUB. CHARGE NURSE AND AWARE.
== END 2022-03-28 18:58 | DRG 291 ==
LOC: ER 00:40 → TELE 08:26 → MED 03-20 13:14 → TELE 03-20 15:22
PROVIDERS: ADMIT Nurse Practitioner Acute Care; ATTEND Nurse Practitioner Family
PROC: 0W9B3ZZ Drainage of Left Pleural Cavity, Percutaneous Approach (ICD-10-PCS; principal; 2022-03-25)
DX: I13.0 Hypertensive heart and chronic kidney disease with heart failure and stage 1 through stage 4 chronic kidney disease, or unspecified chronic kidney disease (principal); I50.43 Acute on chronic combined systolic (congestive) and diastolic (congestive) heart failure; N17.0 Acute kidney failure with tubular necrosis; J96.91 Respiratory failure, unspecified with hypoxia; D68.59 Other primary thrombophilia; J90 Pleural effusion, not elsewhere classified; J98.11 Atelectasis; J93.83 Other pneumothorax; N18.9 Chronic kidney disease, unspecified; E11.22 Type 2 diabetes mellitus with diabetic chronic kidney disease; Z20.822 Contact with and (suspected) exposure to COVID-19; Z90.49 Acquired absence of other specified parts of digestive tract; E11.621 Type 2 diabetes mellitus with foot ulcer; L97.519 Non-pressure chronic ulcer of other part of right foot with unspecified severity; E11.622 Type 2 diabetes mellitus with other skin ulcer; Z53.20 Procedure and treatment not carried out because of patient's decision for unspecified reasons; L89.896 Pressure-induced deep tissue damage of other site; I89.0 Lymphedema, not elsewhere classified; I87.8 Other specified disorders of veins; Z74.09 Other reduced mobility; E78.5 Hyperlipidemia, unspecified; E88.09 Other disorders of plasma-protein metabolism, not elsewhere classified; Z91.199 Patient's noncompliance with other medical treatment and regimen due to unspecified reason; Z87.891 Personal history of nicotine dependence; Z86.73 Personal history of transient ischemic attack (TIA), and cerebral infarction without residual deficits; Z86.711 Personal history of pulmonary embolism; Z82.49 Family history of ischemic heart disease and other diseases of the circulatory system; Z82.3 Family history of stroke; I25.2 Old myocardial infarction; Z98.890 Other specified postprocedural states; Z79.82 Long term (current) use of aspirin; Z79.01 Long term (current) use of anticoagulants; Z79.4 Long term (current) use of insulin; Z79.899 Other long term (current) drug therapy; J45.909 Unspecified asthma, uncomplicated; M19.90 Unspecified osteoarthritis, unspecified site; F41.9 Anxiety disorder, unspecified; I27.20 Pulmonary hypertension, unspecified; J44.9 Chronic obstructive pulmonary disease, unspecified; G89.4 Chronic pain syndrome; F32.A Depression, unspecified; I34.0 Nonrheumatic mitral (valve) insufficiency
CPT/HCPCS: 36415; 71045-TC; 71250-TC; 76770-TC; 80048-TC; 80053-TC; 80076-TC; 82728-TC; 82962-TC; 83540-TC; 83735-TC; 83880; 84100-TC; 84484-TC; 85025-TC; 85730-TC; 87081-TC; 93307-TC; 93970-TC; 94799-TC; A6253; C9803; G0378; J0360; J1815; J1885; J1940; J2405; J3490; J7040; J8597; Q0162